=== PATIENT | female | born 1940 | race Caucasian/White ===

== ENCOUNTER 2022-03-06 21:30 | Inpatient (IN) | payer MEDICARE, OTHER, SELFPAY ==
--- NOTE | ~2022-03-06 | XR_ITS ---
EXAMINATION: PORTABLE CHEST 1 VIEW CLINICAL INFORMATION: SOB . COMPARISON: No recent pertinent prior studies are available for comparison. TECHNIQUE: Portable frontal view of the chest was obtained. FINDINGS: Lungs are well expanded. There are increased interstitial and vascular markings bilaterally with peribronchial cuffing. Component of mild interstitial edema is favored. No significant effusion or pneumothorax. Cardiac silhouette is enlarged with vascular calcification in aorta. No acute bony abnormality. XR/XR chest 1V IMPRESSION: Increased interstitial and vascular markings bilaterally with peribronchial cuffing. Component of mild interstitial edema is favored.
--- NOTE | ~2022-03-06 | CT_ITS ---
EXAMINATION: CT ANGIOGRAM OF THE CHEST WITH AND WITHOUT CONTRAST (CT PULMONARY ANGIOGRAM FOR PE) CLINICAL INFORMATION: Reason for Exam elevated RV pressure on echo, to eval for PE COMPARISON: None TECHNIQUE: Prior to contrast administration, noncontrast localization images were obtained. Subsequently, multidetector volumetric imaging was performed from the thoracic inlet to below the diaphragms following the administration of 65 mL Omnipaque 350 intravenous contrast. No contrast reaction reported Sagittal, coronal, and MIP oblique sagittal reformatted images were obtained on the CT workstation, uploaded to PACS, and reviewed. This CT examination was performed using dose optimization techniques as appropriate, variously including the following: *Automated exposure control *Adjustment of mA and/or kV according to patient size (this includes techniques or standardized protocols for targeted exams where dose is matched to indication/reason for exam; i.e. extremities or head) *Use of iterative reconstruction technique Total exam dose-length product 195 mGy-cm FINDINGS: QUALITY OF STUDY/CONTRAST BOLUS: Satisfactory. PULMONARY ARTERIES: No central or segmental pulmonary emboli. THORACIC AORTA: No aneurysm or dissection. LUNG: Central airways are patent. There is bilateral bronchial wall thickening present. There are bilateral regions of nodular airspace disease present most prominent in the right upper lobe. Some of this has a tree-in-bud configuration. There is some dependent airspace disease present bilaterally consistent with atelectasis. PLEURA: No pleural effusion or pneumothorax. MEDIASTINUM: The heart is enlarged. No pericardial effusion. There is mediastinal and right hilar lymphadenopathy present. There is a 1.4 cm short axis precarinal lymph node and a 2.5 x 1.3 cm aortopulmonic window lymph node.. No evidence of septal bowing or right heart strain. Coronary artery calcifications present. CHEST WALL/AXILLA: No axillary or internal mammary lymphadenopathy. OSSEOUS STRUCTURES: No acute or suspicious osseous abnormality. UPPER ABDOMEN: Within the upper pole of the left kidney there is a 1.4 cm low-density lesion with question some vascularity which could represent a complex cyst however solid mass is not excluded and ultrasound would be of help in further evaluation. No reflux of contrast into the hepatic veins to suggest elevated right heart pressures. CT/CT angio chest PE protocol IMPRESSION: No evidence of acute pulmonary artery embolus or thoracic aortic dissection. Cardiomegaly with bilateral regions of airspace disease and interstitial thickening. Above findings could be related to edema. Infectious process could also have this appearance. Mediastinal and hilar lymphadenopathy. Lesion upper pole of the left kidney for which ultrasound is recommended. VTE: negative
--- NOTE | 2022-03-06 21:34 | ECG_ITS ---
Test Reason : SOB Blood Pressure : / mmHG Vent. Rate : 074 BPM Atrial Rate : 000 BPM P-R Int : 000 ms QRS Dur : 086 ms QT Int : 378 ms P-R-T Axes : 000 040 008 degrees QTc Int : 419 ms Atrial fibrillation Abnormal ECG No previous ECGs available Referred By: Areli Shoemaker Electronically Signed By:Alejandro Arrieta
[2022-03-06 21:39] VITALS: BP 172/88; BP 189/82; PULSE 79; PULSE 99; RESP 24; TEMP 37.2; O2SAT 94; BMI 33.6
[2022-03-06 22:00] VITALS: BP 160/63; PULSE 73; RESP 16; TEMP 37.7; O2SAT 93
[2022-03-06 22:03] LABS: MANUAL DIFF FLAG NO
--- NOTE | 2022-03-06 22:03 | ED_ITS ---
HPI - SOB/Dyspnea General Chief Complaint: Dyspnea Stated Complaint: SOB Time Seen by Provider: 03/06/22 21:34 Source: patient and EMS Mode of arrival: EMS History of Present Illness HPI Narrative: History provided by EMS is that patient was found with oxygenation in the 70s. 81-year-old female who presents via EMS with complaints of shortness of breath, dry cough and decreased appetite for the last 2 days but otherwise denies chest pain and denies any GI or symptoms. Patient states that she intermittently takes a ?water pill? and states that her lower extremities have been more swollen. She also endorses that her has been is RSV positive. Related Data Allergies Allergy/AdvReac Type Severity Reaction Status Date / Time Unable to Assess Allergy Verified 03/06/22 21:34 Review of Systems Review of Systems: Pertinent positives and negatives as stated in HPI 10 point review of systems is otherwise negative. PMFSH Past Medical History Source: nursing notes reviewed Social History Social History Alcohol intake: current Alcohol intake frequency: holidays/special occasions only Alcohol type: wine Smoked in Last 30 Days: No Use of substances other than those prescribed or required for medical reasons: No Advance Directives: No Physical Exam Vital Signs: Vital Signs: Last Vital Signs Temp 99.9 F 03/06/22 22:00 Pulse 73 03/06/22 22:00 Resp 16 03/06/22 22:00 BP 160/63 H 03/06/22 22:00 Pulse Ox 93 03/06/22 22:00 O2 Del Method 03/06/22 22:00 O2 Flow Rate 6 03/06/22 22:00 Oxygen Flow Rate 7 03/06/22 21:39 BMI result Body Mass Index 33.6 VITAL SIGNS: Reviewed. GENERAL: Elevated BMI Well developed, well nourished, in moderate distress. HEAD: Normocephalic/atraumatic EYES: PERRLA, EOMI EARS: Ext canals without abnormality OROPHARYNX: no oral lesions noted, posterior pharynx clear NECK: Supple, no adenopathy LUNGS: Good inspiratory effort with coarse breath sounds throughout bilaterally, tachypnea is present without retractions. SpO2<94> on supplemental oxygen CARDIOVASCULAR: Regular rate and rhythm without noted murmurs, no JVD with bilateral 1+ pitting edema ABDOMEN: Soft, non-tender, non-distended with bowel sounds. MUSCULOSKELETAL: No tenderness, deformities, or effusions noted on gross inspection. EXTREMITIES: No cyanosis, clubbing or edema. SKIN: Inspection of the skin reveals no rashes NEUROLOGIC: Alert and oriented x 3. Strength and sensation to light touch were grossly intact x 4. Course Course Course Narrative: 2132: All laboratory investigations were reviewed without evidence to suggest pneumonia and instead both clinical and objective measures appear to be consistent with a combination acute CHF exacerbation in combination with viral illness, RSV. EKG does not demonstrate any acute cardiac etiology, chest x-ray again is consistent with clinical findings of CHF and viral illness. Although there is a noted elevation of the troponin this is felt to be type 2 in nature given the absence of chest pain and and the fact that patient was hypoxic on EMS arrival. Reevaluation(s) Reevaluation #1: Decision to admit the patient given the hypoxia, this case was discussed with the inpatient hospitalist who accepts admission after medication reconciliation. Time: 23:38 Medical Decision Making Medical Decision Making MDM Narrative: 81-year-old female with history and clinical presentation consistent with acute respiratory failure and no history of asthma/COPD but she does use BiPAP night a nd presents via EMS with significant shortness of breath and reports of hypoxia requiring nebs and route as well as supplemental oxygen. Patient currently is hemodynamically stable in suspect that this is secondary to a viral infection given her history as well as the absence of RVR noted on EKG with chronic atrial fibrillation. I have low clinical suspicion that this is a CHF. Differential Diagnosis CHF, RSV, will rule out pneumonia Admission/Observation Will treat and re-evaluate Lab Data Result Diagrams: 03/06/22 21:56 03/06/22 21:56 Labs: Lab Results 03/06/22 03/06/22 03/06/22 Range/Units 21:54 21:55 21:56 WBC 10.4 (4.8-10.8) X10*3/uL RBC 3.88 L (4.20-5.50) X10*6/uL Hgb 11.1 L (12.0-16.0) g/dl Hct 34.1 L (37.0-47.0) % MCV 87.9 (80.0-98.0) fL MCH 28.6 (27.0-33.0) pg MCHC 32.6 (31.0-35.0) g/dl RDW 13.4 (11.0-16.0) % Plt Count 254 (160-400) X10*3/uL MPV 9.1 L (9.4-12.3) fL Immature Gran % (Auto) 0.4 (0.0-0.4) % Neut % (Auto) 82.6 H (45-73) % Lymph % (Auto) 5.3 L (20-40) % Nance % (Auto) 10.8 (2-11) % Eos % (Auto) 0.5 (0-4) % Baso % (Auto) 0.4 (0-2) % Lymph # (Auto) 0.6 L (1.2-4.9) X10*3/uL Nance # (Auto) 1.1 (0.1-1.2) X10*3/uL Eos # (Auto) 0.1 (0.0-0.4) X10*3/uL Baso # (Auto) 0.0 (0.0-0.2) X10*3/uL Abs Immat Gran (auto) 0.04 H (0.00-0.03) X10*3/uL Absolute Neuts (auto) 8.6 H (2.0-8.3) x10*3/uL Absolute Nucleated RBC 0.000 (0.0-0.012) X10*3/uL Nucleated RBC % (auto) 0.0 (0.0-0.2) /100WBC PT 22.4 H (10.0-13.1) SEC INR 1.9 H (0.9-1.1) VBG pH (7.32-7.43) VBG pCO2 mmHg VBG pO2 mmHg VBG HCO3 (22-26) mmol/L VBG O2 Saturation % VBG Base Excess mmol/L Sodium (135-145) mmol/L Potassium (3.3-5.1) mmol/L Chloride (96-108) mmol/L Carbon Dioxide (22-29) mmol/L Anion Gap (12-20) BUN (9-16) mg/dL Creatinine (0.5-1.4) mg/dL Estim Creat Clear Calc Estimated GFR Random Glucose (60-115) mg/dL Calcium (8.4-10.2) mg/dL Total Bilirubin (0.0-1.0) mg/dL AST (5-31) U/L ALT (0-31) U/L Alkaline Phosphatase (39-117) U/L Troponin I High Sens (<3.5-17.0) ng/L B-Natriuretic Peptide (<100) pg/mL Total Protein (6.5-8.0) g/dL Albumin (3.5-5.0) g/dL Influenza Type A (PCR) NEGATIVE (Negative) Influenza Type B (PCR) NEGATIVE (Negative) RSV RNA Qual (PCR) POSITIVE A (Negative) SARS-CoV-2 RNA (RT-PCR) NEGATIVE (Negative) 03/06/22 03/06/22 03/06/22 Range/Units 21:56 21:56 21:57 WBC (4.8-10.8) X10*3/uL RBC (4.20-5.50) X10*6/uL Hgb (12.0-16.0) g/dl Hct (37.0-47.0) % MCV (80.0-98.0) fL MCH (27.0-33.0) pg MCHC (31.0-35.0) g/dl RDW (11.0-16.0) % Plt Count (160-400) X10*3/uL MPV (9.4-12.3) fL Immature Gran % (Auto) (0.0-0.4) % Neut % (Auto) (45-73) % Lymph % (Auto) (20-40) % Nance % (Auto) (2-11) % Eos % (Auto) (0-4) % Baso % (Auto) (0-2) % Lymph # (Auto) (1.2-4.9) X10*3/uL Nance # (Auto) (0.1-1.2) X10*3/uL Eos # (Auto) (0.0-0.4) X10*3/uL Baso # (Auto) (0.0-0.2) X10*3/uL Abs Immat Gran (auto) (0.00-0.03) X10*3/uL Absolute Neuts (auto) (2.0-8.3) x10*3/uL Absolute Nucleated RBC (0.0-0.012) X10*3/uL Nucleated RBC % (auto) (0.0-0.2) /100WBC PT (10.0-13.1) SEC INR (0.9-1.1) VBG pH (7.32-7.43) VBG pCO2 mmHg VBG pO2 mmHg VBG HCO3 (22-26) mmol/L VBG O2 Saturation % VBG Base Excess mmol/L Sodium 136 (135-145) mmol/L Potassium 4.5 (3.3-5.1) mmol/L Chloride 103 (96-108) mmol/L Carbon Dioxide 23 (22-29) mmol/L Anion Gap 15 (12-20) BUN 20 H (9-16) mg/dL Creatinine 1.00 (0.5-1.4) mg/dL Estim Creat Clear Calc 44.3 Estimated GFR 53 Random Glucose 221 H (60-115) mg/dL Calcium 8.6 (8.4-10.2) mg/dL Total Bilirubin 0.5 (0.0-1.0) mg/dL AST 24 (5-31) U/L ALT 19 (0-31) U/L Alkaline Phosphatase 62 (39-117) U/L Troponin I High Sens 21.0 H (<3.5-17.0) ng/L B-Natriuretic Peptide 406 H (<100) pg/mL Total Protein 6.4 L (6.5-8.0) g/dL Albumin 3.8 (3.5-5.0) g/dL Influenza Type A (PCR) (Negative) Influenza Type B (PCR) (Negative) RSV RNA Qual (PCR) (Negative) SARS-CoV-2 RNA (RT-PCR) (Negative) 03/06/22 Range/Units 22:01 WBC (4.8-10.8) X10*3/uL RBC (4.20-5.50) X10*6/uL Hgb (12.0-16.0) g/dl Hct (37.0-47.0) % MCV (80.0-98.0) fL MCH (27.0-33.0) pg MCHC (31.0-35.0) g/dl RDW (11.0-16.0) % Plt Count (160-400) X10*3/uL MPV (9.4-12.3) fL Immature Gran % (Auto) (0.0-0.4) % Neut % (Auto) (45-73) % Lymph % (Auto) (20-40) % Nance % (Auto) (2-11) % Eos % (Auto) (0-4) % Baso % (Auto) (0-2) % Lymph # (Auto) (1.2-4.9) X10*3/uL Nance # (Auto) (0.1-1.2) X10*3/uL Eos # (Auto) (0.0-0.4) X10*3/uL Baso # (Auto) (0.0-0.2) X10*3/uL Abs Immat Gran (auto) (0.00-0.03) X10*3/uL Absolute Neuts (auto) (2.0-8.3) x10*3/uL Absolute Nucleated RBC (0.0-0.012) X10*3/uL Nucleated RBC % (auto) (0.0-0.2) /100WBC PT (10.0-13.1) SEC INR (0.9-1.1) VBG pH 7.34 (7.32-7.43) VBG pCO2 38 mmHg VBG pO2 63 mmHg VBG HCO3 21 L (22-26) mmol/L VBG O2 Saturation 85.0 % VBG Base Excess -4.0 mmol/L Sodium (135-145) mmol/L Potassium (3.3-5.1) mmol/L Chloride (96-108) mmol/L Carbon Dioxide (22-29) mmol/L Anion Gap (12-20) BUN (9-16) mg/dL Creatinine (0.5-1.4) mg/dL Estim Creat Clear Calc Estimated GFR Random Glucose (60-115) mg/dL Calcium (8.4-10.2) mg/dL Total Bilirubin (0.0-1.0) mg/dL AST (5-31) U/L ALT (0-31) U/L Alkaline Phosphatase (39-117) U/L Troponin I High Sens (<3.5-17.0) ng/L B-Natriuretic Peptide (<100) pg/mL Total Protein (6.5-8.0) g/dL Albumin (3.5-5.0) g/dL Influenza Type A (PCR) (Negative) Influenza Type B (PCR) (Negative) RSV RNA Qual (PCR) (Negative) SARS-CoV-2 RNA (RT-PCR) (Negative) Independent Interpretation I performed an independent interpretation of an: EKG Interpretation: Atrial fibrillation, HR-74, no STEMI, QRS/QTC are within normal limits. There is no EKG for comparison. Critical Care Time Critical Care Time Critical Care Time: Yes Total Critical Care Time: 30 Attestation: I personally attest to this time spent taking care of the patient. Discharge Plan Discharge Clinical Impression: CHF (congestive heart failure), Respiratory syncytial virus (RSV), Acute respiratory failure with hypoxia Patient Disposition: Admitted As Inpatient
[2022-03-06 22:04] LABS: Basophils Percent Auto 0.4 % (0-2); Eosinophils Absolute Auto 0.1 X10*3/uL (0.0-0.4); Eosinophils Percent Auto 0.5 % (0-4); Hematocrit 34.1 % (37.0-47.0); Hemoglobin 11.1 g/dl (12.0-16.0); Imm Gran Abs Auto 0.04 X10*3/uL (0.00-0.03); Imm Gran Pct Auto 0.4 % (0.0-0.4); Lymphocytes Absolute Auto 0.6 X10*3/uL (1.2-4.9); Lymphocytes Percent Auto 5.3 % (20-40); Mean Corpuscular HGB Conc 32.6 g/dl (31.0-35.0); Mean Corpuscular Hemoglobin 28.6 pg (27.0-33.0); Mean Corpuscular Volume 87.9 fL (80.0-98.0); Mean Platelet Volume 9.1 fL (9.4-12.3); Monocytes Absolute Auto 1.1 X10*3/uL (0.1-1.2); Monocytes Percent Auto 10.8 % (2-11); Neutrophils Absolute Auto 8.6 x10*3/uL (2.0-8.3); Neutrophils Percent Auto 82.6 % (45-73); Platelet Count 254 X10*3/uL (160-400); Red Blood Count 3.88 X10*6/uL (4.20-5.50); Red Cell Distribution Width 13.4 % (11.0-16.0); White Blood Count 10.4 X10*3/uL (4.8-10.8)
--- NOTE | 2022-03-06 22:05 | PC.NURSE ---
PT A&Ox3, reports increasing SOB with a dry cough for two days. Reports using home Cpap with no relief. PT wheezing, respiratory at bedside. BLL +2 edema. Denies any pain, CP, dizziness or headache.
[2022-03-06 22:09] LABS: VBG HCO3 21 mmol/L (22-26); VBG pCO2 38 mmHg; VBG pH 7.34 (7.32-7.43); VBG pO2 63 mmHg
[2022-03-06 22:14] LABS: INTERNATIONAL NORM RATIO 1.9 (0.9-1.1); Prothrombin Time 22.4 SEC (10.0-13.1)
[2022-03-06 22:22] LABS: Venous Blood Gas Refer to POC result
--- OUTSIDE RECORDS SUMMARY | 2022-03-06 22:40 | XMS_ITS | Continuity of Care Document ---
:1940 Author Organization [facility] Address [address] [address]- Care Team Providers Name Role Phone Damir Grigsby MD Primary Care Physician Encounter [facility] Date(s): 10/24/21 - 10/31/21 [facility] [address] [address]- Encounter Diagnosis Chronic atrial fibrillation (Discharge Diagnosis) - 10/24/21 HTN (hypertension) (Discharge Diagnosis) - 10/24/21 Attending Physician: Haja Holman Jr, MD Admitting Physician: Haja Holman Jr, MD Referring Physician: Not on Staff, Referring MD Allergies, Adverse Reactions, Alerts No Known Medication Allergies Medications Basaglar KwikPen 100 units/mL subcutaneous solution See Instructions, 45 units Daily, SC, in AM x 30 days, # 15 mL, 5 Refills, Maintenance, 08/16/21 16:52:00 EDT, [id number], Partial fill upon patient request if the prescription is for a schedule II opioid drug., 160, cm, 08/16/21 15:54:00 EDT... Start Date: 08/16/21 Status: Orderedfluconazole 150 mg oral tablet 1 tablet = 150 mg, By Mouth, Once, may repeat in 72 hours if symptoms persist. If symptoms continue to persist, may repeat 72 hours after second dose., # 3 tablet, 0 Refills, Soft Stop, 10/27/21 11:56:00 EDT, Tablet, [id number], Partial fill... Start Date: 10/27/21 Status: OrderedmetFORMIN 1000 mg oral tablet 1 tablet = 1,000 mg, By Mouth, 2 times a day, # 180 tablet, 2 Refills, Maintenance, 10/10/21 11:21:00 EDT, Tablet, [facility], Partial fill upon patient request if the prescription is for a schedule II opioid drug., 160, cm, /... Start Date: 10/10/21 Status: OrderedPaxlovid 150 mg-100 mg (150 mg-100 mg Dose) oral tablet See Instructions, Take 300 mg of Nirmatrelvir (2 tablets of 150 mg) and 100 mg of Ritonavir (One tablet of 100 mg) 2 times a day for 5 days. Take all 3 tablets together, # 30 tablet, 0 Refills, Maintenance, 10/10/21 11:18:00 EDT, [facility] #[id number], P... Start Date: 10/10/21 Status: Ordered Problem List Condition Effective Dates Status Health Status Informant HLD (hyperlipidemia)(Confirmed) Active HTN (hypertension)(Confirmed) Active Hypothyroidism(Confirmed) Active Obese class II(Confirmed) Active IBAN on CPAP(Confirmed) Active Type II diabetes mellitus(Confirmed) Active UI (urinary incontinence)(Confirmed) Active Diagnosis Diagnosis Type Effective Dates Health Clinical Infor mant Status Service Chronic atrial Discharge 10/24/21 fibrillation Diagnosis HTN (hypertension) Discharge 10/24/21 Diagnosis Vital Signs Most recent to oldest [Reference Range]: 1 Height 160 cm (10/24/21 10:00 AM) Weight 92.9 kg (10/24/21 10:00 AM) Oxygen Saturation [94-100 %] 98 % (10/24/21 10:00 AM) Pulse Rate [55-90 bpm] 60 bpm (10/24/21 10:00 AM) Body Mass Index [18.5-24.99] 36.29 *>HHI* (10/24/21 10:00 AM) Blood Pressure [90-138/55-84 mm Hg] 152/46 mm Hg *H* (10/24/21 10:00 AM) Mode of Delivery (Oxygen) Room air (10/24/21 10:00 AM) Blood pressure sites Arm, left (10/24/21 10:00 AM) Weight Obtained Via Standing scale (10/24/21 10:00 AM) Social History Social History Type Response Smoking Status Never (less than 100 in life time) entered on: 08/16/21 Sex
--- OUTSIDE RECORDS SUMMARY | 2022-03-06 22:40 | XMS_ITS | Continuity of Care Document ---
:1940 Author Organization [facility] Address [address] [place] [id number]- Care Team Providers Name Role Phone Damir Grigsby MD Primary Care Physician [id number] Date(s): 09/14/21 - 10/14/21 [facility] [address] [address]- Attending Physician: Mario Hunt Admitting Physician: AdmtrMario Referring Physician: Admtr, Ar8 Allergies, Adverse Reactions, Alerts No Known Medication Allergies Medications Basaglar KwikPen 100 units/mL subcutaneous solution See Instructions, 45 units Daily, SC, in AM x 30 days, # 15 mL, 5 Refills, Maintenance, 08/16/21 16:52:00 EDT, [facility]/pharmacy #[id number], Partial fill upon patient request if the prescription is for a schedule II opioid drug., 160, cm, 08/16/21 15:54:00 EDT... Start Date: 08/16/21 Status: Orderedfluconazole 150 mg oral tablet 1 tablet = 150 mg, By Mouth, Once, # 1 tablet, 0 Refills, Soft Stop, 09/12/21 17:46:00 EDT, Tablet, [facility]/pharmacy #[id number], Partial fill upon patient request if the prescription is for a schedule II opioiddrug., 160, cm, 08/16/21 15:54:00 EDT, Height Start Date: 09/12/21 Status: OrderedmetFORMIN 1000 mg oral tablet 1 tablet = 1,000 mg, By Mouth, 2 times a day, # 180 tablet, 2 Refills, Maintenance, 10/10/21 11:21:00 EDT, Tablet, [facility], Partial fill upon patient request if the prescription is for a schedule II opioid drug., 160, cm, ... Start Date: 10/10/21 Status: OrderedPaxlovid 150 mg-100 mg (150 mg-100 mg Dose) oral tablet See Instructions, Take 300 mg of Nirmatrelvir (2 tablets of 150 mg) and 100 mg of Ritonavir (One tablet of 100 mg) 2 times a day for 5 days. Take all 3 tablets together, # 30 tablet, 0 Refills, Maintenance, 10/10/21 11:18:00 EDT, [facility]/pharmacy #[id number], P... Start Date: 10/10/21 Status: Ordered Problem List Condition Effective Dates Status Health Status Informant Atrial fibrillation(Confirmed) Active HLD (hyperlipidemia)(Confirmed) Active HTN (hypertension)(Confirmed) Active Hypothyroidism(Confirmed) Active Obese class II(Confirmed) Active IBAN on CPAP(Confirmed) Active Type II diabetes mellitus(Confirmed) Active UI (urinary incontinence)(Confirmed) Active Social History Social History Type Response Smoking Status Never (less than 100 in life time) entered on: 08/16/21 Sex
--- OUTSIDE RECORDS SUMMARY | 2022-03-06 22:40 | XMS_ITS | Continuity of Care Document ---
:1940 Author Organization [facility] Address [address] [id number]- Care Team Providers Name Role Phone Damir Grigsby MD Primary Care Physician Encounter [facility] Date(s): 10/27/21 - 11/26/21 [facility] [address] [id number]- Allergies, Adverse Reactions, Alerts No Known Medication Allergies Medications amLODIPine 2.5 mg oral tablet 0 Refills, Maintenance, 07/13/21 10:15:00 EDT, Partial fill upon patient request if the prescriptionis for a schedule II opioid drug. Start Date: 07/13/21 Status: Orderedatorvastatin 20 mg oral tablet 0 Refills, Maintenance, 07/13/21 10:09:00 EDT, Partial fill upon patient request if the prescriptionis for a schedule II opioid drug. Start Date: 07/13/21 Status: OrderedBasaglar KwikPen 100 units/mL subcutaneous solution See Instructions, 45 units Daily, SC, in AM x 30 days, # 15 mL, 5 Refills, Maintenance, 08/16/21 16:52:00 EDT, [facility]/pharmacy #[id number], Partial fill upon patient request if the prescription is for a schedule II opioid drug., 160, cm, 08/16/21 15:54:00 EDT... Start Date: 08/16/21 Status: OrderedclonazePAM 0.25 mg oral tablet, disintegrating 0 Refills, Maintenance, 07/13/21 10:11:00 EDT, Partial fill upon patient request if the prescriptionis for a schedule II opioid drug. Start Date: 07/13/21 Status: Ordereddiazepam 5 mg oral tablet Refills 0, Maintenance, 07/13/21 10:16:00 EDT, Partial fill upon patient request if the prescriptionis for a schedule II opioid drug. Start Date: 07/13/21 Status: OrderedFluconazole Maintenance, pRN, 07/13/21 10:19:00 EDT Start Date: 07/13/21 Status: Orderedfluconazole 150 mg oral tablet 1 tablet = 150 mg, By Mouth, Once, may repeat in 72 hours if symptoms persist. If symptoms continue to persist, may repeat 72 hours after second dose., # 3 tablet, 0 Refills, Soft Stop, 10/27/21 11:56:00 EDT, [id number]... Start Date: 10/27/21 Status: OrderedglipiZIDE 5 mg oral tablet, extended release 1 tablet = 5 mg, By Mouth, Daily, for 30 days, # 30 tablet, 0 Refills, Hard Stop 12/18/21 12:32:00 EDT, 11/18/21 12:32:00 EDT, ER Tablet[id number] fill upon patient request if the prescription is for a schedule II opioid drug., 160,... Start Date: 11/18/21 Stop Date: 12/18/21 Status: OrderedglipiZIDE 5 mg oral tablet, extended release 1 tablet = 5 mg, By Mouth, Daily, # 90 tablet, 0 Refills, Maintenance, 12/18/21 12:32:00 EDT, ER Tablet, [facility], Partial fill upon patient request if the prescription is for a schedule II opioid drug., 160, cm, 10/24/21 10:0... Start Date: 12/18/21 Stop Date: 01/17/22 Status: OrderedJanuvia 100 mg oral tablet 0 Refills, Maintenance, 07/13/21 10:10:00 EDT, Partial fill upon patient request if the prescriptionis for a schedule II opioid drug. Start Date: 07/13/21 Status: Orderedlosartan 100 mg oral tablet 0 Refills, Maintenance, 07/13/21 10:11:00 EDT, Partial fill upon patient request if the prescriptionis for a schedule II opioid drug. Start Date: 07/13/21 Status: OrderedmetFORMIN 1000 mg oral tablet 1 tablet = 1,000 mg, By Mouth, 2 times a day, # 180 tablet, 2 Refills, Maintenance, 10/10/21 11:21:00 EDT, Tablet, [facility], Partial fill upon patient request if the prescription is for a schedule II opioid drug., 160, cm, ... Start Date: 10/10/21 Status: OrderedmetFORMIN 1000 mg oral tablet 0 Refills, Maintenance, 07/13/21 10:09:00 EDT, Partial fill upon patient request if the prescriptionis for a schedule II opioid drug. Start Date: 07/13/21 Status: OrderedMetoprolol Tartrate 50 mg oral tablet 1 tablet = 50 mg, By Mouth, 2 times a day, # 180 tablet, 3 Refills, Maintenance, 09/08/21 16:57:00 EDT, Tablet, [facility], Partial fill upon patient request if the prescription is for a schedule II opioid drug., 160, cm, ... Start Date: 09/08/21 Stop Date: 09/03/22 Status: OrderedMetoprolol Tartrate 50 mg oral tablet 1 tablet = 50 mg, By Mouth, 2 times a day, for 90 days, # 180 tablet, 3 Refills, Hard Stop 07/08/22 10:25:00 EDT, 07/13/21 10:25:00 EDT, Tablet, [facility], Partial fill upon patient request if the prescription is for a schedule... Start Date: 07/13/21 Stop Date: 07/08/22 Status: OrderedMultivitamin Daily, 0 Refills, Maintenance, 07/13/21 10:17:00 EDT, Partial fill upon patient request if the prescription is for a schedule II opioid drug. Start Date: 07/13/21 Status: OrderedPaxlovid 150 mg-100 mg (150 mg-100 mg Dose) oral tablet See Instructions, Take 300 mg of Nirmatrelvir (2 tablets of 150 mg) and 100 mg of Ritonavir (One tablet of 100 mg) 2 times a day for 5 days. Take all 3 tablets together, # 30 tablet, 0 Refills, Maintenance, 10/10/21 11:18:00 EDT, [facility]/pharmacy #[id number], P... Start Date: 10/10/21 Status: OrderedPradaxa 150 mg oral capsule 1 capsule = 150 mg, By Mouth, 2 times a day, # 180 capsule, 3 Refills, Maintenance, 09/08/21 16:57:00 EDT, Capsule, [facility], Partial fill upon patient request if the prescription is for a schedule II opioid drug., 160, cm, 05... Start Date: 09/08/21 Status: OrderedSynthroid 0.112 mg oral tablet 0 Refills, Maintenance, 07/13/21 10:10:00 EDT, Partial fill upon patient request if the prescriptionis for a schedule II opioid drug. Start Date: 07/13/21 Status: OrderedVitamin D3 oral tablet 1 tablet = 10 mcg, By Mouth, Daily, 0 Refills, Maintenance, 07/13/21 10:17:00 EDT, Partial fill uponpatient request if the prescription is for a schedule II opioid drug. Start Date: 07/13/21 Status: Ordered Problem List Condition Effective Dates Status Health Status Informant HLD (hyperlipidemia)(Confirmed) Active HTN (hypertension)(Confirmed) Active Hypothyroidism(Confirmed) Active Obese class II(Confirmed) Active IBAN on CPAP(Confirmed) Active Type II diabetes mellitus(Confirmed) Active UI (urinary incontinence)(Confirmed) Active Social History Social History Type Response Smoking Status Never (less than 100 in life time) entered on: 08/16/21 Sex Care Team PersonnelName: Damir Grigsby MD Address: [address] [place] [id number]
--- OUTSIDE RECORDS SUMMARY | 2022-03-06 22:40 | XMS_ITS | Continuity of Care Document ---
:1940 Author Organization [facility] Address [address] [place] [address]- Care Team Providers Name Role Phone Damir Grigsby MD Primary Care Physician Encounter [facility] Date(s): 02/06/22 - 02/13/22 [facility] [address] [place] [address]- Encounter Diagnosis Medicare annual wellness visit, subsequent (Discharge Diagnosis) - 02/06/22 Attending Physician: Damir Grigsby MD Allergies, Adverse Reactions, Alerts No Known Medication Allergies Immunizations Given and Recorded Vaccine Date Status Refusal Reason influenza virus vaccine, inactivated 12/29/21 Recorded [id number] 12y+ bivalent booster vax 12/29/21 Recorde d SARS-CoV-2 mRNA ([id number]) vax 07/08/21 Recorde d Medications amLODIPine 5 mg oral tablet 5 mg, 1, tablet, By Mouth, Daily, # 90 tablet, Refills 0, Tot. Refills 0, Maintenance, 01/23/22 10:23:00 EST, Route to Pharmacy Electronically, [facility], Partial fill upon patient request if the prescription is for a schedule... Start Date: 01/23/22 Status: Orderedatorvastatin 20 mg oral tablet 1 tablet = 20 mg, By Mouth, Daily, # 90 each, 3 Refills, Maintenance, 01/23/22 10:16:00 EST, Tablet,[facility], Partial fill upon patient request if the prescription is for a schedule II opioid drug., 160, cm, 10/24/21 10:00:00... Start Date: 01/23/22 Status: OrderedBasaglar KwikPen 100 units/mL subcutaneous solution See Instructions, 45 units Daily, SC, in AM x 30 days, # 15 mL, 11 Refills, Maintenance, 02/06/22 11:01:00 EST, [facility]/pharmacy #[id number], Partial fill upon patient request if the prescription is for a schedule II opioid drug., 160, cm, 02/06/22 10:19:00 ES... Start Date: 02/06/22 Status: Ordereddiazepam 5 mg oral tablet See Instructions, take one tablet 30 to 45 minutes before the ptocedure or before the flight, # 5 tablet, Refills 0, Tot. Refills 0, Maintenance, 02/06/22 11:10:00 EST, Instructions Replace Required Details, Route to Pharmacy Electronically, [facility]/phar... Start Date: 02/06/22 Status: Orderedfluconazole 150 mg oral tablet 1 tablet = 150 mg, By Mouth, Once, # 3 tablet, 0 Refills, Soft Stop, 02/06/22 11:10:00 EST, Tablet, [facility]/pharmacy #[id number], Partial fill upon patient request if the prescription is for a schedule II opioiddrug., 160, cm, 02/06/22 10:19:00 EST, Height Start Date: 02/06/22 Status: Orderedfluconazole 150 mg oral tablet 1 tablet = 150 mg, By Mouth, Once, may repeat in 72 hours if symptoms persist. If symptoms continue to persist, may repeat 72 hours after second dose., # 3 tablet, 0 Refills, Soft Stop, 10/27/21 11:56:00 EDT, Tablet, [facility]/pharmacy #[id number], Partial fill... Start Date: 10/27/21 Status: OrderedglipiZIDE 5 mg oral tablet, extended release 1 tablet, By Mouth, Daily, # 90 tablet, 3 Refills, Maintenance, 02/06/22 11:03:00 EST, [facility], 160, cm, 02/06/22 10:19:00 EST, Height Start Date: 02/06/22 Stop Date: 02/01/23 Status: OrderedJanuvia 100 mg oral tablet 1 tablet = 100 mg, By Mouth, Daily, # 90 tablet, 3 Refills, Maintenance, 02/06/22 11:05:00 EST, Tablet, [facility], Partial fill upon patient request if the prescription is for aschedule II opioid drug., 160, cm, 02/06/22 10:19... Start Date: 02/06/22 Stop Date: 02/01/23 Status: Orderedlosartan 100 mg oral tablet 0 Refills, Maintenance, 07/13/21 10:11:00 EDT, Partial fill upon patient request if the prescriptionis for a schedule II opioid drug. Start Date: 07/13/21 Status: OrderedmetFORMIN 1000 mg oral tablet 1 tablet = 1,000 mg, By Mouth, 2 times a day, # 180 tablet, 2 Refills, Maintenance, 10/10/21 11:21:00 EDT, Tablet, [facility], Partial fill upon patient request if [...] 3 Refills, Maintenance, 09/08/21 16:57:00 EDT, Tablet, [facility], Partial fill upon patient request if the prescription is for a schedule II opioid drug., 160, cm, ... Start Date: 09/08/21 Stop Date: 09/03/22 Status: OrderedMetoprolol Tartrate 50 mg oral tablet 1 tablet = 50 mg, By Mouth, 2 times a day, for 90 days, # 180 tablet, 3 Refills, Hard Stop 07/08/22 10:25:00 EDT, 07/13/21 10:25:00 EDT, Tablet, [facility], Partial fill upon patient request if the prescription is for a schedule... Start Date: 07/13/21 Stop Date: 07/08/22 Status: OrderedMultivitamin Daily, 0 Refills, Maintenance, 07/13/21 10:17:00 EDT, Partial fill upon patient request if the prescription is for a schedule II opioid drug. Start Date: 07/13/21 Status: OrderedPradaxa 150 mg oral capsule 1 capsule = 150 mg, By Mouth, 2 times a day, # 180 capsule, 3 Refills, Maintenance, 09/08/21 16:57:00 EDT, Capsule, [facility], Partial fill upon patient request if the prescription is for a schedule II opioid drug., 160, cm, 05... Start Date: 09/08/21 Status: OrderedSynthroid 0.112 mg oral tablet 1 tablet = 112 mcg, By Mouth, Daily, # 90 tablet, 2 Refills, Maintenance, 02/06/22 11:04:00 EST, Tablet, [facility], Partial fill upon patient request if the prescription is for a schedule II opioid drug., 160, cm, 02/06/22 10:1... Start Date: 02/06/22 Stop Date: 11/03/22 Status: OrderedVitamin D3 oral tablet 1 tablet = 10 mcg, By Mouth, Daily, 0 Refills, Maintenance, 07/13/21 10:17:00 EDT, Partial fill uponpatient request if the prescription is for a schedule II opioid drug. Start Date: 07/13/21 Status: Ordered Problem List Condition Confirmation Course Effective Dates Status Health I nformant Status HLD (hyperlipidemia) Confirmed Active HTN (hypertension) Confirmed Active Hypothyroidism Confirmed Active Obese class II Confirmed Active IBAN on CPAP Confirmed Active Type II diabetes Confirmed Active mellitus UI (urinary Confirmed Active incontinence) Diagnosis Diagnosis Type Effective Dates Health Clinical Infor [facility] Status Service Medicare annual Discharge 02/06/22 wellness visit, Diagnosis subsequent Procedures Procedure Date Related Diagnosis Body Site Status Hysterectomy and bilateral C ompleted salpingo-oophorectomy sample Vital Signs Most recent to oldest [Reference Range]: 1 Height 160 cm (02/06/22 10:19 AM) Social History Social History Type Response Smoking Status Never (less than 100 in life time) entered on: 08/16/21 Sex Note Traci Ramírez MA: PERFORM, SIGN, VERIFY Event Display: Patient Education/Instruction Authored Date: [id number] [facility] *BMP Quab Adlt Med Bltn Clinical Summary Name JOSE MANUEL ROPER Age 81 Years 1940 PCP Calista LEYVA, [id number] Visit Date 02/06/2022 10:18:00 Additional Instructions: Scheduled Appointments?? Future Appointments ?No Future Appointments Scheduled Follow-Up Instructions ?? Diagnosis Encounter for general adult medical examination without abnormal findings Medications: Please continue your medications until treatment is completed or stopped by your provider. Discuss any questions related to medications with your provider. Medications to Continue Taking That Have Changed [facility], [address] [place] [address] ALEYDA Long [phone], [phone] - GlipiZIDE (glipiZIDE 5 mg oral tablet, extended release) 1 tab(s) Oral Daily for 90 Days. Refills:3. Next Dose: - Levothyroxine (Synthroid 0.112 mg oral tablet) 1 tab(s) Oral Daily for 90 Days. Refills: 2. Next Dose: - sitagliptin (Januvia 100 mg oral tablet) 1 tab(s) Oral Daily for 90 Days. Refills: 3. Next Dose: [facility]/pharmacy #[id number], [address], [place] [phone], [phone] - Diazepam (diazepam 5 mg oral tablet) take one tablet 30 to 45 minutes before the ptocedure or before the flight. Refills: 0. Next Dose: - Fluconazole (fluconazole 150 mg oral tablet) 1 tab(s) Oral once. Refills: 0. Next Dose: These medications were not printed or sent to your pharmacy - Fluconazole (fluconazole 150 mg oral tablet) 1 tab(s) Oral once. may repeat in 72 hours if symptoms persist. If symptoms continue to persist, may repeat 72 hours after second dose.. Refills: 0. Next Dose: Medications to Continue with No Changes [facility]/pharmacy #[id number], [address], [place] [phone], [phone] Insulin Glargine (Basaglar KwikPen 100 units/mL subcutaneous solution) 45 units Daily, SC, in AM x 30 days. Refills: 11. Next Dose: These medications were not printed or sent to your pharmacy Amlodipine (amLODIPine 5 mg oral tablet) 1 tab(s) Oral Daily. Refills: 0. Next Dose: Atorvastatin (atorvastatin 20 mg oral tablet) 1 tab(s) Oral Daily. Refills: 3. Next Dose: Cholecalciferol (Vitamin D3 oral tablet) 1 tab(s) Oral Daily. Next Dose: dabigatran (Pradaxa 150 mg oral capsule) 1 capsule Oral twice a day. Refills: 3. Next Dose: Losartan (losartan 100 mg oral tablet) Next Dose: Metformin (metFORMIN 1000 mg oral tablet) Next Dose: Metformin (metFORMIN 1000 mg oral tablet) 1 tab(s) Oral twice a day. Refills: 2. Next Dose: Metoprolol (Metoprolol Tartrate 50 mg oral tablet) 1 tab(s) Oral twice a day for 90 Days. Refills: 3. Next Dose: Metoprolol (Metoprolol Tartrate 50 mg oral tablet) 1 tab(s) Oral twice a day for 90 Days. Refills: 3. Next Dose: Multivitamin Daily. Next Dose: No Longer Take the Following Medications Clonazepam (clonazePAM 0.25 mg oral tablet, disintegrating) nirmatrelvir-ritonavir (Paxlovid 150 mg-100 mg (150 mg-100 mg Dose) oral tablet) Take 300 mg of Nirmatrelvir (2 tablets of 150 mg) and 100 mg of Ritonavir (One tablet of 100 mg) 2 times a day for 5 days. Take all 3 tablets together. Refills: 0. Allergy Info:?? No Known Medication Allergies Medications Given This Visit Future Orders ?No future orders Vital Signs Height 160 cm Weight BMI Blood Pressure / Temperature Pulse Rate Respiratory Rate 02 Sat Mode of Delivery / You can now view a summary of your hospital visit from the comfort of your home through a free online portal called [facility]. [employer] is a website that allows you to securely view yourmedical information including discharge summary, medications and follow-up visits. ??You can also send a secure electronic message to your doctor???s office to request appointments, renew medications or just ask a question. You can enroll at [email or web address] or register during your next office visit. Disclaimer:?? The information provided is of a general nature and is intended to be used in conjunction with the recommendations and advice of your health care practitioner. ??Every effort has been made to ensure that the information provided is accurate and complete at the time it is provided to you however, as your needs change, or, as new ??information becomes available, different or additional instructions may be required. If you have questions, please consult with your primary care provider or pharmacist, as appropriate.??This information is not intended to serve as substitution for assessment and evaluation by a qualified health care provider. If you do not have a primary care provider, you may find a [facility] provider by calling [facility] at [phone]. For information about the plan of care including goals and instructions for your diagnosis, please see the patient education orders section of this document. Patient Education Materials?? The content of this educational material or handout may have been modified, supplemented, or adaptedfrom its original content and format to support your individualized medical care. Patient Care team information Care Team PersonnelName: Damir Grigsby MD Position: S Primary Care Physician Member Role: PCP Address: Address: [address] [place] [address] Care Team Related PersonsName: JASEN ROPER
--- OUTSIDE RECORDS SUMMARY | 2022-03-06 22:40 | XMS_ITS | Continuity of Care Document ---
:1940 Author Organization [facility] Address [address] [phone]- Care Team Providers Name Role Phone Daimr Grigsby MD Primary Care Physician Encounter [facility] [id number] Date(s): 08/16/21 - 08/23/21 [facility] [address] [place] [address]- Encounter Diagnosis Type II diabetes mellitus (Discharge Diagnosis) - 08/16/21 Atrial fibrillation (Discharge Diagnosis) - 08/16/21 HTN (hypertension) (Discharge Diagnosis) - 08/16/21 Hypothyroidism (Discharge Diagnosis) - 08/16/21 IBAN on CPAP (Discharge Diagnosis) - 08/16/21 Anxiety disorder (Discharge Diagnosis) - 08/16/21 HLD (hyperlipidemia) (Discharge Diagnosis) - 08/16/21 Attending Physician: Damir Grigsby MD Allergies, Adverse Reactions, Alerts No Known Medication Allergies Medications Basaglar KwikPen 100 units/mL subcutaneous solution See Instructions, 45 units Daily, SC, in AM x 30 days, # 15 mL, 5 Refills, Maintenance, 08/16/21 16:52:00 EDT, [facility]/pharmacy #[id number], Partial fill upon patient request if the prescription is for a schedule II opioid drug., 160, cm, 08/16/21 15:54:00 EDT... Start Date: 08/16/21 Status: Ordered Problem List Condition Effective Dates Status Health Status Informant Atrial fibrillation(Confirmed) Active HLD (hyperlipidemia)(Confirmed) Active HTN (hypertension)(Confirmed) Active Hypothyroidism(Confirmed) Active Obese class II(Confirmed) Active IBAN on CPAP(Confirmed) Active Type II diabetes mellitus(Confirmed) Active UI (urinary incontinence)(Confirmed) Active Diagnosis Diagnosis Type Effective Dates Health Clinical Infor mant Status Service Type II diabetes Discharge 08/16/21 mellitus Diagnosis Atrial fibrillation Discharge 08/16/21 Diagnosis HTN (hypertension) Discharge 08/16/21 Diagnosis Hypothyroidism Discharge 08/16/21 Diagnosis IBAN on CPAP Discharge 08/16/21 Diagnosis Anxiety disorder Discharge 08/16/21 Diagnosis HLD (hyperlipidemia) Discharge 08/16/21 Diagnosis Vital Signs Most recent to oldest [Reference Range]: 1 Height 160 cm (08/16/21 3:54 PM) Weight 92.4 kg (08/16/21 3:54 PM) Oxygen Saturation [94-100 %] 98 % (08/16/21 3:54 PM) Pulse Rate [55-90 bpm] 54 bpm *L* (08/16/21 3:54 PM) Body Mass Index [18.5-24.99] 36.09 *>HHI* (08/16/21 3:54 PM) Blood Pressure [90-138/55-84 mm Hg] 130/70 mm Hg (08/16/21 3:54 PM) Liters per Minute 0 L/min (08/16/21 3:54 PM) Mode of Delivery (Oxygen) Room air (08/16/21 3:54 PM) Blood pressure sites Arm, right (08/16/21 3:54 PM) Weight Obtained Via Standing scale (08/16/21 3:54 PM) Social History Social History Type Response Smoking Status Never (less than 100 in life time) entered on: 08/16/21 Sex
--- OUTSIDE RECORDS SUMMARY | 2022-03-06 22:40 | XMS_ITS | Continuity of Care Document ---
:1940 Author Organization [facility] Address [address] [place] [address]- Care Team Providers Name Role Phone Damir Grigsby MD Primary Care Physician Encounter [facility] Date(s): 09/14/21 - 09/21/[address] [address]- Attending Physician: Ashanti Lopez MD Admitting Physician: Ashanti Lopez MD Referring Physician: Ashanti Lopez MD Allergies, Adverse Reactions, Alerts No Known [...] Refills, Soft Stop, 09/12/21 17:46:00 EDT, Tablet, [id number], Partial fill upon patient request if the prescription is for a schedule II opioiddrug., 160, cm, 08/16/21 15:54:00 EDT, Height Start Date: 09/12/21 Status: Ordered Problem List Condition Effective Dates [...]
--- OUTSIDE RECORDS SUMMARY | 2022-03-06 22:40 | XMS_ITS | Continuity of Care Document ---
:1940 Author Organization [facility] Address [address] [place] [address]- Care Team Providers Name Role Phone Damir Grigsby MD Primary Care Physician [facility] Date[facility]s): 10/10/21 - 10/17/21 [facility] [address] [place] [address]- Encounter Diagnosis COVID-19 virus infection (Discharge Diagnosis) - 10/10/21 Type II diabetes mellitus (Discharge Diagnosis) - 10/10/21 Atrial fibrillation (Discharge Diagnosis) - 10/10/21 Attending Physician: Damir Grigsby MD Allergies, Adverse Reactions, Alerts No Known Medication Allergies Medications Basaglar KwikPen 100 units/mL subcutaneous solution See Instructions, 45 units Daily, SC, in AM x 30 days, # 15 mL, 5 Refills, Maintenance, 08/16/21 16:52:00 EDT, [facility]/pharmacy #[id number], Partial fill upon patient [...] 2 Refills, Maintenance, 10/10/21 11:21:00 EDT, Tablet, [facility], Partial fill upon patient request if [...] tablet, 0 Refills, Maintenance, 10/10/21 11:18:00 EDT, [facility]/pharmacy #[id number], P... Start Date: 10/10/21 Status: Ordered Problem List Condition Effective Dates Status Health Status Informant Atrial fibrillation(Confirmed) Active HLD (hyperlipidemia)(Confirmed) Active HTN (hypertension)(Confirmed) Active Hypothyroidism(Confirmed) Active Obese class II(Confirmed) Active IBAN on CPAP(Confirmed) Active Type II diabetes mellitus(Confirmed) Active UI (urinary incontinence)(Confirmed) Active Diagnosis Diagnosis Type Effective Dates Health Clinical Infor mant Status Service COVID-19 virus Discharge 10/10/21 infection Diagnosis Type II diabetes Discharge 10/10/21 mellitus Diagnosis Atrial fibrillation Discharge 10/10/21 Diagnosis Social History Social History Type Response Smoking Status Never (less than 100 in life time) entered on: 08/16/21 Sex
--- OUTSIDE RECORDS SUMMARY | 2022-03-06 22:40 | XMS_ITS | Continuity of Care Document ---
:1940 Author Organization [facility] Address [address] [place] [address]- Care Team Providers Name Role Phone Not on Staff, PCP Primary Care Physician Unavailable Encounter [facility] R [id number] Date(s): 05/25/21 - 07/27/[address] [address]- Attending Physician: Ashanti Lopez MD Admitting Physician: Ashanti Lopez MD Referring Physician: Damir Grigsby MD Allergies, Adverse Reactions, Alerts No Known Medication Allergies
--- OUTSIDE RECORDS SUMMARY | 2022-03-06 22:40 | XMS_ITS | Continuity of Care Document ---
:1940 Author Organization [facility] Address [address] [phone]- Care Team Providers Name Role Phone Damir Grigsby MD Primary Care Physician Encounter [facility] Date(s): 09/12/21 - 10/12/21 [facility] [address] [place] [address]- Allergies, Adverse Reactions, Alerts No Known Medication Allergies Medications Basaglar KwikPen 100 units/mL subcutaneous solution See Instructions, 45 units Daily, SC, in AM x 30 days, # 15 mL, 5 Refills, Maintenance, 08/16/21 16:52:00 EDT, [facility]/pharmacy #[id number], Partial fill upon patient request if the prescription is for a schedule II opioid drug., 160, cm, 08/16/21 15:54:00 EDT... Start Date: 08/16/21 Status: Orderedfluconazole 150 mg oral tablet 1 tablet = 150 mg, By Mouth, Once, # 1 tablet, 0 Refills, Soft Stop, 09/12/21 17:46:00 EDT, Tablet, [facility]/pharmacy #[id number], Partial fill upon patient request if the prescription is for a schedule II opioiddrug., 160, cm, 08/16/21 15:54:00 EDT, Height Start Date: 09/12/21 Status: OrderedmetFORMIN 1000 mg oral tablet 1 tablet = 1,000 mg, By Mouth, 2 times a day, # 180 tablet, 2 Refills, Maintenance, 10/10/21 11:21:00 EDT, Tablet, [facility], Partial fill upon patient request if [...] 0 Refills, Maintenance, 10/10/21 11:18:00 EDT, [facility]/pharmacy #[id number], P... Start Date: 10/10/21 Status: [...]
--- OUTSIDE RECORDS SUMMARY | 2022-03-06 22:40 | XMS_ITS | Continuity of Care Document ---
:1940 Author Organization [facility] Address [address] [phone]- Care Team Providers Name Role Phone Damir Grigsby MD Primary Care Physician Encounter [facility] Date(s): 10/25/21 - 11/24/21 [facility] [address] [phone]- Allergies, Adverse Reactions, Alerts No Known Medication [...] mL, 5 Refills, Maintenance, 08/16/21 16:52:00 EDT, [facility]/pharmacy #[id number], Partial fill upon [...] Refills, Soft Stop, 10/27/21 11:56:00 EDT, [id number]... Start Date: 10/27/21 Status: OrderedglipiZIDE 5 mg oral tablet, extended release 1 tablet = 5 mg, By Mouth, Daily, for 30 days, # 30 tablet, 0 Refills, Hard Stop 12/18/21 12:32:00 EDT, 11/18/21 12:32:00 EDT, ER Tablet, [id number] Partial fill upon patient request if the prescription is for a schedule II opioid drug., 160,... Start Date: 11/18/21 Stop Date: 12/18/21 Status: OrderedglipiZIDE 5 mg oral tablet, extended release 1 tablet = 5 mg, By Mouth, Daily, # 90 tablet, 0 Refills, Maintenance, 12/18/21 12:32:00 EDT, ER Tablet, [facility], Partial fill upon patient request if [...] 2 Refills, Maintenance, 10/10/21 11:21:00 EDT, Tablet, [facility], Partial fill upon patient request if [...] 3 Refills, Maintenance, 09/08/21 16:57:00 EDT, Tablet, [facility], Partial fill upon patient request if the prescription is for a schedule II opioid drug., 160, cm, ... Start Date: 09/08/21 Stop Date: 09/03/22 Status: OrderedMetoprolol Tartrate 50 mg oral tablet 1 tablet = 50 mg, By Mouth, 2 times a day, for 90 days, # 180 tablet, 3 Refills, Hard Stop 07/08/22 10:25:00 EDT, 07/13/21 10:25:00 EDT, Tablet, [facility], Partial fill upon patient request if [...] tablet, 0 Refills, Maintenance, 10/10/21 11:18:00 EDT, [facility]/pharmacy #[id number], P... Start Date: 10/10/21 Status: OrderedPradaxa 150 mg oral capsule 1 capsule = 150 mg, By Mouth, 2 times a day, # 180 capsule, 3 Refills, Maintenance, 09/08/21 16:57:00 EDT, Capsule, [facility], Partial fill upon patient request if [...] Care Team PersonnelName: Damir Grigsby MD Address: [address] [place] [id number]
[2022-03-06 22:41] LABS: Influenza A PCR NEGATIVE (Negative); Influenza B PCR NEGATIVE (Negative); Resp Syncy Virus RNA Qual PCR POSITIVE (Negative); SARS COV2 PCR INHOUSE NEGATIVE (Negative)
--- OUTSIDE RECORDS SUMMARY | 2022-03-06 22:41 | XMS_ITS | Continuity of Care Document ---
:1940 Author Organization [facility] n Address [address] [address]- Care Team Providers Name Role Phone Damir Grigsby MD Primary Care Physician [place] [facility]22 - 01/30/22 [facility] [address] [address]- Encounter Diagnosis Atrial fibrillation (Discharge Diagnosis) - 01/23/22 HTN (hypertension) (Discharge Diagnosis) - 01/23/22 HLD (hyperlipidemia) (Discharge Diagnosis) - 01/23/22 Attending Physician: Haja Holman Jr, MD Admitting Physician: Haja Holman Jr, MD Referring Physician: Damir Grigsby MD Allergies, Adverse Reactions, Alerts No Known Medication Allergies Medications amLODIPine 5 mg oral tablet 5 mg, 1, tablet, By Mouth, Daily, # 90 tablet, Refills 0, Tot. Refills 0, Maintenance, 01/23/22 10:23:00 EST, [facility] Partial fill upon patient request if the prescription is for a schedule... Start Date: 01/23/22 Status: Orderedatorvastatin 20 mg oral tablet 1 tablet = 20 mg, By Mouth, Daily, # 90 each, 3 Refills, Maintenance, 01/23/22 10:16:00 EST, Tablet,[facility], Partial fill upon patient request if the prescription is for a schedule II opioid drug., 160, cm, 10/24/21 10:00:00... Start Date: 01/23/22 Status: OrderedBasaglar KwikPen 100 units/mL subcutaneous solution See Instructions, 45 units Daily, SC, in AM x 30 days, # 15 mL, 5 Refills, Maintenance, 08/16/21 16:52:00 EDT, [facility]/pharmacy #[id number], Partial fill upon [...] Refills, Soft Stop, 10/27/21 11:56:00 EDT, Tablet, [facility]/pharmacy #[id number], Partial fill... Start Date: 10/27/21 Status: OrderedglipiZIDE 5 mg oral tablet, extended release 1 tablet, By Mouth, Daily, # 30 tablet, 5 Refills, Maintenance, 12/13/21 11:22:00 EDT, [facility]/pharmacy #[id number], 160, cm, 10/24/21 10:00:00 EDT, Height Start Date: 12/13/21 Status: OrderedJanuvia 100 mg oral tablet 0 [...] 2 Refills, Maintenance, 10/10/21 11:21:00 EDT, Tablet, [facility], Partial fill upon patient request [...] 3 Refills, Maintenance, 09/08/21 16:57:00 EDT, Tablet, [facility], Partial fill upon patient request if the prescription is for a schedule II opioid drug., 160, cm, ... Start Date: 09/08/21 Stop Date: 09/03/22 Status: OrderedMetoprolol Tartrate 50 mg oral tablet 1 tablet = 50 mg, By Mouth, 2 times a day, for 90 days, # 180 tablet, 3 Refills, Hard Stop 07/08/22 10:25:00 EDT, 07/13/21 10:25:00 EDT, Tablet, [facility], Partial fill upon patient request [...] tablet, 0 Refills, Maintenance, 10/10/21 11:18:00 EDT, [facility]/pharmacy #[id number], P... Start Date: 10/10/21 Status: OrderedPradaxa 150 mg oral capsule 1 capsule = 150 mg, By Mouth, 2 times a day, # 180 capsule, 3 Refills, Maintenance, 09/08/21 16:57:00 EDT, Capsule, [facility], Partial fill upon patient request [...] Problem List Condition Confirmation Course Effective Dates [facility] I nformant Status HLD (hyperlipidemia) Confirmed Active HTN (hypertension) Confirmed Active Hypothyroidism Confirmed Active Obese class II Confirmed Active IBAN on CPAP Confirmed Active Type II diabetes Confirmed Active mellitus UI (urinary Confirmed Active incontinence) Diagnosis Diagnosis Type Effective Dates Health Clinical Infor mant Status Service Atrial fibrillation Discharge 01/23/22 Diagnosis HTN (hypertension) Discharge 01/23/22 Diagnosis HLD Discharge 01/23/22 (hyperlipidemia) Diagnosis Social History Social History Type Response Smoking Status Never (less than 100 in life time) entered on: 08/16/21 Sex Cardiology Outpatient Note River Youngblood MD, Haja Pearson: PERFORM Event Display: Cardiology Note Office Authored Date: [id number] Patient: ??JOSE MANUEL ROPER ? Age:??81 Years?Sex:??Female?:??1940?? Telemedicine Service was provided using telemedicine Reason For Visit 3 MONTH HTN AFIB History of Present Illness/ Interval History 80-year-old female ?? past medical history -chronic atrial fibrillation on Pradaxa, -insulin-dependent diabetes mellitus, -hypertension, -obstructive sleep apnea ?? On visit,??doing well Home blood pressure in the mornings in the 150s 160s in the afternoons high 130s low 140s, she did not take her heart rate, she is taking amlodipine 2.5 daily with some swelling she does have Lasix but does not like taking this she says her shoes do not fit in the afternoon as well??not gross edema ?? Not have any other complaints to include shortness of breath passing out or chest pain ?? She needs her atorvastatin refilled has taken 20 for a number of years does have diabetes, has had a difficult time getting with her primary doctor for responsiveness Physical Exam Telephone visit Assessment/Plan 1.??Atrial fibrillation Chronic on anticoagulation, no obvious symptoms 2.??HTN (hypertension) Minimally elevated would like to increase atorvastatin to 5 and take Lasix for swelling on appearingbasis 3.??HLD (hyperlipidemia) Off of atorvastatin, strong indication due to age and diabetes we will refill defer to PCP Orders: Amlodipine, 5 mg, 1, tablet, By Mouth, Daily, # 90 tablet, Refills 0, Tot. Refills 0, Maintenance, 01/23/22 10:23:00 EST, [facility], Partial fill upon patient request if the prescription is for a schedule... Atorvastatin, 1 tablet = 20 mg, By Mouth, Daily, # 90 each, 3 Refills, Maintenance, 01/23/22 10:16:00 EST, Tablet, [facility], Partial fill upon patient request if the prescription is for a schedule II opioid drug., 160, cm, 10/24/21 10:00:00... Recommendations:??Increase atorvastatin to 5 mg daily continue home monitoring follow-up in the office in 3 months??questions entertained. Telehealth Time of direct telehealth encounter/medical discussion: _10 minutes The patient was located in a home setting in the [facility] during this Phone electronic televisit, and gave consent to conduct the visit via telehealth. Provider was located in a [facility] office. Persons other than patient involved in televisit included: none Allergies No Known Medication Allergies Home Medications amLODIPine 5 mg oral tablet, 5 mg= 1 tablet, By Mouth, Daily atorvastatin 20 mg oral tablet, 20 mg= 1 tablet, By Mouth, Daily, 3 refills Basaglar KwikPen 100 units/mL subcutaneous solution, See Instructions, 5 refills, 45 units Daily, SC, in AM x 30 days clonazePAM 0.25 mg oral tablet, disintegrating,?Not taking diazepam 5 mg oral tablet Fluconazole, pRN fluconazole 150 mg oral tablet, 150 mg= 1 tablet, By Mouth, Once, may repeat in 72 hours if symptoms persist. If symptoms continue to persist, may repeat 72 hours after second dose. glipiZIDE 5 mg oral tablet, extended release, 1 tablet, By Mouth, Daily, 5 refills Januvia 100 mg oral tablet losartan 100 mg oral tablet metFORMIN 1000 mg oral tablet, 1000 mg= 1 tablet, By Mouth, 2 times a day, 2 refills metFORMIN 1000 mg oral tablet Metoprolol Tartrate 50 mg oral tablet, 50 mg= 1 tablet, By Mouth, 2 times a day, 3 refills Metoprolol Tartrate 50 mg oral tablet, 50 mg= 1 tablet, By Mouth, 2 times a day, 3 refills Multivitamin, Daily Paxlovid 150 mg-100 mg (150 mg-100 mg Dose) oral tablet, See Instructions, Take 300 mg of Nirmatrelvir (2 tablets of 150 mg) and 100 mg of Ritonavir (One tablet of 100 mg) 2 times a day for 5 days. Take all 3 tablets together,?Not taking Pradaxa 150 mg oral capsule, 150 mg= 1 capsule, By Mouth, 2 times a day, 3 refills Synthroid 0.112 mg oral tablet Vitamin D3 oral tablet, 10 mcg= 1 tablet, By Mouth, Daily Lab Results Cardiology Labs WBC: 8.8 k/mm3 (09/08/21) RBC:??4.08 m/mm3??Low (09/08/21) Hgb:??11.5 Gm/dL??Low (09/08/21) Hct: 36.7 % (09/08/21) MCV: 90 femtoliters (09/08/21) MCH: 28.2 pg (09/08/21) MCHC:??31.3 g/dL??Low (09/08/21) Platelet Count: 326 k/mm3 (09/08/21) RDW-SD: 43.1 femtoliters (09/08/21) Nucleated RBC (Automated): 0 #/100 WBC'S (09/08/21) Abs. Neut: 6 k/mm3 (09/08/21) Abs. Lymph: 1.7 k/mm3 (09/08/21) Abs. Ware: 0.7 k/mm3 (09/08/21) Abs. Eo: 0.2 k/mm3 (09/08/21) Abs. Baso: 0.1 k/mm3 (09/08/21) Neut %: 68.8 % (09/08/21) Ware %: 8.2 % (09/08/21) Eos %: 2.7 % (09/08/21) Baso %: 0.8 % (09/08/21) Imm Gran: 0.3 % (09/08/21) Abs. Imm Gran: 0 k/mm3 (09/08/21) Sodium: 141 mmol/L (09/08/21) Potassium: 4.4 mmol/L (09/08/21) Chloride: 101 mmol/L (09/08/21) Bicarbonate Level: 27 mmol/L (09/08/21) Glucose Level: 81 mg/dL (09/08/21) Hemoglobin A1C (Monitoring):??7.2 %??High (09/08/21) BUN: 20 mg/dL (09/08/21) Creatinine-Blood: 0.8 mg/dL (09/08/21) Calcium: 10.2 mg/dL (09/08/21) Protein, Total: 6.7 Gm/dL (09/08/21) Albumin: 4.3 Gm/dL (09/08/21) Alkaline Phosphatase: 82 units/L (09/08/21) AST (SGOT): 16 units/L (09/08/21) ALT (SGPT): 15 units/L (09/08/21) Bilirubin, Total: 0.5 mg/dL (09/08/21) Cholesterol: 153 mg/dL (09/08/21) Triglycerides: 115 mg/dL (09/08/21) HDL Cholesterol: 52 mg/dL (09/08/21) LDL Cholesterol: 78 mg/dL (09/08/21) Non HDL Cholesterol: 101 mg/dL (09/08/21) TSH: 2.03 uIU/mL (09/08/21) Free T4: 1.61 ng/dL (09/08/21) Diagnostic Impression ECG ECG 12-Lead ?? 09:59:11 Ventricular Rate: 52 BPM Atrial Rate: 241 BPM QRS Duration: 86 ms Q-T Interval: 452 ms QTC Calculation(Bazett): 420 ms R Darragh: 31 degrees T Darragh: 22 degrees Atrial fibrillation with slow ventricular response Abnormal ECG No previous ECGs available Confirmed by NGHIA CARBAJAL ([id number]) on 08/24/2021 5:55:52 PM ?? [place]: NGHIA CARBAJAL ?? Signed By: Nghia Carbajal MD Echo Echocardiogram - Complete ?? 10:11:09 Summary The left ventricle is poorly visualized. The left ventricular size is normal. The left ventricular wall thickness is mildly increased. The LV systolic function is normal . The left ventricular ejection fraction is 60-65 %. Unable to assess diastolic function . Abnormal septal wall motion possible conduction related. ?? The right ventricle is poorly visualized. The right ventricular size is at the upper limits of normal. Right ventricular systolic function is mildly reduced An accurate pulmonary artery pressure could not be obtained. ?? There is mild mitral regurgitation. ?? Comparison No prior study available for comparison. ?? Signature ?? Signed By: River Youngblood MD, Haja Pearson Problem List/Past Medical History Ongoing HLD (hyperlipidemia) HTN (hypertension) Hypothyroidism Obese class II IBAN on CPAP Type II diabetes mellitus UI (urinary incontinence) Historical Atrial fibrillation Procedure/Surgical History No qualifying data available. Social History Tobacco Use: Never (less than 100 in lifetime)., 08/16/2021 Family History No family history recorded. Note Marry Webber: PERFORM, SIGN, VERIFY Event Display: Patient Education/Instruction Authored Date: [id number] [facility] *NHmp Hrt Vas Off Clinical Summary Name JOSE MANUEL ROPER Age 81 Years 1940 PCP [facility]igs[id number] Visit Date 01/23/2022 10:00:00 Additional Instructions: Scheduled Appointments?? Future Appointments ?*[facility]??[facility]??Med??Bltn ?[address],??[place],??[address] ?Phone:??--?Fax:??-- ?Appt. Date:??02/06/2022?10:40 AM ?Scheduled Provider:??Damir Grigsby MD Follow-Up Instructions ?? With: Address: When: Haja Holman [facility] [place] [address] Business (1) In 3 months 04/25/2022 Diagnosis Unspecified atrial fibrillation; Hyperlipidemia, unspecified; Essential (primary) hypertension Medications: Please continue your medications until treatment is completed or stopped by your provider. Discuss any questions related to medications with your provider. Medications to Continue Taking That Have Changed [facility], [address] [place] [address] ALEYDA Long [phone], [phone] - Amlodipine (amLODIPine 5 mg oral tablet) 1 tab(s) Oral Daily. Refills: 0. Next Dose: - Atorvastatin (atorvastatin 20 mg oral tablet) 1 tab(s) Oral Daily. Refills: 3. Next Dose: Medications to Continue with No Changes These medications were not printed or sent to your pharmacy Cholecalciferol (Vitamin D3 oral tablet) 1 tab(s) Oral Daily. Next Dose: Clonazepam (clonazePAM 0.25 mg oral tablet, disintegrating) Next Dose: dabigatran (Pradaxa 150 mg oral capsule) 1 capsule Oral twice a day. Refills: 3. Next Dose: Diazepam (diazepam 5 mg oral tablet) Next Dose: Fluconazole pRN. Next Dose: Fluconazole (fluconazole 150 mg oral tablet) 1 tab(s) Oral once. may repeat in 72 hours if symptoms persist. If symptoms continue to persist, may repeat 72 hours after second dose.. Refills: 0. Next Dose: GlipiZIDE (glipiZIDE 5 mg oral tablet, extended release) 1 tab(s) Oral Daily. Refills: 5. Next Dose: Insulin Glargine (Basaglar KwikPen 100 units/mL subcutaneous solution) 45 units Daily, SC, in AM x 30 days. Refills: 5. Next Dose: Levothyroxine (Synthroid 0.112 mg oral tablet) Next Dose: Losartan (losartan 100 mg oral tablet) Next Dose: Metformin (metFORMIN 1000 mg oral tablet) 1 tab(s) Oral twice a day. Refills: 2. Next Dose: Metformin (metFORMIN 1000 mg oral tablet) Next Dose: Metoprolol (Metoprolol Tartrate 50 mg oral tablet) 1 tab(s) Oral twice a day for 90 Days. Refills: 3. Next Dose: Metoprolol (Metoprolol Tartrate 50 mg oral tablet) 1 tab(s) Oral twice a day for 90 Days. Refills: 3. Next Dose: Multivitamin Daily. Next Dose: nirmatrelvir-ritonavir (Paxlovid 150 mg-100 mg (150 mg-100 mg Dose) oral tablet) Take 300 mg of Nirmatrelvir (2 tablets of 150 mg) and 100 mg of Ritonavir (One tablet of 100 mg) 2 times a day for 5 days. Take all 3 tablets together. Refills: 0. Next Dose: sitagliptin (Januvia 100 mg oral tablet) Next Dose: Allergy Info:?? No Known Medication Allergies Medications Given This Visit Future Orders ?No future orders Vital Signs Height Weight BMI Blood Pressure / Temperature Pulse Rate Respiratory Rate 02 Sat Mode of Delivery / You can now view a summary of your hospital visit from the comfort of your home through a free online portal called [email or web address]. [email or web address] is a website that allows you to securely view yourmedical information including discharge summary, medications and follow-up visits. ??You can also send a secure electronic message to your doctor???s office to request appointments, renew medications or just ask a question. You can enroll at [email or web address] or register during your next office visit. [...] primary care provider, you may find a [facility] provider by calling [facility] at [phone]. For information about the plan of care [...] Care Team PersonnelName: Damir Grigsby MD Position: [facility] Primary Care Physician Member Role: PCP Address: Address: [address] [place] [address], [place] [address]- Care Team Related PersonsName: JASEN ROPER
--- OUTSIDE RECORDS SUMMARY | 2022-03-06 22:41 | XMS_ITS | Continuity of Care Document ---
:1940 Author Organization [facility] Address [address] [id number]- Care Team Providers Name Role Phone Damir Grigsby MD [id number] [address] [id number]- Allergies, Adverse Reactions, Alerts No Known Medication Allergies Medications amLODIPine 2.5 mg oral tablet 1 tablet = 2.5 mg, By Mouth, Daily, # 90 tablet, 3 Refills, Maintenance, 12/09/21 15:40:00 EDT, Tablet, [facility], Partial fill upon patient request if the prescription is for aschedule II opioid drug., 160, cm, 10/24/21 10:00... Start Date: 12/09/21 Status: Orderedatorvastatin 20 mg oral tablet 0 Refills, Maintenance, 07/13/21 10:09:00 EDT, Partial fill upon patient request if the prescriptionis for a schedule II opioid drug. Start Date: 07/13/21 Status: OrderedBasaglar KwikPen 100 units/mL subcutaneous solution See Instructions, 45 units Daily, SC, in AM x 30 days, # 15 mL, 5 Refills, Maintenance, 08/16/21 16:52:00 EDT, [facility]/pharmacy #[id number], Partial fill upon patient request if [...] Refills, Soft Stop, 10/27/21 11:56:00 EDT, Tablet, [facility]/pharmacy #[id number], Partial fill... Start Date: 10/27/21 Status: OrderedglipiZIDE 5 mg oral tablet, extended release 1 tablet, By Mouth, Daily, # 30 tablet, 5 Refills, Maintenance, 12/13/21 11:22:00 EDT, [facility]/pharmacy #[id number], 160, cm, 10/24/21 10:00:00 EDT, Height [...] 2 Refills, Maintenance, 10/10/21 11:21:00 EDT, Tablet, [facility], Partial fill upon patient request if [...] 3 Refills, Maintenance, 09/08/21 16:57:00 EDT, Tablet, [facility], Partial fill upon patient request if the prescription is for a schedule II opioid drug., 160, cm, ... Start Date: 09/08/21 Stop Date: 09/03/22 Status: OrderedMetoprolol Tartrate 50 mg oral tablet 1 tablet = 50 mg, By Mouth, 2 times a day, for 90 days, # 180 tablet, 3 Refills, Hard Stop 07/08/22 10:25:00 EDT, 07/13/21 10:25:00 EDT, Tablet, [facility], Partial fill upon patient request [...] tablet, 0 Refills, Maintenance, 10/10/21 11:18:00 EDT, [facility]/pharmacy #[id number], P... Start Date: 10/10/21 Status: OrderedPradaxa 150 mg oral capsule 1 capsule = 150 mg, By Mouth, 2 times a day, # 180 capsule, 3 Refills, Maintenance, 09/08/21 16:57:00 EDT, Capsule, [facility], Partial fill upon patient request [...] Active mellitus UI (urinary Confirmed Active incontinence) Social History Social History Type Response Smoking Status Never (less than 100 in life time) entered on: 08/16/21 Sex Patient Care team information PersonnelName: Damir Grigsby MD Address: Address: [address] [place] [id number]
--- OUTSIDE RECORDS SUMMARY | 2022-03-06 22:41 | XMS_ITS | Continuity of Care Document ---
:1940 Author Organization [facility] n Address [address] [address]- Care Team Providers Name Role Phone Damir Grigsby MD Primary Care Physician Encounter [facility] Date(s): 01/23/22 - 02/22/22 [facility] [address] [address]- Attending Physician: Admtr, Ar8 Admitting Physician: Admtr, Ar8 Referring Physician: Admtr, Ar8 Allergies, Adverse Reactions, Alerts No Known Medication Allergies Immunizations Given and Recorded Vaccine Date Status Refusal Reason influenza virus vaccine, inactivated 12/29/21 Recorded [id number] 12y+ bivalent booster vax 12/29/21 Recorde d SARS-CoV-2 mRNA ([id number]) vax 07/08/21 Recorde d Medications amLODIPine 5 mg oral tablet 5 mg, 1, tablet, By Mouth, Daily, # 90 tablet, Refills 0, Tot. Refills 0, Maintenance, 01/23/22 10:23:00 EST, Route to Pharmacy Electronically, [facility], Partial fill upon patient request if the prescription is for a schedule... Start Date: 01/23/22 Status: Orderedatorvastatin 20 mg oral tablet 1 tablet = 20 mg, By Mouth, Daily, # 90 each, 3 Refills, Maintenance, 01/23/22 10:16:00 EST, Tablet,[facility], Partial fill upon patient request if the prescription is for a schedule II opioid drug., 160, cm, 10/24/21 10:00:00... Start Date: 01/23/22 Status: OrderedBasaglar KwikPen 100 units/mL subcutaneous solution See Instructions, 45 units Daily, SC, in AM x 30 days, # 15 mL, 11 Refills, Maintenance, 02/06/22 11:01:00 EST, [facility]/pharmacy #[id number], Partial fill upon patient request [...] Replace Required Details, Route to Pharmacy Electronically, [facility]/phar... Start Date: 02/06/22 Status: Orderedfluconazole 150 mg oral tablet 1 tablet = 150 mg, By Mouth, Once, # 3 tablet, 0 Refills, Soft Stop, 02/06/22 11:10:00 EST, Tablet, [facility]/pharmacy #[id number], Partial fill upon patient request [...] Refills, Soft Stop, 10/27/21 11:56:00 EDT, Tablet, [facility]/pharmacy #[id number], Partial fill... Start Date: 10/27/21 Status: OrderedglipiZIDE 5 mg oral tablet, extended release 1 tablet, By Mouth, Daily, # 90 tablet, 3 Refills, Maintenance, 02/06/22 11:03:00 EST, [facility], 160, cm, 02/06/22 10:19:00 EST, Height Start Date: 02/06/22 Stop Date: 02/01/23 Status: OrderedJanuvia 100 mg oral tablet 1 tablet = 100 mg, By Mouth, Daily, # 90 tablet, 3 Refills, Maintenance, 02/06/22 11:05:00 EST, Tablet, [facility], Partial fill upon patient request [...] 2 Refills, Maintenance, 10/10/21 11:21:00 EDT, Tablet, [facility], Partial fill upon patient request [...] 3 Refills, Maintenance, 09/08/21 16:57:00 EDT, Tablet, [facility], Partial fill upon patient request if the prescription is for a schedule II opioid drug., 160, cm, ... Start Date: 09/08/21 Stop Date: 09/03/22 Status: OrderedMetoprolol Tartrate 50 mg oral tablet 1 tablet = 50 mg, By Mouth, 2 times a day, for 90 days, # 180 tablet, 3 Refills, Hard Stop 07/08/22 10:25:00 EDT, 07/13/21 10:25:00 EDT, Tablet, [facility], Partial fill upon patient request [...] 3 Refills, Maintenance, 09/08/21 16:57:00 EDT, Capsule, [facility], Partial fill upon patient request if the prescription is for a schedule II opioid drug., 160, cm, 05... Start Date: 09/08/21 Status: OrderedSynthroid 0.112 mg oral tablet 1 tablet = 112 mcg, By Mouth, Daily, # 90 tablet, 2 Refills, Maintenance, 02/06/22 11:04:00 EST, Tablet, [facility], Partial fill upon patient request [...] on: 08/16/21 Sex Patient Care team information Care Team PersonnelName: Damir Grigsby MD Position: [facility] Primary Care Physician Member Role: PCP Address: Address: [address] [place] [address]- Care Team Related PersonsName: JASEN ROPER
--- OUTSIDE RECORDS SUMMARY | 2022-03-06 22:41 | XMS_ITS | Continuity of Care Document ---
:1940 Author Organization [facility] Address [address] [place] [address]- Care Team Providers Name Role Phone Not on Staff, PCP Primary Care Physician Unavailable Encounter [facility] Date(s): 07/13/21 - 08/12/[address] [address]- Attending Physician: Mario Hunt Admitting Physician: Mario Hnut Referring Physician: Admtr, Ar8 Allergies, Adverse Reactions, Alerts No Known Medication Allergies
--- OUTSIDE RECORDS SUMMARY | 2022-03-06 22:41 | XMS_ITS | Continuity of Care Document ---
:1940 Author Organization [facility] Address [address] [place] [address]- Care Team Providers Name Role Phone Not on Staff, PCP Primary Care Physician Unavailable Encounter [facility] [id number] Date(s): 05/25/21 - 06/24/21 [facility] [address] [place] [id number]
--- OUTSIDE RECORDS SUMMARY | 2022-03-06 22:41 | XMS_ITS | Continuity of Care Document ---
:1940 Author Organization [facility] Address [address] [place] [id number]- Care Team Providers Name Role Phone Not on Staff, PCP Primary Care Physician Unavailable Encounter [facility] Date(s): 07/13/21 - 07/20/[address] [address]- Attending Physician: Ashanti Lopez MD Admitting Physician: Ashanti Lopez MD Referring Physician: Damir Grigsby MD Allergies, Adverse Reactions, Alerts No Known Medication Allergies Medications No Known Medications Vital Signs Most recent to oldest [Reference Range]: 1 Weight 91.9 kg (07/13/21 10:08 AM) Oxygen Saturation [94-100 %] 96 % (07/13/21 10:08 AM) Pulse Rate [55-90 bpm] 52 bpm *L* (07/13/21 10:08 AM) Blood Pressure [90-138/55-84 mm Hg] 177/66 mm Hg *H* (07/13/21 10:08 AM) Mode of Delivery (Oxygen) Room air (07/13/21 10:08 AM) Blood pressure sites Arm, left (07/13/21 10:08 AM) Weight Obtained Via Standing scale (07/13/21 10:08 AM)
--- OUTSIDE RECORDS SUMMARY | 2022-03-06 22:41 | XMS_ITS | Continuity of Care Document ---
:1940 Author Organization [facility] Address [address] [place] [id number]- Care Team Providers Name Role Phone Damir Grigsby MD Primary Care Physician Encounter [facility] R [id number] Date(s): 10/24/21 - 11/23/21 [facility] [address] [address]- Attending Physician: Mario Hunt Admitting Physician: AdmMario cifuentes Referring Physician: Admtr, ArIam Allergies, Adverse Reactions, Alerts No Known Medication [...] mL, 5 Refills, Maintenance, 08/16/21 16:52:00 EDT, [facility]/pharmacy #[id number], Partial fill upon patient request if [...] Refills, Soft Stop, 10/27/21 11:56:00 EDT, [id number]... Start Date: 10/27/21 Status: OrderedglipiZIDE 5 mg oral tablet, extended release 1 tablet = 5 mg, By Mouth, Daily, for 30 days, # 30 tablet, 0 Refills, Hard Stop 12/18/21 12:32:00 EDT, 11/18/21 12:32:00 EDT, ER Tablet, [id number] Partial fill upon patient request if the prescription is for a schedule II opioid drug., 160,... Start Date: 11/18/21 Stop Date: 12/18/21 Status: OrderedglipiZIDE 5 mg oral tablet, extended release 1 tablet = 5 mg, By Mouth, Daily, # 90 tablet, 0 Refills, Maintenance, 12/18/21 12:32:00 EDT, ER Tablet, [facility], Partial fill upon patient request [...] 2 Refills, Maintenance, 10/10/21 11:21:00 EDT, Tablet, [facility], Partial fill upon patient request [...] 3 Refills, Maintenance, 09/08/21 16:57:00 EDT, Tablet, [facility], Partial fill upon patient request if the prescription is for a schedule II opioid drug., 160, cm, ... Start Date: 09/08/21 Stop Date: 09/03/22 Status: OrderedMetoprolol Tartrate 50 mg oral tablet 1 tablet = 50 mg, By Mouth, 2 times a day, for 90 days, # 180 tablet, 3 Refills, Hard Stop 07/08/22 10:25:00 EDT, 07/13/21 10:25:00 EDT, Tablet, [facility], Partial fill upon patient request [...] tablet, 0 Refills, Maintenance, 10/10/21 11:18:00 EDT, [facility]/pharmacy #[id number], P... Start Date: 10/10/21 Status: OrderedPradaxa 150 mg oral capsule 1 capsule = 150 mg, By Mouth, 2 times a day, # 180 capsule, 3 Refills, Maintenance, 09/08/21 16:57:00 EDT, Capsule, [facility], Partial fill upon patient request [...] Care Team PersonnelName: Damir Grigsby MD Address: [address] [place] [address]
--- OUTSIDE RECORDS SUMMARY | 2022-03-06 22:41 | XMS_ITS | Continuity of Care Document ---
:1940 Author Organization [facility] Address [address] [place] [address]- Care Team Providers Name Role Phone Not on Staff, PCP Primary Care Phys[id number] - 07/27/[address] [address]- Attending Physician: [place] MD Referring Physician: Hemant Davis Allergies, Adverse Reactions, Alerts No Known Medication Allergies
[2022-03-06 22:45] LABS: Alanine Aminotransferase 19 U/L (0-31); Albumin Level 3.8 g/dL (3.5-5.0); Anion Gap 15 (12-20); Aspartate Amino Transferase 24 U/L (5-31); Bilirubin Total 0.5 mg/dL (0.0-1.0); Blood Urea Nitrogen 20 mg/dL (9-16); Calcium 8.6 mg/dL (8.4-10.2); Carbon Dioxide 23 mmol/L (22-29); Chloride 103 mmol/L (96-108); Creatinine Clr Calc Pharmacy 44.3; Estimated Glomerular Filt Rate 53; Glucose Random 221 mg/dL (60-115); Potassium 4.5 mmol/L (3.3-5.1); Sodium 136 mmol/L (135-145); Total Protein 6.4 g/dL (6.5-8.0)
[2022-03-06 22:49] LABS: Alkaline Phosphatase 62 U/L (39-117)
[2022-03-06 23:24] LABS: B Type Natriuretic Peptide 406 pg/mL (<100)
[2022-03-06] MEDS: Furosemide 100 MG/10 ML VIAL 60 MG IVPUSH (23:47)
[2022-03-06 23:49] VITALS: BP 170/69; PULSE 68; RESP 22; O2SAT 92
[2022-03-07] VITALS (10 sets, daily range): BP systolic 139–179; BP diastolic 56–82; PULSE 66–103; RESP 19–32; TEMP 36.2–37.4; O2SAT 89–99
--- NOTE | 2022-03-07 00:40 | P.HPHOSP_ITS ---
History of Present Illness Date of Service: 03/07/22 Chief Complaint: sob 81F PMH chronic afib, DM, HTN, IBAN, obesity, hld, hypothyroid, presented with sob, found to be hypoxic and positive RSV. Acute hypoxic respiratory failure secondary to RSV and acute unspecified CHF IV steroids, bronchodilators IV Lasix, echocardiogram, monitor electrolytes Wean O2 as tolerated Permanent AFib Rate controlled, continue metoprolol and Pradaxa Diabetes mellitus type 2 with hyperglycemia Hold glipizide, continue Januvia Insulin sliding scale, monitor point of care Obesity Weight loss recommended Hyperlipidemia Continue statin Hypertension Continue amlodipine Hypothyroid Continue Synthroid IBAN CPAP at night (ABG with hypoxia and no hypercapnia) DVT prophylaxis-on Pradaxa DNR/DNI Patient with RSV and CHF causing significant hypoxia requiring 6 L of oxygen at this time, will need IV diuretics, ongoing workup and close monitoring, at risk for further decompensation due to advanced age and diabetes, therefore, expected require at least 2 midnights in the hospital inpatient. [facility] Medical History (Updated 03/06/22 @ 23:43 by Raulito Randolph MD) Chronic atrial fibrillation Diabetes HLD (hyperlipidemia) HTN (hypertension) Hypothyroid Obesity IBAN (obstructive sleep apnea) Family History (Updated 03/06/22 @ 23:43 by Raulito Randolph MD) Father CAD (coronary artery disease) Mother CAD (coronary artery disease) Surgical History (Updated 03/06/22 @ 23:43 by Raulito Randolph MD) S/P hysterectomy with oophorectomy Social History Alcohol intake: current Alcohol intake frequency: holidays/special occasions only Alcohol type: wine Smoked in Last 30 Days: No Use of substances other than those prescribed or required for medical reasons: No Advance Directives: No Meds Allergies Allergy/AdvReac Type Severity Reaction Status Date / Time No Known Allergies Allergy Verified 03/06/22 23:54 Active Medications: Current Medications Albuterol/Ipratropium (Albuterol/Iprat 2.5/0.5mg 3 Ml Ampul.Neb) 3 ml INHALE RQ4H PRN PRN Reason: sob Amlodipine Besylate (Amlodipine Besylate 5 Mg Tablet) 5 mg PO DAILY KIMMIE; Protocol Atorvastatin Calcium (Atorvastatin Calcium 20 Mg Tablet) 20 mg PO DAILY KIMMIE Dabigatran (Dabigatran Etexilate Mesylate 150 Mg Capsule) 150 mg PO BID [facility] Dextrose (Dextrose 50 % 25 Gm/50 Ml Syringe) 25 gm IVPUSH Q15M PRN; Protocol PRN Reason: per Hypoglycemia Standing Ord. Furosemide (Furosemide 40 Mg/4 Ml Vial) 40 mg IVPUSH BID@0900,1800 [facility]; Protocol Glucose (Glucose Gel 15 Gm Gel..Gram.) 15 gm PO Q15M PRN; Protocol PRN Reason: per Hypoglycemia Standing Ord. Insulin Human Lispro (Insulin Lispro 100 Unit/Ml 3 Ml Vial) 0 unit SUBCUT QIDACHS [facility]; Protocol Levothyroxine Sodium (Levothyroxine Sodium 112 Mcg Tablet) 112 mcg PO DAILY [facility] Methylprednisolone Sodium Succinate (Methylprednisolone Sod Succ 40 Mg/Ml Vial) 40 mg IVPUSH Q12H [facility] Metoprolol Tartrate (Metoprolol Tartrate 50 Mg Tablet) 50 mg PO BID [facility]; Pro tocol Sitagliptin Phosphate (Sitagliptin Phosphate 100 Mg Tablet) 100 mg PO DAILY [facility] Home Medications Medication Instructions Recorded Confirmed Last Taken Type amlodipine 5 mg tablet 1 tab PO DAILY 03/06/22 03/07/22 1 Day Ago History ~03/06/22 atorvastatin 20 mg tablet 1 tab PO DAILY 03/06/22 03/06/22 1 Day Ago History ~03/05/22 dabigatran etexilate 150 mg 1 cap PO BID 03/06/22 03/06/22 1 Day Ago History capsule (Pradaxa) ~03/05/22 150 mg glipizide 5 mg tablet, extended 1 tab PO DAILY 03/06/22 03/06/22 Unknown History release 24 hr insulin glargine 100 unit/mL (3 unit subcut 03/06/22 2 Days Ago History mL) subcutaneous pen (Basaglar ~03/04/22 KwikPen U-100 Insulin) 45 units levothyroxine 112 mcg tablet 1 tab PO DAILY 03/06/22 03/07/22 1 Day Ago History (Synthroid) ~03/06/22 metformin 1,000 mg tablet 1 tab PO BID 03/06/22 03/07/22 Unknown History metoprolol tartrate 50 mg tablet 1 tab PO BID 03/06/22 03/06/22 1 Day Ago History ~03/05/22 sitagliptin phosphate 100 mg 1 tab PO DAILY 03/06/22 03/07/22 Unknown History tablet (Januvia) Physical Exam Vital Signs and Narrative: Vital Signs: Last Vital Signs Temp 99.9 F 03/06/22 22:00 Pulse 68 03/06/22 23:49 Resp 22 H 03/06/22 23:49 BP 170/69 H 03/06/22 23:49 Pulse Ox 92 03/06/22 23:49 O2 Del Method 03/06/22 23:49 O2 Flow Rate 6 03/06/22 23:49 Oxygen Flow Rate 7 03/06/22 21:39 BMI result Body Mass Index 33.6 Results Labs CBC and Chem 7: 03/06/22 21:56 03/06/22 21:56 Labs: Laboratory Results - last 24 hr 03/06/22 03/06/22 03/06/22 21:54 21:55 21:56 MCV 87.9 MCH 28.6 MCHC 32.6 RDW 13.4 Plt Count 254 MPV 9.1 L Immature Gran % (Auto) 0.4 Neut % (Auto) 82.6 H Lymph % (Auto) 5.3 L [place] % (Auto) 10.8 Eos % (Auto) 0.5 Baso % (Auto) 0.4 Lymph # (Auto) 0.6 L [place] # (Auto) 1.1 Eos # (Auto) 0.1 Baso # (Auto) 0.0 Abs Immat Gran (auto) 0.04 H Absolute Neuts (auto) 8.6 H Absolute Nucleated RBC 0.000 Nucleated RBC % (auto) 0.0 PT 22.4 H INR 1.9 H VBG pH VBG pCO2 VBG pO2 VBG HCO3 VBG O2 Saturation VBG Base Excess Anion Gap Estim Creat Clear Calc Estimated GFR Random Glucose Calcium Total Bilirubin AST ALT Alkaline Phosphatase Troponin I High Sens B-Natriuretic Peptide Total Protein Albumin Influenza Type A (PCR) NEGATIVE Influenza Type B (PCR) NEGATIVE RSV RNA Qual (PCR) POSITIVE A SARS-CoV-2 RNA (RT-PCR) NEGATIVE 03/06/22 03/06/22 03/06/22 21:56 21:56 21:57 MCV MCH MCHC RDW Plt Count MPV Immature Gran % (Auto) Neut % (Auto) Lymph % (Auto) [place] % (Auto) Eos % (Auto) Baso % (Auto) Lymph # (Auto) [place] # (Auto) Eos # (Auto) Baso # (Auto) Abs Immat Gran (auto) Absolute Neuts (auto) Absolute Nucleated RBC Nucleated RBC % (auto) PT INR VBG pH VBG pCO2 VBG pO2 VBG HCO3 VBG O2 Saturation VBG Base Excess Anion Gap 15 Estim Creat Clear Calc 44.3 Estimated GFR 53 Random Glucose 221 H Calcium 8.6 Total Bilirubin 0.5 AST 24 ALT 19 Alkaline Phosphatase 62 Troponin I High Sens 21.0 H B-Natriuretic Peptide 406 H Total Protein 6.4 L Albumin 3.8 Influenza Type A (PCR) Influenza Type B (PCR) RSV RNA Qual (PCR) SARS-CoV-2 RNA (RT-PCR) 03/06/22 22:01 MCV MCH MCHC RDW Plt Count MPV Immature Gran % (Auto) Neut % (Auto) Lymph % (Auto) [place] % (Auto) Eos % (Auto) Baso % (Auto) Lymph # (Auto) [place] # (Auto) Eos # (Auto) Baso # (Auto) Abs Immat Gran (auto) Absolute Neuts (auto) Absolute Nucleated RBC Nucleated RBC % (auto) PT INR VBG pH 7.34 VBG pCO2 38 VBG pO2 63 VBG HCO3 21 L VBG O2 Saturation 85.0 VBG Base Excess -4.0 Anion Gap Estim Creat Clear Calc Estimated GFR Random Glucose Calcium Total Bilirubin AST ALT Alkaline Phosphatase Troponin I High Sens B-Natriuretic Peptide Total Protein Albumin Influenza Type A (PCR) Influenza Type B (PCR) RSV RNA Qual (PCR) SARS-CoV-2 RNA (RT-PCR) Imaging Radiologist's Impressions: Impressions Chest X-Ray 03/06/22 22:25 IMPRESSION: Increased interstitial and vascular markings bilaterally with peribronchial cuffing. Component of mild interstitial edema is favored. Assessment and Plan Time Spent With Patient Time: Total time managing care of this patient today ____ minutes. Quality Stroke Does the patient have a stroke diagnosis?: No VTE Prior VTE?: No VTE Risk Level:: Medical - moderate - high VTE Device Contraindication: Treatment Not Indicated VTE Drug Contraindication: N/A - Med Ordered
--- NOTE | 2022-03-07 01:20 | PC.NURSE ---
Pt resting quietly, respiratory at bedside. PT switched from Alexander canula to Cpap. O2 sat 94%. Meds given as documented.
[2022-03-07 01:28] LABS: Troponin-I High Sensitivity 26.6 ng/L (<3.5-17.0)
[2022-03-07] MEDS: methylPREDNISolone Sod Succ 40 MG/ML VIAL IVPUSH ×2 (01:37→13:39)
--- NOTE | 2022-03-07 05:03 | MHC.EDTECH ---
This it help desk technician was asked by nurse in section one to help assist with a boost in ED02 and nurse asked pt if she's wet and the pt said, Yes. Pt was soaked. I went to get clean lining and a purewick. While this it help desk technician was assisting the nurse leaving my section unattended for a several minutes at 04:50. Nurse emptied purewick container.
--- NOTE | 2022-03-07 05:03 | PC.NURSE ---
Urine incontinent care provider by this internal communications writer and in tube conversion technician. PT requested fluids, water given.
[2022-03-07] MEDS: Levothyroxine Sodium 112 MCG TABLET PO (05:57)
--- NOTE | 2022-03-07 07:00 | CA_ITS ---
Transthoracic Echocardiogram Patient (Last, First, Middle): Michelle Jackson, Gender: Female Date of : 1940 Age: 81 Procedure Date: 03/07/2022 Procedure Type: Transthoracic Echocardiogram Location: ER Height: 160.02 cm Weight: 86.18 kg BSA: 1.89 m2 Heart Rate: 80 bpm BP: 151 / 60 mmHg Therapist Radiation: EMANUEL Referring MD: Raulito Randolph MD Symptoms: chf Study Quality: Poor/Contrast ECG Rhythm: Atrial Fibrillation Conclusions: - Normal left ventricular size and systolic function. There is mildly increased left ventricular wall thickness. The visually estimated ejection fraction is between 60-65%. There is no evidence of regional wall motion abnormalities. - There is mildly decreased right ventricular systolic function. RV is mild to moderately dilated. - Significantly elevated right atrial pressure. Moderate pulmonary hypertension is present. Findings Procedure Information Contrast agent, definity, is being given per protocol without apparent complications. Left Ventricle Normal left ventricular size and systolic function. There is mildly increased left ventricular wall thickness. The visually estimated ejection fraction is between 60-65%. There is no evidence of regional wall motion abnormalities. Diastolic function is indeterminate on the basis of available data. Right Ventricle There is mildly decreased right ventricular systolic function. RV is mild to moderately dilated. Atria The left atrium is normal in size. There is no evidence of interatrial shunt by color Doppler. RA is dilated. Aortic Valve The aortic valve was not well visualized. There is no aortic valve stenosis. There is no aortic valve regurgitation. Mitral Valve Likely normal mitral valve structure and function. There is no mitral valve regurgitation. There is no mitral valve stenosis. Pulmonic Valve The pulmonic valve was not well visualized. Tricuspid Valve Likely normal tricuspid valve structure and function. There is trace tricuspid valve regurgitation. Significantly elevated right atrial pressure. Moderate pulmonary hypertension is present. Great Vessels All visible segments of the aorta are normal in size. Venous The inferior vena cava is dilated and does not collapse with inspiration. Pericardium/Pleural There is no evidence of pericardial effusion. Prior Study Comparison No prior study available for comparison. Measurements 2D Linear Measurements IVSd: 1.07 0.6-0.9/0.6-1.0 cm LVIDd: 5.09 3.9-5.3/4.2-5.9 cm LVIDd Index: 2.69 2.4-3.2/2.2-3.1 cm/m2 LVIDs: 3.77 2.0-3.6 cm LVPWd: 1.15 0.7-1.1 cm LA Diam: 3.80 2.7-3.8/3.0-4.0 cm LAIDs Index: 2.01 1.5-2.3 cm/m2 LV Mass: 269.10 67-162/88-224 g LV Mass Index: 142.38 43-95/49-115 g/m2 LVOT Diam: 1.90 3.0+(-)1.3 cm 2D Systolic Function EF 4C: 70.60 >55% EF 2C: 71.80 >55% EF BiP: 71.60 >55% Mitral Valve MV Pk E: 1.47 MV Decel Time: 135.00 E'Lateral: 6.53 E'Medial: 6.42 E/E' Med: 22.90 E/E' Lat: 22.50 PHT: 40.00 MVA PHT: 5.50 Decel Ada: 10.92 Aortic Valve AoV Pk Martinez: 1.58 AoV Mn Martinez: 1.13 AoV VTI: 0.34 AoV Pk Grad: 10.00 Aov Mn Grad: 6.00 SYLWIA Cont.VTI: 1.98 LVOT LVOT Pk Martinez: 1.10 LVOT Mn Martinez: 0.77 LVOT VTI: 0.24 LVOT Pk Grad: 5.00 LVOT Mn Grad: 2.00 LVOT Diam: 1.90 LVOT Area: 2.84 Diastolic Function MV Pk E: 1.47 E'Medial: 6.42 E/E' Med: 22.90 E' Laterial: 6.53 E/E' Lat: 22.50 Right Ventricle TAPSE (mm): 10.70 TVS' Martinez: 9.36 Tricuspid Valve TR Pk Martinez: 2.82 TR Pk Grad: 32.00 RA Press: 15.00 RVSP: 47.00 Great Vessels Aorta Sinus of Valsalva: 3.20 2.0-3.5 cm Ao Asc: 3.40 2.1-3.4 cm Pulmonary Valve PV Pk Martinez: 1.05 Peak PV Grad: 4.00 Updated in Other Vendor System with Status of Final Alejandro Arrieta MD electronically signed on 03/07/2022 5:46:26 PM with status of Final
--- NOTE | 2022-03-07 07:32 | PHA.MEDREC ---
Pharmacy Consult ? Medication Reconciliation Pharmacy has completed the medication reconciliation. Reviewed med rec done by nursing
[2022-03-07 07:48] LABS: Glucose, Whole Blood 205 mg/dL (60-115)
[2022-03-07] MEDS: Atorvastatin Calcium 20 MG TABLET PO (08:18)
[2022-03-07] MEDS: Furosemide 40 MG/4 ML VIAL IVPUSH ×2 (08:18→16:47)
[2022-03-07] MEDS: Metoprolol Tartrate 50 MG TABLET PO ×2 (08:18→21:31)
[2022-03-07] MEDS: amLODIPine Besylate 5 MG TABLET PO (08:18)
[2022-03-07] MEDS: Insulin Lispro 100 UNIT/ML 3 ML VIAL SUBCUT ×4 (08:19→21:30)
[2022-03-07] MEDS: 0.9 % Sodium Chloride Flush 3 ML SYRINGE IVFLUSH ×2 (08:20→16:48)
--- NOTE | 2022-03-07 09:17 | MHC.EDTECH ---
Pt incontinent of urine. Pt cleaned and bedding changed. RN aware
--- NOTE | 2022-03-07 09:42 | MHC.EDTECH ---
Pt incontinent of large amount of urine. Pt cleaned and bedding changed. Purewick placed per RN.
--- NOTE | 2022-03-07 10:15 | PM.EVENT ---
Event Note Date of Service: 03/07/22 Event Note: Day Team follow up Pt seen and examined this AM reports feeling the same. reports SOB and malaise. Remains on Alexander NC at 6-7/L Continue O2, wean as tolerated. Cotinue steroids and diuretics. Remainder of plan as outlined in the H&P Time Spent With Patient Time: Total time managing care of this patient today ____ minutes.
[2022-03-07] MEDS: Dabigatran Etexilate Mesylate 150 MG CAPSULE PO ×2 (10:44→21:31)
[2022-03-07] MEDS: SITagliptin Phosphate 100 MG TABLET PO (10:44)
[2022-03-07] MEDS: Albuterol/Iprat 2.5/0.5MG 3 ML AMPUL.NEB INHALE ×3 (12:35→21:02)
[2022-03-07 12:45] LABS: Glucose, Whole Blood 248 mg/dL (60-115)
--- NOTE | 2022-03-07 13:56 | MHC.CM.PN ---
pt has rsv called and spoke with pts who explins that they live in ind[facility]ent living had no servcies she is covid vax x [address] pt home
[2022-03-07] MEDS: Morphine Sulfate 2 MG/ML CARTRIDGE IVPUSH (15:53)
--- NOTE | 2022-03-07 15:55 | PC.RT ---
Pt found with inc wob, difficulty speaking complete sentences. LS severly diminished bilat, absent in bases. Pt noted to desaturate to 63% on 7 lpm Alexander cannula. A rapid response was called, O2 increased to 12 lpm alexander and an additional 90% fio2 via partial non rebreather, spo2 increased to 100%, pt rr 34 and labored. Pt noted as DNR/DNI, Bipap was recommended but pt unable to destiny mask. HFNC was attempted reducing flow for comfort but pt unable to destiny removing the cannula. MD aware. Pt noted for inc anxiety with inc SOB, the alexander cannula was inc to 12 lpm to keep spo2 > 90%. MD aware. Pt noted to remove the cannula at times causing desaturation into the 70's. RN/ aware. Bipap/HFNC at bedside as standby per md.
--- NOTE | 2022-03-07 16:01 | PM.EVENT ---
Event Note Date of Service: 03/07/22 Event Note: Rapid Response called on patient for desaturation and increased work of breathing. Shortly before the RN had asked me to come evaluate her respiratory symptoms. She was receiving a nebulizer rx when she was noted to desaturate to low 80s on the monitor. [employer] was subsequently called. Her O2 was increased to 10L umana and by the time i arrived she was saturating in the mid to high 90s. She was some increased work of breathing and lungs showed poor air entry. Initially plan was for bipap which the patient refused. Subsequently she was placed on HFNC but after a few minutes, patient removed. Ultimately she was placed back on [place] with sats in the 90s. Pt endorsed anxiety and requested something for this. Will start with a small dose of IV morphine and if she tolerates, will give low dose anxiolytics. DNR/DNI status confirmed with the patient again. Time Spent With Patient Time: Total time managing care of this patient today ____ minutes.
[2022-03-07 16:31] LABS: Glucose, Whole Blood 234 mg/dL (60-115)
--- NOTE | 2022-03-07 18:45 | PC.NURSE ---
rapid response called earlier in the shift. oxygen was sat was in the 70-80's, pt would not keep her oxygen on and would constantly take off and with redirection would allow us to reapply
--- NOTE | 2022-03-07 19:14 | PC.NURSE ---
Addendum entered by Lara Abbasi RN 03/08/22 06:58: report given to DAVID Gutiérrez Addendum entered by Lara Abbasi RN 03/07/22 21:56: pt is alert and oriented x2 resting in bed pt on continuos cardiac monitoring incontinent care provided Original Note: report received from DAVID Valera
[2022-03-07 20:35] LABS: Glucose, Whole Blood 256 mg/dL (60-115)
[2022-03-08] VITALS (12 sets, daily range): BP systolic 124–151; BP diastolic 44–75; PULSE 71–92; RESP 15–29; TEMP 36.6–37.4; O2SAT 91–100
[2022-03-08] MEDS: Morphine Sulfate 2 MG/ML CARTRIDGE IVPUSH ×2 (00:08→05:51)
[2022-03-08] MEDS: methylPREDNISolone Sod Succ 40 MG/ML VIAL IVPUSH ×2 (00:09→12:48)
[2022-03-08] MEDS: Albuterol/Iprat 2.5/0.5MG 3 ML AMPUL.NEB INHALE ×4 (04:37→21:20)
[2022-03-08] MEDS: Levothyroxine Sodium 112 MCG TABLET PO (06:12)
[2022-03-08 07:17] LABS: Hematocrit 36.5 % (37.0-47.0); Hemoglobin 11.3 g/dl (12.0-16.0); Mean Corpuscular Volume 90.3 fL (80.0-98.0); Mean Platelet Volume 9.7 fL (9.4-12.3); Platelet Count 274 X10*3/uL (160-400); Red Blood Count 4.04 X10*6/uL (4.20-5.50); Red Cell Distribution Width 13.2 % (11.0-16.0); White Blood Count 19.3 X10*3/uL (4.8-10.8)
[2022-03-08 07:43] LABS: Anion Gap 18 (12-20); Blood Urea Nitrogen 25 mg/dL (9-16); Calcium 8.8 mg/dL (8.4-10.2); Carbon Dioxide 27 mmol/L (22-29); Chloride 95 mmol/L (96-108); Creatinine Clr Calc Pharmacy 42.2; Estimated Glomerular Filt Rate 50; Glucose Fasting 281 mg/dL (60-99); Magnesium 1.5 mg/dL (1.6-2.6); Sodium 135 mmol/L (135-145)
--- NOTE | 2022-03-08 08:13 | PC.NURSE ---
pt's family member who identifies himself as a [employer] Machine Operator MD called during change of shift at 0650 and spoke with overnight staff. He also called at 0730 and spoke with this public relations writer asking for information about the pt. This public relations writer told him that no information can be given to him because he is not listed on the pt's chart as someone to release information to . This public relations writer informed him that the only person listed is the pt's spouse Mason Jackson. He continued to insist that he is allowed to get information because he is a doctor and the rest of the family do not understand what is going on. This public relations writer told him that the hospitalist who is taking care of the pt will be able to best explain what is going on to the family. He continued to insist that he is allowed to get information because he is a doctor. He asked for this public relations writer's name, this public relations writer gave him both first and last names. He said thank you and good bye . This public relations writer notified ED Charge Nurse.
[2022-03-08] MEDS: Insulin Lispro 100 UNIT/ML 3 ML VIAL SUBCUT ×4 (08:32→19:56)
[2022-03-08] MEDS: Atorvastatin Calcium 20 MG TABLET PO (08:32)
[2022-03-08] MEDS: amLODIPine Besylate 5 MG TABLET PO (08:32)
[2022-03-08] MEDS: 0.9 % Sodium Chloride Flush 3 ML SYRINGE IVFLUSH ×2 (08:33→20:02)
[2022-03-08] MEDS: Metoprolol Tartrate 50 MG TABLET PO ×2 (08:33→19:54)
[2022-03-08] MEDS: Furosemide 40 MG/4 ML VIAL IVPUSH ×2 (08:33→18:09)
--- NOTE | 2022-03-08 08:44 | PC.NURSE ---
pt awake + alert, denies pain/sob. Respiratory Therapist changed pt to 10L N/C on the [place], pt satting 94-96%. meds given as documented. Dr. Galo at bedside.
[2022-03-08 08:52] LABS: Glucose, Whole Blood 278 mg/dL (60-115)
[2022-03-08] MEDS: Dabigatran Etexilate Mesylate 150 MG CAPSULE PO ×2 (09:51→19:53)
[2022-03-08] MEDS: SITagliptin Phosphate 100 MG TABLET PO (09:51)
--- NOTE | 2022-03-08 10:44 | P.PNIM_ITS ---
Subjective Subjective Date of Service: 03/08/22 Interval History: seen and examined this AM reports sore throat and cough feels maybe slight better compared to yesterday reports long standing history of anxiety/panic attacks -- was previously on diazepam but reports not on treatment over last year Review of Systems negative except HPI Physical Exam Vital Signs: Vital Signs: Last Vital Signs Temp 98.6 F 03/08/22 05:54 Pulse 89 03/08/22 07:44 Resp 22 H 03/08/22 07:44 BP 124/67 03/08/22 07:17 Pulse Ox 100 03/08/22 07:17 O2 Del Method 03/08/22 07:17 O2 Flow Rate 15 03/08/22 05:54 Oxygen Flow Rate 7 03/06/22 21:39 BMI result Body Mass Index 33.6 Const: Other: General - no acute distress, appears comfortable Cardiovascular - regular rate and rhythm, S1-S2 Lungs - poor air entry bilaterally; tolerating NC this AM; comfortable at rest but does have increase WOB with movement Abdomen - soft, nontender, no rebound or guarding Extremities - b/l LE edema Neuro - awake and alert, no focal deficits Objective Data Active Medications Albuterol/Ipratropium (Albuterol/Iprat 2.5/0.5mg 3 Ml Ampul.Neb) 3 ml INHALE RQ4H PRN PRN Reason: sob Last Admin: 03/08/22 04:37 Dose: 3 ml Documented By: ADELFO Albuterol/Ipratropium (Albuterol/Iprat 2.5/0.5mg 3 Ml Ampul.Neb) 3 ml INHALE RQ4H WHILE AWAKE [facility] Last Admin: 03/08/22 07:43 Dose: 3 ml Documented By: NATIVIDAD Amlodipine Besylate (Amlodipine Besylate 5 Mg Tablet) 5 mg PO DAILY [facility]; Protocol Last Admin: 03/08/22 08:32 Dose: 5 mg Documented By: LATHA Atorvastatin Calcium (Atorvastatin Calcium 20 Mg Tablet) 20 mg PO DAILY [facility] Last Admin: 03/08/22 08:32 Dose: 20 mg Documented By: LATHA Dabigatran (Dabigatran Etexilate Mesylate 150 Mg Capsule) 150 mg PO BID [facility] Last Admin: 03/08/22 09:51 Dose: 150 mg Documented By: LATHA Dextrose (Dextrose 50 % 25 Gm/50 Ml Syringe) 25 gm IVPUSH Q15M PRN; Protocol PRN Reason: per Hypoglycemia Standing Ord. Furosemide (Furosemide 40 Mg/4 Ml Vial) 40 mg IVPUSH BID@0800,1700 [facility]; Protocol Last Admin: 03/08/22 08:33 Dose: 40 mg Documented By: LATHA Glucose (Glucose Gel 15 Gm Gel..Gram.) 15 gm PO Q15M PRN; Protocol PRN Reason: per Hypoglycemia Standing Ord. Insulin Human Lispro (Insulin Lispro 100 Unit/Ml 3 Ml Vial) 0 unit SUBCUT QIDACHS [facility]; Protocol Last Admin: 03/08/22 08:32 Dose: 6 unit Documented By: LATHA Levothyroxine Sodium (Levothyroxine Sodium 112 Mcg Tablet) 112 mcg PO DAILY@0630 [facility] Last Admin: 03/08/22 06:12 Dose: 112 mcg Documented By: JENA Lorazepam (Lorazepam 0.5 Mg Tablet) 0.5 mg PO Q8H PRN PRN Reason: Anxiety Methylprednisolone Sodium Succinate (Methylprednisolone Sod Succ 40 Mg/Ml Vial) 40 mg IVPUSH Q12H [facility] Last Admin: 03/08/22 00:09 Dose: 40 mg Documented By: JENA Metoprolol Tartrate (Metoprolol Tartrate 50 Mg Tablet) 50 mg PO BID [facility]; Protocol Last Admin: 03/08/22 08:33 Dose: 50 mg Documented By: LATHA Morphine Sulfate (Morphine Sulfate 2 Mg/Ml Cartridge) 2 mg IVPUSH Q4H PRN; Protocol PRN Reason: sob Last Admin: 03/08/22 05:51 Dose: 2 mg Documented By: JENA Sitagliptin Phosphate (Sitagliptin Phosphate 100 Mg Tablet) 100 mg PO DAILY [facility] Last Admin: 03/08/22 09:51 Dose: 100 mg Documented By: LATHA Sodium Chloride (0.9 % Sodium Chloride Flush 3 Ml Syringe) 3 ml IVFLUSH QSHIFT [facility] Last Admin: 03/08/22 08:33 Dose: 3 ml Documented By: LATHA Labs CBC & Chem 7: 03/08/22 06:59 03/08/22 06:59 Labs: Laboratory Results - last 24 hr 03/07/22 03/07/22 03/07/22 12:00 16:27 20:32 MCV MCH MCHC RDW Plt Count MPV Absolute Nucleated RBC Nucleated RBC % (auto) Anion Gap Estim Creat Clear Calc Estimated GFR POC Glucose 248 H 234 H 256 H Fasting Glucose Calcium Magnesium 03/08/22 03/08/22 03/08/22 06:59 06:59 07:10 MCV 90.3 MCH 28.0 MCHC 31.0 RDW 13.2 Plt Count 274 MPV 9.7 Absolute Nucleated RBC 0.000 Nucleated RBC % (auto) 0.0 Anion Gap 18 Estim Creat Clear Calc 42.2 Estimated GFR 50 POC Glucose 278 H Fasting Glucose 281 H Calcium 8.8 Magnesium 1.5 L Assessment and Plan (1) Acute respiratory failure with hypoxia: Status: Acute (2) Respiratory syncytial virus (RSV): Status: Acute Plan 81F PMH chronic afib, DM, HTN, IBAN, obesity, hld, hypothyroid, presented with sob, found to be hypoxic and positive RSV. Acute hypoxic respiratory failure secondary to RSV and acute R heart failure continue iv steroids and scheduled bronchodilators continue IV lasix consult cardiology for right heart failure; also will check echo to rule out PE given elevated right sided pressures Permanent AFib Rate controlled, continue metoprolol and Pradaxa Diabetes mellitus type 2 with hyperglycemia Hold glipizide, continue Januvia Insulin sliding scale, monitor point of care Obesity Weight loss recommended Hyperlipidemia Continue statin Hypertension Continue amlodipine Hypothyroid Continue Synthroid IBAN CPAP at night (she is unable to tolerate hospital machine) anxiety/panic attacks previously on diazepam will start low dose ativan prn leukocytosis likely secondary to steroid use no evidence of bacterial infection at this time DVT prophylaxis-on Pradaxa DNR/DNI reason for continued hospitalization -- remains hypoxic with supplemental o2 requirements above 5L, also remains fluid overloaded and requiring iv diuretics Time Spent With Patient Time: Total time managing care of this patient today ____ minutes. Quality Stroke Does the patient have a stroke diagnosis?: No VTE Prior VTE?: No VTE Risk Level:: Medical - moderate - high VTE Device Contraindication: Treatment Not Indicated VTE Drug Contraindication: N/A - Med Ordered
--- NOTE | 2022-03-08 11:42 | PC.NURSE ---
pt's Mason Jackson requests that the pt's grandson Lori Chen be the personal lines underwriter to give updates to and he will update the rest of the family.
--- NOTE | 2022-03-08 11:51 | PC.NURSE ---
pt currently in Cat Scan. chest CT being done to check for PE.
[2022-03-08 13:06] LABS: Glucose, Whole Blood 222 mg/dL (60-115)
[2022-03-08] MEDS: LORazepam 0.5 MG TABLET PO ×2 (14:11→23:30)
--- NOTE | 2022-03-08 14:21 | P.CONCA_ITS ---
History of Present Illness History of Present Illness Date of Service: 03/08/22 Requesting physician: Abdoul Galo Chief complaint: chf,rsv Narrative: 81-year-old female presenting with RSV and congestive heart failure. She has been experiencing shortness of breath for a week. She was coughing up phlegm and had fevers. She also has edema and some orthopnea. With these symptoms she presented to the hospital. She was noticed to be hypoxic and workup has shown RSV. She is on supportive care. She does not have any known history of lung disease or asthma. Clinically noticed to be in congestive heart failure and was started on diuretics. She is currently 900-. She is still quite distress from respiratory status and is quite short of breath. Denying any chest discomfort. [facility] Past Medical History Medical History (Updated 03/06/22 @ 23:43 by Raulito Randolph MD) Chronic atrial fibrillation Diabetes HLD (hyperlipidemia) HTN (hypertension) Hypothyroid Obesity IBAN (obstructive sleep apnea) Family History Family History (Updated 03/06/22 @ 23:43 by Raulito Randolph MD) Father CAD (coronary artery disease) Mother CAD (coronary artery disease) Surgical History Surgical History (Updated 03/06/22 @ 23:43 by Raulito Randolph MD) S/P hysterectomy with oophorectomy Social History Social History Alcohol intake: current Alcohol intake frequency: holidays/special occasions only Alcohol type: wine Smoked in Last 30 Days: No Use of substances other than those prescribed or required for medical reasons: No Advance Directives: No service: No Meds Allergies Allergy/AdvReac Type Severity Reaction Status Date / Time No Known Allergies Allergy Verified 03/06/22 23:54 Active Medications: Current Medications Albuterol/Ipratropium (Albuterol/Iprat 2.5/0.5mg 3 Ml Ampul.Neb) 3 ml INHALE RQ4H PRN PRN Reason: sob Last Admin: 03/08/22 04:37 Dose: 3 ml Albuterol/Ipratropium (Albuterol/Iprat 2.5/0.5mg 3 Ml Ampul.Neb) 3 ml INHALE RQ4H WHILE AWAKE [place] Last Admin: 03/08/22 11:10 Dose: 3 ml Amlodipine Besylate (Amlodipine Besylate 5 Mg Tablet) 5 mg PO DAILY [facility]; Protocol Last Admin: 03/08/22 08:32 Dose: 5 mg Atorvastatin Calcium (Atorvastatin Calcium 20 Mg Tablet) 20 mg PO DAILY [facility] Last Admin: 03/08/22 08:32 Dose: 20 mg Dabigatran (Dabigatran Etexilate Mesylate 150 Mg Capsule) 150 mg PO BID [facility] Last Admin: 03/08/22 09:51 Dose: 150 mg Dextrose (Dextrose 50 % 25 Gm/50 Ml Syringe) 25 gm IVPUSH Q15M PRN; Protocol PRN Reason: per Hypoglycemia Standing Ord. Furosemide (Furosemide 40 Mg/4 Ml Vial) 40 mg IVPUSH BID@0800,1700 [facility]; Protocol Last Admin: 03/08/22 08:33 Dose: 40 mg Glucose (Glucose Gel 15 Gm Gel..Gram.) 15 gm PO Q15M PRN; Protocol PRN Reason: per Hypoglycemia Standing Ord. Insulin Human Lispro (Insulin Lispro 100 Unit/Ml 3 Ml Vial) 0 unit SUBCUT QIDACHS [facility]; Protocol Last Admin: 03/08/22 13:08 Dose: 4 unit Levothyroxine Sodium (Levothyroxine Sodium 112 Mcg Tablet) 112 mcg PO DAILY@0630 [facility] Last Admin: 03/08/22 06:12 Dose: 112 mcg Lorazepam (Lorazepam 0.5 Mg Tablet) 0.5 mg PO Q8H PRN PRN Reason: Anxiety Last Admin: 03/08/22 14:11 Dose: 0.5 mg Methylprednisolone Sodium Succinate (Methylprednisolone Sod Succ 40 Mg/Ml Vial) 40 mg IVPUSH Q12H [facility] Last Admin: 03/08/22 12:48 Dose: 40 mg Metoprolol Tartrate (Metoprolol Tartrate 50 Mg Tablet) 50 mg PO BID [facility]; Protocol Last Admin: 03/08/22 08:33 Dose: 50 mg Morphine Sulfate (Morphine Sulfate 2 Mg/Ml Cartridge) 2 mg IVPUSH Q4H PRN; Protocol PRN Reason: sob Last Admin: 03/08/22 05:51 Dose: 2 mg Sitagliptin Phosphate (Sitagliptin Phosphate 100 Mg Tablet) 100 mg PO DAILY [facility] Last Admin: 03/08/22 09:51 Dose: 100 mg Sodium Chloride (0.9 % Sodium Chloride Flush 3 Ml Syringe) 3 ml IVFLUSH QSHIFT [facility] Last Admin: 03/08/22 08:33 Dose: 3 ml Home Medications Medication Instructions Recorded Confirmed Last Taken Type amlodipine 5 mg tablet 1 tab PO DAILY 03/06/22 03/07/22 1 Day Ago History ~03/06/22 atorvastatin 20 mg tablet 1 tab PO DAILY 03/06/22 03/06/22 1 Day Ago History ~03/05/22 dabigatran etexilate 150 mg 1 cap PO BID 03/06/22 03/06/22 1 Day Ago History capsule (Pradaxa) ~03/05/22 150 mg glipizide 5 mg tablet, extended 1 tab PO DAILY 03/06/22 03/06/22 Unknown History release 24 hr insulin glargine 100 unit/mL (3 45 unit subcut DAILY 03/06/22 03/07/22 2 Days Ago History mL) subcutaneous pen (Basaglar ~03/04/22 KwikPen U-100 Insulin) 45 units levothyroxine 112 mcg tablet 1 tab PO DAILY 03/06/22 03/07/22 1 Day Ago History (Synthroid) ~03/06/22 metformin 1,000 mg tablet 1 tab PO BID 03/06/22 03/07/22 Unknown History metoprolol tartrate 50 mg tablet 1 tab PO BID 03/06/22 03/06/22 1 Day Ago History ~03/05/22 sitagliptin phosphate 100 mg 1 tab PO DAILY 03/06/22 03/07/22 Unknown History tablet (Januvia) Physical Exam Vital Signs: Vital Signs: Last Vital Signs Temp 97.9 F 03/08/22 13:08 Pulse 85 03/08/22 13:08 Resp 24 H 03/08/22 13:08 BP 151/64 H 03/08/22 13:08 Pulse Ox 91 L 03/08/22 13:08 O2 Del Method 03/08/22 13:08 O2 Flow Rate 5 03/08/22 13:08 Oxygen Flow Rate 7 03/06/22 21:39 BMI result Body Mass Index 33.6 GENERAL APPEARANCE: Short of breath. NECK: no carotid bruit, positive jugular venous distention. SKIN: no suspicious lesions, warm and dry. HEART: no murmurs, irregular regular rate and rhythm. LUNGS: Bilateral expiratory wheezes. ABDOMEN: soft, nontender. EXTREMITIES: no edema. PERIPHERAL PULSES: equal. NEUROLOGIC: No gross deficits, AAO X 3 Objective Labs and Meds Result diagrams: 03/08/22 06:59 03/08/22 06:59 Lab results: Laboratory Results - last 24 hr 03/07/22 03/07/22 03/08/22 16:27 20:32 06:59 WBC 19.3 H RBC 4.04 L Hgb 11.3 L Hct 36.5 L MCV 90.3 MCH 28.0 MCHC 31.0 RDW 13.2 Plt Count 274 MPV 9.7 Absolute Nucleated RBC 0.000 Nucleated RBC % (auto) 0.0 Sodium Potassium Chloride Carbon Dioxide Anion Gap BUN Creatinine Estim Creat Clear Calc Estimated GFR POC Glucose 234 H 256 H Fasting Glucose Calcium Magnesium 03/08/22 03/08/22 03/08/22 06:59 07:10 12:59 WBC RBC Hgb Hct MCV MCH MCHC RDW Plt Count MPV Absolute Nucleated RBC Nucleated RBC % (auto) Sodium 135 Potassium 5.0 Chloride 95 L Carbon Dioxide 27 Anion Gap 18 BUN 25 H Creatinine 1.05 Estim Creat Clear Calc 42.2 Estimated GFR 50 POC Glucose 278 H 222 H Fasting Glucose 281 H Calcium 8.8 Magnesium 1.5 L Imaging Radiologist's impression: Impressions Chest CTA 03/08/22 12:10 IMPRESSION: No evidence of acute pulmonary artery embolus or thoracic aortic dissection. Cardiomegaly with bilateral regions of airspace disease and interstitial thickening. Above findings could be related to edema. Infectious process could also have this appearance. Mediastinal and hilar lymphadenopathy. Lesion upper pole of the left kidney for which ultrasound is recommended. VTE: negative Assessment and Plan (1) Chronic atrial fibrillation: Status: Acute (2) HTN (hypertension): Status: Acute (3) CHF (congestive heart failure): Status: Acute Plan 81-year-old female presenting with respiratory distress and has been noticed to be positive for RSV. She is wheezing. Clinically she is volume overloaded and in heart failure. Difficult to say how much wheezing is due to reactive airway versus heart failure. In any case agree with IV diuretics. She takes amlodip ine and metoprolol at home. Her heart rates are well controlled. She is on dabigatran for anticoagulation. Agree with echocardiography to rule out any cardiomyopathy as she has been in atrial fibrillation chronically. Would aim for a negative balance of 1.5 L. input and output has to be monitored closely. Monitor electrolytes closely 2. No chest discomfort or any concern for ischemic issues right now. Blood pressure is elevated. I would suggest adding some nitrates (isosorbide mononitrate 30 mg daily) currently and continue diuresis. Thank you for allowing me to participate in the care of your patient. Please feel free to contact me if you have any questions. Time Spent With Patient Time: Total time managing care of this patient today ____ minutes. Procedures Date of Service Date of Service: 03/08/22
[2022-03-08] MEDS: Isosorbide Mononitrate 30 MG TAB.ER.24H PO (15:18)
--- NOTE | 2022-03-08 17:32 | PC.NURSE ---
pt resting quietly at this time, meds given as documented.
[2022-03-08 17:49] LABS: Glucose, Whole Blood 189 mg/dL (60-115)
[2022-03-08 19:50] LABS: Glucose, Whole Blood 172 mg/dL (60-115)
[2022-03-09] VITALS (13 sets, daily range): BP systolic 138–175; BP diastolic 63–90; PULSE 58–80; RESP 16–20; TEMP 36.1–37.1; O2SAT 88–97
[2022-03-09] MEDS: methylPREDNISolone Sod Succ 40 MG/ML VIAL IVPUSH ×2 (02:04→12:35)
[2022-03-09] MEDS: Levothyroxine Sodium 112 MCG TABLET PO (05:59)
[2022-03-09 08:00] LABS: Glucose, Whole Blood 247 mg/dL (60-115)
[2022-03-09] MEDS: Isosorbide Mononitrate 30 MG TAB.ER.24H PO (08:23)
[2022-03-09] MEDS: Furosemide 40 MG/4 ML VIAL IVPUSH ×2 (08:23→16:30)
[2022-03-09] MEDS: Insulin Lispro 100 UNIT/ML 3 ML VIAL SUBCUT ×4 (08:23→20:02)
[2022-03-09] MEDS: Atorvastatin Calcium 20 MG TABLET PO (08:23)
[2022-03-09] MEDS: SITagliptin Phosphate 100 MG TABLET PO (08:23)
[2022-03-09] MEDS: Dabigatran Etexilate Mesylate 150 MG CAPSULE PO ×2 (08:23→20:02)
[2022-03-09] MEDS: amLODIPine Besylate 5 MG TABLET PO (08:23)
[2022-03-09] MEDS: Metoprolol Tartrate 50 MG TABLET PO (08:23)
[2022-03-09 11:08] LABS: Glucose, Whole Blood 302 mg/dL (60-115)
[2022-03-09] MEDS: Albuterol/Iprat 2.5/0.5MG 3 ML AMPUL.NEB INHALE ×2 (12:13→20:10)
--- NOTE | 2022-03-09 13:09 | HO.PM.IMPN ---
Subjective Subjective Date of Service: 03/09/22 Interval History: cc: sob interval history:some improvement, had asytmpotmatic 3 second pause after coughing fit this am Physical Exam Vital Signs: Vital Signs: Last Vital Signs Temp 97.2 F 03/09/22 11:07 Pulse 80 03/09/22 12:13 Resp 20 03/09/22 12:13 BP 138/90 H 03/09/22 11:07 Pulse Ox 93 03/09/22 11:20 O2 Del Method 03/09/22 11:20 O2 Flow Rate 4 03/09/22 11:20 Oxygen Flow Rate 7 03/06/22 21:39 BMI result Body Mass Index 33.6 GENERAL APPEARANCE: Short of breath. NECK: no carotid bruit, positive jugular venous distention. SKIN: no suspicious lesions, warm and dry. HEART: no murmurs, irregular regular rate and rhythm. LUNGS: Bilateral expiratory wheezes. ABDOMEN: soft, nontender. EXTREMITIES: no edema. PERIPHERAL PULSES: equal. NEUROLOGIC: No gross deficits, AAO X 3 Objective Data Active Medications Albuterol/Ipratropium (Albuterol/Iprat 2.5/0.5mg 3 Ml Ampul.Neb) 3 ml INHALE RQ4H PRN PRN Reason: sob Last Admin: 03/08/22 04:37 Dose: 3 ml Documented By: ADELFO Albuterol/Ipratropium (Albuterol/Iprat 2.5/0.5mg 3 Ml Ampul.Neb) 3 ml INHALE RQ4H WHILE AWAKE [facility] Last Admin: 03/09/22 12:13 Dose: 3 ml Documented By: KEMAR Amlodipine Besylate (Amlodipine Besylate 5 Mg Tablet) 5 mg PO DAILY [facility]; Protocol Last Admin: 03/09/22 08:23 Dose: 5 mg Documented By: EDYTA-TATYANA Atorvastatin Calcium (Atorvastatin Calcium 20 Mg Tablet) 20 mg PO DAILY [facility] Last Admin: 03/09/22 08:23 Dose: 20 mg Documented By: EDYTA-TATYANA Dabigatran (Dabigatran Etexilate Mesylate 150 Mg Capsule) 150 mg PO BID [facility] Last Admin: 03/09/22 08:23 Dose: 150 mg Documented By: EDYTA-TATYANA Dextrose (Dextrose 50 % 25 Gm/50 Ml Syringe) 25 gm IVPUSH Q15M PRN; Protocol PRN Reason: per Hypoglycemia Standing Ord. Furosemide (Furosemide 40 Mg/4 Ml Vial) 40 mg IVPUSH BID@0800,1700 [facility]; Protocol Last Admin: 03/09/22 08:23 Dose: 40 mg Documented By: KATIA Glucose (Glucose Gel 15 Gm Gel..Gram.) 15 gm PO Q15M PRN; Protocol PRN Reason: per Hypoglycemia Standing Ord. Insulin Human Lispro (Insulin Lispro 100 Unit/Ml 3 Ml Vial) 0 unit SUBCUT QIDACHS [facility]; Protocol Last Admin: 03/09/22 11:19 Dose: 8 unit Documented By: KATIA Isosorbide Mononitrate (Isosorbide Mononitrate 30 Mg Tab.Er.24h) 30 mg PO DAILY [facility]; Protocol Last Admin: 03/09/22 08:23 Dose: 30 mg Documented By: KATIA Levothyroxine Sodium (Levothyroxine Sodium 112 Mcg Tablet) 112 mcg PO DAILY@0630 [facility] Last Admin: 03/09/22 05:59 Dose: 112 mcg Documented By: DERBA Lorazepam (Lorazepam 0.5 Mg Tablet) 0.5 mg PO Q8H PRN PRN Reason: Anxiety Last Admin: 03/08/22 23:30 Dose: 0.5 mg Documented By: DEBRA Methylprednisolone Sodium Succinate (Methylprednisolone Sod Succ 40 Mg/Ml Vial) 40 mg IVPUSH Q12H [facility] Last Admin: 03/09/22 12:35 Dose: 40 mg Documented By: KATIA Metoprolol Tartrate (Metoprolol Tartrate 50 Mg Tablet) 50 mg PO BID [facility]; Protocol Last Admin: 03/09/22 08:23 Dose: 50 mg Documented By: KATIA Morphine Sulfate (Morphine Sulfate 2 Mg/Ml Cartridge) 2 mg IVPUSH Q4H PRN; Protocol PRN Reason: sob Last Admin: 03/08/22 05:51 Dose: 2 mg Documented By: JENA Sitagliptin Phosphate (Sitagliptin Phosphate 100 Mg Tablet) 100 mg PO DAILY [facility] Last Admin: 03/09/22 08:23 Dose: 100 mg Documented By: KATIA Sodium Chloride (0.9 % Sodium Chloride Flush 3 Ml Syringe) 3 ml IVFLUSH QSHIFT [facility] Last Admin: 03/09/22 07:02 Dose: Not Given Documented By: KATIA Non-Admin Reason: See Note Labs CBC & Chem 7: 03/08/22 06:59 03/08/22 06:59 Labs: Laboratory Results - last 24 hr 03/08/22 03/08/22 03/09/22 17:44 19:44 07:55 POC Glucose 189 H 172 H 247 H 03/09/22 11:04 POC Glucose 302 H Assessment and Plan (1) Acute respiratory failure with hypoxia: Status: Acute (2) Respiratory syncytial virus (RSV): Status: Acute Plan 81F PMH chronic afib, DM, HTN, IBAN, obesity, hld, hypothyroid, presented with sob, found to be hypoxic and positive RSV. Acute hypoxic respiratory failure secondary to RSV and acute R heart failure continue iv steroids and scheduled bronchodilators continue IV lasix wean o2 as tolerated Permanent AFib Rate controlled, continue metoprolol and Pradaxa Diabetes mellitus type 2 with hyperglycemia Hold glipizide, continue Januvia Insulin sliding scale, monitor point of care Obesity Weight loss recommended Hyperlipidemia Continue statin Hypertension Continue amlodipine Hypothyroid Continue Synthroid IBAN CPAP at night (she is unable to tolerate hospital machine) anxiety/panic attacks previously on diazepam started low dose ativan prn leukocytosis likely secondary to steroid use no evidence of bacterial infection at this time DVT prophylaxis-on Pradaxa DNR/DNI reason for continued hospitalization -- remains hypoxic with supplemental o2 requirements above 5L, also remains fluid overloaded and requiring iv diuretics Time Spent With Patient Time: Total time managing care of this patient today ____ minutes. Quality Stroke Does the patient have a stroke diagnosis?: No VTE Prior VTE?: No VTE Risk Level:: Medical - moderate - high VTE Device Contraindication: Treatment Not Indicated VTE Drug Contraindication: N/A - Med Ordered
[2022-03-09] MEDS: guaiFENesin 200 MG/10 ML 10 ML LIQUID PO (15:02)
[2022-03-09] MEDS: LORazepam 0.5 MG TABLET PO (20:02)
[2022-03-10] VITALS (11 sets, daily range): BP systolic 146–166; BP diastolic 62–75; PULSE 68–96; RESP 14–20; TEMP 36.2–37.1; O2SAT 93–100
[2022-03-10] MEDS: 0.9 % Sodium Chloride Flush 3 ML SYRINGE IVFLUSH ×3 (00:55→14:47)
[2022-03-10] MEDS: methylPREDNISolone Sod Succ 40 MG/ML VIAL IVPUSH ×2 (00:55→12:25)
[2022-03-10] MEDS: Levothyroxine Sodium 112 MCG TABLET PO (05:38)
[2022-03-10 06:44] LABS: Hematocrit 36.2 % (37.0-47.0); Hemoglobin 11.7 g/dl (12.0-16.0); Mean Corpuscular HGB Conc 32.3 g/dl (31.0-35.0); Mean Corpuscular Hemoglobin 28.2 pg (27.0-33.0); Mean Corpuscular Volume 87.2 fL (80.0-98.0); Mean Platelet Volume 9.5 fL (9.4-12.3); Platelet Count 278 X10*3/uL (160-400); Red Blood Count 4.15 X10*6/uL (4.20-5.50); Red Cell Distribution Width 12.6 % (11.0-16.0); White Blood Count 11.3 X10*3/uL (4.8-10.8)
[2022-03-10 07:47] LABS: Anion Gap 15 (12-20); Blood Urea Nitrogen 38 mg/dL (9-16); Calcium 8.6 mg/dL (8.4-10.2); Carbon Dioxide 31 mmol/L (22-29); Chloride 92 mmol/L (96-108); Creatinine Clr Calc Pharmacy 48.2; Estimated Glomerular Filt Rate 58; Glucose Fasting 353 mg/dL (60-99); Potassium 4.1 mmol/L (3.3-5.1); Sodium 134 mmol/L (135-145)
[2022-03-10] MEDS: Furosemide 40 MG/4 ML VIAL IVPUSH ×2 (07:58→16:14)
[2022-03-10] MEDS: Dabigatran Etexilate Mesylate 150 MG CAPSULE PO ×2 (07:58→21:23)
[2022-03-10] MEDS: Isosorbide Mononitrate 30 MG TAB.ER.24H PO (07:58)
[2022-03-10] MEDS: Insulin Lispro 100 UNIT/ML 3 ML VIAL SUBCUT ×6 (07:59→21:23)
[2022-03-10] MEDS: Insulin Glargine,Hum.rec.anlog 100 UNIT/ML 10 ML VIAL 45 UNIT SUBCUT (07:59)
[2022-03-10] MEDS: Atorvastatin Calcium 20 MG TABLET PO (07:59)
[2022-03-10] MEDS: amLODIPine Besylate 5 MG TABLET PO (07:59)
[2022-03-10] MEDS: SITagliptin Phosphate 100 MG TABLET PO (07:59)
[2022-03-10] MEDS: Albuterol/Iprat 2.5/0.5MG 3 ML AMPUL.NEB INHALE ×3 (09:07→19:06)
--- NOTE | 2022-03-10 10:27 | PM.PNCARD ---
Subjective Subjective Date of Service: 03/10/22 Interval history: Patient seen examined at bedside. She is on CPAP. Still coughing due to RSV. Physical Exam Vital Signs: Last Vital Signs Temp 97.4 F 03/10/22 07:28 Pulse 72 03/10/22 09:10 Resp 18 03/10/22 09:10 BP 166/75 H 03/10/22 07:28 Pulse Ox 99 03/10/22 07:28 O2 Del Method 03/10/22 07:28 O2 Flow Rate 7 03/10/22 07:28 Oxygen Flow Rate 7 03/06/22 21:39 BMI result Body Mass Index 33.6 GENERAL APPEARANCE: Short of breath. NECK: no carotid bruit, positive jugular venous distention. SKIN: no suspicious lesions, warm and dry. HEART: no murmurs, irregular regular rate and rhythm. LUNGS: Mild bilateral wheezes. ABDOMEN: soft, nontender. EXTREMITIES: no edema. PERIPHERAL PULSES: equal. NEUROLOGIC: No gross deficits, AAO X 3 Objective Labs and Meds Result diagrams: 03/10/22 06:29 03/10/22 06:29 Lab results: Laboratory Results - last 24 hr 03/09/22 03/09/22 03/09/22 11:04 15:41 19:33 WBC RBC Hgb Hct MCV MCH MCHC RDW Plt Count MPV Absolute Nucleated RBC Nucleated RBC % (auto) Sodium Potassium Chloride Carbon Dioxide Anion Gap BUN Creatinine Estim Creat Clear Calc Estimated GFR POC Glucose 302 H 257 H 328 H Fasting Glucose Calcium 03/10/22 03/10/22 03/10/22 06:29 06:29 07:14 WBC 11.3 H RBC 4.15 L Hgb 11.7 L Hct 36.2 L MCV 87.2 MCH 28.2 MCHC 32.3 RDW 12.6 Plt Count 278 MPV 9.5 Absolute Nucleated RBC 0.000 Nucleated RBC % (auto) 0.0 Sodium 134 L Potassium 4.1 Chloride 92 L Carbon Dioxide 31 H Anion Gap 15 BUN 38 H Creatinine 0.92 Estim Creat Clear Calc 48.2 Estimated GFR 58 POC Glucose 351 H* Fasting Glucose 353 H* Calcium 8.6 Progress Note: A&P Assessment and plan (1) Chronic atrial fibrillation: Status: Acute (2) CHF (congestive heart failure): Status: Acute Assessment and Plan: 81-year-old female presenting for respiratory distress in the setting of RSV and chronic atrial fibrillation. Clinically volume overloaded and in heart failure. Continues to be volume overloaded at this stage. Continue diuretics. Echocardiography reviewed which showed some RV dysfunction. Will repeat the echocardiogram after discharge from hospital to reassess this. In setting of active pulmonary issues and hypoxia, pulmonary vasoconstriction can happen which may affect the RV function. I will reassess her once she is stabilized. Titrate the antihypertensive therapy. Thank you for allowing me to participate in the care of your patient. Please feel free to contact me if you have any questions. Time Spent With Patient Time: Total time managing care of this patient today ____ minutes. Progress Note: Quality Stroke Does the patient have a stroke diagnosis?: No Procedures Date of Service Date of Service: 03/10/22
--- NOTE | 2022-03-10 11:38 | MHC.CM.PN ---
Patient may benefit from a PT eval (2 assist) to assist with best disposition; CM will follow.
[2022-03-10] MEDS: Insulin Lispro 100 UNIT/ML 3 ML VIAL 10 UNIT SUBCUT (12:24)
[2022-03-10] MEDS: LORazepam 0.5 MG TABLET PO ×2 (12:24→21:23)
--- NOTE | 2022-03-10 12:47 | HO.PM.IMPN ---
Subjective Subjective Date of Service: 03/10/22 Interval History: cc: sob interval history:some improvement Cardiovascular Cardiovascular: Reports no additional cardiovascular complaints Respiratory Respiratory: Reports no additional respiratory complaints Physical Exam Vital Signs: Vital Signs: Last Vital Signs Temp 98.7 F 03/10/22 11:02 Pulse 75 03/10/22 11:19 Resp 18 03/10/22 11:19 BP 152/65 H 03/10/22 11:02 Pulse Ox 94 03/10/22 11:02 O2 Del Method 03/10/22 11:02 O2 Flow Rate 3 03/10/22 11:02 Oxygen Flow Rate 7 03/06/22 21:39 BMI result Body Mass Index 33.6 GENERAL APPEARANCE: Short of breath. NECK: no carotid bruit, positive jugular venous distention. SKIN: no suspicious lesions, warm and dry. HEART: no murmurs, irregular regular rate and rhythm. LUNGS: Mild bilateral wheezes. ABDOMEN: soft, nontender. EXTREMITIES: no edema. PERIPHERAL PULSES: equal. NEUROLOGIC: No gross deficits, AAO X 3 Objective Data Active Medications Albuterol/Ipratropium (Albuterol/Iprat 2.5/0.5mg 3 Ml Ampul.Neb) 3 ml INHALE RQ4H PRN PRN Reason: sob Last Admin: 03/08/22 04:37 Dose: 3 ml Documented By: ADELFO Albuterol/Ipratropium (Albuterol/Iprat 2.5/0.5mg 3 Ml Ampul.Neb) 3 ml INHALE RQ4H WHILE AWAKE [facility] Last Admin: 03/10/22 11:19 Dose: 3 ml Documented By: KEMAR Amlodipine Besylate (Amlodipine Besylate 5 Mg Tablet) 5 mg PO DAILY [facility]; Protocol Last Admin: 03/10/22 07:59 Dose: 5 mg Documented By: LOGAN Atorvastatin Calcium (Atorvastatin Calcium 20 Mg Tablet) 20 mg PO DAILY [facility] Last Admin: 03/10/22 07:59 Dose: 20 mg Documented By: LOGAN Dabigatran (Dabigatran Etexilate Mesylate 150 Mg Capsule) 150 mg PO BID [facility] Last Admin: 03/10/22 07:58 Dose: 150 mg Documented By: LOGAN Dextrose (Dextrose 50 % 25 Gm/50 Ml Syringe) 25 gm IVPUSH Q15M PRN; Protocol PRN Reason: per Hypoglycemia Standing Ord. Furosemide (Furosemide 40 Mg/4 Ml Vial) 40 mg IVPUSH BID@0800,1700 [facility]; Protocol Last Admin: 03/10/22 07:58 Dose: 40 mg Documented By: LOGAN Glucose (Glucose Gel 15 Gm Gel..Gram.) 15 gm PO Q15M PRN; Protocol PRN Reason: per Hypoglycemia Standing Ord. Guaifenesin (Guaifenesin 200 Mg/10 Ml 10 Ml Liquid) 10 ml PO Q4H PRN PRN Reason: cough Last Admin: 03/09/22 15:02 Dose: 10 ml Documented By: KATIA Insulin Glargine (Insulin Glargine,Hum.Rec.Anlog 100 Unit/Ml 10 Ml Vial) 45 unit SUBCUT DAILY [facility] Last Admin: 03/10/22 07:59 Dose: 45 unit Documented By: LOGAN Insulin Human Lispro (Insulin Lispro 100 Unit/Ml 3 Ml Vial) 0 unit SUBCUT QIDAS [facility]; Protocol Last Admin: 03/10/22 12:24 Dose: 10 unit Documented By: LOGAN Insulin Human Lispro (Insulin Lispro 100 Unit/Ml 3 Ml Vial) 5 unit SUBCUT QIDACHS [facility] Isosorbide Mononitrate (Isosorbide Mononitrate 30 Mg Tab.Er.24h) 30 mg PO DAILY [facility]; Protocol Last Admin: 03/10/22 07:58 Dose: 30 mg Documented By: LOGAN Levothyroxine Sodium (Levothyroxine Sodium 112 Mcg Tablet) 112 mcg PO DAILY@0630 [facility] Last Admin: 03/10/22 05:38 Dose: 112 mcg Documented By: DEBRA Lorazepam (Lorazepam 0.5 Mg Tablet) 0.5 mg PO Q8H PRN PRN Reason: Anxiety Last Admin: 03/10/22 12:24 Dose: 0.5 mg Documented By: LOGAN Methylprednisolone Sodium Succinate (Methylprednisolone Sod Succ 40 Mg/Ml Vial) 40 mg IVPUSH Q12H [facility] Last Admin: 03/10/22 12:25 Dose: 40 mg Documented By: LOGAN Metoprolol Tartrate (Metoprolol Tartrate 50 Mg Tablet) 50 mg PO BID [facility]; Protocol Last Admin: 03/09/22 08:23 Dose: 50 mg Documented By: MICHEALSOFFA Morphine Sulfate (Morphine Sulfate 2 Mg/Ml Cartridge) 2 mg IVPUSH Q4H PRN; Protocol PRN Reason: sob Last Admin: 03/08/22 05:51 Dose: 2 mg Documented By: LENKAICL Sitagliptin Phosphate (Sitagliptin Phosphate 100 Mg Tablet) 100 mg PO DAILY [facility] Last Admin: 03/10/22 07:59 Dose: 100 mg Documented By: LOGAN Sodium Chloride (0.9 % Sodium Chloride Flush 3 Ml Syringe) 3 ml IVFLUSH QSHIFT [facility] Last Admin: 03/10/22 08:00 Dose: 3 ml Documented By: LOGAN Labs CBC & Chem 7: 03/10/22 06:29 03/10/22 06:29 Labs: Laboratory Results - last 24 hr 03/09/22 03/09/22 03/10/22 15:41 19:33 06:29 MCV 87.2 MCH 28.2 MCHC 32.3 RDW 12.6 Plt Count 278 MPV 9.5 Absolute Nucleated RBC 0.000 Nucleated RBC % (auto) 0.0 Anion Gap Estim Creat Clear Calc Estimated GFR POC Glucose 257 H 328 H Fasting Glucose Calcium 03/10/22 03/10/22 03/10/22 06:29 07:14 11:26 MCV MCH MCHC RDW Plt Count MPV Absolute Nucleated RBC Nucleated RBC % (auto) Anion Gap 15 Estim Creat Clear Calc 48.2 Estimated GFR 58 POC Glucose 351 H* 407 H* Fasting Glucose 353 H* Calcium 8.6 Assessment and Plan (1) Acute respiratory failure with hypoxia: Status: Acute (2) Respiratory syncytial virus (RSV): Status: Acute Plan 81F PMH chronic afib, DM, HTN, IBAN, obesity, hld, hypothyroid, presented with sob, found to be hypoxic and positive RSV. Acute hypoxic respiratory failure secondary to RSV and acute R heart failure continue iv steroids and scheduled bronchodilators continue IV lasix wean o2 as tolerated, improving, down to 3L 3sec pause likely due to cough, holding metoprolol for now Permanent AFib Rate controlled, hodling metoprolol for pause, continue Pradaxa Diabetes mellitus type 2 with hyperglycemia Hold glipizide, continue Januvia basal bolus insulin, monitor incidental renal cyst outpatient [place] Obesity Weight loss recommended Hyperlipidemia Continue statin Hypertension Continue amlodipine Hypothyroid Continue Synthroid IBAN CPAP at night (she is unable to tolerate hospital machine) anxiety/panic attacks previously on diazepam started low dose ativan prn leukocytosis likely secondary to steroid use no evidence of bacterial infection at this time DVT prophylaxis-on Pradaxa DNR/DNI reason for continued hospitalization -- remains hypoxic with supplemental o2, also remains fluid overloaded and requiring iv diuretics Time Spent With Patient Time: Total time managing care of this patient today ____ minutes. Quality Stroke Does the patient have a stroke diagnosis?: No VTE Prior VTE?: No VTE Risk Level:: Medical - moderate - high VTE Device Contraindication: Treatment Not Indicated VTE Drug Contraindication: N/A - Med Ordered
[2022-03-11] VITALS (10 sets, daily range): BP systolic 144–183; BP diastolic 63–87; PULSE 78–123; RESP 14–20; TEMP 36.1–36.6; O2SAT 94–97
[2022-03-11] MEDS: methylPREDNISolone Sod Succ 40 MG/ML VIAL IVPUSH ×2 (01:55→12:05)
[2022-03-11] MEDS: 0.9 % Sodium Chloride Flush 3 ML SYRINGE IVFLUSH ×2 (01:56→21:47)
[2022-03-11] MEDS: Levothyroxine Sodium 112 MCG TABLET PO (06:10)
[2022-03-11] MEDS: Albuterol/Iprat 2.5/0.5MG 3 ML AMPUL.NEB INHALE ×4 (08:01→19:38)
[2022-03-11 08:30] LABS: Hematocrit 39.2 % (37.0-47.0); Hemoglobin 12.5 g/dl (12.0-16.0); Mean Corpuscular HGB Conc 31.9 g/dl (31.0-35.0); Mean Corpuscular Hemoglobin 27.6 pg (27.0-33.0); Mean Corpuscular Volume 86.5 fL (80.0-98.0); Mean Platelet Volume 9.7 fL (9.4-12.3); Platelet Count 356 X10*3/uL (160-400); Red Blood Count 4.53 X10*6/uL (4.20-5.50); Red Cell Distribution Width 12.7 % (11.0-16.0); White Blood Count 11.7 X10*3/uL (4.8-10.8)
[2022-03-11 09:23] LABS: Anion Gap 14 (12-20); Blood Urea Nitrogen 29 mg/dL (9-16); Carbon Dioxide 39 mmol/L (22-29); Chloride 91 mmol/L (96-108); Creatinine Clr Calc Pharmacy 54.1; Estimated Glomerular Filt Rate > 60; Glucose Fasting 342 mg/dL (60-99); Magnesium 1.8 mg/dL (1.6-2.6); Potassium 3.9 mmol/L (3.3-5.1); Sodium 140 mmol/L (135-145)
--- NOTE | 2022-03-11 09:35 | HO.PM.IMPN ---
Subjective Subjective Date of Service: 03/11/22 Interval History: cc: sob interval history:some improvement Cardiovascular Cardiovascular: Reports no additional cardiovascular complaints Respiratory Respiratory: Reports no additional respiratory complaints Physical Exam Vital Signs: Vital Signs: Last Vital Signs Temp 97.2 F 03/11/22 08:00 Pulse 101 H 03/11/22 08:08 Resp 18 03/11/22 08:08 BP 183/79 H 03/11/22 08:00 Pulse Ox 96 03/11/22 08:00 O2 Del Method 03/11/22 08:00 O2 Flow Rate 2 03/11/22 08:00 Oxygen Flow Rate 3 03/11/22 03:31 BMI result Body Mass Index 33.6 GENERAL APPEARANCE: Short of breath. NECK: no carotid bruit, positive jugular venous distention. SKIN: no suspicious lesions, warm and dry. HEART: no murmurs, irregular regular rate and rhythm. LUNGS: Mild bilateral wheezes. ABDOMEN: soft, nontender. EXTREMITIES: no edema. PERIPHERAL PULSES: equal. NEUROLOGIC: No gross deficits, AAO X 3 Objective Data Active Medications Albuterol/Ipratropium (Albuterol/Iprat 2.5/0.5mg 3 Ml Ampul.Neb) 3 ml INHALE RQ4H PRN PRN Reason: sob Last Admin: 03/08/22 04:37 Dose: 3 ml Documented By: ADELFO Albuterol/Ipratropium (Albuterol/Iprat 2.5/0.5mg 3 Ml Ampul.Neb) 3 ml INHALE RQ4H WHILE AWAKE [facility] Last Admin: 03/11/22 08:01 Dose: 3 ml Documented By: NATIVIDAD Amlodipine Besylate (Amlodipine Besylate 5 Mg Tablet) 5 mg PO DAILY [facility]; Protocol Last Admin: 03/10/22 07:59 Dose: 5 mg Documented By: LOGAN Atorvastatin Calcium (Atorvastatin Calcium 20 Mg Tablet) 20 mg PO DAILY [facility] Last Admin: 03/10/22 07:59 Dose: 20 mg Documented By: LOGAN Dabigatran (Dabigatran Etexilate Mesylate 150 Mg Capsule) 150 mg PO BID [facility] Last Admin: 03/10/22 21:23 Dose: 150 mg Documented By: LAUREN Dextrose (Dextrose 50 % 25 Gm/50 Ml Syringe) 25 gm IVPUSH Q15M PRN; Protocol PRN Reason: per Hypoglycemia Standing Ord. Furosemide (Furosemide 40 Mg/4 Ml Vial) 40 mg IVPUSH BID@0800,1700 [facility]; Protocol Last Admin: 03/10/22 16:14 Dose: 40 mg Documented By: LOGAN Glucose (Glucose Gel 15 Gm Gel..Gram.) 15 gm PO Q15M PRN; Protocol PRN Reason: per Hypoglycemia Standing Ord. Guaifenesin (Guaifenesin 200 Mg/10 Ml 10 Ml Liquid) 10 ml PO Q4H PRN PRN Reason: cough Last Admin: 03/09/22 15:02 Dose: 10 ml Documented By: EDYTA-SOFMATHIEU Insulin Glargine (Insulin Glargine,Hum.Rec.Anlog 100 Unit/Ml 10 Ml Vial) 45 unit SUBCUT DAILY [facility] Last Admin: 03/10/22 07:59 Dose: 45 unit Documented By: LOGAN Insulin Human Lispro (Insulin Lispro 100 Unit/Ml 3 Ml Vial) 0 unit SUBCUT QIDACHS [facility]; Protocol Last Admin: 03/10/22 21:22 Dose: 10 unit Documented By: LAUREN Insulin Human Lispro (Insulin Lispro 100 Unit/Ml 3 Ml Vial) 5 unit SUBCUT QIDACHS [facility] Last Admin: 03/10/22 21:23 Dose: 5 unit Documented By: LAUREN Comments: drawn up in same syringe as sliding scale lispro Isosorbide Mononitrate (Isosorbide Mononitrate 30 Mg Tab.Er.24h) 30 mg PO DAILY [facility]; Protocol Last Admin: 03/10/22 07:58 Dose: 30 mg Documented By: LOGAN Levothyroxine Sodium (Levothyroxine Sodium 112 Mcg Tablet) 112 mcg PO DAILY@0630 [facility] Last Admin: 03/11/22 06:10 Dose: 112 mcg Documented By: LAUREN Lorazepam (Lorazepam 0.5 Mg Tablet) 0.5 mg PO Q8H PRN PRN Reason: Anxiety Last Admin: 03/10/22 21:23 Dose: 0.5 mg Documented By: LAUREN Methylprednisolone Sodium Succinate (Methylprednisolone Sod Succ 40 Mg/Ml Vial) 40 mg IVPUSH Q12H [facility] Last Admin: 03/11/22 01:55 Dose: 40 mg Documented By: HO.SHANTA Metoprolol Tartrate (Metoprolol Tartrate 50 Mg Tablet) 50 mg PO BID [facility]; Protocol Last Admin: 03/09/22 08:23 Dose: 50 mg Documented By: MICHEALSOFFA Morphine Sulfate (Morphine Sulfate 2 Mg/Ml Cartridge) 2 mg IVPUSH Q4H PRN; Protocol PRN Reason: sob Last Admin: 03/08/22 05:51 Dose: 2 mg Documented By: EDYTA-ANICL Sitagliptin Phosphate (Sitagliptin Phosphate 100 Mg Tablet) 100 mg PO DAILY [facility] Last Admin: 03/10/22 07:59 Dose: 100 mg Documented By: LOGAN Sodium Chloride (0.9 % Sodium Chloride Flush 3 Ml Syringe) 3 ml IVFLUSH QSHIFT [facility] Last Admin: 03/11/22 07:32 Dose: Not Given Documented By: KATIA Non-Admin Reason: See Note Labs CBC & Chem 7: 03/11/22 07:23 03/11/22 07:23 Labs: Laboratory Results - last 24 hr 03/10/22 03/10/22 03/10/22 11:26 15:55 20:20 MCV MCH MCHC RDW Plt Count MPV Absolute Nucleated RBC Nucleated RBC % (auto) Anion Gap Estim Creat Clear Calc Estimated GFR POC Glucose 407 H* 372 H* 469 H* Fasting Glucose Calcium Magnesium 03/11/22 03/11/22 03/11/22 07:23 07:23 08:19 MCV 86.5 MCH 27.6 MCHC 31.9 RDW 12.7 Plt Count 356 D MPV 9.7 Absolute Nucleated RBC 0.000 Nucleated RBC % (auto) 0.0 Anion Gap 14 Estim Creat Clear Calc 54.1 Estimated GFR > 60 POC Glucose 296 H Fasting Glucose 342 H Calcium 9.0 Magnesium 1.8 Assessment and Plan (1) Acute respiratory failure with hypoxia: Status: Acute (2) Respiratory syncytial virus (RSV): Status: Acute Plan 81F PMH chronic afib, DM, HTN, IBAN, obesity, hld, hypothyroid, presented with sob, found to be hypoxic and positive RSV. Acute hypoxic respiratory failure secondary to RSV and acute R heart failure continue iv steroids and scheduled bronchodilators continue IV lasix wean o2 as tolerated, improving, down to 2L 3sec pause likely due to cough, holding metoprolol for now Permanent AFib Rate controlled, hodling metoprolol for pause, continue Pradaxa Diabetes mellitus type 2 with hyperglycemia Hold glipizide, continue Januvia basal bolus insulin, monitor incidental renal cyst outpatient [place] Obesity Weight loss recommended Hyperlipidemia Continue statin Hypertension Continue amlodipine Hypothyroid Continue Synthroid IBAN CPAP at night (she is unable to tolerate hospital machine) anxiety/panic attacks previously on diazepam started low dose ativan prn leukocytosis likely secondary to steroid use no evidence of bacterial infection at this time DVT prophylaxis-on Pradaxa DNR/DNI reason for continued hospitalization -- remains hypoxic with supplemental o2, also remains fluid overloaded and requiring iv diuretics Time Spent With Patient Time: Total time managing care of this patient today ____ minutes. Quality Stroke Does the patient have a stroke diagnosis?: No VTE Prior VTE?: No VTE Risk Level:: Medical - moderate - high VTE Device Contraindication: Treatment Not Indicated VTE Drug Contraindication: N/A - Med Ordered
[2022-03-11] MEDS: SITagliptin Phosphate 100 MG TABLET PO (09:39)
[2022-03-11] MEDS: Furosemide 40 MG/4 ML VIAL IVPUSH ×2 (09:39→17:09)
[2022-03-11] MEDS: amLODIPine Besylate 5 MG TABLET PO (09:39)
[2022-03-11] MEDS: Isosorbide Mononitrate 30 MG TAB.ER.24H PO (09:39)
[2022-03-11] MEDS: Atorvastatin Calcium 20 MG TABLET PO (09:39)
[2022-03-11] MEDS: Insulin Lispro 100 UNIT/ML 3 ML VIAL SUBCUT ×5 (09:39→21:46)
[2022-03-11] MEDS: Dabigatran Etexilate Mesylate 150 MG CAPSULE PO ×2 (09:39→21:53)
[2022-03-11] MEDS: Insulin Glargine,Hum.rec.anlog 100 UNIT/ML 10 ML VIAL 45 UNIT SUBCUT (09:40)
[2022-03-11] MEDS: Insulin Lispro 100 UNIT/ML 3 ML VIAL 10 UNIT SUBCUT ×4 (12:04→21:47)
[2022-03-11] MEDS: Metoprolol Tartrate 50 MG TABLET PO (21:53)
[2022-03-12] VITALS (9 sets, daily range): BP systolic 137–150; BP diastolic 45–70; PULSE 62–85; RESP 14–20; TEMP 36.1–36.5; O2SAT 92–98
[2022-03-12] MEDS: methylPREDNISolone Sod Succ 40 MG/ML VIAL IVPUSH (00:02)
[2022-03-12] MEDS: Levothyroxine Sodium 112 MCG TABLET PO (05:38)
[2022-03-12] MEDS: Insulin Lispro 100 UNIT/ML 3 ML VIAL SUBCUT ×4 (07:54→21:42)
[2022-03-12] MEDS: Furosemide 40 MG/4 ML VIAL IVPUSH ×2 (07:54→17:00)
[2022-03-12] MEDS: Insulin Lispro 100 UNIT/ML 3 ML VIAL 10 UNIT SUBCUT ×4 (07:54→21:42)
[2022-03-12] MEDS: 0.9 % Sodium Chloride Flush 3 ML SYRINGE IVFLUSH ×3 (07:55→21:42)
[2022-03-12] MEDS: Isosorbide Mononitrate 30 MG TAB.ER.24H PO (07:55)
[2022-03-12] MEDS: Dabigatran Etexilate Mesylate 150 MG CAPSULE PO ×2 (07:55→21:41)
[2022-03-12] MEDS: amLODIPine Besylate 5 MG TABLET PO (07:55)
[2022-03-12] MEDS: Insulin Glargine,Hum.rec.anlog 100 UNIT/ML 10 ML VIAL 55 UNIT SUBCUT (07:56)
[2022-03-12] MEDS: Metoprolol Tartrate 50 MG TABLET PO ×2 (07:56→21:41)
[2022-03-12] MEDS: SITagliptin Phosphate 100 MG TABLET PO (07:56)
[2022-03-12] MEDS: Atorvastatin Calcium 20 MG TABLET PO (07:56)
[2022-03-12 08:17] LABS: Hematocrit 41.3 % (37.0-47.0); Hemoglobin 13.4 g/dl (12.0-16.0); Mean Corpuscular HGB Conc 32.4 g/dl (31.0-35.0); Mean Corpuscular Hemoglobin 28.1 pg (27.0-33.0); Mean Corpuscular Volume 86.6 fL (80.0-98.0); Mean Platelet Volume 9.7 fL (9.4-12.3); Platelet Count 383 X10*3/uL (160-400); Red Blood Count 4.77 X10*6/uL (4.20-5.50); Red Cell Distribution Width 12.7 % (11.0-16.0); White Blood Count 12.8 X10*3/uL (4.8-10.8)
[2022-03-12] MEDS: Albuterol/Iprat 2.5/0.5MG 3 ML AMPUL.NEB INHALE ×3 (08:18→19:49)
[2022-03-12 08:42] LABS: Anion Gap 15 (12-20); Blood Urea Nitrogen 26 mg/dL (9-16); Calcium 9.2 mg/dL (8.4-10.2); Carbon Dioxide 37 mmol/L (22-29); Chloride 90 mmol/L (96-108); Creatinine Clr Calc Pharmacy 52.1; Estimated Glomerular Filt Rate > 60; Glucose Fasting 271 mg/dL (60-99); Potassium 4.1 mmol/L (3.3-5.1); Sodium 138 mmol/L (135-145)
--- NOTE | 2022-03-12 09:42 | HO.PM.IMPN ---
Subjective Subjective Date of Service: 03/12/22 Interval History: cc: sob interval history:some improvement Cardiovascular Cardiovascular: Reports no additional cardiovascular complaints Respiratory Respiratory: Reports no additional respiratory complaints Physical Exam Vital Signs: Vital Signs: Last Vital Signs Temp 97.7 F 03/12/22 08:00 Pulse 74 03/12/22 08:18 Resp 16 03/12/22 08:18 BP 137/45 L 03/12/22 08:00 Pulse Ox 92 03/12/22 04:00 O2 Del Method 03/12/22 08:00 O2 Flow Rate 3 03/12/22 08:00 Oxygen Flow Rate 3 03/12/22 04:00 BMI result Body Mass Index 33.6 GENERAL APPEARANCE: Short of breath. NECK: no carotid bruit, positive jugular venous distention. SKIN: no suspicious lesions, warm and dry. HEART: no murmurs, irregular regular rate and rhythm. LUNGS: Mild bilateral wheezes. ABDOMEN: soft, nontender. EXTREMITIES: no edema. PERIPHERAL PULSES: equal. NEUROLOGIC: No gross deficits, AAO X 3 Objective Data Active Medications Albuterol/Ipratropium (Albuterol/Iprat 2.5/0.5mg 3 Ml Ampul.Neb) 3 ml INHALE RQ4H PRN PRN Reason: sob Last Admin: 03/08/22 04:37 Dose: 3 ml Documented By: ADELFO Albuterol/Ipratropium (Albuterol/Iprat 2.5/0.5mg 3 Ml Ampul.Neb) 3 ml INHALE RQ4H WHILE AWAKE [facility] Last Admin: 03/12/22 08:18 Dose: 3 ml Documented By: TRISHA Amlodipine Besylate (Amlodipine Besylate 5 Mg Tablet) 5 mg PO DAILY [facility]; Protocol Last Admin: 03/12/22 07:55 Dose: 5 mg Documented By: ROBB Atorvastatin Calcium (Atorvastatin Calcium 20 Mg Tablet) 20 mg PO DAILY [facility] Last Admin: 03/12/22 07:56 Dose: 20 mg Documented By: ROBB Dabigatran (Dabigatran Etexilate Mesylate 150 Mg Capsule) 150 mg PO BID [facility] Last Admin: 03/12/22 07:55 Dose: 150 mg Documented By: ROBB Dextrose (Dextrose 50 % 25 Gm/50 Ml Syringe) 25 gm IVPUSH Q15M PRN; Protocol PRN Reason: per Hypoglycemia Standing Ord. Furosemide (Furosemide 40 Mg/4 Ml Vial) 40 mg IVPUSH BID@0800,1700 [facility]; Protocol Last Admin: 03/12/22 07:54 Dose: 40 mg Documented By: ROBB Glucose (Glucose Gel 15 Gm Gel..Gram.) 15 gm PO Q15M PRN; Protocol PRN Reason: per Hypoglycemia Standing Ord. Guaifenesin (Guaifenesin 200 Mg/10 Ml 10 Ml Liquid) 10 ml PO Q4H PRN PRN Reason: cough Last Admin: 03/09/22 15:02 Dose: 10 ml Documented By: EDYTA-SOFFA Insulin Glargine (Insulin Glargine,Hum.Rec.Anlog 100 Unit/Ml 10 Ml Vial) 55 unit SUBCUT DAILY [facility] Last Admin: 03/12/22 07:56 Dose: 55 unit Documented By: ROBB Insulin Human Lispro (Insulin Lispro 100 Unit/Ml 3 Ml Vial) 0 unit SUBCUT QIDAS [facility]; Protocol Last Admin: 03/12/22 07:54 Dose: 6 unit Documented By: ROBB Insulin Human Lispro (Insulin Lispro 100 Unit/Ml 3 Ml Vial) 10 unit SUBCUT QIDAS [facility] Last Admin: 03/12/22 07:54 Dose: 10 unit Documented By: ROBB Isosorbide Mononitrate (Isosorbide Mononitrate 30 Mg Tab.Er.24h) 30 mg PO DAILY [facility]; Protocol Last Admin: 03/12/22 07:55 Dose: 30 mg Documented By: ROBB Levothyroxine Sodium (Levothyroxine Sodium 112 Mcg Tablet) 112 mcg PO DAILY@0630 [facility] Last Admin: 03/12/22 05:38 Dose: 112 mcg Documented By: LIZZY Lorazepam (Lorazepam 0.5 Mg Tablet) 0.5 mg PO Q8H PRN PRN Reason: Anxiety Last Admin: 03/10/22 21:23 Dose: 0.5 mg Documented By: LAUREN Methylprednisolone Sodium Succinate (Methylprednisolone Sod Succ 40 Mg/Ml Vial) 40 mg IVPUSH Q12H [facility] Last Admin: 03/12/22 00:02 Dose: 40 mg Documented By: LIZZY Metoprolol Tartrate (Metoprolol Tartrate 50 Mg Tablet) 50 mg PO BID [facility]; Protocol Last Admin: 03/12/22 07:56 Dose: 50 mg Documented By: ROBB Morphine Sulfate (Morphine Sulfate 2 Mg/Ml Cartridge) 2 mg IVPUSH Q4H PRN; Protocol PRN Reason: sob Last Admin: 03/08/22 05:51 Dose: 2 mg Documented By: EDYTA-ANICL Sitagliptin Phosphate (Sitagliptin Phosphate 100 Mg Tablet) 100 mg PO DAILY [facility] Last Admin: 03/12/22 07:56 Dose: 100 mg Documented By: ROBB Sodium Chloride (0.9 % Sodium Chloride Flush 3 Ml Syringe) 3 ml IVFLUSH QSHIFT [facility] Last Admin: 03/12/22 07:55 Dose: 3 ml Documented By: ROBB Labs CBC & Chem 7: 03/12/22 07:14 03/12/22 07:13 Labs: Laboratory Results - last 24 hr 03/11/22 03/11/22 03/11/22 11:02 16:58 21:06 MCV MCH MCHC RDW Plt Count MPV Absolute Nucleated RBC Nucleated RBC % (auto) Anion Gap Estim Creat Clear Calc Estimated GFR POC Glucose 379 H* 366 H* 386 H* Fasting Glucose Calcium 03/12/22 03/12/22 03/12/22 07:13 07:14 07:17 MCV 86.6 MCH 28.1 MCHC 32.4 RDW 12.7 Plt Count 383 MPV 9.7 Absolute Nucleated RBC 0.000 Nucleated RBC % (auto) 0.0 Anion Gap 15 Estim Creat Clear Calc 52.1 Estimated GFR > 60 POC Glucose 289 H Fasting Glucose 271 H Calcium 9.2 Assessment and Plan (1) Acute respiratory failure with hypoxia: Status: Acute (2) Respiratory syncytial virus (RSV): Status: Acute Plan 81F PMH chronic afib, DM, HTN, IBAN, obesity, hld, hypothyroid, presented with sob, found to be hypoxic and positive RSV. Acute hypoxic respiratory failure secondary to RSV and acute R heart failure continue steroids (changed to po) and scheduled bronchodilators continue IV lasix wean o2 as tolerated, improving, down to 2L, still satting high 80s on room air 3sec pause likely due to cough, holding metoprolol for now Permanent AFib metoprolol, continue Pradaxa Diabetes mellitus type 2 with hyperglycemia Hold glipizide, continue Januvia basal bolus insulin, monitor incidental renal cyst outpatient [place] Obesity Weight loss recommended Hyperlipidemia Continue statin Hypertension Continue amlodipine Hypothyroid Continue Synthroid IBAN CPAP at night (she is unable to tolerate hospital machine) anxiety/panic attacks previously on diazepam started low dose ativan prn leukocytosis likely secondary to steroid use no evidence of bacterial infection at this time DVT prophylaxis-on Pradaxa DNR/DNI reason for continued hospitalization -- remains hypoxic with supplemental o2, also remains fluid overloaded and requiring iv diuretics Time Spent With Patient Time: Total time managing care of this patient today ____ minutes. Quality Stroke Does the patient have a stroke diagnosis?: No VTE Prior VTE?: No VTE Risk Level:: Medical - moderate - high VTE Device Contraindication: Treatment Not Indicated VTE Drug Contraindication: N/A - Med Ordered
[2022-03-12 11:03] LABS: Glucose, Whole Blood 329 mg/dL (60-115)
--- NOTE | 2022-03-12 18:13 | PM.PNCARD ---
Subjective Subjective Date of Service: 03/12/22 Interval history: Patient was seen examined bedside. Feeling better. Physical Exam Vital Signs: Last Vital Signs Temp 97.0 F 03/12/22 16:00 Pulse 62 03/12/22 16:00 Resp 16 03/12/22 16:00 BP 142/70 H 03/12/22 16:00 Pulse Ox 98 03/12/22 11:13 O2 Del Method 03/12/22 16:00 O2 Flow Rate 2 03/12/22 16:00 Oxygen Flow Rate 3 03/12/22 04:00 BMI result Body Mass Index 33.6 GENERAL APPEARANCE: in no acute distress, pleasant. NECK: no carotid bruit, no jugular venous distention. SKIN: no suspicious lesions, warm and dry. HEART: no murmurs, regular rate and rhythm. LUNGS: Crackles at bases. ABDOMEN: soft, nontender. EXTREMITIES: no edema. PERIPHERAL PULSES: equal. NEUROLOGIC: No gross deficits, AAO X 3 Objective Labs and Meds Result diagrams: 03/12/22 07:14 03/12/22 07:13 Lab results: Laboratory Results - last 24 hr 03/11/22 03/12/22 03/12/22 21:06 07:13 07:14 WBC 12.8 H RBC 4.77 Hgb 13.4 Hct 41.3 MCV 86.6 MCH 28.1 MCHC 32.4 RDW 12.7 Plt Count 383 MPV 9.7 Absolute Nucleated RBC 0.000 Nucleated RBC % (auto) 0.0 Sodium 138 Potassium 4.1 Chloride 90 L Carbon Dioxide 37 H Anion Gap 15 BUN 26 H Creatinine 0.85 Estim Creat Clear Calc 52.1 Estimated GFR > 60 POC Glucose 386 H* Fasting Glucose 271 H Calcium 9.2 03/12/22 03/12/22 03/12/22 07:17 10:58 16:35 WBC RBC Hgb Hct MCV MCH MCHC RDW Plt Count MPV Absolute Nucleated RBC Nucleated RBC % (auto) Sodium Potassium Chloride Carbon Dioxide Anion Gap BUN Creatinine Estim Creat Clear Calc Estimated GFR POC Glucose 289 H 329 H 273 H Fasting Glucose Calcium Progress Note: A&P Assessment and plan (1) CHF (congestive heart failure): Status: Acute Plan 81-year-old female who is presenting for RSV and heart failure. Has been diuresed in improving. No more wheezes and chest has few crackles on examination. Clinically I think she is euvolemic at this stage. I think diuretics can be changed to oral. Blood pressure control is reasonable. We will bring her back in the office for follow-up. Thank you for allowing me to participate in the care of your patient. Please feel free to contact me if you have any questions. Time Spent With Patient Time: Total time managing care of this patient today ____ minutes. Progress Note: Quality Stroke Does the patient have a stroke diagnosis?: No Procedures Date of Service Date of Service: 03/12/22
[2022-03-12] MEDS: LORazepam 0.5 MG TABLET PO (21:41)
[2022-03-13] VITALS (13 sets, daily range): BP systolic 115–148; BP diastolic 58–67; PULSE 58–75; RESP 14–20; TEMP 35.7–36.6; O2SAT 87–98
[2022-03-13] MEDS: Levothyroxine Sodium 112 MCG TABLET PO (06:06)
[2022-03-13 07:37] LABS: Hemoglobin 15.1 g/dl (12.0-16.0); Mean Corpuscular HGB Conc 32.1 g/dl (31.0-35.0); Mean Corpuscular Hemoglobin 27.7 pg (27.0-33.0); Mean Corpuscular Volume 86.2 fL (80.0-98.0); Mean Platelet Volume 9.4 fL (9.4-12.3); Platelet Count 414 X10*3/uL (160-400); Red Blood Count 5.45 X10*6/uL (4.20-5.50); Red Cell Distribution Width 12.8 % (11.0-16.0); White Blood Count 15.1 X10*3/uL (4.8-10.8)
[2022-03-13] MEDS: Atorvastatin Calcium 20 MG TABLET PO (08:34)
[2022-03-13] MEDS: amLODIPine Besylate 5 MG TABLET PO (08:34)
[2022-03-13] MEDS: Dabigatran Etexilate Mesylate 150 MG CAPSULE PO ×2 (08:35→21:30)
[2022-03-13] MEDS: Metoprolol Tartrate 50 MG TABLET PO ×2 (08:35→21:31)
[2022-03-13] MEDS: predniSONE 20 MG TABLET 40 MG PO (08:35)
[2022-03-13] MEDS: Isosorbide Mononitrate 30 MG TAB.ER.24H PO (08:35)
[2022-03-13] MEDS: SITagliptin Phosphate 100 MG TABLET PO (08:35)
[2022-03-13] MEDS: Insulin Lispro 100 UNIT/ML 3 ML VIAL 10 UNIT SUBCUT ×4 (08:36→21:32)
[2022-03-13] MEDS: Insulin Glargine,Hum.rec.anlog 100 UNIT/ML 10 ML VIAL 55 UNIT SUBCUT (08:37)
[2022-03-13] MEDS: 0.9 % Sodium Chloride Flush 3 ML SYRINGE IVFLUSH ×3 (08:45→21:36)
[2022-03-13] MEDS: Albuterol/Iprat 2.5/0.5MG 3 ML AMPUL.NEB INHALE ×3 (08:59→16:00)
[2022-03-13 09:08] LABS: Anion Gap 13 (12-20); Blood Urea Nitrogen 28 mg/dL (9-16); Calcium 9.5 mg/dL (8.4-10.2); Carbon Dioxide 43 mmol/L (22-29); Chloride 86 mmol/L (96-108); Creatinine Clr Calc Pharmacy 52.8; Estimated Glomerular Filt Rate > 60; Glucose Fasting 77 mg/dL (60-99); Potassium 3.4 mmol/L (3.3-5.1); Sodium 139 mmol/L (135-145)
--- NOTE | 2022-03-13 09:27 | HO.PM.IMPN ---
Subjective Subjective Date of Service: 03/13/22 Interval History: cc: sob interval history:some improvement Cardiovascular Cardiovascular: Reports no additional cardiovascular complaints Respiratory Respiratory: Reports no additional respiratory complaints Physical Exam Vital Signs: Vital Signs: Last Vital Signs Temp 97.3 F 03/13/22 07:57 Pulse 70 03/13/22 08:59 Resp 16 03/13/22 08:59 BP 148/67 H 03/13/22 07:57 Pulse Ox 94 03/13/22 07:57 O2 Del Method 03/13/22 07:57 O2 Flow Rate 2 03/13/22 07:57 Oxygen Flow Rate 3 03/12/22 04:00 BMI result Body Mass Index 33.6 GENERAL APPEARANCE: in no acute distress, pleasant. NECK: no carotid bruit, no jugular venous distention. SKIN: no suspicious lesions, warm and dry. HEART: no murmurs, regular rate and rhythm. LUNGS: Crackles at bases. ABDOMEN: soft, nontender. EXTREMITIES: no edema. PERIPHERAL PULSES: equal. NEUROLOGIC: No gross deficits, AAO X 3 Objective Data Active Medications Acetazolamide (Acetazolamide 250 Mg Tablet) 250 mg PO TID [facility] Albuterol/Ipratropium (Albuterol/Iprat 2.5/0.5mg 3 Ml Ampul.Neb) 3 ml INHALE RQ4H PRN PRN Reason: sob Last Admin: 03/08/22 04:37 Dose: 3 ml Documented By: ADELFO Albuterol/Ipratropium (Albuterol/Iprat 2.5/0.5mg 3 Ml Ampul.Neb) 3 ml INHALE RQ4H WHILE AWAKE [facility] Last Admin: 03/13/22 08:59 Dose: 3 ml Documented By: TRISHA Amlodipine Besylate (Amlodipine Besylate 5 Mg Tablet) 5 mg PO DAILY [facility]; Protocol Last Admin: 03/13/22 08:34 Dose: 5 mg Documented By: LIDIA Atorvastatin Calcium (Atorvastatin Calcium 20 Mg Tablet) 20 mg PO DAILY [facility] Last Admin: 03/13/22 08:34 Dose: 20 mg Documented By: LIDIA Dabigatran (Dabigatran Etexilate Mesylate 150 Mg Capsule) 150 mg PO BID [facility] Last Admin: 03/13/22 08:35 Dose: 150 mg Documented By: LIDIA Dextrose (Dextrose 50 % 25 Gm/50 Ml Syringe) 25 gm IVPUSH Q15M PRN; Protocol PRN Reason: per Hypoglycemia Standing Ord. Glucose (Glucose Gel 15 Gm Gel..Gram.) 15 gm PO Q15M PRN; Protocol PRN Reason: per Hypoglycemia Standing Ord. Guaifenesin (Guaifenesin 200 Mg/10 Ml 10 Ml Liquid) 10 ml PO Q4H PRN PRN Reason: cough Last Admin: 03/09/22 15:02 Dose: 10 ml Documented By: KATIA Insulin Glargine (Insulin Glargine,Hum.Rec.Anlog 100 Unit/Ml 10 Ml Vial) 55 unit SUBCUT DAILY [facility] Last Admin: 03/13/22 08:37 Dose: 55 unit Documented By: LIDIA Insulin Human Lispro (Insulin Lispro 100 Unit/Ml 3 Ml Vial) 0 unit SUBCUT QIDACHS [facility]; Protocol Last Admin: 03/13/22 08:31 Dose: Not Given Documented By: LIDIA Non-Admin Reason: No Insulin Coverage Insulin Human Lispro (Insulin Lispro 100 Unit/Ml 3 Ml Vial) 10 unit SUBCUT QIDACHS [facility] Last Admin: 03/13/22 08:36 Dose: 10 unit Documented By: LIDIA Isosorbide Mononitrate (Isosorbide Mononitrate 30 Mg Tab.Er.24h) 30 mg PO DAILY [facility]; Protocol Last Admin: 03/13/22 08:35 Dose: 30 mg Documented By: LIDIA Levothyroxine Sodium (Levothyroxine Sodium 112 Mcg Tablet) 112 mcg PO DAILY@0630 [facility] Last Admin: 03/13/22 06:06 Dose: 112 mcg Documented By: EVELYN Lorazepam (Lorazepam 0.5 Mg Tablet) 0.5 mg PO Q8H PRN PRN Reason: Anxiety Last Admin: 03/12/22 21:41 Dose: 0.5 mg Documented By: EVELYN Metoprolol Tartrate (Metoprolol Tartrate 50 Mg Tablet) 50 mg PO BID [facility]; Protocol Last Admin: 03/13/22 08:35 Dose: 50 mg Documented By: LIDIA Morphine Sulfate (Morphine Sulfate 2 Mg/Ml Cartridge) 2 mg IVPUSH Q4H PRN; Protocol PRN Reason: sob Last Admin: 03/08/22 05:51 Dose: 2 mg Documented By: EDYTA-SHERINICL Potassium Chloride (Potassium Chloride Er 20 Meq Tab.Er.Prt) 40 meq PO ONCE ONE Stop: 03/13/22 09:20 Prednisone (Prednisone 20 Mg Tablet) 40 mg PO DAILY [facility] Last Admin: 03/13/22 08:35 Dose: 40 mg Documented By: LIDIA Sitagliptin Phosphate (Sitagliptin Phosphate 100 Mg Tablet) 100 mg PO DAILY [facility] Last Admin: 03/13/22 08:35 Dose: 100 mg Documented By: LIDIA Sodium Chloride (0.9 % Sodium Chloride Flush 3 Ml Syringe) 3 ml IVFLUSH QSHIFT [facility] Last Admin: 03/13/22 08:45 Dose: 3 ml Documented By: LIDIA Labs CBC & Chem 7: 03/13/22 06:35 03/13/22 06:35 Labs: Laboratory Results - last 24 hr 03/12/22 03/12/22 03/12/22 10:58 16:35 21:15 MCV MCH MCHC RDW Plt Count MPV Absolute Nucleated RBC Nucleated RBC % (auto) Anion Gap Estim Creat Clear Calc Estimated GFR POC Glucose 329 H 273 H 239 H Fasting Glucose Calcium 03/13/22 03/13/22 03/13/22 06:35 06:35 07:32 MCV 86.2 MCH 27.7 MCHC 32.1 RDW 12.8 Plt Count 414 H MPV 9.4 Absolute Nucleated RBC 0.000 Nucleated RBC % (auto) 0.0 Anion Gap 13 Estim Creat Clear Calc 52.8 Estimated GFR > 60 POC Glucose 98 Fasting Glucose 77 Calcium 9.5 Assessment and Plan (1) Acute respiratory failure with hypoxia: Status: Acute (2) Respiratory syncytial virus (RSV): Status: Acute Plan 81F PMH chronic afib, DM, HTN, IBAN, obesity, hld, hypothyroid, presented with sob, found to be hypoxic and positive RSV. Acute hypoxic respiratory failure secondary to RSV and acute R heart failure continue steroids (changed to po) and scheduled bronchodilators diuresed well, will change to po diamox wean o2 as tolerated, improving, down to 2L, still satting high 80s on room air Permanent AFib metoprolol, continue Pradaxa Diabetes mellitus type 2 with hyperglycemia Hold glipizide, continue Januvia basal bolus insulin, monitor incidental renal cyst outpatient US Obesity Weight loss recommended Hyperlipidemia Continue statin Hypertension Continue amlodipine Hypothyroid Continue Synthroid IBAN CPAP at night (she is unable to tolerate hospital machine) anxiety/panic attacks previously on diazepam started low dose ativan prn DVT prophylaxis-on Pradaxa DNR/DNI reason for continued hospitalization -- remains hypoxic with supplemental o2 Time Spent With Patient Time: Total time managing care of this patient today ____ minutes. Quality Stroke Does the patient have a stroke diagnosis?: No VTE Prior VTE?: No VTE Risk Level:: Medical - moderate - high VTE Device Contraindication: Treatment Not Indicated VTE Drug Contraindication: N/A - Med Ordered
[2022-03-13] MEDS: Insulin Lispro 100 UNIT/ML 3 ML VIAL SUBCUT ×3 (12:22→21:33)
[2022-03-13] MEDS: acetaZOLAMIDE 250 MG TABLET PO ×2 (16:48→21:30)
[2022-03-14] VITALS (9 sets, daily range): BP systolic 122–164; BP diastolic 57–75; PULSE 52–67; RESP 12–20; TEMP 35.7–37; O2SAT 93–98
--- NOTE | 2022-03-14 03:22 | PC.NURSE ---
03/13/2022t reported to this RN I'm feeling anxious and I cannot go to sleep , reported To MD, prescribed Hydralazine 25 mg PO x 1 dose. Given with good effect.
[2022-03-14] MEDS: Levothyroxine Sodium 112 MCG TABLET PO (05:50)
[2022-03-14] MEDS: Albuterol/Iprat 2.5/0.5MG 3 ML AMPUL.NEB INHALE (07:44)
[2022-03-14 07:46] LABS: Glucose, Whole Blood 191 mg/dL (60-115)
[2022-03-14] MEDS: amLODIPine Besylate 5 MG TABLET PO (07:54)
[2022-03-14] MEDS: Atorvastatin Calcium 20 MG TABLET PO (07:55)
[2022-03-14] MEDS: Isosorbide Mononitrate 30 MG TAB.ER.24H PO (07:55)
[2022-03-14] MEDS: SITagliptin Phosphate 100 MG TABLET PO (07:55)
[2022-03-14] MEDS: Dabigatran Etexilate Mesylate 150 MG CAPSULE PO ×2 (07:55→20:23)
[2022-03-14] MEDS: acetaZOLAMIDE 250 MG TABLET PO (07:56)
[2022-03-14] MEDS: Insulin Lispro 100 UNIT/ML 3 ML VIAL SUBCUT ×4 (07:56→20:23)
[2022-03-14] MEDS: predniSONE 20 MG TABLET 40 MG PO (07:56)
[2022-03-14] MEDS: 0.9 % Sodium Chloride Flush 3 ML SYRINGE IVFLUSH ×2 (07:56→17:46)
[2022-03-14] MEDS: Metoprolol Tartrate 50 MG TABLET PO (07:56)
[2022-03-14] MEDS: Insulin Glargine,Hum.rec.anlog 100 UNIT/ML 10 ML VIAL 55 UNIT SUBCUT (07:57)
[2022-03-14] MEDS: Insulin Lispro 100 UNIT/ML 3 ML VIAL 10 UNIT SUBCUT ×4 (07:57→20:23)
[2022-03-14 08:26] LABS: Hematocrit 45.6 % (37.0-47.0); Hemoglobin 14.6 g/dl (12.0-16.0); Mean Corpuscular Hemoglobin 27.8 pg (27.0-33.0); Mean Corpuscular Volume 86.7 fL (80.0-98.0); Mean Platelet Volume 9.6 fL (9.4-12.3); Platelet Count 438 X10*3/uL (160-400); Red Blood Count 5.26 X10*6/uL (4.20-5.50); Red Cell Distribution Width 12.8 % (11.0-16.0); White Blood Count 17.7 X10*3/uL (4.8-10.8)
[2022-03-14 08:46] LABS: Anion Gap 13 (12-20); Blood Urea Nitrogen 32 mg/dL (9-16); Calcium 9.4 mg/dL (8.4-10.2); Carbon Dioxide 36 mmol/L (22-29); Chloride 92 mmol/L (96-108); Creatinine Clr Calc Pharmacy 41.1; Estimated Glomerular Filt Rate 48; Glucose Fasting 188 mg/dL (60-99); Potassium 3.8 mmol/L (3.3-5.1); Sodium 137 mmol/L (135-145)
--- NOTE | 2022-03-14 09:07 | P.PNIM_ITS ---
Subjective Subjective Date of Service: 03/14/22 Interval History: cc: sob interval history:some improvement Cardiovascular Cardiovascular: Reports no additional cardiovascular complaints Respiratory Respiratory: Reports no additional respiratory complaints Physical Exam Vital Signs: Vital Signs: Last Vital Signs Temp 96.2 F L 03/14/22 07:38 Pulse 58 03/14/22 07:45 Resp 12 03/14/22 07:45 BP 164/75 H 03/14/22 07:38 Pulse Ox 93 03/14/22 07:38 O2 Del Method 03/14/22 07:38 O2 Flow Rate 2 03/14/22 07:38 Oxygen Flow Rate 3 03/12/22 04:00 BMI result Body Mass Index 33.6 GENERAL APPEARANCE: in no acute distress, pleasant. NECK: no carotid bruit, no jugular venous distention. SKIN: no suspicious lesions, warm and dry. HEART: no murmurs, regular rate and rhythm. LUNGS: Crackles at bases. ABDOMEN: soft, nontender. EXTREMITIES: no edema. PERIPHERAL PULSES: equal. NEUROLOGIC: No gross deficits, AAO X 3 Objective Data Active Medications Albuterol/Ipratropium (Albuterol/Iprat 2.5/0.5mg 3 Ml Ampul.Neb) 3 ml INHALE RQ4H PRN PRN Reason: sob Last Admin: 03/08/22 04:37 Dose: 3 ml Documented By: ADELFO Albuterol/Ipratropium (Albuterol/Iprat 2.5/0.5mg 3 Ml Ampul.Neb) 3 ml INHALE RQ4H WHILE AWAKE [facility] Last Admin: 03/14/22 07:44 Dose: 3 ml Documented By: BJ Amlodipine Besylate (Amlodipine Besylate 5 Mg Tablet) 5 mg PO DAILY [facility]; Protocol Last Admin: 03/14/22 07:54 Dose: 5 mg Documented By: LIDIA Atorvastatin Calcium (Atorvastatin Calcium 20 Mg Tablet) 20 mg PO DAILY [facility] Last Admin: 03/14/22 07:55 Dose: 20 mg Documented By: LIDIA Dabigatran (Dabigatran Etexilate Mesylate 150 Mg Capsule) 150 mg PO BID [facility] Last Admin: 03/14/22 07:55 Dose: 150 mg Documented By: LIDIA Dextrose (Dextrose 50 % 25 Gm/50 Ml Syringe) 25 gm IVPUSH Q15M PRN; Protocol PRN Reason: per Hypoglycemia Standing Ord. Glucose (Glucose Gel 15 Gm Gel..Gram.) 15 gm PO Q15M PRN; Protocol PRN Reason: per Hypoglycemia Standing Ord. Guaifenesin (Guaifenesin 200 Mg/10 Ml 10 Ml Liquid) 10 ml PO Q4H PRN PRN Reason: cough Last Admin: 03/09/22 15:02 Dose: 10 ml Documented By: KATIA Insulin Glargine (Insulin Glargine,Hum.Rec.Anlog 100 Unit/Ml 10 Ml Vial) 55 unit SUBCUT DAILY [facility] Last Admin: 03/14/22 07:57 Dose: 55 unit Documented By: LIDIA Insulin Human Lispro (Insulin Lispro 100 Unit/Ml 3 Ml Vial) 0 unit SUBCUT QIDAS [facility]; Protocol Last Admin: 03/14/22 07:56 Dose: 2 unit Documented By: LIDIA Insulin Human Lispro (Insulin Lispro 100 Unit/Ml 3 Ml Vial) 10 unit SUBCUT QIDAS [facility] Last Admin: 03/14/22 07:57 Dose: 10 unit Documented By: LIDIA Isosorbide Mononitrate (Isosorbide Mononitrate 30 Mg Tab.Er.24h) 30 mg PO DAILY [facility]; Protocol Last Admin: 03/14/22 07:55 Dose: 30 mg Documented By: LIDIA Levothyroxine Sodium (Levothyroxine Sodium 112 Mcg Tablet) 112 mcg PO DAILY@0630 [facility] Last Admin: 03/14/22 05:50 Dose: 112 mcg Documented By: JACKELIN Metoprolol Tartrate (Metoprolol Tartrate 50 Mg Tablet) 50 mg PO BID [facility]; Protocol Last Admin: 03/14/22 07:56 Dose: 50 mg Documented By: LIDIA Morphine Sulfate (Morphine Sulfate 2 Mg/Ml Cartridge) 2 mg IVPUSH Q4H PRN; Protocol PRN Reason: sob Last Admin: 03/08/22 05:51 Dose: 2 mg Documented By: JENA Prednisone (Prednisone 20 Mg Tablet) 40 mg PO DAILY [facility] Last Admin: 03/14/22 07:56 Dose: 40 mg Documented By: LIDIA Sitagliptin Phosphate (Sitagliptin Phosphate 100 Mg Tablet) 100 mg PO DAILY [facility] Last Admin: 03/14/22 07:55 Dose: 100 mg Documented By: LIDIA Sodium Chloride (0.9 % Sodium Chloride Flush 3 Ml Syringe) 3 ml IVFLUSH QSHIFT [facility] Last Admin: 03/14/22 07:56 Dose: 3 ml Documented By: LIDIA Labs CBC & Chem 7: 03/14/22 07:55 03/14/22 07:55 Labs: Laboratory Results - last 24 hr 03/13/22 03/13/22 03/13/22 06:35 11:25 15:40 MCV MCH MCHC RDW Plt Count MPV Absolute Nucleated RBC Nucleated RBC % (auto) Anion Gap 13 Estim Creat Clear Calc 52.8 Estimated GFR > 60 POC Glucose 220 H 225 H Fasting Glucose 77 Calcium 9.5 03/13/22 03/14/22 03/14/22 19:45 07:37 07:55 MCV 86.7 MCH 27.8 MCHC 32.0 RDW 12.8 Plt Count 438 H MPV 9.6 Absolute Nucleated RBC 0.000 Nucleated RBC % (auto) 0.0 Anion Gap Estim Creat Clear Calc Estimated GFR POC Glucose 240 H 191 H Fasting Glucose Calcium 03/14/22 07:55 MCV MCH MCHC RDW Plt Count MPV Absolute Nucleated RBC Nucleated RBC % (auto) Anion Gap 13 Estim Creat Clear Calc 41.1 Estimated GFR 48 POC Glucose Fasting Glucose 188 H Calcium 9.4 Assessment and Plan (1) Acute respiratory failure with hypoxia: Status: Acute (2) Respiratory syncytial virus (RSV): Status: Acute Plan 81F PMH chronic afib, DM, HTN, IBAN, obesity, hld, hypothyroid, presented with sob, found to be hypoxic and positive RSV. Acute hypoxic respiratory failure secondary to RSV and acute R heart failure continue steroids (changed to po) and scheduled bronchodilators diuresed well, now off diuretics wean o2 as tolerated, improving, down to 2L, still satting high 80s on room air Permanent AFib metoprolol, continue Pradaxa Diabetes mellitus type 2 with hyperglycemia Hold glipizide, continue Januvia basal bolus insulin, monitor incidental renal cyst outpatient US Obesity Weight loss recommended Hyperlipidemia Continue statin Hypertension Continue amlodipine Hypothyroid Continue Synthroid IBAN CPAP at night (she is unable to tolerate hospital machine) anxiety/panic attacks previously on diazepam started low dose ativan prn DVT prophylaxis-on Pradaxa DNR/DNI reason for continued hospitalization -- remains hypoxic with supplemental o2 Time Spent With Patient Time: Total time managing care of this patient today ____ minutes. Quality Stroke Does the patient have a stroke diagnosis?: No VTE Prior VTE?: No VTE Risk Level:: Medical - moderate - high VTE Device Contraindication: Treatment Not Indicated VTE Drug Contraindication: N/A - Med Ordered
[2022-03-14 10:55] LABS: Glucose, Whole Blood 207 mg/dL (60-115)
[2022-03-14 16:04] LABS: Glucose, Whole Blood 166 mg/dL (60-115)
[2022-03-14 20:03] LABS: Glucose, Whole Blood 229 mg/dL (60-115)
[2022-03-14] MEDS: Metoprolol Tartrate 25 MG TABLET PO (20:22)
[2022-03-15] VITALS (11 sets, daily range): BP systolic 117–163; BP diastolic 59–71; PULSE 52–73; RESP 16–18; TEMP 36.1–37.1; O2SAT 84–96
[2022-03-15] MEDS: 0.9 % Sodium Chloride Flush 3 ML SYRINGE IVFLUSH ×3 (04:28→16:57)
[2022-03-15] MEDS: Levothyroxine Sodium 112 MCG TABLET PO (06:27)
[2022-03-15 06:51] LABS: Hematocrit 48.3 % (37.0-47.0); Hemoglobin 15.4 g/dl (12.0-16.0); Mean Corpuscular HGB Conc 31.9 g/dl (31.0-35.0); Mean Corpuscular Hemoglobin 27.9 pg (27.0-33.0); Mean Corpuscular Volume 87.5 fL (80.0-98.0); Mean Platelet Volume 9.7 fL (9.4-12.3); Platelet Count 380 X10*3/uL (160-400); Red Blood Count 5.52 X10*6/uL (4.20-5.50); Red Cell Distribution Width 12.9 % (11.0-16.0); White Blood Count 18.2 X10*3/uL (4.8-10.8)
[2022-03-15 07:15] LABS: Anion Gap 14 (12-20); Blood Urea Nitrogen 31 mg/dL (9-16); Calcium 9.1 mg/dL (8.4-10.2); Carbon Dioxide 29 mmol/L (22-29); Chloride 97 mmol/L (96-108); Creatinine Clr Calc Pharmacy 51.5; Estimated Glomerular Filt Rate > 60; Glucose Fasting 70 mg/dL (60-99); Magnesium 1.8 mg/dL (1.6-2.6); Potassium 3.3 mmol/L (3.3-5.1); Sodium 137 mmol/L (135-145)
[2022-03-15 07:57] LABS: Glucose, Whole Blood 80 mg/dL (60-115)
[2022-03-15] MEDS: predniSONE 20 MG TABLET 40 MG PO (10:32)
[2022-03-15] MEDS: Isosorbide Mononitrate 30 MG TAB.ER.24H PO (10:32)
[2022-03-15] MEDS: Dabigatran Etexilate Mesylate 150 MG CAPSULE PO ×2 (10:32→20:44)
[2022-03-15] MEDS: Atorvastatin Calcium 20 MG TABLET PO (10:33)
[2022-03-15] MEDS: SITagliptin Phosphate 100 MG TABLET PO (10:33)
[2022-03-15] MEDS: amLODIPine Besylate 5 MG TABLET PO (10:33)
[2022-03-15] MEDS: Metoprolol Tartrate 25 MG TABLET PO ×2 (10:33→20:44)
[2022-03-15 11:19] LABS: Glucose, Whole Blood 181 mg/dL (60-115)
[2022-03-15] MEDS: Insulin Lispro 100 UNIT/ML 3 ML VIAL SUBCUT ×3 (11:28→20:45)
[2022-03-15] MEDS: Insulin Lispro 100 UNIT/ML 3 ML VIAL 10 UNIT SUBCUT ×3 (11:28→20:44)
--- NOTE | 2022-03-15 11:42 | P.DS_ITS ---
DS: Providers Provider Date of Service: 03/15/22 Date of admission: 03/07/22 00:39 Primary care physician: Damir Grigsby MD Consults: 03/08/22 10:01 Consult to Cardiology Routine Consulting Provider: Alejandro Arrieta Reason for consultation: new right heart failure DS: Diagnosis Discharge Diagnosis (1) Acute respiratory failure with hypoxia: Status: Acute (2) Respiratory syncytial virus (RSV): Status: Acute DS: Summary Hospital Course Hospital Course: 81F PMH chronic afib, DM, HTN, IBAN, obesity, hld, hypothyroid, presented with sob. patient symptoms began about 2 days ptp, a/w dry cough, lower extremity edema, orthopnea. denies chest pain, fever, chills. Time Spent with Patient Time attestation: Total time managing care of this patient today ____ minutes. Physical Exam Vital Signs: Vital Signs: Last Vital Signs Temp 97.2 F 03/15/22 11:03 Pulse 68 03/15/22 11:03 Resp 16 03/15/22 11:03 BP 117/59 L 03/15/22 11:03 Pulse Ox 90 L 03/15/22 11:03 O2 Del Method 03/15/22 11:03 O2 Flow Rate 2 03/15/22 11:03 Oxygen Flow Rate 3 03/12/22 04:00 BMI result Body Mass Index 33.6 DS: Data Data Completed and Pending Labs on day of discharge: Laboratory Results - last 24 hr 03/14/22 03/14/22 03/15/22 16:01 19:58 06:43 WBC 18.2 H RBC 5.52 H Hgb 15.4 Hct 48.3 H MCV 87.5 MCH 27.9 MCHC 31.9 RDW 12.9 Plt Count 380 MPV 9.7 Absolute Nucleated RBC 0.000 Nucleated RBC % (auto) 0.0 Sodium Potassium Chloride Carbon Dioxide Anion Gap BUN Creatinine Estim Creat Clear Calc Estimated GFR POC Glucose 166 H 229 H Fasting Glucose Calcium Magnesium 03/15/22 03/15/22 03/15/22 06:43 07:53 11:06 WBC RBC Hgb Hct MCV MCH MCHC RDW Plt Count MPV Absolute Nucleated RBC Nucleated RBC % (auto) Sodium 137 Potassium 3.3 Chloride 97 Carbon Dioxide 29 Anion Gap 14 BUN 31 H Creatinine 0.86 Estim Creat Clear Calc 51.5 Estimated GFR > 60 POC Glucose 80 181 H Fasting Glucose 70 Calcium 9.1 Magnesium 1.8 Discharge Plan Discharge Referrals: Damir Grigsby MD [Primary Care Provider] - 1 Week Discharge Medications: No Action glipizide 5 mg tablet extended release 24hr 1 tab PO DAILY atorvastatin 20 mg tablet 1 tab PO DAILY metoprolol tartrate 50 mg tablet 1 tab PO BID insulin glargine [Basaglar KwikPen U-100 Insulin] 100 unit/mL (3 mL) insulin pen 45 unit subcut DAILY dabigatran etexilate [Pradaxa] 150 mg capsule 1 cap PO BID amlodipine 5 mg tablet 1 tab PO DAILY metformin 1,000 mg tablet 1 tab PO BID levothyroxine [Synthroid] 112 mcg tablet 1 tab PO DAILY Januvia 100 mg tablet 1 tab PO DAILY Other Ambulatory Orders: US renal LT (Routine) Timeframe: 1 Week Facility: [facility] - Location: Ultrasound Ordered By: Raulito Randolph Plan of Treatment: obtain renal us for complex cyst
--- NOTE | 2022-03-15 11:44 | P.PNIM_ITS ---
Subjective Subjective Date of Service: 03/15/22 Interval History: cc: sob interval historyno sob, Physical Exam Vital Signs: Vital Signs: Last Vital Signs Temp 97.2 F 03/15/22 11:03 Pulse 68 03/15/22 11:03 Resp 16 03/15/22 11:03 BP 117/59 L 03/15/22 11:03 Pulse Ox 90 L 03/15/22 11:03 O2 Del Method 03/15/22 11:03 O2 Flow Rate 2 03/15/22 11:03 Oxygen Flow Rate 3 03/12/22 04:00 BMI result Body Mass Index 33.6 Const: Other: General: AO X 3, no acute distress Resp: CTA bilateral CVS: S1,S2,RRR GI: +BS, NT, no distention Skin: No rash Neuro: motor grossly intact Psych: appropriate affect Objective Data Active Medications Albuterol/Ipratropium (Albuterol/Iprat 2.5/0.5mg 3 Ml Ampul.Neb) 3 ml INHALE RQ4H PRN PRN Reason: sob Last Admin: 03/08/22 04:37 Dose: 3 ml Documented By: ADELFO Amlodipine Besylate (Amlodipine Besylate 5 Mg Tablet) 5 mg PO DAILY [facility]; Protocol Last Admin: 03/15/22 10:33 Dose: 5 mg Documented By: PIA Atorvastatin Calcium (Atorvastatin Calcium 20 Mg Tablet) 20 mg PO DAILY [facility] Last Admin: 03/15/22 10:33 Dose: 20 mg Documented By: PIA Dabigatran (Dabigatran Etexilate Mesylate 150 Mg Capsule) 150 mg PO BID [facility] Last Admin: 03/15/22 10:32 Dose: 150 mg Documented By: PIA Dextrose (Dextrose 50 % 25 Gm/50 Ml Syringe) 25 gm IVPUSH Q15M PRN; Protocol PRN Reason: per Hypoglycemia Standing Ord. Glucose (Glucose Gel 15 Gm Gel..Gram.) 15 gm PO Q15M PRN; Protocol PRN Reason: per Hypoglycemia Standing Ord. Guaifenesin (Guaifenesin 200 Mg/10 Ml 10 Ml Liquid) 10 ml PO Q4H PRN PRN Reason: cough Last Admin: 03/09/22 15:02 Dose: 10 ml Documented By: EDYTA-SOFFA Insulin Glargine (Insulin Glargine,Hum.Rec.Anlog 100 Unit/Ml 10 Ml Vial) 55 unit SUBCUT DAILY [facility] Last Admin: 03/15/22 10:32 Dose: Not Given Documented By: PIA Non-Admin Reason: No Insulin Coverage Insulin Human Lispro (Insulin Lispro 100 Unit/Ml 3 Ml Vial) 0 unit SUBCUT QIDACHS [facility]; Protocol Last Admin: 03/15/22 11:28 Dose: 2 unit Documented By: PIA Insulin Human Lispro (Insulin Lispro 100 Unit/Ml 3 Ml Vial) 10 unit SUBCUT QIDACHS [facility] Last Admin: 03/15/22 11:28 Dose: 10 unit Documented By: PIA Isosorbide Mononitrate (Isosorbide Mononitrate 30 Mg Tab.Er.24h) 30 mg PO DAILY [facility]; Protocol Last Admin: 03/15/22 10:32 Dose: 30 mg Documented By: PIA Levothyroxine Sodium (Levothyroxine Sodium 112 Mcg Tablet) 112 mcg PO DAILY@0 630 [facility] Last Admin: 03/15/22 06:27 Dose: 112 mcg Documented By: KATHLEEN Metoprolol Tartrate (Metoprolol Tartrate 25 Mg Tablet) 25 mg PO BID [facility]; Protocol Last Admin: 03/15/22 10:33 Dose: 25 mg Documented By: PIA Morphine Sulfate (Morphine Sulfate 2 Mg/Ml Cartridge) 2 mg IVPUSH Q4H PRN; Protocol PRN Reason: sob Last Admin: 03/08/22 05:51 Dose: 2 mg Documented By: JENA Prednisone (Prednisone 20 Mg Tablet) 40 mg PO DAILY [facility] Last Admin: 03/15/22 10:32 Dose: 40 mg Documented By: PIA Sitagliptin Phosphate (Sitagliptin Phosphate 100 Mg Tablet) 100 mg PO DAILY [facility] Last Admin: 03/15/22 10:33 Dose: 100 mg Documented By: PIA Sodium Chloride (0.9 % Sodium Chloride Flush 3 Ml Syringe) 3 ml IVFLUSH QSHIFT [facility] Last Admin: 03/15/22 10:33 Dose: 3 ml Documented By: PIA Labs CBC & Chem 7: 03/15/22 06:43 03/15/22 06:43 Labs: Laboratory Results - last 24 hr 03/14/22 03/14/22 03/15/22 16:01 19:58 06:43 MCV 87.5 MCH 27.9 MCHC 31.9 RDW 12.9 Plt Count 380 MPV 9.7 Absolute Nucleated RBC 0.000 Nucleated RBC % (auto) 0.0 Anion Gap Estim Creat Clear Calc Estimated GFR POC Glucose 166 H 229 H Fasting Glucose Calcium Magnesium 03/15/22 03/15/22 03/15/22 06:43 07:53 11:06 MCV MCH MCHC RDW Plt Count MPV Absolute Nucleated RBC Nucleated RBC % (auto) Anion Gap 14 Estim Creat Clear Calc 51.5 Estimated GFR > 60 POC Glucose 80 181 H Fasting Glucose 70 Calcium 9.1 Magnesium 1.8 Assessment and Plan (1) Acute respiratory failure with hypoxia: Status: Acute (2) Respiratory syncytial virus (RSV): Status: Acute Plan 81F PMH chronic afib, DM, HTN, IBAN, obesity, hld, hypothyroid, presented with s ob, found to be hypoxic and positive RSV. Acute hypoxic respiratory failure secondary to RSV and acute R heart failure continue steroids (changed to po) and scheduled bronchodilators diuresed well, now off diuretics wean o2 as tolerated, improving, down to 2L, still satting high 80s on room air, assess for home Permanent AFib metoprolol, continue Pradaxa Diabetes mellitus type 2 with hyperglycemia Hold glipizide, continue Januvia basal bolus insulin, monitor incidental renal cyst outpatient US Obesity Weight loss recommended Hyperlipidemia Continue statin Hypertension Continue amlodipine Hypothyroid Continue Synthroid IBAN CPAP at night (she is unable to tolerate hospital machine) anxiety/panic attacks previously on diazepam started low dose ativan prn DVT prophylaxis-on Pradaxa DNR/DNI reason for continued hospitalization -- remains hypoxic with supplemental o2 Time Spent With Patient Time: Total time managing care of this patient today ____ minutes. Quality Stroke Does the patient have a stroke diagnosis?: No VTE Prior VTE?: No VTE Risk Level:: Medical - moderate - high VTE Device Contraindication: Treatment Not Indicated VTE Drug Contraindication: N/A - Med Ordered
--- NOTE | 2022-03-15 14:07 | MHC.CM.PN ---
Per MD PN, Patient remains Hypoxic and on supplemental O2 and is not yet medically cleared for dc. PT is recommending STR and CM will continue to follow.
--- NOTE | 2022-03-15 15:34 | MHC.CM.PN ---
CM SPOKE WITH SPOUSE AND PT. PT WOULD LIKE TO GO HOME AND NOT TO REHAB. SHE IS REQUESTING [facility] FOR SERVICES. REFERRAL SENT AND AWAITING RESPONSE.
[2022-03-15 16:16] LABS: Glucose, Whole Blood 203 mg/dL (60-115)
[2022-03-15 20:17] LABS: Glucose, Whole Blood 267 mg/dL (60-115)
[2022-03-16] MEDS: Acetaminophen 325 MG TABLET 650 MG PO (00:09)
[2022-03-16] MEDS: traZODone HCL 50 MG TABLET PO (00:09)
[2022-03-16 04:00] VITALS: BP 124/57; PULSE 59; RESP 18; TEMP 36.1; O2SAT 98
[2022-03-16 04:07] VITALS: PULSE 54; RESP 18; O2SAT 96
[2022-03-16] MEDS: Levothyroxine Sodium 112 MCG TABLET PO (05:30)
[2022-03-16 07:27] VITALS: BP 169/70; PULSE 57; RESP 12; TEMP 35.9; O2SAT 96
[2022-03-16 07:34] LABS: Glucose, Whole Blood 122 mg/dL (60-115)
[2022-03-16] MEDS: 0.9 % Sodium Chloride Flush 3 ML SYRINGE IVFLUSH (08:53)
[2022-03-16] MEDS: Isosorbide Mononitrate 30 MG TAB.ER.24H PO (08:54)
[2022-03-16] MEDS: SITagliptin Phosphate 100 MG TABLET PO (08:54)
[2022-03-16] MEDS: Metoprolol Tartrate 25 MG TABLET PO (08:54)
[2022-03-16] MEDS: predniSONE 20 MG TABLET 40 MG PO (08:54)
[2022-03-16] MEDS: amLODIPine Besylate 5 MG TABLET PO (08:54)
[2022-03-16] MEDS: Dabigatran Etexilate Mesylate 150 MG CAPSULE PO (08:54)
[2022-03-16] MEDS: Atorvastatin Calcium 20 MG TABLET PO (08:54)
--- NOTE | 2022-03-16 11:19 | P.DS_ITS ---
DS: Providers Provider Date of Service: 03/16/22 Date of admission: 03/07/22 00:39 Primary care physician: Damir Grigsby MD Consults: 03/08/22 10:01 Consult to Cardiology Routine Consulting Provider: Alejandro Arrieta Reason for consultation: new right heart failure DS: Diagnosis Discharge Diagnosis (1) Acute respiratory failure with hypoxia: Status: Acute (2) Respiratory syncytial virus (RSV): Status: Acute DS: Summary Hospital Course Hospital Course: 81F PMH chronic afib, DM, HTN, IBAN, obesity, hld, hypothyroid, presented with sob. patient symptoms began about 2 days ptp, a/w dry cough, lower extremity edema, orthopnea. denies chest pain, fever, chills. Hospital course: Acute hypoxic respiratory failure secondary to RSV and acute R heart failure--Treated with steroid, bronchodilators and presently is feeling better with no respiratory distress, has been on steroid for more than 5 days so stopping. She continue to need oxygen and likely has underlying COPD along with CHF as cause, she will go home with oxygen at 2 liters by MS CHF--chronic diastolic CHF with exacerbation, no on chronic diuretic was briefly n diuretics in the hospital and now resolved. Permanent AFib continued on metoprolol, continue Pradaxa Diabetes mellitus--to resume home regimen incidental renal cyst outpatient US Obesity Weight loss recommended Hyperlipidemia Continue statin Hypertension Continue amlodipine Hypothyroid Continue Synthroid IBAN CPAP at night (she is unable to tolerate hospital machine) anxiety/panic attacks previously on diazepam given ativan in the hospital Time Spent with Patient Time attestation: Total time managing care of this patient today ____ minutes. Discharge coordination time: Greater than 30 minutes Quality: Safe Use of Opioids Does Pt have an Active Cancer Diagnosis on the Problem List?: No Quality: Stroke Does the patient have a stroke diagnosis?: No Physical Exam Vital Signs: Vital Signs: Last Vital Signs Temp 96.6 F L 03/16/22 07:27 Pulse 57 03/16/22 07:27 Resp 12 03/16/22 07:27 BP 169/70 H 03/16/22 07:27 Pulse Ox 96 03/16/22 07:27 O2 Del Method 03/16/22 07:27 O2 Flow Rate 2 03/16/22 07:27 Oxygen Flow Rate 3 03/12/22 04:00 BMI result Body Mass Index 33.6 DS: Data Data Completed and Pending Labs on day of discharge: Laboratory Results - last 24 hr 03/15/22 03/15/22 03/15/22 11:06 15:52 19:48 POC Glucose 181 H 203 H 267 H 03/16/22 07:26 POC Glucose 122 H Discharge Plan Discharge Anticipated Discharge Date/Time: 03/16/22 11:20 Patient Disposition: Home Health Service Discharge Diagnosis: Acute respiratory failure, RSV, CHF Referrals: Danii DAWSON [Outside] - 1 Week Damir Grigsby MD [Primary Care Provider] - 1 Week Discharge Medications: Continued glipizide 5 mg tablet extended release 24hr 1 tab PO DAILY atorvastatin 20 mg tablet 1 tab PO DAILY metoprolol tartrate 50 mg tablet 1 tab PO BID insulin glargine [Basaglar KwikPen U-100 Insulin] 100 unit/mL (3 mL) insulin pen 45 unit subcut DAILY dabigatran etexilate [Pradaxa] 150 mg capsule 1 cap PO BID amlodipine 5 mg tablet 1 tab PO DAILY metformin 1,000 mg tablet 1 tab PO BID levothyroxine [Synthroid] 112 mcg tablet 1 tab PO DAILY Januvia 100 mg tablet 1 tab PO DAILY Discharge Orders: Discharge Order (Routine); Ordered 03/16/22 Ordered By: Edy Talbert Diet: Advance to usual diet Activity on Discharge: As tolerated Stand Alone Forms: Patient Portal Discharge page Other Ambulatory Orders: US renal LT (Routine) Timeframe: 1 Week Facility: [facility] - Location: Ultrasound Ordered By: Raulito Randolph Care Plan Goals: Full recovery Health Concerns: RSV, chf, Plan of Treatment: obtain renal us for complex cyst Assessment: continue taking your medication as before
[2022-03-16 11:33] LABS: Glucose, Whole Blood 204 mg/dL (60-115)
[2022-03-16 11:38] VITALS: BP 140/61; PULSE 57; RESP 12; TEMP 36.1; O2SAT 97
--- NOTE | 2022-03-16 11:49 | P.F2F_ITS ---
Service Date Service Date: 03/16/22 Encounter Date of encounter: 03/16/22 Reasons for Services Signs and symptoms assessed: shortness of breath, weakness Reason for nursing home: medication management and teach disease management Homebound: Leaving the home is medically contraindicated at this time without the asist of a device and/or another person due th the listed conditions above and below. Reason homebound: shortness of breath with minimal effort Homebound supporting statement: homebound due to weakness and sob from RSV, respiratory failure Certification: Based on the above findings, I certify that this patient is confined to the home and needs intermittent nursing home care, physical therapy and/or speech therapy, or continues to need occupational therapy. The patient is under my care, and I have initiated the establishment of the plan of care. The patient will be followed by a physician who will periodically review the plan of care. Time Spent With Patient Time: Total time managing care of this patient today ____ minutes.
[2022-03-16] MEDS: Insulin Lispro 100 UNIT/ML 3 ML VIAL SUBCUT (12:17)
--- NOTE | 2022-03-16 12:43 | MHC.CM.PN ---
Per ROUNDS discussion, Patient will be medically cleared for dc to home today, with services. A referral was made to [facility], who has been notified of today's dc. CM met with Patient and her Daughter at bedside and addressed IMM with them, providing Patient with the original and placing a copy on the chart. Patient did express her readiness to go home.
== END 2022-03-16 14:31 | disposition home health service (06) | DRG 291 ==
LOC: HO.ED 23:39 → HO.EDOVER 03-07 00:58 → HO.IMC 03-08 16:59
PROVIDERS: Family Medicine; Admitting Provider Internal Medicine; Emergency Provider Student in an Organized Health Care Education/Training Program; PCP Internal Medicine; Visit Provider Internal Medicine
DX: I11.0 Hypertensive heart disease with heart failure (principal); I50.33 Acute on chronic diastolic (congestive) heart failure; J96.01 Acute respiratory failure with hypoxia; I48.21 Permanent atrial fibrillation; E03.9 Hypothyroidism, unspecified; G47.33 Obstructive sleep apnea (adult) (pediatric); E78.5 Hyperlipidemia, unspecified; E11.65 Type 2 diabetes mellitus with hyperglycemia; F41.0 Panic disorder [episodic paroxysmal anxiety]; Z66 Do not resuscitate; D72.829 Elevated white blood cell count, unspecified; B97.4 Respiratory syncytial virus as the cause of diseases classified elsewhere; I50.811 Acute right heart failure; N28.1 Cyst of kidney, acquired; I49.5 Sick sinus syndrome; E66.9 Obesity, unspecified; Z68.33 Body mass index [BMI] 33.0-33.9, adult; Z20.822 Contact with and (suspected) exposure to COVID-19; Z79.4 Long term (current) use of insulin; Z79.84 Long term (current) use of oral hypoglycemic drugs; Z79.890 Hormone replacement therapy; Z79.899 Other long term (current) drug therapy
CPT/HCPCS: 0241U; 36415; 71045; 71275; 80048; 80053; 82803; 82947; 83735; 83880; 84484; 85025; 85027; 85610; 93005; 93306; 94640; 94660; 97110; 97116; 97162; 97530; 99285; J1940; J2270; J2920; Q9957

== ENCOUNTER 2022-06-07 11:17 | Inpatient (IN) | payer MEDICARE, OTHER, SELFPAY ==
[2022-06-07] VITALS (11 sets, daily range): BP systolic 114–173; BP diastolic 49–72; PULSE 63–83; RESP 14–18; TEMP 36.3–37.2; O2SAT 90–96; BMI 35.0
--- NOTE | ~2022-06-07 | XR_ITS ---
EXAMINATION: XR CHEST CLINICAL INFORMATION: SOB. COMPARISON: None available. TECHNIQUE: Frontal view of the chest was obtained. FINDINGS: The lungs are expanded without acute consolidation. There is cardiomegaly with increased pulmonary vascularity consistent with CHF. No gross bony mallet. XR/XR chest 1V IMPRESSION: Cardiomegaly with CHF.
--- NOTE | ~2022-06-07 | US_ITS ---
EXAMINATION: US VENOUS ULTRASOUND WITH DOPPLER LOWER EXTREMITY, BILATERAL CLINICAL INFORMATION: Edema. COMPARISON: None available. TECHNIQUE: Ultrasound of the deep veins is performed from the hip to the calf with compression sonography and color and pulse Doppler assessment. Spectral analysis with color-flow imaging is performed. FINDINGS: RIGHT: There is normal venous compression and respiratory variation and augmented flow. The visualized common femoral vein, superficial femoral vein, profunda femoral vein, popliteal vein, and the trifurcation region shows no evidence of deep venous thrombosis. There is no significant popliteal fossa cyst. LEFT: There is normal venous compression and respiratory variation and augmented flow. The visualized common femoral vein, superficial femoral vein, profunda femoral vein, popliteal vein, and the trifurcation region shows no evidence of deep venous thrombosis. There is no significant popliteal fossa cyst. If the patient's symptoms persist, followup ultrasound in 5 days 7 days might be of value to exclude proximal propagation from a non-visualized calf vein. US/US venous duplex LE BI IMPRESSION: No DVT demonstrated in the bilateral lower extremity.
--- NOTE | 2022-06-07 11:26 | ECG_ITS ---
Test Reason : sob Blood Pressure : / mmHG Vent. Rate : 068 BPM Atrial Rate : 000 BPM P-R Int : 000 ms QRS Dur : 086 ms QT Int : 416 ms P-R-T Axes : 000 047 -13 degrees QTc Int : 442 ms Atrial fibrillation Abnormal QRS-T angle, consider primary T wave abnormality Abnormal ECG When compared with ECG of 06-MAR-2022 21:44, No significant change was found Referred By: Miguel Teague Electronically Signed By:GILBERT STRAUSS MD
--- NOTE | 2022-06-07 11:32 | ED.SOB ---
HPI - SOB/Dyspnea General Chief Complaint: Dyspnea Stated Complaint: SOB Time Seen by Provider: 06/07/22 11:21 Source: patient and EMS Mode of arrival: EMS Limitations: no limitations History of Present Illness HPI Narrative: 81-year-old female with history of atrial fibrillation, sleep apnea, hypothyroidism presents with difficulty breathing. Symptoms started yesterday. They have been getting progressively worse. Patient describes her symptoms as severe. There is no clear relieving or exacerbating features. She denies any fevers or chills. She does have a cough that is nonproductive but feels congested. She denies any nausea vomiting. She denies any chest pain. She has lower extremity edema which is unchanged for her. She is on blood thinning medications for atrial fibrillation. EMS was contacted. They found her on her CPAP device. When they removed her from the device, they checked her oxygen saturation was 76% on room air. She is not on oxygen at home. They initially placed on 6 L nasal cannula which improved her into the 96% category. They reduced her oxygen to 4 L nasal cannula. Her capnography was good with a CO2 reading of approximately 38. Related Data Home Medications Medication Instructions Recorded Confirmed amlodipine 5 mg tablet 1 tab PO DAILY 03/06/22 03/07/22 atorvastatin 20 mg tablet 1 tab PO DAILY 03/06/22 03/06/22 dabigatran etexilate 150 mg 1 cap PO BID 03/06/22 03/06/22 capsule (Pradaxa) glipizide 5 mg tablet, extended 1 tab PO DAILY 03/06/22 03/06/22 release 24 hr insulin glargine 100 unit/mL (3 45 unit subcut DAILY 03/06/22 03/07/22 mL) subcutaneous pen (Basaglar KwikPen U-100 Insulin) levothyroxine 112 mcg tablet 1 tab PO DAILY@0600 03/06/22 03/07/22 (Synthroid) metformin 1,000 mg tablet 1 tab PO BID 03/06/22 03/07/22 metoprolol tartrate 50 mg tablet 1 tab PO BID 03/06/22 03/06/22 sitagliptin phosphate 100 mg 1 tab PO DAILY 03/06/22 03/07/22 tablet (Januvia) Allergies Allergy/AdvReac Type Severity Reaction Status Date / Time No Known Allergies Allergy Verified 03/06/22 23:54 [facility] Past Medical History Medical History Chronic atrial fibrillation Diabetes HLD (hyperlipidemia) HTN (hypertension) Hypothyroid Obesity IBAN (obstructive sleep apnea) Surgical History S/P hysterectomy with oophorectomy Family History Family History Father CAD (coronary artery disease) Mother CAD (coronary artery disease) Social History Social History Alcohol intake: current Alcohol intake frequency: holidays/special occasions only Alcohol type: wine Advance Directives: Yes Advance Directives Information Provided: Yes Advance Directives on File: No service: No Physical Exam Vital Signs: Vital Signs: Last Vital Signs Temp 99.0 F 06/07/22 11:44 Pulse 83 06/07/22 12:22 Resp 16 06/07/22 12:22 BP 173/62 H 06/07/22 11:44 Pulse Ox 95 06/07/22 11:44 O2 Del Method 06/07/22 11:44 Oxygen Flow Rate 4 06/07/22 11:44 BMI result Body Mass Index 35.0 GEN: Well developed, no acute distress, alert, oriented HEENT: Normocephalic, atraumatic, normal external ears, nose appears normal, no oropharyngeal edema or exudates Eyes: Normal to appearance Neck: Supple, no lymphadenopathy Respiratory: Conversational dyspnea, tachypnea, expiratory wheezes, prolonged expiration, crackles at the left lung base Cardiovascular: Regular rate and rhythm, no murmurs rubs or gallops Abdomen: Soft, nontender, nondistended, no guarding, no rebound Back: No CVA tenderness Extremities: No clubbing cyanosis or edema Neurologic: No focal neurologic deficits, cranial nerves 2-12 intact, strength is 5/5 bilaterally Skin: No rash Course Course Course Narrative: 81-year-old female with history of sleep apnea, atrial fibrillation on anticoagulation presents with shortness of breath for. Of the proximal 12:36 p.m.. Symptoms have been getting progressively getting worse. Upon arrival, her oxygen saturation on room air was 66%. Improved to 96% on 6 L nasal cannula. The oxygen was reduced to 4 L nasal cannula and she has been able to maintain oxygen saturation 95%. She has crackles at the left lung base which I suspect pneumonia. Patient possibly has CHF as well. Patient receive nebulizer treatment, chest x-ray, ultrasound lower extremities given asymmetric edema. I doubt DVT because patient is on chronic anticoagulation. Reevaluation(s) Reevaluation #1: I discussed all results with the patient. She is appearing much better at this time. Will treat for likely infectious etiology of her hypoxia. I do not clearly believe this is CHF. Doubt PE. This was discussed with the patient. Time: 13:37 Medications Administered Discontinued Medications Generic Name Dose Route Start Last Admin Trade Name Freq PRN Reason Stop Dose Admin Albuterol Sulfate 2.5 mg 06/07/22 11:31 06/07/22 11:56 Albuterol Sulfate (0.083%) 2.5 Mg/3 Ml Vial.Neb INHALE 06/07/22 11:32 2.5 mg ONCE ONE Administration Albuterol Sulfate 7.5 mg 06/07/22 12:13 06/07/22 12:21 Albuterol Sulfate (0.083%) 2.5 Mg/3 Ml Vial.Neb INHALE 06/07/22 12:14 7.5 mg ONCE ONE Administration Methylprednisolone Sodium Succinate 125 mg 06/07/22 13:12 06/07/22 13:33 Methylprednisolone Sod Succ 125 Mg/2 Ml Vial IVPUSH 06/07/22 13:13 125 mg ONCE ONE Administration Medical Decision Making Medical Decision Making MDM Narrative: 81-year-old female with history of atrial fibrillation, sleep apnea presents with shortness of breath and hypoxia. On arrival, she was noted to be approximately 66% on room air. She had significant work of breathing. She was conversationally dyspneic. She has asymmetric lower extremity edema. Differential diagnosis includes CHF, pneumonia, bronchitis, viral syndrome, hypercarbic respiratory failure. Will obtain ultrasound to rule out DVT although I would doubt PE. Laboratory analysis included CBC to check for elevated white blood cell count, BNP to check for evidence of CHF, EKG given her history of atrial fibrillation. Will also obtain 2 blood cultures, check for viral syndrome. Patient will need to be admitted given the degree of hypoxia Differential Diagnosis Differential Diagnoses: The differential diagnosis associated with the presentation includes (Pneumonia, CHF, COVID, flu, pleural effusion, pulmonary edema, PE) Admission/Observation Consideration of admission/observation: Escalation of care including admission/observation considered Consult Healthcare Provider Management of the patient was discussed with: Hospitalist Lab Data MDM Lab Attestation statement: I reviewed the patient's lab results. 06/07/22 12:26 06/07/22 12:26 Labs: Lab Results 06/07/22 06/07/22 06/07/22 Range/Units 11:57 12:26 12:26 WBC 12.8 H (4.8-10.8) X10*3/uL RBC 3.91 L D (4.20-5.50) X10*6/uL Hgb 11.8 L D (12.0-16.0) g/dl Hct 35.6 L D (37.0-47.0) % MCV 91.0 (80.0-98.0) fL MCH 30.2 (27.0-33.0) pg MCHC 33.1 (31.0-35.0) g/dl RDW 13.7 (11.0-16.0) % Plt Count 292 (160-400) X10*3/uL MPV 9.6 (9.4-12.3) fL Immature Gran % (Auto) 0.5 H (0.0-0.4) % Neut % (Auto) 82.9 H (45-73) % Lymph % (Auto) 6.0 L (20-40) % Addison % (Auto) 7.8 (2-11) % Eos % (Auto) 2.6 (0-4) % Baso % (Auto) 0.2 (0-2) % Lymph # (Auto) 0.8 L (1.2-4.9) X10*3/uL Addison # (Auto) 1.0 (0.1-1.2) X10*3/uL Eos # (Auto) 0.3 (0.0-0.4) X10*3/uL Baso # (Auto) 0.0 (0.0-0.2) X10*3/uL Abs Immat Gran (auto) 0.07 H (0.00-0.03) X10*3/uL Absolute Neuts (auto) 10.6 H (2.0-8.3) x10*3/uL Absolute Nucleated RBC 0.000 (0.0-0.012) X10*3/uL Nucleated RBC % (auto) 0.0 (0.0-0.2) /100WBC PT 23.8 H (10.0-13.1) SEC INR 2.0 H (0.9-1.1) APTT 70.4 H* (26.0-36.4) SEC O2 Saturation 96.0 % ABG pH at Pt Temp 7.33 L (7.35-7.45) ABG pCO2 at Pt Temp 43 (32-45) mmHg ABG pO2 at Pt Temp 89 (83-108) mmHg ABG HCO3 23 (22-26) mmol/L ABG Base Excess (Actual) -2.8 mmol/L Sodium (135-145) mmol/L Potassium (3.3-5.1) mmol/L Chloride (96-108) mmol/L Carbon Dioxide (22-29) mmol/L Anion Gap (12-20) BUN (9-16) mg/dL Creatinine (0.5-1.4) mg/dL Estim Creat Clear Calc Estimated GFR Random Glucose (60-115) mg/dL Lactic Acid (0.5-2.0) mmol/L Calcium (8.4-10.2) mg/dL Total Bilirubin (0.0-1.0) mg/dL Direct Bilirubin (0.0-0.5) mg/dL AST (5-31) U/L ALT (0-31) U/L Alkaline Phosphatase (39-117) U/L Troponin I High Sens (<3.5-17.0) ng/L B-Natriuretic Peptide (<100) pg/mL Total Protein (6.5-8.0) g/dL Albumin (3.5-5.0) g/dL COVID-19 (JAMES) (Negative) COVID-19 Clin Com Influenza Type A (YIKNA) (Negative) Influenza Type B (YINKA) (Negative) Influenza A & B Note 06/07/22 06/07/22 06/07/22 Range/Units 12:26 12:26 12:26 WBC (4.8-10.8) X10*3/uL RBC (4.20-5.50) X10*6/uL Hgb (12.0-16.0) g/dl Hct (37.0-47.0) % MCV (80.0-98.0) fL MCH (27.0-33.0) pg MCHC (31.0-35.0) g/dl RDW (11.0-16.0) % Plt Count (160-400) X10*3/uL MPV (9.4-12.3) fL Immature Gran % (Auto) (0.0-0.4) % Neut % (Auto) (45-73) % Lymph % (Auto) (20-40) % Addison % (Auto) (2-11) % Eos % (Auto) (0-4) % Baso % (Auto) (0-2) % Lymph # (Auto) (1.2-4.9) X10*3/uL Addison # (Auto) (0.1-1.2) X10*3/uL Eos # (Auto) (0.0-0.4) X10*3/uL Baso # (Auto) (0.0-0.2) X10*3/uL Abs Immat Gran (auto) (0.00-0.03) X10*3/uL Absolute Neuts (auto) (2.0-8.3) x10*3/uL Absolute Nucleated RBC (0.0-0.012) X10*3/uL Nucleated RBC % (auto) (0.0-0.2) /100WBC PT (10.0-13.1) SEC INR (0.9-1.1) APTT (26.0-36.4) SEC O2 Saturation % ABG pH at Pt Temp (7.35-7.45) ABG pCO2 at Pt Temp (32-45) mmHg ABG pO2 at Pt Temp (83-108) mmHg ABG HCO3 (22-26) mmol/L ABG Base Excess (Actual) mmol/L Sodium 142 (135-145) mmol/L Potassium 4.4 D (3.3-5.1) mmol/L Chloride 107 (96-108) mmol/L Carbon Dioxide 23 (22-29) mmol/L Anion Gap 16 (12-20) BUN 19 H (9-16) mg/dL Creatinine 0.77 (0.5-1.4) mg/dL Estim Creat Clear Calc 58.8 Estimated GFR > 60 Random Glucose 114 (60-115) mg/dL Lactic Acid 1.1 (0.5-2.0) mmol/L Calcium 9.1 (8.4-10.2) mg/dL Total Bilirubin 1.3 H (0.0-1.0) mg/dL Direct Bilirubin 0.4 (0.0-0.5) mg/dL AST 16 (5-31) U/L ALT 13 (0-31) U/L Alkaline Phosphatase 76 (39-117) U/L Troponin I High Sens 10.2 D (<3.5-17.0) ng/L B-Natriuretic Peptide (<100) pg/mL Total Protein 6.4 L (6.5-8.0) g/dL Albumin 3.9 (3.5-5.0) g/dL COVID-19 (JAMES) (Negative) COVID-19 Clin Com Influenza Type A (YINKA) (Negative) Influenza Type B (YINKA) (Negative) Influenza A & B Note 06/07/22 06/07/22 06/07/22 Range/Units 12:26 12:26 12:27 WBC (4.8-10.8) X10*3/uL RBC (4.20-5.50) X10*6/uL Hgb (12.0-16.0) g/dl Hct (37.0-47.0) % MCV (80.0-98.0) fL MCH (27.0-33.0) pg MCHC (31.0-35.0) g/dl RDW (11.0-16.0) % Plt Count (160-400) X10*3/uL MPV (9.4-12.3) fL Immature Gran % (Auto) (0.0-0.4) % Neut % (Auto) (45-73) % Lymph % (Auto) (20-40) % Addison % (Auto) (2-11) % Eos % (Auto) (0-4) % Baso % (Auto) (0-2) % Lymph # (Auto) (1.2-4.9) X10*3/uL Addison # (Auto) (0.1-1.2) X10*3/uL Eos # (Auto) (0.0-0.4) X10*3/uL Baso # (Auto) (0.0-0.2) X10*3/uL Abs Immat Gran (auto) (0.00-0.03) X10*3/uL Absolute Neuts (auto) (2.0-8.3) x10*3/uL Absolute Nucleated RBC (0.0-0.012) X10*3/uL Nucleated RBC % (auto) (0.0-0.2) /100WBC PT (10.0-13.1) SEC INR (0.9-1.1) APTT (26.0-36.4) SEC O2 Saturation % ABG pH at Pt Temp (7.35-7.45) ABG pCO2 at Pt Temp (32-45) mmHg ABG pO2 at Pt Temp (83-108) mmHg ABG HCO3 (22-26) mmol/L ABG Base Excess (Actual) mmol/L Sodium (135-145) mmol/L Potassium (3.3-5.1) mmol/L Chloride (96-108) mmol/L Carbon Dioxide (22-29) mmol/L Anion Gap (12-20) BUN (9-16) mg/dL Creatinine (0.5-1.4) mg/dL Estim Creat Clear Calc Estimated GFR Random Glucose (60-115) mg/dL Lactic Acid (0.5-2.0) mmol/L Calcium (8.4-10.2) mg/dL Total Bilirubin (0.0-1.0) mg/dL Direct Bilirubin (0.0-0.5) mg/dL AST (5-31) U/L ALT (0-31) U/L Alkaline Phosphatase (39-117) U/L Troponin I High Sens (<3.5-17.0) ng/L B-Natriuretic Peptide 567 H (<100) pg/mL Total Protein (6.5-8.0) g/dL Albumin (3.5-5.0) g/dL COVID-19 (JAMES) Negative (Negative) COVID-19 Clin Com See Note Influenza Type A (YINKA) Negative (Negative) Influenza Type B (YINKA) Negative (Negative) Influenza A & B Note See Note ABG Data Attestation ABG: I personally reviewed and interpreted this ABG as follows: (Mild acidosis, likely metabolic mild compensation) Independent Interpretation I performed an independent interpretation of an: EKG (Atrial fibrillation heart rate 68, weight change acute ST elevations or depressions normal intervals), Plain X-Ray and Ultrasound (No DVT) Independent Historian Clinical information obtained from an independent historian. History obtained from or confirmed by: EMS External Record Review External record reviewed: Inpatient record (Discharge summary from 02/24 2022 for hypoxic respiratory feet) Prescription Management I considered prescription management with: Antiviral and Antibiotic Chronic Conditions Patient?s care impacted by: Other (Sleep apnea) Discharge Plan Discharge Clinical Impression: Acute respiratory failure with hypoxia Patient Disposition: Home, Self-Care Prescriptions: No Action glipizide 5 mg tablet extended release 24hr 1 tab PO DAILY atorvastatin 20 mg tablet 1 tab PO DAILY metoprolol tartrate 50 mg tablet 1 tab PO BID insulin glargine [Basaglar KwikPen U-100 Insulin] 100 unit/mL (3 mL) insulin pen 45 unit subcut DAILY dabigatran etexilate [Pradaxa] 150 mg capsule 1 cap PO BID amlodipine 5 mg tablet 1 tab PO DAILY metformin 1,000 mg tablet 1 tab PO BID levothyroxine [Synthroid] 112 mcg tablet 1 tab PO DAILY@0600 Januvia 100 mg tablet 1 tab PO DAILY
[2022-06-07] MEDS: Albuterol Sulfate (0.083%) 2.5 MG/3 ML VIAL.NEB INHALE (11:56)
[2022-06-07 12:02] LABS: ABG Refer to POC result
[2022-06-07 12:03] LABS: ABG Base Excess -2.8 mmol/L; ABG HCO3 23 mmol/L (22-26); ABG pCO2 43 mmHg (32-45); ABG pH 7.33 (7.35-7.45); ABG pO2 89 mmHg (83-108)
[2022-06-07] MEDS: Albuterol Sulfate (0.083%) 2.5 MG/3 ML VIAL.NEB 7.5 MG INHALE (12:21)
[2022-06-07 12:32] LABS: MANUAL DIFF FLAG NO
[2022-06-07 12:40] LABS: Basophils Percent Auto 0.2 % (0-2); Eosinophils Absolute Auto 0.3 X10*3/uL (0.0-0.4); Eosinophils Percent Auto 2.6 % (0-4); Hematocrit 35.6 % (37.0-47.0); Hemoglobin 11.8 g/dl (12.0-16.0); Imm Gran Abs Auto 0.07 X10*3/uL (0.00-0.03); Imm Gran Pct Auto 0.5 % (0.0-0.4); Lymphocytes Absolute Auto 0.8 X10*3/uL (1.2-4.9); Mean Corpuscular HGB Conc 33.1 g/dl (31.0-35.0); Mean Corpuscular Hemoglobin 30.2 pg (27.0-33.0); Mean Platelet Volume 9.6 fL (9.4-12.3); Monocytes Percent Auto 7.8 % (2-11); Neutrophils Absolute Auto 10.6 x10*3/uL (2.0-8.3); Neutrophils Percent Auto 82.9 % (45-73); Platelet Count 292 X10*3/uL (160-400); Red Blood Count 3.91 X10*6/uL (4.20-5.50); Red Cell Distribution Width 13.7 % (11.0-16.0); White Blood Count 12.8 X10*3/uL (4.8-10.8)
[2022-06-07 12:52] LABS: Lactic Acid 1.1 mmol/L (0.5-2.0)
[2022-06-07 12:55] LABS: Prothrombin Time 23.8 SEC (10.0-13.1)
[2022-06-07 12:56] LABS: B Type Natriuretic Peptide 567 pg/mL (<100)
[2022-06-07 12:57] LABS: IDNOW Serial# BCCEAD1C; Influenza A Negative (Negative); Influenza B2 Negative (Negative); Troponin-I High Sensitivity 10.2 ng/L (<3.5-17.0)
[2022-06-07 12:57] LABS: COVID-19 Test Negative (Negative); IDNOW Serial# 08D9AD1C
[2022-06-07 13:00] LABS: Partial Thromboplastin Time 70.4 SEC (26.0-36.4)
[2022-06-07 13:27] LABS: Alanine Aminotransferase 13 U/L (0-31); Albumin Level 3.9 g/dL (3.5-5.0); Alkaline Phosphatase 76 U/L (39-117); Anion Gap 16 (12-20); Aspartate Amino Transferase 16 U/L (5-31); Bilirubin Direct 0.4 mg/dL (0.0-0.5); Bilirubin Total 1.3 mg/dL (0.0-1.0); Blood Urea Nitrogen 19 mg/dL (9-16); Calcium 9.1 mg/dL (8.4-10.2); Carbon Dioxide 23 mmol/L (22-29); Chloride 107 mmol/L (96-108); Creatinine Clr Calc Pharmacy 58.8; Estimated Glomerular Filt Rate > 60; Glucose Random 114 mg/dL (60-115); Potassium 4.4 mmol/L (3.3-5.1); Sodium 142 mmol/L (135-145); Total Protein 6.4 g/dL (6.5-8.0)
[2022-06-07] MEDS: methylPREDNISolone Sod Succ 125 MG/2 ML VIAL IVPUSH (13:33)
[2022-06-07] MEDS: cefTRIAXone sodium 1 GM in 0.9 % Sodium Chloride 50 ML IV (13:38)
--- NOTE | 2022-06-07 13:38 | PHA.MEDREC ---
Pharmacy Consult ? Medication Reconciliation Pharmacy has completed the medication reconciliation. Pt states she takes diazepam very infrequently for panic attacks, furosemide as needed for edema, and basaglar dose is 45 units daily in the morning.
[2022-06-07] MEDS: Azithromycin 500 MG in 0.9 % Sodium Chloride 250 ML 125 MG IV (14:22)
--- NOTE | 2022-06-07 16:31 | P.HPHOSP_ITS ---
History of Present Illness Date of Service: 06/07/22 Chief Complaint: SOB An 81 years old lady with PMHx of DMII, CHF, atrial fibrillation, sleep apnea, hypothyroidism presents with difficulty breathing. The patient report that she has been adherent to her lasix regimen at home. for the last 2 days she notied progressive worsening SOB upon ambulation. report cough with small amount of flum. denies fever but had one reading of 99.8, no chills, chest pain, nausea , vomiting, change in bowel habit or urinary symptoms. In ED, CXR consistent with fluid overload with possible infiltrates. Noted to drop O2 sat to 80s and lower on RA. Admitted for further eval and treatment. Review of Systems Review of Systems: low grade fever, no chills or weakness No chest pain, palpitation reporting shortness of breath and coughing No abdominal pain, nausea or vomiting No urinary symptoms No any rash or wounds LE swelling PMF Medical History Chronic atrial fibrillation Diabetes HLD (hyperlipidemia) HTN (hypertension) Hypothyroid Obesity IBAN (obstructive sleep apnea) Family History Father CAD (coronary artery disease) Mother CAD (coronary artery disease) Surgical History S/P hysterectomy with oophorectomy Social History Alcohol intake: current Alcohol intake frequency: holidays/special occasions only Alcohol type: wine Advance Directives: Yes Advance Directives Information Provided: Yes Advance Directives on File: No service: No Meds Allergies Allergy/AdvReac Type Severity Reaction Status Date / Time No Known Allergies Allergy Verified 03/06/22 23:54 Active Medications: Current Medications Acetaminophen (Acetaminophen 325 Mg Tablet) 650 mg PO Q6H PRN PRN Reason: Pain, Mild (Pain Scale 1-3) Amlodipine Besylate (Amlodipine Besylate 5 Mg Tablet) 5 mg PO DAILY [facility]; Protocol Atorvastatin Calcium (Atorvastatin Calcium 20 Mg Tablet) 20 mg PO DAILY [facility] Azithromycin (Azithromycin 500 Mg Tablet) 500 mg PO Q24H [facility] Benzonatate (Benzonatate 100 Mg Capsule) 100 mg PO TID PRN PRN Reason: Cough Dabigatran (Dabigatran Etexilate Mesylate 150 Mg Capsule) 150 mg PO BID [facility] Furosemide (Furosemide 40 Mg/4 Ml Vial) 40 mg IVPUSH BID@0900,1800 [facility]; Protocol Ceftriaxone Sodium 1 gm/ (Sodium Chloride) 50 mls @ 100 mls/hr IV Q24H [facility] Insulin Glargine (Insulin Glargine,Hum.Rec.Anlog 100 Unit/Ml 10 Ml Vial) 45 unit SUBCUT DAILY [facility] Insulin Human Lispro (Insulin Lispro 100 Unit/Ml 3 Ml Vial) 0 unit SUBCUT QIDACHS [facility]; Protocol Levothyroxine Sodium (Levothyroxine Sodium 112 Mcg Tablet) 112 mcg PO DAILY@0600 [facility] Losartan Potassium (Losartan Potassium 50 Mg Tablet) 100 mg PO DAILY [facility]; Protocol Metformin HCl (Metformin Hcl 1,000 Mg Tablet) mg PO BID [facility] Metoprolol Tartrate (Metoprolol Tartrate 50 Mg Tablet) 50 mg PO BID [facility]; Protocol Non-Formulary Medication (Diazepam) 10 mg PO DAILY PRN PRN Reason: Panic Attack(S) Ondansetron HCl (Ondansetron Hcl 4 Mg/2 Ml Vial) 4 mg IVPUSH Q8H PRN PRN Reason: Nausea and Vomiting Pharmacy Consult (Consult Rx Perform Med Rec) 1 each MISCELLANE ONCE PRN PRN Reason: Consult order Sitagliptin Phosphate (Sitagliptin Phosphate 100 Mg Tablet) 100 mg PO DAILY [facility] Sodium Chloride (0.9 % Sodium Chloride Flush 3 Ml Syringe) 3 ml IVFLUSH QSHIFT [facility] Home Medications Medication Instructions Recorded Confirmed Last Taken Type amlodipine 5 mg tablet 1 tab PO DAILY 03/06/22 06/07/22 06/06/22 History atorvastatin 20 mg tablet 1 tab PO DAILY 03/06/22 06/07/22 06/06/22 History dabigatran etexilate 150 mg 1 cap PO BID 03/06/22 06/07/22 06/07/22 History capsule (Pradaxa) glipizide 5 mg tablet, extended 1 tab PO DAILY 03/06/22 06/07/22 06/06/22 History release 24 hr insulin glargine 100 unit/mL (3 45 unit subcut DAILY 03/06/22 06/07/22 06/07/22 History mL) subcutaneous pen (Basaglar KwikPen U-100 Insulin) levothyroxine 112 mcg tablet 1 tab PO DAILY@0600 03/06/22 06/07/22 06/07/22 History (Synthroid) metformin 1,000 mg tablet 1 tab PO BID 03/06/22 06/07/22 06/06/22 History metoprolol tartrate 50 mg tablet 1 tab PO BID 03/06/22 06/07/22 06/06/22 History sitagliptin phosphate 100 mg 1 tab PO DAILY 03/06/22 06/07/22 06/06/22 History tablet (Januvia) diazepam 10 mg tablet 10 mg PO DAILY PRN Panic Attack(S) 06/07/22 06/07/22 Unknown History furosemide 20 mg tablet 20 mg PO DAILY PRN Edema 06/07/22 06/07/22 Unknown History losartan 100 mg tablet 100 mg PO DAILY 06/07/22 06/07/22 06/06/22 History Physical Exam Vital Signs and Narrative: Vital Signs: Last Vital Signs Temp 98.6 F 06/07/22 16:00 Pulse 73 06/07/22 16:00 Resp 16 06/07/22 16:00 BP 144/58 H 06/07/22 16:00 Pulse Ox 92 06/07/22 16:00 O2 Del Method 06/07/22 14:19 O2 Flow Rate 6 06/07/22 16:00 Oxygen Flow Rate 4 06/07/22 11:44 BMI result Body Mass Index 35.0 Const: Other: Constitutional : Awake, interactive, not in distress Neck : Normal inspection, Supple Cardiovascular : RRR, no JVP, +2 bilateral lower extremity edema Respiratory : good bilateral air entry, basal fine crackles, wheezes or rhonchi Gastrointestinal: soft, lax, Normal bowel sounds, Non tender Skin : Warm, Dry Neurological : Alert & oriented x3, No focal deficit Results Labs 06/07/22 12:26 06/07/22 12:26 Labs: Laboratory Results - last 24 hr 06/07/22 06/07/22 06/07/22 11:57 12:26 12:26 MCV 91.0 MCH 30.2 MCHC 33.1 RDW 13.7 Plt Count 292 MPV 9.6 Immature Gran % (Auto) 0.5 H Neut % (Auto) 82.9 H Lymph % (Auto) 6.0 L Pike % (Auto) 7.8 Eos % (Auto) 2.6 Baso % (Auto) 0.2 Lymph # (Auto) 0.8 L Pike # (Auto) 1.0 Eos # (Auto) 0.3 Baso # (Auto) 0.0 Abs Immat Gran (auto) 0.07 H Absolute Neuts (auto) 10.6 H Absolute Nucleated RBC 0.000 Nucleated RBC % (auto) 0.0 PT 23.8 H INR 2.0 H APTT 70.4 H* O2 Saturation 96.0 ABG pH at Pt Temp 7.33 L ABG pCO2 at Pt Temp 43 ABG pO2 at Pt Temp 89 ABG HCO3 23 ABG Base Excess (Actual) -2.8 Anion Gap Estim Creat Clear Calc Estimated GFR Random Glucose Lactic Acid Calcium Total Bilirubin Direct Bilirubin AST ALT Alkaline Phosphatase Troponin I High Sens B-Natriuretic Peptide Total Protein Albumin COVID-19 (JAMES) COVID-19 Clin Com Influenza Type A (YINKA) Influenza Type B (YINKA) Influenza A & B Note 06/07/22 06/07/22 06/07/22 12:26 12:26 12:26 MCV MCH MCHC RDW Plt Count MPV Immature Gran % (Auto) Neut % (Auto) Lymph % (Auto) Pike % (Auto) Eos % (Auto) Baso % (Auto) Lymph # (Auto) Pike # (Auto) Eos # (Auto) Baso # (Auto) Abs Immat Gran (auto) Absolute Neuts (auto) Absolute Nucleated RBC Nucleated RBC % (auto) PT INR APTT O2 Saturation ABG pH at Pt Temp ABG pCO2 at Pt Temp ABG pO2 at Pt Temp ABG HCO3 ABG Base Excess (Actual) Anion Gap 16 Estim Creat Clear Calc 58.8 Estimated GFR > 60 Random Glucose 114 Lactic Acid 1.1 Calcium 9.1 Total Bilirubin 1.3 H Direct Bilirubin 0.4 AST 16 ALT 13 Alkaline Phosphatase 76 Troponin I High Sens 10.2 D B-Natriuretic Peptide Total Protein 6.4 L Albumin 3.9 COVID-19 (JAMES) COVID-19 Clin Com Influenza Type A (YINKA) Influenza Type B (YINKA) Influenza A & B Note 06/07/22 06/07/22 06/07/22 12:26 12:26 12:27 MCV MCH MCHC RDW Plt Count MPV Immature Gran % (Auto) Neut % (Auto) Lymph % (Auto) Pike % (Auto) Eos % (Auto) Baso % (Auto) Lymph # (Auto) Pike # (Auto) Eos # (Auto) Baso # (Auto) Abs Immat Gran (auto) Absolute Neuts (auto) Absolute Nucleated RBC Nucleated RBC % (auto) PT INR APTT O2 Saturation ABG pH at Pt Temp ABG pCO2 at Pt Temp ABG pO2 at Pt Temp ABG HCO3 ABG Base Excess (Actual) Anion Gap Estim Creat Clear Calc Estimated GFR Random Glucose Lactic Acid Calcium Total Bilirubin Direct Bilirubin AST ALT Alkaline Phosphatase Troponin I High Sens B-Natriuretic Peptide 567 H Total Protein Albumin COVID-19 (JAMES) Negative COVID-19 Clin Com See Note Influenza Type A (YINKA) Negative Influenza Type B (YINKA) Negative Influenza A & B Note See Note Imaging Radiologist's Impressions: Impressions Venous Duplex 06/07/22 12:55 IMPRESSION: No DVT demonstrated in the bilateral lower extremity. Chest X-Ray 06/07/22 13:06 IMPRESSION: Cardiomegaly with CHF. Assessment and Plan (1) Acute respiratory failure with hypoxia: Status: Acute (2) Acute CHF: Status: Acute (3) Pneumonia: Status: Acute Plan An 81 years old lady with PMHx of DMII, CHF, atrial fibrillation, sleep apnea, hypothyroidism presents with difficulty breathing. Acute hypoxic respiratory failure 2/2 Acute on chronic diastolic CHF exacerbation 2/2 nonadherent to home lasix Elevated BNP. CXR showing fluid overload Start Bid Lasix monitor I\O wean O2 down as tolerated Lung infiltrates possible pneumonia start Zithromax and Ceftriaxone pending final cultures Type 2 DM SSI, Lantus Hold Metformon and Glipizide Hypothyroid Levothyroxine HTN Amlodipine DVT PPx Pradaxa Patient needs at least 2 overnight for treatment of hypoxia 2/2 heart failure exacerbation Time Spent With Patient Time: Total time managing care of this patient today ____ minutes. Quality Stroke Does the patient have a stroke diagnosis?: No VTE Prior VTE?: No VTE Risk Level:: Medical - moderate - high VTE Device Contraindication: Treatment Not Indicated VTE Drug Contraindication: N/A - Med Ordered
[2022-06-07] MEDS: Furosemide 40 MG/4 ML VIAL IVPUSH (16:44)
--- NOTE | 2022-06-07 17:16 | PC.NURSE ---
Patient desaturating on 2L NC to 84%, placed back on 4L, not recovering well. Now sating 93% on 6L NC.
[2022-06-07 17:46] LABS: Glucose, Whole Blood 200 mg/dL (60-115)
[2022-06-07] MEDS: Insulin Lispro 100 UNIT/ML 3 ML VIAL SUBCUT ×2 (17:53→22:11)
[2022-06-07] MEDS: metFORMIN HCl 1,000 MG TABLET 1000 MG PO (17:53)
[2022-06-07 21:21] LABS: Glucose, Whole Blood 328 mg/dL (60-115)
--- NOTE | 2022-06-07 21:35 | PC.NURSE ---
RN to RN report given to DAVID Nice. Pt being transferred to room 459 and aware of plan of care. [place] text sent to hospital transport.
[2022-06-07] MEDS: Metoprolol Tartrate 50 MG TABLET PO (22:11)
[2022-06-07] MEDS: Dabigatran Etexilate Mesylate 150 MG CAPSULE PO (22:11)
[2022-06-07] MEDS: diazePAM 5 MG TABLET 10 MG PO (22:11)
[2022-06-07 22:20] LABS: Glucose, Whole Blood 306 mg/dL (60-115)
[2022-06-08 02:50] VITALS: PULSE 81; RESP 22; O2SAT 94
[2022-06-08 03:37] VITALS: BP 124/59; PULSE 70; RESP 18; TEMP 36.6; O2SAT 96
[2022-06-08 06:58] LABS: Hematocrit 31.3 % (37.0-47.0); Mean Corpuscular HGB Conc 31.9 g/dl (31.0-35.0); Mean Corpuscular Hemoglobin 28.4 pg (27.0-33.0); Mean Corpuscular Volume 88.9 fL (80.0-98.0); Mean Platelet Volume 9.9 fL (9.4-12.3); Platelet Count 259 X10*3/uL (160-400); Red Blood Count 3.52 X10*6/uL (4.20-5.50); Red Cell Distribution Width 13.3 % (11.0-16.0); White Blood Count 8.1 X10*3/uL (4.8-10.8)
[2022-06-08 07:12] LABS: B Type Natriuretic Peptide 575 pg/mL (<100)
[2022-06-08 07:13] VITALS: BP 129/61; PULSE 57; RESP 19; TEMP 36.1; O2SAT 98
[2022-06-08 07:24] LABS: Anion Gap 14 (12-20); Blood Urea Nitrogen 22 mg/dL (9-16); Calcium 8.8 mg/dL (8.4-10.2); Carbon Dioxide 26 mmol/L (22-29); Chloride 104 mmol/L (96-108); Creatinine Clr Calc Pharmacy 55.9; Estimated Glomerular Filt Rate > 60; Glucose Random 211 mg/dL (60-115); Potassium 4.3 mmol/L (3.3-5.1); Sodium 140 mmol/L (135-145)
[2022-06-08 07:24] LABS: Glucose, Whole Blood 210 mg/dL (60-115)
[2022-06-08] MEDS: Insulin Lispro 100 UNIT/ML 3 ML VIAL SUBCUT ×2 (08:19→12:06)
[2022-06-08] MEDS: metFORMIN HCl 1,000 MG TABLET 1000 MG PO ×2 (08:19→17:26)
--- NOTE | 2022-06-08 08:44 | MHC.CM.PN ---
CM met with Patient at bedside and addressed IMM with her, providing her with the original and placing a copy on the chart. 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 Home/self care is the goal and CM has initiated and will follow for dc planning. 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
[2022-06-08] MEDS: Levothyroxine Sodium 112 MCG TABLET PO (09:14)
[2022-06-08 10:30] VITALS: BP 142/66; PULSE 64
[2022-06-08] MEDS: SITagliptin Phosphate 100 MG TABLET PO (10:32)
[2022-06-08] MEDS: amLODIPine Besylate 5 MG TABLET PO (10:32)
[2022-06-08] MEDS: Furosemide 40 MG/4 ML VIAL IVPUSH ×2 (10:32→17:27)
[2022-06-08] MEDS: Metoprolol Tartrate 50 MG TABLET PO ×2 (10:32→21:38)
[2022-06-08] MEDS: Insulin Glargine,Hum.rec.anlog 100 UNIT/ML 10 ML VIAL 45 UNIT SUBCUT (10:33)
[2022-06-08] MEDS: Losartan Potassium 50 MG TABLET 100 MG PO (10:33)
[2022-06-08] MEDS: Atorvastatin Calcium 20 MG TABLET PO (10:33)
[2022-06-08] MEDS: 0.9 % Sodium Chloride Flush 3 ML SYRINGE IVFLUSH ×2 (10:34→21:40)
[2022-06-08 11:16] LABS: Glucose, Whole Blood 210 mg/dL (60-115)
--- NOTE | 2022-06-08 12:53 | HO.PM.IMPN ---
Subjective Subjective Date of Service: 06/08/22 Interval History: Feels little better still requiring 6L O2 No chest pain or palpitations No other overnight events Review of Systems Review of Systems: Yes all other systems are reviewed and are negative Physical Exam Vital Signs: Vital Signs: Last Vital Signs Temp 96.9 F 06/08/22 07:13 Pulse 64 06/08/22 10:30 Resp 19 06/08/22 07:13 BP 142/66 H 06/08/22 10:30 Pulse Ox 98 06/08/22 07:13 O2 Del Method Nasal Cannula 06/08/22 07:13 O2 Flow Rate 6 06/08/22 07:13 Oxygen Flow Rate 4 06/07/22 11:44 BMI result Body Mass Index 35.0 Const: Other: Constitutional : Awake, interactive, not in distress Neck : Normal inspection, Supple Cardiovascular : RRR, no JVP, +2 bilateral lower extremity edema Respiratory : good bilateral air entry, basal fine crackles, wheezes or rhonchi Gastrointestinal: soft, lax, Normal bowel sounds, Non tender Skin : Warm, Dry Neurological : Alert & oriented x3, No focal deficit Objective Data Active Medications Acetaminophen (Acetaminophen 325 Mg Tablet) 650 mg PO Q6H PRN PRN Reason: Pain, Mild (Pain Scale 1-3) Amlodipine Besylate (Amlodipine Besylate 5 Mg Tablet) 5 mg PO DAILY [facility]; Protocol Last Admin: 06/08/22 10:32 Dose: 5 mg Documented By: RAIZA Atorvastatin Calcium (Atorvastatin Calcium 20 Mg Tablet) 20 mg PO DAILY [facility] Last Admin: 06/08/22 10:33 Dose: 20 mg Documented By: RAIZA Azithromycin (Azithromycin 500 Mg Tablet) 500 mg PO Q24H [facility] Benzonatate (Benzonatate 100 Mg Capsule) 100 mg PO TID PRN PRN Reason: Cough Dabigatran (Dabigatran Etexilate Mesylate 150 Mg Capsule) 150 mg PO BID [facility] Last Admin: 06/07/22 22:11 Dose: 150 mg Documented By: JACKELIN Diazepam (Diazepam 5 Mg Tablet) 10 mg PO DAILY PRN PRN Reason: Panic Attack(S) Last Admin: 06/07/22 22:11 Dose: 10 mg Documented By: JACKELIN Furosemide (Furosemide 40 Mg/4 Ml Vial) 40 mg IVPUSH BID@0900,1800 [facility]; Protocol Last Admin: 06/08/22 10:32 Dose: 40 mg Documented By: RAIZA Ceftriaxone Sodium 1 gm/ (Sodium Chloride) 50 mls @ 100 mls/hr IV Q24H [facility] Insulin Glargine (Insulin Glargine,Hum.Rec.Anlog 100 Unit/Ml 10 Ml Vial) 45 unit SUBCUT DAILY [facility] Last Admin: 06/08/22 10:33 Dose: 45 unit Documented By: RAIZA Insulin Human Lispro (Insulin Lispro 100 Unit/Ml 3 Ml Vial) 0 unit SUBCUT QIDACHS [facility]; Protocol Last Admin: 06/08/22 12:06 Dose: 4 unit Documented By: RAIZA Levothyroxine Sodium (Levothyroxine Sodium 112 Mcg Tablet) 112 mcg PO DAILY@0600 [facility] Last Admin: 06/08/22 09:14 Dose: 112 mcg Documented By: DOBROB Losartan Potassium (Losartan Potassium 50 Mg Tablet) 100 mg PO DAILY [facility]; Protocol Last Admin: 06/08/22 10:33 Dose: 100 mg Documented By: RAIZA Metformin HCl (Metformin Hcl 1,000 Mg Tablet) 1,000 mg PO BIDWM [facility] Last Admin: 06/08/22 08:19 Dose: 1,000 mg Documented By: RAIZA Metoprolol Tartrate (Metoprolol Tartrate 50 Mg Tablet) 50 mg PO BID [facility]; Protocol Last Admin: 06/08/22 10:32 Dose: 50 mg Documented By: RAIZA Ondansetron HCl (Ondansetron Hcl 4 Mg/2 Ml Vial) 4 mg IVPUSH Q8H PRN PRN Reason: Nausea and Vomiting Pharmacy Consult (Consult Rx Perform Med Rec) 1 each MISCELLANE ONCE PRN PRN Reason: Consult order Sitagliptin Phosphate (Sitagliptin Phosphate 100 Mg Tablet) 100 mg PO DAILY [facility] Last Admin: 06/08/22 10:32 Dose: 100 mg Documented By: RAIZA Sodium Chloride (0.9 % Sodium Chloride Flush 3 Ml Syringe) 3 ml IVFLUSH QSHIFT [facility] Last Admin: 06/08/22 10:34 Dose: 3 ml Documented By: RAIZA Labs 06/08/22 06:30 06/08/22 06:30 Labs: Laboratory Results - last 24 hr 06/07/22 06/07/22 06/07/22 12:26 12:26 12:26 MCV MCH MCHC RDW Plt Count MPV Absolute Nucleated RBC Nucleated RBC % (auto) PT 23.8 H INR 2.0 H APTT 70.4 H* Anion Gap 16 Estim Creat Clear Calc 58.8 Estimated GFR > 60 POC Glucose Random Glucose 114 Calcium 9.1 Total Bilirubin 1.3 H Direct Bilirubin 0.4 AST 16 ALT 13 Alkaline Phosphatase 76 Troponin I High Sens 10.2 D B-Natriuretic Peptide Total Protein 6.4 L Albumin 3.9 COVID-19 (JAMES) COVID-19 Clin Com Influenza Type A (YINKA) Influenza Type B ([facility]INKA) Influenza A & B Note 06/07/22 06/07/22 06/07/22 12:26 12:26 12:27 MCV MCH MCHC RDW Plt Count MPV Absolute Nucleated RBC Nucleated RBC % (auto) PT INR APTT Anion Gap Estim Creat Clear Calc Estimated GFR POC Glucose Random Glucose Calcium Total Bilirubin Direct Bilirubin AST ALT Alkaline Phosphatase Troponin I High Sens B-Natriuretic Peptide 567 H Total Protein Albumin COVID-19 (JAMES) Negative COVID-19 Clin Com See Note Influenza Type A (YINKA) Negative Influenza Type B ([facility]A) Negative Influenza A & B Note See Note 06/07/22 06/07/22 06/07/22 17:42 21:16 21:58 MCV MCH MCHC RDW Plt Count MPV Absolute Nucleated RBC Nucleated RBC % (auto) PT INR APTT Anion Gap Estim Creat Clear Calc Estimated GFR POC Glucose 200 H 328 H 306 H Random Glucose Calcium Total Bilirubin Direct Bilirubin AST ALT Alkaline Phosphatase Troponin I High Sens B-Natriuretic Peptide Total Protein Albumin COVID-19 (JAMES) COVID-19 Clin Com Influenza Type A (YINKA) Influenza Type B (YINKA) Influenza A & B Note 06/08/22 06/08/22 06/08/22 06:30 06:30 06:30 MCV 88.9 MCH 28.4 MCHC 31.9 RDW 13.3 Plt Count 259 MPV 9.9 Absolute Nucleated RBC 0.000 Nucleated RBC % (auto) 0.0 PT INR APTT Anion Gap 14 Estim Creat Clear Calc 55.9 Estimated GFR > 60 POC Glucose Random Glucose 211 H Calcium 8.8 Total Bilirubin Direct Bilirubin AST ALT Alkaline Phosphatase Troponin I High Sens B-Natriuretic Peptide 575 H Total Protein Albumin COVID-19 (JAMES) COVID-19 Clin Com Influenza Type A (YINKA) Influenza Type B ([facility]INKA) Influenza A & B Note 06/08/22 06/08/22 07:11 11:06 MCV MCH MCHC RDW Plt Count MPV Absolute Nucleated RBC Nucleated RBC % (auto) PT INR APTT Anion Gap Estim Creat Clear Calc Estimated GFR POC Glucose 210 H 210 H Random Glucose Calcium Total Bilirubin Direct Bilirubin AST ALT Alkaline Phosphatase Troponin I High Sens B-Natriuretic Peptide Total Protein Albumin COVID-19 (JAMES) COVID-19 Clin Com Influenza Type A (YINKA) Influenza Type B ([facility]INKA) Influenza A & B Note Assessment and Plan (1) Pneumonia: Status: Acute (2) Acute CHF: Status: Acute (3) Acute respiratory failure with hypoxia: Status: Acute Plan An 81 years old lady with PMHx of DMII, CHF, atrial fibrillation, sleep apnea, hypothyroidism presents with difficulty breathing. Acute hypoxic respiratory failure 2/2 Acute on chronic diastolic CHF exacerbation 2/2 nonadherent to home lasix Continue Bid IV Lasix monitor I\O wean O2 down as tolerated Lung infiltrates possible pneumonia Continue Zithromax and Ceftriaxone pending final cultures Type 2 DM SSI, Lantus Hold Metformon and Glipizide Hypothyroid Levothyroxine HTN Amlodipine DVT PPx Pradaxa Patient needs overnight hospital stay for treatment of hypoxia 2/2 heart failure exacerbation Time Spent With Patient Time: Total time managing care of this patient today ____ minutes. Quality Stroke Does the patient have a stroke diagnosis?: No VTE Prior VTE?: No VTE Risk Level:: Medical - moderate - high VTE Device Contraindication: Treatment Not Indicated VTE Drug Contraindication: N/A - Med Ordered
[2022-06-08] MEDS: cefTRIAXone sodium 1 GM in 0.9 % Sodium Chloride 50 ML IV (13:38)
[2022-06-08] MEDS: Azithromycin 500 MG TABLET PO (13:41)
[2022-06-08] MEDS: Benzonatate 100 MG CAPSULE PO (13:41)
[2022-06-08] MEDS: Dabigatran Etexilate Mesylate 150 MG CAPSULE PO ×2 (13:46→21:40)
--- NOTE | 2022-06-08 13:46 | PC.NURSE ---
Pradaxa not available this morning, notified pharmacy, medication was brought at 1345, confirmed with pharmacy that it is ok to give now as medication is prescribed bid. Per pharmacy ok to give now and the time for the next dose will be adjusted.
[2022-06-08 15:45] VITALS: BP 121/55; PULSE 53; RESP 14; TEMP 36.1; O2SAT 98
[2022-06-08 16:41] LABS: Glucose, Whole Blood 133 mg/dL (60-115)
[2022-06-08] MEDS: metOLazone 2.5 MG TABLET PO (17:26)
[2022-06-08 19:17] VITALS: BP 143/61; PULSE 60; RESP 14; TEMP 36.2; O2SAT 98
[2022-06-08 20:34] LABS: Glucose, Whole Blood 146 mg/dL (60-115)
[2022-06-09] VITALS (11 sets, daily range): BP systolic 113–159; BP diastolic 61–80; PULSE 61–85; RESP 14–18; TEMP 36–36.8; O2SAT 94–98
--- NOTE | 2022-06-09 | ECG_ITS ---
Test Reason : Eval bradycardia Blood Pressure : / mmHG Vent. Rate : 063 BPM Atrial Rate : 000 BPM P-R Int : 000 ms QRS Dur : 088 ms QT Int : 418 ms P-R-T Axes : 000 032 -35 degrees QTc Int : 427 ms Atrial fibrillation Nonspecific ST and T wave abnormality Abnormal ECG When compared with ECG of 07-JUN-2022 12:04, Nonspecific T wave abnormality now evident in Anterior leads Referred By: Akira Randall Electronically Signed By:GILBERT STRAUSS MD
[2022-06-09] MEDS: Benzonatate 100 MG CAPSULE PO ×3 (00:30→21:47)
[2022-06-09] MEDS: diazePAM 5 MG TABLET 10 MG PO (03:16)
--- NOTE | 2022-06-09 05:02 | PC.NURSE ---
0500 This RN and TICKET CLERK went to do vitals, personal care and bladder scan, pt was asleep, per family request was asked to not wake the patient.
[2022-06-09] MEDS: Levothyroxine Sodium 112 MCG TABLET PO (06:03)
[2022-06-09 06:50] LABS: Hematocrit 33.8 % (37.0-47.0); Hemoglobin 10.5 g/dl (12.0-16.0); Mean Corpuscular HGB Conc 31.1 g/dl (31.0-35.0); Mean Corpuscular Hemoglobin 28.5 pg (27.0-33.0); Mean Corpuscular Volume 91.8 fL (80.0-98.0); Mean Platelet Volume 9.6 fL (9.4-12.3); Platelet Count 300 X10*3/uL (160-400); Red Blood Count 3.68 X10*6/uL (4.20-5.50); Red Cell Distribution Width 13.5 % (11.0-16.0); White Blood Count 13.8 X10*3/uL (4.8-10.8)
[2022-06-09 07:11] LABS: B Type Natriuretic Peptide 222 pg/mL (<100)
[2022-06-09 07:38] LABS: Anion Gap 16 (12-20); Blood Urea Nitrogen 28 mg/dL (9-16); Calcium 8.9 mg/dL (8.4-10.2); Carbon Dioxide 27 mmol/L (22-29); Chloride 103 mmol/L (96-108); Creatinine Clr Calc Pharmacy 56.6; Estimated Glomerular Filt Rate > 60; Glucose Random 67 mg/dL (60-115); Potassium 3.7 mmol/L (3.3-5.1); Sodium 142 mmol/L (135-145)
[2022-06-09 07:52] LABS: Glucose, Whole Blood 72 mg/dL (60-115)
--- NOTE | 2022-06-09 08:22 | PC.NURSE ---
pt is Afib on tele, HR went down to 35 and backed up to 50s and 60s. On assessment, pt is asymptomatic, denied chest pain or sob. MD Dr You notified. continue to monitor.
[2022-06-09 09:50] LABS: Magnesium 1.5 mg/dL (1.6-2.6)
[2022-06-09] MEDS: Losartan Potassium 50 MG TABLET 100 MG PO (09:50)
[2022-06-09] MEDS: SITagliptin Phosphate 100 MG TABLET PO (09:51)
[2022-06-09] MEDS: Atorvastatin Calcium 20 MG TABLET PO (09:52)
[2022-06-09] MEDS: metFORMIN HCl 1,000 MG TABLET 1000 MG PO ×2 (09:52→17:26)
[2022-06-09] MEDS: amLODIPine Besylate 5 MG TABLET PO (09:53)
[2022-06-09] MEDS: Furosemide 40 MG/4 ML VIAL IVPUSH ×2 (09:53→17:26)
[2022-06-09] MEDS: 0.9 % Sodium Chloride Flush 3 ML SYRINGE IVFLUSH ×3 (09:54→21:47)
[2022-06-09] MEDS: Insulin Glargine,Hum.rec.anlog 100 UNIT/ML 10 ML VIAL 10 UNIT SUBCUT (09:54)
[2022-06-09 11:12] LABS: Glucose, Whole Blood 185 mg/dL (60-115)
[2022-06-09] MEDS: Dabigatran Etexilate Mesylate 150 MG CAPSULE PO ×2 (11:18→21:47)
[2022-06-09] MEDS: Insulin Lispro 100 UNIT/ML 3 ML VIAL SUBCUT (11:59)
[2022-06-09] MEDS: Spironolactone 25 MG TABLET 12.5 MG PO (12:32)
--- NOTE | 2022-06-09 12:32 | HO.PM.IMPN ---
Subjective Subjective Date of Service: 06/09/22 Interval History: Feels little better still requiring 2-4L O2 episode of bradycardia in 30s, no pauses better controlled sugar No other overnight events Review of Systems low grade fever, no chills or weakness No chest pain, palpitation reporting shortness of breath and coughing No abdominal pain, nausea or vomiting No urinary symptoms No any rash or wounds LE swelling Physical Exam Vital Signs: Vital Signs: Last Vital Signs Temp 97.9 F 06/09/22 11:32 Pulse 69 06/09/22 11:32 Resp 17 06/09/22 11:32 BP 135/66 06/09/22 11:32 Pulse Ox 98 06/09/22 11:32 O2 Del Method Nasal Cannula 06/09/22 11:32 O2 Flow Rate 2 06/09/22 11:32 Oxygen Flow Rate 4 06/07/22 11:44 BMI result Body Mass Index 35.0 Const: Other: Constitutional : Awake, interactive, not in distress Neck : Normal inspection, Supple Cardiovascular : irregular irregular, no JVP, +1 bilateral lower extremity edema Respiratory : good bilateral air entry, basal fine crackles, wheezes or rhonchi Gastrointestinal: soft, lax, Normal bowel sounds, Non tender Skin : Warm, Dry Neurological : Alert & oriented x3, No focal deficit Objective Data Active Medications Acetaminophen (Acetaminophen 325 Mg Tablet) 650 mg PO Q6H PRN PRN Reason: Pain, Mild (Pain Scale 1-3) Amlodipine Besylate (Amlodipine Besylate 5 Mg Tablet) 5 mg PO DAILY [facility]; Protocol Last Admin: 06/09/22 09:53 Dose: 5 mg Documented By: ISHAN Atorvastatin Calcium (Atorvastatin Calcium 20 Mg Tablet) 20 mg PO DAILY [facility] Last Admin: 06/09/22 09:52 Dose: 20 mg Documented By: ISHAN Azithromycin (Azithromycin 500 Mg Tablet) 500 mg PO Q24H [facility] Last Admin: 06/08/22 13:41 Dose: 500 mg Documented By: BIA Benzonatate (Benzonatate 100 Mg Capsule) 100 mg PO TID PRN PRN Reason: Cough Last Admin: 06/09/22 11:20 Dose: 100 mg Documented By: ISHAN Albuterol Sulfate 2.5 mg/ (Ipratropium [place] 0.5 mg) 0 mg INHALE RQ4H WHILE AWAKE [facility] Last Admin: 06/09/22 11:27 Dose: 2.5 each Documented By: TIFFANY Dabigatran (Dabigatran Etexilate Mesylate 150 Mg Capsule) 150 mg PO BID [facility] Last Admin: 06/09/22 11:18 Dose: 150 mg Documented By: ISHAN Diazepam (Diazepam 5 Mg Tablet) 10 mg PO DAILY PRN PRN Reason: Panic Attack(S) Last Admin: 06/09/22 03:16 Dose: 10 mg Documented By: JACKELIN Furosemide (Furosemide 40 Mg/4 Ml Vial) 40 mg IVPUSH BID@0900,1800 [facility]; Protocol Last Admin: 06/09/22 09:53 Dose: 40 mg Documented By: ISHAN Ceftriaxone Sodium 1 gm/ (Sodium Chloride) 50 mls @ 100 mls/hr IV Q24H [facility] Last Infusion: 06/08/22 14:30 Dose: 0 mls/hr Documented By: BIA Insulin Glargine (Insulin Glargine,Hum.Rec.Anlog 100 Unit/Ml 10 Ml Vial) 10 unit SUBCUT DAILY [facility] Last Admin: 06/09/22 09:54 Dose: 10 unit Documented By: ISHAN Insulin Human Lispro (Insulin Lispro 100 Unit/Ml 3 Ml Vial) 0 unit SUBCUT QIDACHS [facility]; Protocol Last Admin: 06/09/22 11:59 Dose: 2 unit Documented By: ISHAN Levothyroxine Sodium (Levothyroxine Sodium 112 Mcg Tablet) 112 mcg PO DAILY@0600 [facility] Last Admin: 06/09/22 06:03 Dose: 112 mcg Documented By: JACKELIN Losartan Potassium (Losartan Potassium 50 Mg Tablet) 100 mg PO DAILY [facility]; Protocol Last Admin: 06/09/22 09:50 Dose: 100 mg Documented By: ISHAN Metformin HCl (Metformin Hcl 1,000 Mg Tablet) 1,000 mg PO BIDWM [facility] Last Admin: 06/09/22 09:52 Dose: 1,000 mg Documented By: ISHAN Metoprolol Tartrate (Metoprolol Tartrate 25 Mg Tablet) 25 mg PO BID [facility]; Protocol Ondansetron HCl (Ondansetron Hcl 4 Mg/2 Ml Vial) 4 mg IVPUSH Q8H PRN PRN Reason: Nausea and Vomiting Pharmacy Consult (Consult Rx Perform Med Rec) 1 each MISCELLANE ONCE PRN PRN Reason: Consult order Sitagliptin Phosphate (Sitagliptin Phosphate 100 Mg Tablet) 100 mg PO DAILY [facility] Last Admin: 06/09/22 09:51 Dose: 100 mg Documented By: ISHAN Sodium Chloride (0.9 % Sodium Chloride Flush 3 Ml Syringe) 3 ml IVFLUSH QSHIFT [facility] Last Admin: 06/09/22 09:54 Dose: 3 ml Documented By: ISHAN Spironolactone (Spironolactone 25 Mg Tablet) 12.5 mg PO DAILY [facility]; Protocol Labs 06/09/22 06:29 06/09/22 06:29 Labs: Laboratory Results - last 24 hr 06/08/22 06/08/22 06/09/22 16:33 20:10 06:29 MCV 91.8 MCH 28.5 MCHC 31.1 RDW 13.5 Plt Count 300 MPV 9.6 Absolute Nucleated RBC 0.000 Nucleated RBC % (auto) 0.0 Anion Gap Estim Creat Clear Calc Estimated GFR POC Glucose 133 H 146 H Random Glucose Calcium Magnesium B-Natriuretic Peptide 06/09/22 06/09/22 06/09/22 06:29 06:29 07:48 MCV MCH MCHC RDW Plt Count MPV Absolute Nucleated RBC Nucleated RBC % (auto) Anion Gap 16 Estim Creat Clear Calc 56.6 Estimated GFR > 60 POC Glucose 72 Random Glucose 67 Calcium 8.9 Magnesium 1.5 L B-Natriuretic Peptide 222 H 06/09/22 11:02 MCV MCH MCHC RDW Plt Count MPV Absolute Nucleated RBC Nucleated RBC % (auto) Anion Gap Estim Creat Clear Calc Estimated GFR POC Glucose 185 H Random Glucose Calcium Magnesium B-Natriuretic Peptide Microbiology Microbiology Results: Microbiology 06/07/22 13:38 Blood Culture - Preliminary Blood - Venous No growth after 24 hours. 06/07/22 12:26 Blood Culture - Preliminary Blood - Venous No growth after 24 hours. Assessment and Plan (1) Acute CHF: Status: Acute (2) Pneumonia: Status: Acute (3) Acute respiratory failure with hypoxia: Status: Acute Plan An 81 years old lady with PMHx of DMII, CHF, atrial fibrillation, sleep apnea, hypothyroidism presents with difficulty breathing. Acute hypoxic respiratory failure 2/2 Acute on chronic diastolic CHF exacerbation 2/2 nonadherent to home lasix Continue Bid IV Lasix start Spironoloactone Cardiolgoy to follow monitor I\O wean O2 down as tolerated Lung infiltrates possible pneumonia Continue Zithromax and Ceftriaxone pending final cultures Afib chronic persistent rate controlled might need cardioversion per cardiology decrease Metoprolol to 25 bid for bradycardia Hypomagnesemia Mg of 1.4, to give replacement Type 2 DM SSI, Lantus Hold Metformon and Glipizide Hypothyroid Levothyroxine HTN Amlodipine DVT PPx Pradaxa Patient needs overnight hospital stay for treatment of hypoxia 2/2 heart failure exacerbation Time Spent With Patient Time: Total time managing care of this patient today ____ minutes. Quality Stroke Does the patient have a stroke diagnosis?: No VTE Prior VTE?: No VTE Risk Level:: Medical - moderate - high VTE Device Contraindication: Treatment Not Indicated VTE Drug Contraindication: N/A - Med Ordered
[2022-06-09] MEDS: cefTRIAXone sodium 1 GM in 0.9 % Sodium Chloride 50 ML IV (12:38)
[2022-06-09] MEDS: Magnesium Sulfate/H2O 2 GM/50 ML PIGGYBACK IV (13:33)
[2022-06-09] MEDS: Azithromycin 500 MG TABLET PO (13:36)
--- NOTE | 2022-06-09 15:13 | P.CONCA_ITS ---
History of Present Illness History of Present Illness Date of Service: 06/09/22 Requesting physician: Akira Randall Consult reason: atrial fibrillation and congestive heart failure Chief complaint: SOB Narrative: I was consulted to see Michelle in cardiology consultation today for presence of congestive heart failure. She is a pleasant 81-year-old female with prior history of what appears to be diabetes obesity, obstructive sleep apnea as well as atrial fibrillation. She says she was following with a condemnation engineer in [place] was having intermittent episodes of atrial fibrillation, it appears to be paroxysmal in nature. She was started on oral anticoagulation with Pradaxa and no attempt at rhythm control was pursued as she was not having any significant symptoms of paroxysmal atrial fibrillation. Patient was doing well and moved to the area about a year ago. Since then she had been seeing a condemnation engineer attach with [facility] in [place]. However with the 1st condemnation engineer then left the practice and then she ended up seeing another condemnation engineer about a month ago. And was also told that that condemnation engineer at left practice. Patient currently not having a condemnation engineer. Was admitted in February to [facility] with respiratory failure in the setting of having RSV viral pneumonia and subsequently was also having congestive heart failure and was noted to be in atrial fibrillation at that time. Echocardiogram done at that time at shown normal LV systolic function with mildly reduced RV systolic function as well as moderate pulmonary hypertension without major valvular abnormalities. After that she was discharged home and she said that she gradually got better but took some longer period time to get better and subsequently few weeks ago started having increasing shortness of breath. She also had increasing leg swelling, orthopnea. She came to the hospital and was noted to have congestive heart failure but also bronchospastic airway disease and possible pneumonia. She is being treated for both condition and diuresed. She has received antibiotics and bronchodilators and also has received diuretics. Admission BNP was in the 500 range. Has gone down to 222. She has been diuresing well. Noted hyper magnesium E a today. Remains in atrial fibrillation. Using CPAP at nighttime. Overnight she was noted to have low heart rate of 35 beats per minute without any significant pauses Review of Systems Constitutional: Constitutional: Reports no additional constitutional comp laints Cardiovascular: Cardiovascular: Denies chest pain, Denies Loss of Consciousness, Denies palpitations, Reports dyspnea on exertion and Reports orthopnea Respiratory: Respiratory: Reports cough, Reports dyspnea on exertion and Reports wheezing Gastrointestinal: Gastrointestinal: Reports no additional gastrointestinal complaints Neurologic: Reports system reviewed and no additional complaints, except as documented Psychiatric: Psychiatric: Reports no additional psychiatric complaints Endocrine: Endocrine: Denies palpitations Allergic/Immunologic: Allergic/Immunologic: Reports no additional allergic/immunologic complaints and Reports wheezing [facility] Past Medical History Medical History Chronic atrial fibrillation Diabetes HLD (hyperlipidemia) HTN (hypertension) Hypothyroid Obesity IBAN (obstructive sleep apnea) Family History Family History Father CAD (coronary artery disease) Mother CAD (coronary artery disease) Surgical History Surgical History S/P hysterectomy with oophorectomy Social History Social History Household Members: Spouse Housing: House Do you presently have visiting nurse or other home services: No Alcohol intake: current Alcohol intake frequency: holidays/special occasions only Alcohol type: wine Patient Tobacco Use Status: Never used Tobacco service: No Current occupational status: retired [employer] Allergies Allergy/AdvReac Type Severity Reaction Status Date / Time No Known Allergies Allergy Verified 03/06/22 23:54 Active Medications: Current Medications Acetaminophen (Acetaminophen 325 Mg Tablet) 650 mg PO Q6H PRN PRN Reason: Pain, Mild (Pain Scale 1-3) Amlodipine Besylate (Amlodipine Besylate 5 Mg Tablet) 5 mg PO DAILY [facility]; Protocol Last Admin: 06/09/22 09:53 Dose: 5 mg Atorvastatin Calcium (Atorvastatin Calcium 20 Mg Tablet) 20 mg PO DAILY [facility] Last Admin: 06/09/22 09:52 Dose: 20 mg Azithromycin (Azithromycin 500 Mg Tablet) 500 mg PO Q24H [facility] Last Admin: 06/09/22 13:36 Dose: 500 mg Benzonatate (Benzonatate 100 Mg Capsule) 100 mg PO TID PRN PRN Reason: Cough Last Admin: 06/09/22 11:20 Dose: 100 mg Albuterol Sulfate 2.5 mg/ (Ipratropium [place] 0.5 mg) 0 mg INHALE RQ4H WHILE AWAKE [facility] Last Admin: 03/24/23 11:27 Dose: 2.5 each Dabigatran (Dabigatran Etexilate Mesylate 150 Mg Capsule) 150 mg PO BID [facility] Last Admin: 06/09/22 11:18 Dose: 150 mg Diazepam (Diazepam 5 Mg Tablet) 10 mg PO DAILY PRN PRN Reason: Panic Attack(S) Last Admin: 06/09/22 03:16 Dose: 10 mg Furosemide (Furosemide 40 Mg/4 Ml Vial) 40 mg IVPUSH BID@0900,1800 [facility]; Protocol Last Admin: 06/09/22 09:53 Dose: 40 mg Ceftriaxone Sodium 1 gm/ (Sodium Chloride) 50 mls @ 100 mls/hr IV Q24H [facility] Last Infusion: 06/09/22 13:10 Dose: Infused Insulin Glargine (Insulin Glargine,Hum.Rec.Anlog 100 Unit/Ml 10 Ml Vial) 25 unit SUBCUT DAILY [facility] Insulin Human Lispro (Insulin Lispro 100 Unit/Ml 3 Ml Vial) 0 unit SUBCUT QIDACHS [facility]; Protocol Last Admin: 06/09/22 11:59 Dose: 2 unit Levothyroxine Sodium (Levothyroxine Sodium 112 Mcg Tablet) 112 mcg PO DAILY@0600 [facility] Last Admin: 06/09/22 06:03 Dose: 112 mcg Losartan Potassium (Losartan Potassium 50 Mg Tablet) 100 mg PO DAILY [facility]; Protocol Last Admin: 06/09/22 09:50 Dose: 100 mg Metformin HCl (Metformin Hcl 1,000 Mg Tablet) 1,000 mg PO BIDWM [facility] Last Admin: 06/09/22 09:52 Dose: 1,000 mg Metoprolol Tartrate (Metoprolol Tartrate 25 Mg Tablet) 25 mg PO BID [facility]; Protocol Ondansetron HCl (Ondansetron Hcl 4 Mg/2 Ml Vial) 4 mg IVPUSH Q8H PRN PRN Reason: Nausea and Vomiting Pharmacy Consult (Consult Rx Perform Med Rec) 1 each MISCELLANE ONCE PRN PRN Reason: Consult order Sitagliptin Phosphate (Sitagliptin Phosphate 100 Mg Tablet) 100 mg PO DAILY [facility] Last Admin: 06/09/22 09:51 Dose: 100 mg Sodium Chloride (0.9 % Sodium Chloride Flush 3 Ml Syringe) 3 ml IVFLUSH QSHIFT [facility] Last Admin: 06/09/22 09:54 Dose: 3 ml Spironolactone (Spironolactone 25 Mg Tablet) 12.5 mg PO DAILY [facility]; Protocol Last Admin: 06/09/22 12:32 Dose: 12.5 mg Home Medications Medication Instructions Recorded Confirmed Last Taken Type amlodipine 5 mg tablet 1 tab PO DAILY 03/06/22 06/07/22 06/06/22 History atorvastatin 20 mg tablet 1 tab PO DAILY 03/06/22 06/07/22 06/06/22 History dabigatran etexilate 150 mg 1 cap PO BID 03/06/22 06/07/22 06/07/22 History capsule (Pradaxa) glipizide 5 mg tablet, extended 1 tab PO DAILY 03/06/22 06/07/22 06/06/22 History release 24 hr insulin glargine 100 unit/mL (3 45 unit subcut DAILY 03/06/22 06/07/22 06/07/22 History mL) subcutaneous pen (Basaglar KwikPen U-100 Insulin) levothyroxine 112 mcg tablet 1 tab PO DAILY@0600 03/06/22 06/07/22 06/07/22 History (Synthroid) metformin 1,000 mg tablet 1 tab PO BID 03/06/22 06/07/22 06/06/22 History metoprolol tartrate 50 mg tablet 1 tab PO BID 03/06/22 06/07/22 06/06/22 History sitagliptin phosphate 100 mg 1 tab PO DAILY 03/06/22 06/07/22 06/06/22 History tablet (Januvia) diazepam 10 mg tablet 10 mg PO DAILY PRN Panic Attack(S) 06/07/22 06/07/22 Unknown History furosemide 20 mg tablet 20 mg PO DAILY PRN Edema 06/07/22 06/07/22 Unknown History losartan 100 mg tablet 100 mg PO DAILY 06/07/22 06/07/22 06/06/22 History Physical Exam Vital Signs: Vital Signs: Last Vital Signs Temp 97.9 F 06/09/22 11:32 Pulse 69 06/09/22 11:32 Resp 17 06/09/22 11:32 BP 135/66 06/09/22 11:32 Pulse Ox 98 06/09/22 11:32 O2 Del Method Nasal Cannula 06/09/22 11:32 O2 Flow Rate 2 06/09/22 11:32 Oxygen Flow Rate 4 06/07/22 11:44 BMI result Body Mass Index 35.0 Const: General: cooperative, alert, awake and in distress mild and respiratory Nutritional Appearance: obese Orientation/consciousness: patient oriented x3 HEENT: Head: Yes normocephalic and Yes atraumatic Neck: Neck: Yes trachea midline, Yes supple and Yes no JVD Resp: Effort & Inspection: normal respiratory effort Auscultation: rales and wheezes Cardio: Jugular venous distension: no JVD Rate: regular rate Rhythm: abnormal rhythm irregularly irregular Heart sounds: S1 normal heart sound present, S2 normal heart sound present, no click, no gallops, no murmurs and no rubs GI: Inspection: Yes obesity Auscultation: normal bowel sounds Skin: General skin exam: no rashes or lesions noted Neuro: General: patient oriented x3 and no focal motor deficits Extrem: General: No clubbing, No cyanosis and Yes edema Psych: Appearance: grossly normal Objective Labs and Meds 06/09/22 06:29 06/09/22 06:29 Lab results: Laboratory Results - last 24 hr 06/08/22 06/08/22 06/09/22 16:33 20:10 06:29 WBC 13.8 H RBC 3.68 L Hgb 10.5 L Hct 33.8 L MCV 91.8 MCH 28.5 MCHC 31.1 RDW 13.5 Plt Count 300 MPV 9.6 Absolute Nucleated RBC 0.000 Nucleated RBC % (auto) 0.0 Sodium Potassium Chloride Carbon Dioxide Anion Gap BUN Creatinine Estim Creat Clear Calc Estimated GFR POC Glucose 133 H 146 H Random Glucose Calcium Magnesium B-Natriuretic Peptide 06/09/22 06/09/22 06/09/22 06:29 06:29 07:48 WBC RBC Hgb Hct MCV MCH MCHC RDW Plt Count MPV Absolute Nucleated RBC Nucleated RBC % (auto) Sodium 142 Potassium 3.7 Chloride 103 Carbon Dioxide 27 Anion Gap 16 BUN 28 H Creatinine 0.80 Estim Creat Clear Calc 56.6 Estimated GFR > 60 POC Glucose 72 Random Glucose 67 Calcium 8.9 Magnesium 1.5 L B-Natriuretic Peptide 222 H 06/09/22 11:02 WBC RBC Hgb Hct MCV MCH MCHC RDW Plt Count MPV Absolute Nucleated RBC Nucleated RBC % (auto) Sodium Potassium Chloride Carbon Dioxide Anion Gap BUN Creatinine Estim Creat Clear Calc Estimated GFR POC Glucose 185 H Random Glucose Calcium Magnesium B-Natriuretic Peptide EKG today shows atrial fibrillation with nonspecific ST T wave changes Assessment and Plan (1) Acute CHF: Status: Acute Patient present with progressive shortness of breath and fluid overload and signs and symptoms consistent with heart failure. She has been diuresed and BNP down trending. She is feeling better. Continues to have bronchospastic airway disease probably related to underlying bronchitis or bronchiolitis. Also has rales. Clinically still appears to be mildly fluid overloaded. Continue IV diuresis with Lasix. Strict intake and output chart needs to be pursued. Continue replace electrolytes aggressively with magnesium above 2. Add Aldactone 12.5 mg to her regimen. It appears that her heart failure probably related to a persistent atrial fibrillation which is been present for about 3 months. The past it seems like she had more paroxysmal atrial fibrillation. I think she may benefit with a consideration for rhythm control approach, can be done as outpatient. Continue aggressive blood pressure control. Continue [place] therapy. Can eventually also add Jardiance 10 mg to regimen. Continue supportive care. Out of bed to chair. Incentive spirometry. (2) Persistent atrial fibrillation: Status: Acute Persistent atrial fibrillation with over rate control. Will reduce metoprolol to 25 mg b.i.d.. Continue full oral anticoagulation currently on Pradaxa. Seems like her atrial fibrillation is more persistent over the last 3 months. May benefit from rhythm control approach in the long run. Discussed with her in details about cardiac insufficiency with atrial fibrillation and date as suggest rhythm control being superior to just rate control in persistent new onset atrial fibrillation. Will consider this as an outpatient. Will continue to follow with you Time Spent With Patient Time: Total time managing care of this patient today ____ minutes. Procedures Date of Service Date of Service: 06/09/22
[2022-06-09 16:14] LABS: Glucose, Whole Blood 105 mg/dL (60-115)
[2022-06-09 19:46] LABS: Glucose, Whole Blood 101 mg/dL (60-115)
[2022-06-09] MEDS: Metoprolol Tartrate 25 MG TABLET PO (21:47)
[2022-06-10] VITALS (14 sets, daily range): BP systolic 126–162; BP diastolic 58–70; PULSE 58–96; RESP 16–20; TEMP 36.1–37.1; O2SAT 92–96
[2022-06-10] MEDS: Levothyroxine Sodium 112 MCG TABLET PO (06:23)
[2022-06-10 07:19] LABS: Glucose, Whole Blood 90 mg/dL (60-115)
[2022-06-10 08:20] LABS: Anion Gap 14 (12-20); Blood Urea Nitrogen 21 mg/dL (9-16); Calcium 9.7 mg/dL (8.4-10.2); Carbon Dioxide 35 mmol/L (22-29); Chloride 95 mmol/L (96-108); Creatinine Clr Calc Pharmacy 64.7; Estimated Glomerular Filt Rate > 60; Glucose Random 89 mg/dL (60-115); Magnesium 1.5 mg/dL (1.6-2.6); Potassium 3.4 mmol/L (3.3-5.1); Sodium 141 mmol/L (135-145)
[2022-06-10] MEDS: Spironolactone 25 MG TABLET 12.5 MG PO (09:49)
[2022-06-10] MEDS: Losartan Potassium 50 MG TABLET 100 MG PO (09:49)
[2022-06-10] MEDS: Insulin Glargine,Hum.rec.anlog 100 UNIT/ML 10 ML VIAL 25 UNIT SUBCUT (09:49)
[2022-06-10] MEDS: SITagliptin Phosphate 100 MG TABLET PO (09:49)
[2022-06-10] MEDS: Dabigatran Etexilate Mesylate 150 MG CAPSULE PO ×2 (09:49→20:50)
[2022-06-10] MEDS: Metoprolol Tartrate 25 MG TABLET PO ×2 (09:50→20:50)
[2022-06-10] MEDS: Atorvastatin Calcium 20 MG TABLET PO (09:50)
[2022-06-10] MEDS: amLODIPine Besylate 5 MG TABLET PO (09:50)
[2022-06-10] MEDS: 0.9 % Sodium Chloride Flush 3 ML SYRINGE IVFLUSH ×3 (09:50→20:51)
[2022-06-10] MEDS: Furosemide 40 MG/4 ML VIAL IVPUSH ×2 (09:50→17:03)
[2022-06-10] MEDS: metFORMIN HCl 1,000 MG TABLET 1000 MG PO ×2 (09:50→17:03)
--- NOTE | 2022-06-10 10:14 | HO.PM.IMPN ---
Subjective Subjective Date of Service: 06/10/22 Interval History: Feels little better improving still requiring 2L O2 no more bradycardia events, no pauses better controlled sugar No other overnight events Review of Systems low grade fever, no chills or weakness No chest pain, palpitation reporting shortness of breath and coughing No abdominal pain, nausea or vomiting No urinary symptoms No any rash or wounds LE swelling Physical Exam Vital Signs: Vital Signs: Last Vital Signs Temp 97.5 F 06/10/22 07:52 Pulse 73 06/10/22 07:52 Resp 20 06/10/22 07:52 BP 162/58 H 06/10/22 07:52 Pulse Ox 92 06/10/22 07:52 O2 Del Method CPAP 06/10/22 07:52 O2 Flow Rate 2 06/09/22 19:13 Oxygen Flow Rate 4 06/07/22 11:44 BMI result Body Mass Index 35.0 Const: Other: Constitutional : Awake, interactive, not in distress Neck : Normal inspection, Supple Cardiovascular : irregular irregular, no JVP, trace bilateral lower extremity edema Respiratory : good bilateral air entry, basal fine crackles, wheezes or rhonchi Gastrointestinal: soft, lax, Normal bowel sounds, Non tender Skin : Warm, Dry Neurological : Alert & oriented x3, No focal deficit Objective Data Active Medications Acetaminophen (Acetaminophen 325 Mg Tablet) 650 mg PO Q6H PRN PRN Reason: Pain, Mild (Pain Scale 1-3) Amlodipine Besylate (Amlodipine Besylate 5 Mg Tablet) 5 mg PO DAILY [facility]; Protocol Last Admin: 06/10/22 09:50 Dose: 5 mg Documented By: NANI Atorvastatin Calcium (Atorvastatin Calcium 20 Mg Tablet) 20 mg PO DAILY [facility] Last Admin: 06/10/22 09:50 Dose: 20 mg Documented By: NANI Azithromycin (Azithromycin 500 Mg Tablet) 500 mg PO Q24H [facility] Last Admin: 06/09/22 13:36 Dose: 500 mg Documented By: ISHAN Benzonatate (Benzonatate 100 Mg Capsule) 100 mg PO TID PRN PRN Reason: Cough Last Admin: 06/09/22 21:47 Dose: 100 mg Documented By: YUMIKO Albuterol Sulfate 2.5 mg/ (Ipratropium [place] 0.5 mg) 0 mg INHALE RQ4H WHILE AWAKE [facility] Last Admin: 06/10/22 08:00 Dose: Not Given Documented By: DIPESH Non-Admin Reason: pt refused wants to eat Dabigatran (Dabigatran Etexilate Mesylate 150 Mg Capsule) 150 mg PO BID [facility] Last Admin: 06/10/22 09:49 Dose: 150 mg Documented By: NANI Diazepam (Diazepam 5 Mg Tablet) 10 mg PO DAILY PRN PRN Reason: Panic Attack(S) Last Admin: 06/09/22 03:16 Dose: 10 mg Documented By: JACKELIN Furosemide (Furosemide 40 Mg/4 Ml Vial) 40 mg IVPUSH BID@0900,1800 [facility]; Protocol Last Admin: 06/10/22 09:50 Dose: 40 mg Documented By: NANI Ceftriaxone Sodium 1 gm/ (Sodium Chloride) 50 mls @ 100 mls/hr IV Q24H [facility] Last Infusion: 06/09/22 13:10 Dose: 0 mls/hr Documented By: ISHAN Insulin Glargine (Insulin Glargine,Hum.Rec.Anlog 100 Unit/Ml 10 Ml Vial) 25 unit SUBCUT DAILY [facility] Last Admin: 06/10/22 09:49 Dose: 25 unit Documented By: NANI Insulin Human Lispro (Insulin Lispro 100 Unit/Ml 3 Ml Vial) 0 unit SUBCUT QIDACHS [facility]; Protocol Last Admin: 06/10/22 07:27 Dose: Not Given Documented By: NANI Non-Admin Reason: No Insulin Coverage Levothyroxine Sodium (Levothyroxine Sodium 112 Mcg Tablet) 112 mcg PO DAILY@0600 [facility] Last Admin: 06/10/22 06:23 Dose: 112 mcg Documented By: YUMIKO Losartan Potassium (Losartan Potassium 50 Mg Tablet) 100 mg PO DAILY [facility]; Protocol Last Admin: 06/10/22 09:49 Dose: 100 mg Documented By: NANI Metformin HCl (Metformin Hcl 1,000 Mg Tablet) 1,000 mg PO BIDWM [facility] Last Admin: 06/10/22 09:50 Dose: 1,000 mg Documented By: NANI Metoprolol Tartrate (Metoprolol Tartrate 25 Mg Tablet) 25 mg PO BID [facility]; Protocol Last Admin: 06/10/22 09:50 Dose: 25 mg Documented By: NANI Ondansetron HCl (Ondansetron Hcl 4 Mg/2 Ml Vial) 4 mg IVPUSH Q8H PRN PRN Reason: Nausea and Vomiting Pharmacy Consult (Consult Rx Perform Med Rec) 1 each MISCELLANE ONCE PRN PRN Reason: Consult order Sitagliptin Phosphate (Sitagliptin Phosphate 100 Mg Tablet) 100 mg PO DAILY [facility] Last Admin: 06/10/22 09:49 Dose: 100 mg Documented By: NANI Sodium Chloride (0.9 % Sodium Chloride Flush 3 Ml Syringe) 3 ml IVFLUSH QSHIFT [facility] Last Admin: 06/10/22 09:50 Dose: 3 ml Documented By: NANI Spironolactone (Spironolactone 25 Mg Tablet) 12.5 mg PO DAILY [facility]; Protocol Last Admin: 06/10/22 09:49 Dose: 12.5 mg Documented By: NANI Labs 06/09/22 06:29 06/10/22 07:00 Labs: Laboratory Results - last 24 hr 06/09/22 06/09/22 06/09/22 11:02 16:06 19:43 Anion Gap Estim Creat Clear Calc Estimated GFR POC Glucose 185 H 105 101 Random Glucose Calcium Magnesium 06/10/22 06/10/22 06/10/22 07:00 07:00 07:15 Anion Gap 14 Estim Creat Clear Calc 64.7 Estimated GFR > 60 POC Glucose 90 Random Glucose 89 Calcium 9.7 D Magnesium 1.5 L Microbiology Microbiology Results: Microbiology 06/07/22 13:38 Blood Culture - Preliminary Blood - Venous No growth after 48 hours. 06/07/22 12:26 Blood Culture - Preliminary Blood - Venous No growth after 48 hours. Assessment and Plan (1) Persistent atrial fibrillation: Status: Acute (2) Pneumonia: Status: Acute (3) Acute CHF: Status: Acute (4) Acute respiratory failure with hypoxia: Status: Acute Plan An 81 years old lady with PMHx of DMII, CHF, atrial fibrillation, sleep apnea, hypothyroidism presents with difficulty breathing. Acute hypoxic respiratory failure 2/2 Acute on chronic diastolic CHF exacerbation 2/2 nonadherent to home lasix Continue Bid IV Lasix continue Spironoloactone Cardiolgoy following monitor I\O wean O2 down as tolerated Lung infiltrates possible pneumonia Continue Zithromax and Ceftriaxone negative final cultures Afib chronic persistent rate controlled might need cardioversion per cardiology decrease Metoprolol to 25 bid for bradycardia Hypomagnesemia Mg of 1.4,given replacement Type 2 DM SSI, Lantus Hold Metformon and Glipizide Hypothyroid Levothyroxine HTN Amlodipine DVT PPx Pradaxa Patient needs overnight hospital stay for treatment of hypoxia 2/2 heart failure exacerbation Time Spent With Patient Time: Total time managing care of this patient today ____ minutes. Quality Stroke Does the patient have a stroke diagnosis?: No VTE Prior VTE?: No VTE Risk Level:: Medical - moderate - high VTE Device Contraindication: Treatment Not Indicated VTE Drug Contraindication: N/A - Med Ordered
--- NOTE | 2022-06-10 10:45 | PM.PNCARD ---
Subjective Subjective Date of Service: 06/10/22 Principal diagnosis: CHF, atrial fibrillation Interval history: Patient is looking much better, feeling better. Has diuresed well. Breathing is improved. Review of Systems Constitutional: Reports no additional constitutional complaints Cardiovascular: Denies chest pain, Denies rapid heart rate, Reports leg edema (Improved), Denies lightheadedness, Denies palpitations and Reports dyspnea on exertion Respiratory: Reports no additional respiratory complaints and Reports dyspnea on exertion Gastrointestinal: Reports no additional gastrointestinal complaints Genitourinary: Reports no additional female genitourinary complaints Reports system reviewed and no additional complaints, except as documented Endocrine: Denies palpitations Physical Exam Vital Signs: Last Vital Signs Temp 97.5 F 06/10/22 07:52 Pulse 73 06/10/22 07:52 Resp 20 06/10/22 07:52 BP 162/58 H 06/10/22 07:52 Pulse Ox 92 06/10/22 07:52 O2 Del Method CPAP 06/10/22 07:52 O2 Flow Rate 2 06/09/22 19:13 Oxygen Flow Rate 4 06/07/22 11:44 BMI result Body Mass Index 35.0 Const General: cooperative, alert, awake and in distress mild and respiratory Nutritional Appearance: obese Orientation/consciousness: patient oriented x3 Neck Neck: Yes trachea midline, Yes supple and Yes no JVD Resp Effort & Inspection: normal respiratory effort Auscultation: rales and wheezes Cardio Jugular venous distension: no JVD Rate: regular rate Rhythm: abnormal rhythm irregularly irregular Heart sounds: S1 normal heart sound present, S2 normal heart sound present, no click, no gallops, no murmurs and no rubs GI Inspection: Yes obesity Skin General skin exam: no rashes or lesions noted Neuro General: patient oriented x3 and no focal motor deficits Extrem General: No clubbing, No cyanosis and Yes edema Psych Appearance: grossly normal Objective Labs and Meds 06/09/22 06:29 06/10/22 07:00 Lab results: Laboratory Results - last 24 hr 06/09/22 06/09/22 06/09/22 11:02 16:06 19:43 Sodium Potassium Chloride Carbon Dioxide Anion Gap BUN Creatinine Estim Creat Clear Calc Estimated GFR POC Glucose 185 H 105 101 Random Glucose Calcium Magnesium 06/10/22 06/10/22 06/10/22 07:00 07:00 07:15 Sodium 141 Potassium 3.4 Chloride 95 L Carbon Dioxide 35 H Anion Gap 14 BUN 21 H Creatinine 0.70 Estim Creat Clear Calc 64.7 Estimated GFR > 60 POC Glucose 90 Random Glucose 89 Calcium 9.7 D Magnesium 1.5 L Progress Note: A&P Assessment and plan (1) Acute CHF: Status: Acute Assessment and Plan: CHF is significantly improved. Continue Aldactone. Also add Jardiance 10 mg to the regimen. Continue rate control approach for now. Out of bed to chair. Continue pulmonary treatment. Continue CPAP treatment. (2) Persistent atrial fibrillation: Status: Acute Assessment and Plan: Persistent atrial fibrillation, uncertain 80 of her duration. There appears to be this might be more chronic although this is not certain and patient is not sure. Will obtain old records from [place] as well as from [facility] and obtain all EKGs on Sunday. Further treatment based on assessment. Still may pursue rhythm control approach but may require amiodarone loading. Discussed with the patient. She understands. Will proceed with rhythm control decision as outpatient. At this point time will sign of the case. Thank you for allowing me to partake in her care Time Spent With Patient Time: Total time managing care of this patient today ____ minutes. Progress Note: Quality Stroke Does the patient have a stroke diagnosis?: No Procedures Date of Service Date of Service: 06/10/22
[2022-06-10 12:06] LABS: Glucose, Whole Blood 193 mg/dL (60-115)
[2022-06-10] MEDS: Magnesium Sulfate/H2O 2 GM/50 ML PIGGYBACK IV (12:20)
[2022-06-10] MEDS: Insulin Lispro 100 UNIT/ML 3 ML VIAL SUBCUT (12:20)
[2022-06-10] MEDS: cefTRIAXone sodium 1 GM in 0.9 % Sodium Chloride 50 ML IV (12:52)
[2022-06-10] MEDS: acetaZOLAMIDE 250 MG TABLET PO ×2 (14:00→20:50)
[2022-06-10] MEDS: Azithromycin 500 MG TABLET PO (14:00)
[2022-06-10 16:51] LABS: Glucose, Whole Blood 126 mg/dL (60-115)
--- NOTE | 2022-06-10 17:15 | PC.NURSE ---
report received from overnight RN, flight paramedic per MAY. pt assisted with bed bath, 2assist. OOB to chair. trialled O2 titration, satting 90-91% on room air, pt placed back on 2L NC maintaining sats of 94-96%. notified. Safety precautions in place, call colon within reach.
[2022-06-10 20:15] LABS: Glucose, Whole Blood 130 mg/dL (60-115)
[2022-06-10] MEDS: Benzonatate 100 MG CAPSULE PO (20:50)
[2022-06-11] VITALS (7 sets, daily range): BP systolic 139–149; BP diastolic 63–67; PULSE 62–81; RESP 18–20; TEMP 36.5–37.2; O2SAT 84–97
[2022-06-11] MEDS: Levothyroxine Sodium 112 MCG TABLET PO (05:51)
[2022-06-11 07:19] LABS: Glucose, Whole Blood 142 mg/dL (60-115)
[2022-06-11 07:59] LABS: Anion Gap 18 (12-20); Blood Urea Nitrogen 27 mg/dL (9-16); Calcium 9.7 mg/dL (8.4-10.2); Carbon Dioxide 35 mmol/L (22-29); Chloride 91 mmol/L (96-108); Creatinine Clr Calc Pharmacy 47.7; Estimated Glomerular Filt Rate 56; Glucose Random 129 mg/dL (60-115); Potassium 3.5 mmol/L (3.3-5.1); Sodium 140 mmol/L (135-145)
[2022-06-11] MEDS: SITagliptin Phosphate 100 MG TABLET PO (08:43)
[2022-06-11] MEDS: Spironolactone 25 MG TABLET 12.5 MG PO (08:43)
[2022-06-11] MEDS: amLODIPine Besylate 5 MG TABLET PO (08:43)
[2022-06-11] MEDS: Metoprolol Tartrate 25 MG TABLET PO (08:43)
[2022-06-11] MEDS: Losartan Potassium 50 MG TABLET 100 MG PO (08:43)
[2022-06-11] MEDS: Dabigatran Etexilate Mesylate 150 MG CAPSULE PO (08:43)
[2022-06-11] MEDS: Atorvastatin Calcium 20 MG TABLET PO (08:43)
[2022-06-11] MEDS: metFORMIN HCl 1,000 MG TABLET 1000 MG PO (08:43)
[2022-06-11] MEDS: acetaZOLAMIDE 250 MG TABLET PO ×2 (08:43→14:49)
[2022-06-11] MEDS: Furosemide 40 MG/4 ML VIAL IVPUSH (08:44)
[2022-06-11] MEDS: 0.9 % Sodium Chloride Flush 3 ML SYRINGE IVFLUSH (08:44)
[2022-06-11] MEDS: Insulin Glargine,Hum.rec.anlog 100 UNIT/ML 10 ML VIAL 25 UNIT SUBCUT (08:44)
[2022-06-11 08:52] LABS: Estimated Average Glucose 140 mg/dL; Hemoglobin A1c % 6.5 %
[2022-06-11 11:07] LABS: Glucose, Whole Blood 169 mg/dL (60-115)
--- NOTE | 2022-06-11 12:06 | PM.PNCARD ---
Subjective Subjective Date of Service: 06/11/22 Principal diagnosis: CHF, atrial fibrillation Interval history: From cardiac perspective she has not had any significant shortness of breath. Leg edema is improved. Has diuresed well. However still requires oxygen therapy. Review of Systems Constitutional: Reports no additional constitutional complaints Cardiovascular: Denies chest pain, Denies rapid heart rate, Denies leg edema, Denies palpitations and Reports dyspnea on exertion Respiratory: Reports no additional respiratory complaints and Reports dyspnea on exertion Gastrointestinal: Reports no additional gastrointestinal complaints Musculoskeletal: Reports no additional musculoskeletal complaints Reports system reviewed and no additional complaints, except as documented Endocrine: Denies palpitations Physical Exam Vital Signs: Last Vital Signs Temp 97.7 F 06/11/22 11:06 Pulse 65 06/11/22 11:58 Resp 18 06/11/22 11:58 BP 142/63 H 06/11/22 11:06 Pulse Ox 96 06/11/22 11:06 O2 Del Method Nasal Cannula 06/11/22 11:06 O2 Flow Rate 2 06/11/22 11:06 Oxygen Flow Rate 4 06/07/22 11:44 BMI result Body Mass Index 35.0 Const General: cooperative, alert, awake and in distress mild and respiratory Nutritional Appearance: obese Orientation/consciousness: patient oriented x3 Neck Neck: Yes trachea midline, Yes supple and Yes no JVD Resp Effort & Inspection: normal respiratory effort Auscultation: rales and wheezes Cardio Jugular venous distension: no JVD Rate: regular rate Rhythm: abnormal rhythm irregularly irregular Heart sounds: S1 normal heart sound present, S2 normal heart sound present, no click, no gallops, no murmurs and no rubs GI Inspection: Yes obesity Skin General skin exam: no rashes or lesions noted Neuro General: patient oriented x3 and no focal motor deficits Extrem General: No clubbing, No cyanosis and Yes edema Psych Appearance: grossly normal Objective Labs and Meds 06/09/22 06:29 06/11/22 07:02 Lab results: Laboratory Results - last 24 hr 06/10/22 06/10/22 06/10/22 11:59 16:28 20:09 Sodium Potassium Chloride Carbon Dioxide Anion Gap BUN Creatinine Estim Creat Clear Calc Estimated GFR POC Glucose 193 H 126 H 130 H Random Glucose Estimat Average Glucose Hemoglobin A1c % Calcium 03/26/23 03/26/23 03/26/23 06:43 07:02 07:16 Sodium 140 Potassium 3.5 Chloride 91 L Carbon Dioxide 35 H Anion Gap 18 BUN 27 H Creatinine 0.95 Estim Creat Clear Calc 47.7 Estimated GFR 56 POC Glucose 142 H Random Glucose 129 H Estimat Average Glucose 140 Hemoglobin A1c % 6.5 Calcium 9.7 06/11/22 11:04 Sodium Potassium Chloride Carbon Dioxide Anion Gap BUN Creatinine Estim Creat Clear Calc Estimated GFR POC Glucose 169 H Random Glucose Estimat Average Glucose Hemoglobin A1c % Calcium Progress Note: A&P Assessment and plan (1) Acute CHF: Status: Acute Assessment and Plan: Heart failure with chronic atrial fibrillation with preserved LV systolic function. Continue Lasix can switch to p.o.. CHF education to be provided. Continue Aldactone therapy. Add Jardiance 10 mg to regimen as well. Will consider as outpatient for evaluation for rhythm control after obtaining data from old practices. Also will require ischemic workup as an outpatient. Discussed with her. In the hospital currently for oxygen requirement evaluation. (2) Persistent atrial fibrillation: Status: Acute Assessment and Plan: Atrial fibrillation with controlled ventricular response. Continue full oral anticoagulation as prescribed. Currently rate adequately controlled. Will pursue further decision will rhythm control as an outpatient. Will follow with her as outpatient. Will sign of the case Time Spent With Patient Time: Total time managing care of this patient today ____ minutes. Progress Note: Quality Stroke Does the patient have a stroke diagnosis?: No Procedures Date of Service Date of Service: 06/11/22
[2022-06-11] MEDS: Insulin Lispro 100 UNIT/ML 3 ML VIAL SUBCUT (12:24)
[2022-06-11] MEDS: cefTRIAXone sodium 1 GM in 0.9 % Sodium Chloride 50 ML IV (12:24)
--- NOTE | 2022-06-11 13:26 | W.MHC.F2F ---
Service Date Service Date: 06/11/22 Encounter Date of encounter: 06/11/22 Reasons for Services Signs and symptoms assessed: new Oxygen physical deconditioning Reason for nursing home: medication management and teach disease management Reason for physical therapy: home safety and mobility and therapeutic exercises Homebound: Leaving the home is medically contraindicated at this time without the asist of a device and/or another person due th the listed conditions above and below. Reason homebound: unsteady gait / fall risk Certification: Based on the above findings, I certify that this patient is confined to the home and needs intermittent nursing home care, physical therapy and/or speech therapy, or continues to need occupational therapy. The patient is under my care, and I have initiated the establishment of the plan of care. The patient will be followed by a physician who will periodically review the plan of care. Time Spent With Patient Time: Total time managing care of this patient today ____ minutes.
--- NOTE | 2022-06-11 13:27 | PM.DS ---
DS: Providers Provider Date of Service: 06/11/22 Date of admission: 06/07/22 16:27 Primary care physician: Nu Layne DNP, [employer] MECH[employer]IC, N Consults: 06/09/22 09:19 Consult to Cardiology [place]ine [place]ing [place] [facility] [place] [facility] Reason for consultation: CHF , Bradycardia, hx IBAN DS: Diagnosis Discharge Diagnosis (1) Acute CHF: Status: Acute (2) Persistent atrial fibrillation: Status: Acute (3) Pneumonia: Status: Acute (4) Acute respiratory failure with hypoxia: Status: Acute DS: Summary Hospital Course Hospital Course: Admission note HPI An 81 years old lady with PMHx of DMII, CHF, atrial fibrillation, sleep apnea, hypothyroidism presents with difficulty breathing. The patient report that she has been adherent to her lasix regimen at home. for the last 2 days she notied progressive worsening SOB upon ambulation. report cough with small amount of flum. denies fever but had one reading of 99.8, no chills, chest pain, nausea , vomiting, change in bowel habit or urinary symptoms. In ED, CXR consistent with fluid overload with possible infiltrates. Noted to drop O2 sat to 80s and lower on RA. Admitted for further eval and treatment. Hospital course The patient was admitted for treatment of Acute hypoxic respiratory failure 2/2 Acute on chronic diastolic CHF exacerbation from being nonadherent to home lasix. treated with Bid IV Lasix 40 mg with good response. added Spironoloactone as she was evaluated by cardiology team who suggested adding Jardiance 10 mg daily with a plan to follow as outpatient for rhythm control and ischemic work up. she continued to require oxygen on ambulation. evaluated by RT team. O2 will be dilevered home w 2L. Metoprolol was decreased to 25 mg for episodes of sinus bradycardia. CT showed small Lung infiltrates concerning for possible possible pneumonia. treated with Zithromax and Ceftriaxone as blood cultures came negative. noted to have Hypomagnesemia, given replacement Reported episodes of hypoglycemia. i believe she is over-medicated as A1c 6.5. in her age grp we can tolerate A1c up to 8. will DC Glipizide and decrease Lantus to 35 units. Start Lasix PO daily 20 mg Start Spironolactone 25 mg daily Start Jardiance 10 mg daily Continue Azithromycin and Ceftin as prescribed Discontinue Glipizide Decrease insulin Lantus to 35 Decrease Metoprolol to 25 mg twice a day Monitor weight at home and report any changes to PCP To follow with cardiology as outpatient To do home physical therapy. Time Spent with Patient Time attestation: Total time managing care of this patient today ____ minutes. Discharge coordination time: Greater than 30 minutes Quality: Safe Use of Opioids Does Pt have an Active Cancer Diagnosis on the Problem List?: No Quality: Stroke Does the patient have a stroke diagnosis?: No Physical Exam Vital Signs: Vital Signs: Last Vital Signs Temp 97.7 F 06/11/22 11:06 Pulse 65 06/11/22 11:58 Resp 18 06/11/22 11:58 BP 142/63 H 06/11/22 11:06 Pulse Ox 96 06/11/22 11:06 O2 Del Method Nasal Cannula 06/11/22 11:06 O2 Flow Rate 2 06/11/22 11:06 Oxygen Flow Rate 4 06/07/22 11:44 BMI result Body Mass Index 35.0 Const: Other: Constitutional : Awake, interactive, not in distress Neck : Normal inspection, Supple Cardiovascular : irregular irregular, no JVP, no lower extremity edema Respiratory : good bilateral air entry, basal fine crackles, wheezes or rhonchi Gastrointestinal: soft, lax, Normal bowel sounds, Non tender Skin : Warm, Dry Neurological : Alert & oriented x3, No focal deficit DS: Data Data Completed and Pending Completed studies during hospitalization [Text1]: Procedures Assistance with Respiratory Ventilation, Less than 24 Consecutive Hours, Continuous Positive Airway Pressure (03/07/22) Labs on day of discharge: Laboratory Results - last 24 hr 06/10/22 06/10/22 06/11/22 16:28 20:09 06:43 Sodium Potassium Chloride Carbon Dioxide Anion Gap BUN Creatinine Estim Creat Clear Calc Estimated GFR POC Glucose 126 H 130 H Random Glucose Estimat Average Glucose 140 Hemoglobin A1c % 6.5 Calcium 06/11/22 06/11/22 06/11/22 07:02 07:16 11:04 Sodium 140 Potassium 3.5 Chloride 91 L Carbon Dioxide 35 H Anion Gap 18 BUN 27 H Creatinine 0.95 Estim Creat Clear Calc 47.7 Estimated GFR 56 POC Glucose 142 H 169 H Random Glucose 129 H Estimat Average Glucose Hemoglobin A1c % Calcium 9.7 Preliminary micro results at discharge 06/07/22 13:38 Blood Culture - Preliminary Blood - Venous No growth after 48 hours. 06/07/22 12:26 Blood Culture - Preliminary Blood - Venous No growth after 48 hours. Imaging Chest x-ray: Radiologist's impression: ITS Impressions Venous Duplex 06/07/22 12:55 IMPRESSION: No DVT demonstrated in the bilateral lower extremity. Chest X-Ray 06/07/22 13:06 IMPRESSION: Cardiomegaly with CHF. Discharge Plan Discharge Anticipated Discharge Date/Time: 06/11/22 13:20 Patient Disposition: Home Health Service Discharge Diagnosis: Hypoxia from heart failure exacerbation Pneumonia Low sugar readings Referrals: [facility] [Outside] - 1 Week XiJune, DNP, [employer] MECHANIC, OFFICE TECHNOLOGY PROFESSOR-C [Primary Care Provider] - 1 Week Discharge Medications: New spironolactone 25 mg Tablet 25 mg PO DAILY Qty: 30 0RF Protocol: Hold for SBP< HOLD for SBP < : 90 azithromycin 500 mg Tablet 500 mg PO Q24H 3 Days Qty: 3 0RF cefuroxime axetil 500 mg tablet 500 mg PO BID Qty: 6 0RF Jardiance 10 mg tablet 10 mg PO QAM Qty: 30 0RF Continued atorvastatin 20 mg tablet 1 tab PO DAILY dabigatran etexilate [Pradaxa] 150 mg capsule 1 cap PO BID amlodipine 5 mg tablet 1 tab PO DAILY metformin 1,000 mg tablet 1 tab PO BID levothyroxine [Synthroid] 112 mcg tablet 1 tab PO DAILY@0600 Januvia 100 mg tablet 1 tab PO DAILY diazepam 10 mg Tablet 10 mg PO DAILY PRN (Reason: Panic Attack(S)) losartan 100 mg Tablet 100 mg PO DAILY Changed furosemide 20 mg Tablet 20 mg PO DAILY Qty: 30 0RF insulin glargine [Basaglar KwikPen U-100 Insulin] 100 unit/mL (3 mL) insulin pen 35 unit subcut DAILY Qty: 15 0RF metoprolol tartrate 50 mg tablet 25 mg PO BID Qty: 30 0RF Discontinued glipizide 5 mg tablet extended release 24hr 1 tab PO DAILY Discharge Orders: Discharge Order (Routine); Ordered 06/11/22 Ordered By: Akira Randall Diet: Low salt diet Activity on Discharge: As tolerated Stand Alone Forms: Patient Portal Discharge page Care Plan Goals: Read below Health Concerns: Read below Plan of Treatment: Read below Assessment: You were admitted to the hospital for difficulties breathing. treated for heart failure exacerbation and suspecion of pneumonia with diuretics and antibitoics with good response as you were evaluated by heart doctor but continued to need Oxygen supplement. Start Lasix PO daily 20 mg Start Spironolactone 25 mg daily Start Jardiance 10 mg daily Continue Azithromycin and Ceftin as prescribed Discontinue Glipizide Decrease insulin Lantus to 35 Decrease Metoprolol to 25 mg twice a day Monitor weight at home and report any changes to PCP To follow with cardiology as outpatient To do home physical therapy. Discharge Date/Time: 06/11/22 15:25
--- NOTE | 2022-06-11 13:49 | MHC.CM.PN ---
Patient has been medically cleared for dc to home today, with services. [facility] has accepted Patient and they have been made aware of today's dc. CM met with Patient at bedside and addressed IMM with her (original has been given to her and a copy has been placed on the chart). Patient is aware of and in agreement with the dc plan.
[2022-06-11] MEDS: Azithromycin 500 MG TABLET PO (14:49)
== END 2022-06-11 15:25 | disposition home health service (06) | DRG 291 ==
LOC: HO.ED 13:34 → HO.EDOVER 16:40 → HO.IMC 18:58
PROVIDERS: Admitting Provider Student in an Organized Health Care Education/Training Program; Emergency Provider Emergency Medicine; PCP Nurse Practitioner Family; Visit Provider Student in an Organized Health Care Education/Training Program
DX: I11.0 Hypertensive heart disease with heart failure (principal); I50.33 Acute on chronic diastolic (congestive) heart failure; J96.01 Acute respiratory failure with hypoxia; J18.9 Pneumonia, unspecified organism; I48.19 Other persistent atrial fibrillation; E03.9 Hypothyroidism, unspecified; E11.9 Type 2 diabetes mellitus without complications; E78.5 Hyperlipidemia, unspecified; E83.42 Hypomagnesemia; Z20.822 Contact with and (suspected) exposure to COVID-19; Z91.14 Patient's other noncompliance with medication regimen; Z79.4 Long term (current) use of insulin; Z79.84 Long term (current) use of oral hypoglycemic drugs; Z79.890 Hormone replacement therapy; Z79.899 Other long term (current) drug therapy
CPT/HCPCS: 36415; 71045; 80048; 80076; 82803; 82947; 83036; 83605; 83735; 83880; 84484; 85025; 85027; 85610; 85730; 87040; 87502; 87635; 93005; 93970; 94640; 94660; 97162; 99285; J0456; J0696; J1940; J2930; J3475

== ENCOUNTER → 2022-06-26 15:13 | Outpatient (BNVA) | payer MEDICARE, OTHER, SELFPAY | PROVIDERS: PCP Nurse Practitioner Family; Visit Provider Internal Medicine Cardiovascular Disease | DX: I50.30 Unspecified diastolic (congestive) heart failure (principal); I48.20 Chronic atrial fibrillation, unspecified | CPT/HCPCS: 93005; 99212 ==

== ENCOUNTER 2022-10-02 11:11 | Outpatient (AMB) | payer MEDICARE, OTHER, SELFPAY ==
--- NOTE | 2022-10-02 11:13 | A.OFFVIS_ITS ---
Intake Vital Signs 10/02/22 11:15 Height 5 ft 3 in Weight 189 lb 9.561 oz BMI 33.6 BP 112/64 Blood Pressure Location Lt brachial Position Sitting Pulse 51 Intake Visit Reasons: 3. 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 Required: No Allergies No Known Allergies Allergy (Verified 03/06/22 23:54) Medication List - Last Reconciled 10/02/22 by Binu Flores MD atorvastatin 20 mg PO DAILY dabigatran etexilate (Pradaxa) 150 mg PO BID diazepam 10 mg PO DAILY PRN empagliflozin (Jardiance) 10 mg PO QAM furosemide 20 mg PO DAILY insulin glargine (Basaglar KwikPen U-100 Insulin) 35 units (0.35 mL) subcut DAILY levothyroxine (Synthroid) 112 mcg PO DAILY@0600 losartan 100 mg PO DAILY metformin 1,000 mg PO BID metoprolol tartrate 25 mg (1/2 x 50 mg) PO BID sitagliptin phosphate (Januvia) 100 mg PO DAILY spironolactone 25 mg PO DAILY HPI HPI Comments History of Present Illness Details Michelle comes for follow-up. No new symptoms since I last saw her. She is doing well with no progressive symptoms of heart failure. Remains active. Taking all her medications. Her weight has remained stable. Her heart rate remains in the 50s at rest. She uses all her medications. No bleeding issues or neurologic events. Denies any prolonged palpitations irregular heartbeat. No lightheadedness, syncope. [facility] Medical History Chronic atrial fibrillation Diabetes HLD (hyperlipidemia) HTN (hypertension) Hypothyroid Obesity IBAN (obstructive sleep apnea) Persistent atrial fibrillation Surgical History S/P hysterectomy with oophorectomy Family History Father CAD (coronary artery disease) Mother CAD (coronary artery disease) Social History Household Members: Spouse Housing: House Do you presently have visiting nurse or other home services: No Alcohol intake: current Alcohol intake frequency: holidays/special occasions only Alcohol type: wine Patient Tobacco Use Status: Never used Tobacco service: No Current occupational status: retired Review of Systems Const Denies chills, Denies fatigue, Denies fever(s), Denies frequent falls, Denies weakness, Denies weight gain and Denies weight loss ENT Denies dizziness Card Denies chest pain, Denies leg edema, Denies lightheadedness, Denies palpitations, Denies dyspnea, Denies dyspnea on exertion, Denies orthopnea and Denies other (loss of consciousness) Resp Denies cough, Denies dyspnea and Denies dyspnea on exertion GI Denies hematochezia and Denies change in stool character Musc Denies abnormal gait, Denies muscle weakness, Denies numbness, Denies radiating pain into limb and Denies tingling Neuro Denies abnormal gait, Denies dizziness, Denies frequent falls, Denies numbness, Denies tingling and Denies weakness Endo Denies fatigue and Denies palpitations Physical Exam Vital Signs: Last Vital Signs Pulse 51 10/02/22 11:15 BP 112/64 10/02/22 11:15 BMI result Body Mass Index 33.6 Const General: cooperative, comfortable, no acute distress, alert, awake, Physically active and well groomed Nutritional Appearance: obese Orientation/consciousness: patient oriented x3 Limitations: no limitations Neck Neck: Yes trachea midline, Yes supple and Yes no JVD Resp Effort & Inspection: normal respiratory effort Auscultation: clear to auscultation bilaterally Cardio Jugular venous distension: no JVD Rate: regular rate Rhythm: abnormal rhythm irregularly irregular Heart sounds: S1 normal heart sound present, S2 normal heart sound present, no click, no gallops and no murmurs GI Auscultation: normal bowel sounds Neuro General: patient oriented x3 and no focal motor deficits Extrem General: Yes no clubbing, cyanosis or edema Psych Appearance: grossly normal Assessment & Plan Assessment & Plan (1) (HFpEF) heart failure with preserved ejection fraction: Code(s): I50.30 - Unspecified diastolic (congestive) heart failure Plan: Heart failure preserved ejection fraction, clinically euvolemic and well compensated. Management of heart failure was discussed in details. Continue current diuretic regimen. Daily weight monitoring avoidance of salt loading was discussed additional diuretics as needed. Continue Jardiance and spironolactone for neurohormonal modulation and to prevent hospitalization. Follow-up basic metabolic profile in near future. Maintain activity level as tolerated. Continue CPAP therapy. Continue participate in weight loss program. Continue aggressive blood pressure control which is currently well optimized. (2) Chronic atrial fibrillation: Code(s): I48.20 - Chronic atrial fibrillation, unspecified Plan: Chronic atrial fibrillation, has failed rhythm control approach in the past. Long-standing atrial fibrillation. Will continue pursue rate control approach. Rate appears to be over corrected. Will reduce to Toprol-XL 25 mg daily. Continue full oral anticoagulation, currently on Pradaxa 150 mg b.i.d.. Quarterly renal function test should be pursued. Will follow up in the clinic in 6 months time, sooner p.r.n.. Thank you for allowing me to partake in her care Medications: New metoprolol succinate ER (Toprol XL) 25 mg PO DAILY 30 tabs 5RF Coding Level of Care Code Est Pt Level 4 (35127) Diagnoses (HFpEF) heart failure with preserved ejection fraction I50.30 Chronic atrial fibrillation I48.20
[2022-10-02 11:15] VITALS: BP 112/64; PULSE 51; BMI 33.6
== END 2022-10-02 11:39 | disposition home or self-care (01) ==
PROVIDERS: Visit Provider Internal Medicine Cardiovascular Disease
DX: I50.30 Unspecified diastolic (congestive) heart failure (principal); I48.20 Chronic atrial fibrillation, unspecified
CPT/HCPCS: 99214

== ENCOUNTER → 2022-10-02 11:11 | Outpatient (BNVA) | payer MEDICARE, OTHER, SELFPAY | PROVIDERS: Visit Provider Internal Medicine Cardiovascular Disease | DX: I50.30 Unspecified diastolic (congestive) heart failure (principal); I48.20 Chronic atrial fibrillation, unspecified; Z79.01 Long term (current) use of anticoagulants; Z79.899 Other long term (current) drug therapy | CPT/HCPCS: 99212 ==

== ENCOUNTER 2023-04-10 11:05 | Outpatient (AMB) | payer MEDICARE, OTHER, SELFPAY ==
[2023-04-10 11:11] VITALS: BP 110/70; PULSE 59; BMI 32.8
--- NOTE | 2023-04-10 11:11 | A.OFFVIS_ITS ---
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: No Allergies No Known Allergies Allergy (Verified 03/06/22 23:54) Medication List - Last Reconciled 04/10/23 by Binu Flores MD atorvastatin 20 mg PO DAILY dabigatran etexilate (Pradaxa) 150 mg PO BID 90 days empagliflozin (Jardiance) 10 mg PO QAM furosemide 20 mg PO DAILY insulin glargine (Basaglar KwikPen U-100 Insulin) 35 units (0.35 mL) subcut DAILY levothyroxine (Synthroid) 112 mcg PO DAILY@0600 losartan 100 mg PO DAILY metformin 1,000 mg PO BID metoprolol succinate ER (Toprol XL) 25 mg PO DAILY sitagliptin phosphate (Januvia) 100 mg PO DAILY spironolactone 25 mg PO DAILY HPI HPI Comments History of Present Illness Details Michelle comes for follow-up. She has been doing well from heart failure perspective. She remains function and active with her current medications. She has not had any weight gain. No worsening shortness of breath, orthopnea, PND, leg edema, abdominal distension. Denies any prolonged palpitation irregular heartbeat. Denies any exertional chest pain. No l ightheadedness, syncope. No bleeding issues or neurologic events PFSH Medical History Persistent atrial fibrillation Chronic atrial fibrillation Diabetes IBAN (obstructive sleep apnea) Obesity Hypothyroid HTN (hypertension) HLD (hyperlipidemia) Surgical History S/P hysterectomy with oophorectomy Family History Father CAD (coronary artery disease) Mother CAD (coronary artery disease) Social History Household Members: Spouse Housing: House Do you presently have visiting nurse or other home services: No Alcohol intake: current Alcohol intake frequency: holidays/special occasions only Alcohol type: wine Patient Tobacco Use Status: Never used Tobacco service: No Current occupational status: retired Review of Systems Const Denies chills, Denies fatigue, Denies fever(s), Denies frequent falls, Denies weakness, Denies weight gain and Denies weight loss ENT Denies dizziness Card Denies chest pain, Denies leg edema, Denies lightheadedness, Denies palpitations, Denies dyspnea, Denies dyspnea on exertion, Denies orthopnea and Denies other (loss of consciousness) Resp Denies cough, Denies dyspnea and Denies dyspnea on exertion GI Denies hematochezia and Denies change in stool character Musc Denies abnormal gait, Denies muscle weakness, Denies numbness, Denies radiating pain into limb and Denies tingling Neuro Denies abnormal gait, Denies dizziness, Denies frequent falls, Denies numbness, Denies tingling and Denies weakness Endo Denies fatigue and Denies palpitations Physical Exam Vital Signs: Last Vital Signs Pulse 59 04/10/23 11:11 BP 110/70 04/10/23 11:11 BMI result Body Mass Index 32.8 Const General: cooperative, comfortable, no acute distress, alert, awake, Physically active and well groomed Nutritional Appearance: obese Orientation/consciousness: patient oriented x3 Limitations: no limitations Neck Neck: Yes trachea midline, Yes supple and Yes no JVD Resp Effort & Inspection: normal respiratory effort Auscultation: clear to auscultation bilaterally Cardio Jugular venous distension: no JVD Rate: regular rate Rhythm: abnormal rhythm irregularly irregular Heart sounds: S1 normal heart sound present, S2 normal heart sound present, no click, no gallops and no murmurs GI Auscultation: normal bowel sounds Neuro General: patient oriented x3 and no focal motor deficits Extrem General: Yes no clubbing, cyanosis or edema Psych Appearance: grossly normal Assessment & Plan Assessment & Plan (1) (HFpEF) heart failure with preserved ejection fraction: Code(s): I50.30 - Unspecified diastolic (congestive) heart failure Plan: Heart failure preserved ejection fraction, clinically euvolemic and well compensated on current diuretic dose. Management of heart failure was discussed. Daily weight monitoring avoidance of salt loading was discussed additional diuretics for weight gain was discussed. Continue neurohormonal modulation with Jardiance and spironolactone therapy. Blood work should be performed at least every 6 months. Continue aggressive management of hypertension. Blood pressure is currently well optimized encouraged to continue to participate in physical activity as tolerated. (2) Chronic atrial fibrillation: Code(s): I48.20 - Chronic atrial fibrillation, unspecified Plan: Chronic rate control atrial fibrillation. Significant left atrial enlargement. At this point time will continue pursue rate control. Continue metoprolol therapy. Rate is adequately controlled. Continue full oral anticoagulation, currently on Pradaxa 150 mg b.i.d., tolerating well. Continue monitor renal function every 6 months. Continue CPAP therapy. Will follow up in the clinic in 6 months time, sooner p.r.n.. Thank you for allowing me to partake in her care Orders: Orders CA echo transthoracic complete Today I50.30 - Unspecified diastolic (congestive) heart failure Coding Level of Care Code Est Pt Level 4 (21264) Diagnoses (HFpEF) heart failure with preserved ejection fraction I50.30 Chronic atrial fibrillation I48.20
== END 2023-04-10 11:34 | disposition home or self-care (01) ==
PROVIDERS: PCP Nurse Practitioner Family; Visit Provider Internal Medicine Cardiovascular Disease
DX: I50.30 Unspecified diastolic (congestive) heart failure (principal); I48.20 Chronic atrial fibrillation, unspecified
CPT/HCPCS: 99214

== ENCOUNTER → 2023-04-10 11:05 | Outpatient (BNVA) | payer MEDICARE, OTHER, SELFPAY | PROVIDERS: PCP Nurse Practitioner Family; Visit Provider Internal Medicine Cardiovascular Disease | DX: I50.30 Unspecified diastolic (congestive) heart failure (principal); I48.20 Chronic atrial fibrillation, unspecified; Z79.01 Long term (current) use of anticoagulants; Z79.899 Other long term (current) drug therapy | CPT/HCPCS: 99212 ==

== ENCOUNTER → 2023-05-24 10:58 | Outpatient (REF) | payer MEDICARE, OTHER, SELFPAY ==
--- NOTE | 2023-05-24 11:02 | CA_ITS ---
Transthoracic Echocardiogram Patient (Last, First, Middle): Michelle Jackson, Gender: Female Date of : 1940 Age: 82 Procedure Date: 05/24/2023 Procedure Type: Transthoracic Echocardiogram Location: OP Height: 160.02 cm Weight: 80.74 kg BSA: 1.84 m2 Heart Rate: bpm BP: 154 / 68 mmHg Social Service Manager: CAMI Referring MD: Binu Flores MD Policy Value Calculator: Binu Flores MD Symptoms: I50.30 - Unspecified diastolic (congestive) heart failure Study Quality: Adequate ECG Rhythm: Atrial Fibrillation Conclusions: - 1. Normal LV ejection fraction of 60 65% with restrictive filling pattern 2. At least mildly dilated left atrium 3. Mild aortic stenosis and mild mitral regurgitation 4. Upper limits of normal RV systolic pressure with mildly elevated right atrial pressures 5. No gross pericardial effusion Findings Left Ventricle Normal left ventricular size, thickness, and systolic function. The visually estimated ejection fraction is between 60-65%. Spectral Doppler is indicative of a restrictive filling pattern. Right Ventricle Normal right ventricular cavity size and systolic function. Atria The left atrium is mildly dilated. There is no evidence of interatrial shunt. The right atrium is likely dilated. Aortic Valve There is mild calcification of the aortic valve. There is moderate thickening of the aortic valve. There is mild aortic valve stenosis. The peak aortic velocity is 1.82 m/s with a calculated peak gradient of 13 mmHg. The mean gradient is 7 mmHg. The aortic valve area is 1.61 cm2. There is no aortic valve regurgitation. Mitral Valve There is mild anterior and moderate posterior mitral leaflet thickening. There is mild mitral annular calcification. There is mild mitral valve regurgitation. There is no mitral valve stenosis. Pulmonic Valve The pulmonic valve is likely normal. There is trace pulmonic valve regurgitation. Tricuspid Valve Normal tricuspid valve structure. There is mild tricuspid valve regurgitation. Mildly elevated right atrial pressure. There is no evidence of pulmonary hypertension. Great Vessels The pulmonary artery was not well visualized. There is no dilatation of the ascending aorta measuring 3.50 cm. Venous The inferior vena cava is normal in size and collapses less than 50% with inspiration. Pericardium/Pleural There is a small loculated pericardial effusion overlying the left ventricle. Prior Study Comparison Changes noted compared to prior study dated: 03/07/2022. RV systolic and right atrial pressures are reduced Measurements 2D Linear Measurements IVSd: 0.98 0.6-0.9/0.6-1.0 cm LVIDd: 4.10 3.9-5.3/4.2-5.9 cm LVIDd Index: 2.23 2.4-3.2/2.2-3.1 cm/m2 LVIDs: 2.58 2.0-3.6 cm LVPWd: 1.12 0.7-1.1 cm LA Diam: 3.50 2.7-3.8/3.0-4.0 cm LAIDs Index: 1.90 1.5-2.3 cm/m2 LV Mass: 176.66 67-162/88-224 g LV Mass Index: 96.01 43-95/49-115 g/m2 LVOT Diam: 1.90 3.0+(-)1.3 cm 2D Systolic Function EF 4C: 70.30 >55% EF 2C: 60.50 >55% EF BiP: 64.70 >55% Mitral Valve MV Pk E: 1.50 MV Decel Time: 207.00 E'Lateral: 6.57 E'Medial: 5.05 E/E' Med: 29.70 E/E' Lat: 22.80 PHT: 61.00 MVA PHT: 3.61 Decel [place]: 7.29 Aortic Valve AoV Pk Martinez: 1.82 AoV Mn Martinez: 1.26 AoV VTI: 0.46 AoV Pk Grad: 13.00 Aov Mn Grad: 7.00 SYLWIA Cont.VTI: 1.61 LVOT LVOT Pk Martinez: 1.05 LVOT Mn Martinez: 0.71 LVOT VTI: 0.26 LVOT Pk Grad: 4.00 LVOT Mn Grad: 2.00 LVOT Diam: 1.90 LVOT Area: 2.84 Diastolic Function MV Pk E: 1.50 E'Medial: 5.05 E/E' Med: 29.70 E' Laterial: 6.57 E/E' Lat: 22.80 Right Ventricle TAPSE (mm): 18.30 TVS' Martinez: 12.00 Tricuspid Valve TR Pk Martinez: 2.80 TR Pk Grad: 31.00 RA Press: 8.00 RVSP: 39.00 Great Vessels Aorta Sinus of Valsalva: 2.88 2.0-3.[address] [place]: 2.43 1.7-3.4 cm Ao Asc: 3.50 2.1-3.4 cm Updated in Other Vendor System with Status of Final Binu Flores MD electronically signed on 05/25/2023 1:01:46 PM with status of Final
== END ==
LOC: HO.CARD 10:58
PROVIDERS: PCP Nurse Practitioner Family; Visit Provider Internal Medicine Cardiovascular Disease
DX: I50.30 Unspecified diastolic (congestive) heart failure (principal)
CPT/HCPCS: 93306

== ENCOUNTER → 2023-05-24 11:02 | Outpatient (BNV) | payer MEDICARE, OTHER, SELFPAY | PROVIDERS: PCP Nurse Practitioner Family; Visit Provider Internal Medicine Cardiovascular Disease | DX: I35.0 Nonrheumatic aortic (valve) stenosis (principal); I34.81 Nonrheumatic mitral (valve) annulus calcification | CPT/HCPCS: 93306 ==

== ENCOUNTER 2023-10-15 10:52 | Outpatient (AMB) | payer MEDICARE, OTHER, SELFPAY ==
--- NOTE | 2023-10-15 11:02 | MHC.OFFVIS ---
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: No Allergies No Known Allergies Allergy (Verified 03/06/22 23:54) Medication List - Last Reconciled 10/15/23 by Binu Flores MD atorvastatin 20 mg PO DAILY dabigatran etexilate (Pradaxa) 150 mg PO BID 90 days empagliflozin (Jardiance) 10 mg PO QAM furosemide 20 mg PO DAILY PRN insulin glargine (Basaglar KwikPen U-100 Insulin) 35 units (0.35 mL) subcut DAILY levothyroxine (Synthroid) 112 mcg PO DAILY@0600 losartan 100 mg PO DAILY metformin 1,000 mg PO BID metoprolol succinate ER 25 mg PO DAILY sitagliptin phosphate (Januvia) 100 mg PO DAILY spironolactone 25 mg PO DAILY HPI Comments Details: Michelle comes for a 6 month follow-up. She has been overall doing well. No hospitalization last 6 months. She takes her furosemide about 3 times a week. He does not weigh herself on a regular basis. She also does not go out for exercise much due to fear of falling. She says she has some balance issues. She denies any orthopnea, PND, worsening leg edema. Denies any bleeding issues or neurologic events. Takes all her medications regularly. Denies any exertional chest pain. Denies any lightheadedness, syncope. No prolonged palpitations or irregular heartbeat. Echocardiogram shows preserved LV ejection fraction with restrictive filling pattern with mild aortic stenosis. [facility] Medical History Persistent atrial fibrillation Chronic atrial fibrillation Diabetes IBAN (obstructive sleep apnea) Obesity Hypothyroid HTN (hypertension) HLD (hyperlipidemia) Surgical History S/P hysterectomy with oophorectomy Family History Father CAD (coronary artery disease) Mother CAD (coronary artery disease) Social History Household Members: Spouse Housing: House Do you presently have visiting nurse or other home services: No Alcohol intake: current Alcohol intake frequency: holidays/special occasions only Alcohol type: wine Patient Tobacco Use Status: Never used Tobacco service: No Current occupational status: retired Review of Systems Const Denies chills, Denies fatigue, Denies fever(s), Denies frequent falls, Denies weakness, Denies weight gain and Denies weight loss ENT Denies dizziness Card Denies chest pain, Denies leg edema, Denies lightheadedness, Denies palpitations, Denies dyspnea, Denies dyspnea on exertion, Denies orthopnea and Denies other (loss of consciousness) Resp Denies cough, Denies dyspnea and Denies dyspnea on exertion GI Denies hematochezia and Denies change in stool character Musc Denies abnormal gait, Denies muscle weakness, Denies numbness, Denies radiating pain into limb and Denies tingling Neuro Denies abnormal gait, Denies dizziness, Denies frequent falls, Denies numbness, Denies tingling and Denies weakness Endo Denies fatigue and Denies palpitations Physical Exam Vital Signs: Last Vital Signs Pulse 69 10/15/23 11:03 BP 110/72 10/15/23 11:03 BMI result Body Mass Index 33.2 Const General: cooperative, comfortable, no acute distress, alert, awake, Physically active and well groomed Nutritional Appearance: obese Orientation/consciousness: patient oriented x3 Limitations: no limitations Neck Neck: Yes trachea midline, Yes supple and Yes no JVD Resp Effort & Inspection: normal respiratory effort Auscultation: clear to auscultation bilaterally Cardio Jugular venous distension: no JVD Rate: regular rate Rhythm: abnormal rhythm irregularly irregular Heart sounds: S1 normal heart sound present, S2 normal heart sound present, no click, no gallops and Murmur heart sound present systolic early, decrescendo and crescendo GI Auscultation: normal bowel sounds Neuro General: patient oriented x3 and no focal motor deficits Extrem General: Yes no clubbing, cyanosis or edema Psych Appearance: grossly normal Office Procedures EKG Details: EKG shows atrial fibrillation at 69 beats per minute [id number], Complete Assessment & Plan Assessment & Plan (1) (HFpEF) heart failure with preserved ejection fraction: Code(s): I50.30 - Unspecified diastolic (congestive) heart failure Category: Medical Plan: Heart failure preserved ejection fraction, clinically euvolemic and well compensated current diuretic dose. She which she takes 3 days a week. Recommend strongly to pursued daily weight monitoring avoidance of salt loading. She understands agrees. Management of heart failure with also taking additional diuretics as need be was discussed. Importance of regular physical activity was discussed. Continue CPAP therapy. Continue current rate control therapy. Continue current neurohormonal modulation with Jardiance and spironolactone in addition to her current diuretic regimen. Continue aggressive blood pressure control. (2) Chronic atrial fibrillation: Code(s): I48.20 - Chronic atrial fibrillation, unspecified Category: Medical Plan: Chronic rate control atrial fibrillation currently doing well with metoprolol therapy. She has had no new worsening heart failure symptoms. Chronic AFib with significant atrial enlargement, will continue pursue rate control approach. Will switch her Pradaxa to Eliquis therapy with lower GI bleeding profile with Eliquis. Discussed with her. She is agreeable. Semi annual renal function test should be pursued. Will follow up in the clinic in 6 months time, sooner p.r.n.. Thank you for allowing me to partake in the care Medications: New apixaban (Eliquis) 5 mg PO BID 180 tabs 3RF Binu Flores MD Changed From furosemide 20 mg PO DAILY 30 tabs 0RF To furosemide 20 mg PO DAILY PRN Akira Randall MD Discontinued dabigatran etexilate (Pradaxa) Discontinued Reason: Doctor's Order 150 mg PO BID 90 days 180 caps 3RF Coding Level of Care Code Est Pt Level 4 (07535) Diagnoses (HFpEF) heart failure with preserved ejection fraction I50.30 Chronic atrial fibrillation I48.20 CPT Codes EKG - CPT: 40385-[id number], Complete ([id number])
[2023-10-15 11:03] VITALS: BP 110/72; PULSE 69; BMI 33.2
== END 2023-10-15 11:32 | disposition home or self-care (01) ==
PROVIDERS: PCP Nurse Practitioner Family; Visit Provider Internal Medicine Cardiovascular Disease
DX: I50.30 Unspecified diastolic (congestive) heart failure (principal); I48.20 Chronic atrial fibrillation, unspecified
CPT/HCPCS: 93010; 99214

== ENCOUNTER → 2023-10-15 10:52 | Outpatient (BNVA) | payer MEDICARE, OTHER, SELFPAY | PROVIDERS: PCP Nurse Practitioner Family; Visit Provider Internal Medicine Cardiovascular Disease | DX: I50.30 Unspecified diastolic (congestive) heart failure (principal); I48.20 Chronic atrial fibrillation, unspecified; R94.31 Abnormal electrocardiogram [ECG] [EKG] | CPT/HCPCS: 93005; 99212 ==

== ENCOUNTER 2024-04-17 10:54 | Outpatient (AMB) | payer MEDICARE, OTHER, SELFPAY ==
[2024-04-17 11:08] VITALS: BP 120/76; PULSE 74; BMI 28.5
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
--- OUTSIDE RECORDS SUMMARY | 2024-04-17 14:38 | XMS_ITS | Continuity of Care Document ---
Author Organization [facility], [facility] [place] Address [address] [place] [address] Care Team Providers Care Trash Collector Name Role Phone VICKEY LOMAX Referring Provider [phone] Assessment Encounter Date Assessment Date Assessment LastModified by Organization Details LastModified Time 04/01/2024 04/01/2024 This office visit was part of a tele-health virtual visit and process was discussed with the patient. Patient has consented to participating in a telehealth encounter with provider. Real time continuous audio and video was employed. Short Fuze platform was used. I reviewed and interpreted pt's current CPAP compliance report I reviewed and interpreted the [place] questionnaire Not available 04/02/2024 09:54:57 Plan of Treatment Reminders Order Date Submit Date Provider Last Modified By Organization Details Last Modified Time Details Appointments None record ed. Lab None record ed. Referral None record ed. Procedures None record ed. Surgeries None record ed. Imaging None record ed. Medication Orders None record ed. Patient TargetsNo targets recorded. Patient Instructions Encounter Date Encounter Id Patient Instructions Last Modified By Organization Details Last Modified Time 04/01/2024 [id number] BiPAP/CPAP remot e monitoring* Not available 04/01/2024 15:44:34 secondhand smoke exposure Not available 04/01/2024 15:44:34 Reason for Referral None Reported. Results Created Date Observation Date Name Description Value Unit Range Abnormal Flag Note LastModifiedBy Organization Detail LastModifiedTime 04/01/19 25 04/01/2024 BiPAP /CPAP remot e monit oring * Order CPAP RPM Not Available [facility] [place] [address], [place], [address], 04/01/2024 15:44:15 Result Notes None recorded. Problems Name Problem SNOMED Code Status Onset Date Resolution Date Notes Provider Name and Address Organization Details Recorded Time Obstructi ve sleep apnea syndrome 62521279 Active (G47.33)O SAS Not Available [facility] 01:22:18 Palpitati ons 04389850 Active (785.1)Pa lpitation (785.1) Not Available [facility] 01:22:18 Hyperlipi demia 74529712 Active (E78.5)Hy perlipide lisset Not Available [facility] 01:22:18 History of drug therapy 950114379 Active (Z92.29)H as received pneumococ atif vaccinati on (other facility) (V45.89 Z92.29) Not Available [facility] 01:22:18 Type 1 diabetes mellitus 14467325 Active (250.01)D iabetes type I (250.01) Not Available [facility] 01:22:19 Hypothyro idism 99130498 Active (E03.9)Hy pothyroid ism Not Available [facility] 01:22:19 Atrial fibrillat ion 95589535 Active (427.31)A fib (427.31) Not Available [facility] 01:22:19 Hypertens monica disorder 36283678 Active (I10)Hype rtension Not Available [facility] 01:22:19 Severe obesity 77478699037 104 Active (E66.01)B AL 35.0-39.9 (Severe Obesity) Not Available [facility] 01:22:19 Informati on status 866856794 Active (Z78.9)No n-smoker [facility] 1 11:52:57 Type 2 diabetes mellitus without complicat ion 999317184 Active 2021 JASEN RUCKER DO [facility], [address] , [facility] 10:32:15 Problem Notes None recorded. Procedures Surgical History Date Name Laterality Status Provider Name and Address Organization Details Recorded Time Total hysterectomy completed Not Available [facility] 09/29/2020 12:36:51 Imaging Results None recorded. Procedure Notes None recorded. Medical Equipment None Reported. Allergies No known drug allergies Medications Name Sig Start Date Stop Date Status Note LastModified by Organization Details LastModified Time amoxicillin 500 mg capsule TAKE 1 CAPSULE BY MOUTH 3 TIMES A DAY UNTIL FINISHED 01/03 completed Not Available Not Available Not Available atorvastati n 20 mg tablet TAKE 1 TABLET DAILY active Not Available Not Available No t Available triazolam 0.25 mg tablet TAKE 1 TABLET BY MOUTH 90 MINUTES PRIOR TO DENTAL VISIT 01/03 completed Not Available Not Available Not Available fluconazole 150 mg tablet TAKE 1 TABLET BY MOUTH ONCE 01/03 completed Not Available Not Available Not Available glipizide ER 5 mg tablet, extended release 24 hr TAKE 1 TABLET BY MOUTH EVERY DAY 01/03 completed Not Available Not Available Not Available amlodipine 2.5 mg tablet 01/03 completed Not Available Not Available Not Available acetaminoph en 300 mg-codeine 30 mg tablet active Not Available Not Available Not Available amlodipine 5 mg tablet 01/03 completed Not Available Not Available Not Available spironolact one 25 mg tablet TAKE 1 TABLET BY MOUTH EVERY DAY active Not Available Not Available No t Available levothyroxi ne 100 mcg tablet TAKE ONE TABLET DAILY 6 TIMES PER WEEK active Not Available Not Available No t Available amoxicillin 875 mg tablet TAKE 1 TABLET BY MOUTH TWICE A DAY UNTIL FINISHED 04/01 completed Not Available Not Available Not Available lorazepam 0.5 mg tablet TAKE 1 TABLET EVERY 12 HOURS BY ORAL ROUTE NEEDED FOR 14 DAYS. active Not Available Not Available No t Available metformin 1,000 mg tablet TAKE 1 TABLET TWICE A DAY active Not Available Not Available No t Available metoprolol tartrate 50 mg tablet 01/03 completed Not Available Not Available Not Available furosemide 20 mg tablet TAKE 1 TABLET BY MOUTH EVERY DAY 01/03 completed Not Available Not Available Not Available Synthroid 112 mcg tablet TAKE 1 TABLET BY MOUTH EVERY DAY 01/03 completed Not Available Not Available Not Available metoprolol succinate ER 25 mg tablet,exte nded release 24 hr TAKE 1 TABLET BY MOUTH EVERY DAY active Not Available Not Available No t Available diazepam 10 mg tablet ONE TABLET BY MOUTH WITH A SIP OF WATER ONE HOUR PREOP active Not Available Not Available No t Available cefuroxime axetil 500 mg tablet TAKE 1 TABLET BY MOUTH TWICE A DAY 01/03 completed Not Available Not Available Not Available morphine 15 mg immediate release tablet TAKE 1 TABLET BY MOUTH EVERY 8 HOURS NEEDED FOR PAIN active Not Available Not Available No t Available clobetasol 0.05 % scalp solution APPLY TO AFFECTED SCALP AREA DIRECTED 2 TIMES PER DAY (MORNING AND EVENING) FOR 2 WEEKS 04/01 completed Not Available Not Available Not Available losartan 100 mg tablet TAKE 1 TABLET DAILY DIRECTED active Not Available Not Available No t Available diazepam 5 mg tablet TAKE 1 TABLET 30 TO 45 MINUTES BEFORE THE PROCEDURE OR BEFORE THE FLIGHT 04/01 completed Not Available Not Available Not Available azithromyci n 500 mg tablet TAKE 1 TABLET EVERY DAY FOR 3 DAYS 01/03 completed Not Available Not Available Not Available Miconazole- 3 200 mg-2 % (9 gram) vaginal kit INSERT 1 SUPPOSITO RY VAGINALLY AT BEDTIME FOR 3 DAYS 12/23 completed Not Available Not Available Not Available clonazepam 0.25 mg disintegrat ing tablet 01/03 completed Not Available Not Available Not Available Januvia 100 mg tablet TAKE 1 TABLET DAILY active Not Available Not Available No t Available Pradaxa 150 mg capsule TAKE 1 CAPSULE BY MOUTH TWICE A DAY FOR 90 DAYS 01/03 completed Not Available Not Available Not Available Eliquis 5 mg tablet TAKE 1 TABLET TWICE A DAY active Not Available Not Available No t Available Jardiance 10 mg tablet TAKE 1 TABLET BY MOUTH EVERY DAY IN THE MORNING active Not Available Not Available No t Available Fannieaglshauna ReeceikPen U-100 Insulin 100 unit/mL (3 mL) subcutaneou s INJECT 45 UNITS EVERY DAY BY SUBCUTANE OUS ROUTE FOR 30 DAYS. 2024 active Not Available Not Available Not Avai lable BD Suad 2nd Gen Pen Needle 32 gauge x USE AND DISCARD 1 PEN NEEDLE ONCE DAILY active Not Available Not Available No t Available Flowflex COVID-19 Antigen Home Test kit USE DIRECTED 01/03 completed Not Available Not Available Not Available Paxlovid 300 mg (150 mg x 2)-100 mg tablets in a dose pack TAKE 3 TABLETS BY MOUTH TWICE A DAY FOR 5 DAYS STOP ATORVASTA TIN WHILE TAKING PAXLOVID 12/23 completed Not Available Not Available Not Available Vitals None Recorded Social History Question Answer Notes LastModified by Organizat ion Details LastModified Time Tobacco Smoking Status Never Smoker imported(To bacco Use:-Never smoker. ) Not Available [facility] 09/29/2020 10:25:35 What Is Your Level Of Alcohol Consumption? Occasional Imported(Al cohol Use:-Occasi onal Alcohol Use, Drinks Wine. ) [email or web address] Information not available 09/29/2020 What Was The Date Of Your Most Recent Tobacco Screening? 04/01/2024 [email or web address] Information not available 03/31/2024 Has Tobacco Cessation Counseling Been Provided? No [email or web address] Information not available 12/28/2022 Do You Or Have You Ever Used Any Other Forms Of Tobacco Or Nicotine? No Information not available 12/28/2022 Sex: Unknown Functional Status None recorded. Mental Status None recorded. Family History Nothing Reported Notes:Mother:(. AGE 70) Father:(. AGE 84) Father:(, Completed Stroke. ) Mother:(, Heart Failure. ) Medical History No medical history recorded. Gynecological HistoryNo gynecological history recorded. Obstetrics History GPAL:G 0 P 0 0 0 0 Immunizations Vaccine Type Date Status Note Provider Nam e and Address Organization Details Recorded Time Influenza, split virus, trivalent, preservative 8 completed Not Available [facility] 09/29/2020 21:35:29 Influenza, split virus, trivalent, preservative 5 completed Not Available [facility] 09/29/2020 21:35:29 Influenza, split virus, trivalent, preservative 7 completed Not Available [facility] 09/29/2020 21:35:29 pneumococcal polysaccharide PPV23 7 completed Not Available [facility] 09/29/2020 21:35:29 Influenza, split virus, trivalent, preservative 3 completed Not Available [facility] 09/29/2020 21:35:29 COVID-19, mRNA, LNP-S, PF, 30 mcg/0.3 mL dose 1 completed Not Available [facility] 09/29/2020 21:35:30 COVID-19, mRNA, LNP-S, PF, 30 mcg/0.3 mL dose 1 completed Not Available [facility] 09/29/2020 21:35:30 Influenza, split virus, trivalent, preservative 0 completed Not Available [facility] 09/29/2020 21:35:30 pneumococcal polysaccharide PPV23 9 completed Not Available [facility] 09/29/2020 21:35:30 Influenza, split virus, trivalent, preservative 1 completed Not Available [facility] 09/29/2020 21:35:30 Influenza, split virus, trivalent, preservative 2 completed Not Available [facility] 09/29/2020 21:35:30 Past Encounters Encounter ID Performer Location Encounter Start Date Encounter Closed Date Diagnosis/Indication Diagnosis SNOMED-CT Code Diagnosis ICD10 Code Diagnosis Note [id number] DESTINY Sands PA-C [address] [address] 04/01/2024 15:29:26 04/01/2024 17:17:14 Obstructive sleep apnea syndrome 20765188 G47.33 APAP 4-15she is based out of [place]-nasal [place]-she is getting good daily report from her deviceDME: [facility] M enroll Atrial fibrillation 4943 6004 I48.91 Obstructiv e Sleep Apnea Syndrome is a known aggravatin g factor for Afibcontin ue CPAP management Tobacco non-user 5854124 001 93007 Z13.89 Non-Smoker Health Concerns Section Related Observation LastModified by Organization Detai ls LastModified Time None Recorded Concern Status LastModified by Organization Details LastModified Time None Recorded Payers Encounter Date Sequence Insurance Name Policy Number Policy Jauregui Covered Member ID Jauregui Member ID Guarantor Name 04/01/2024 1 MEDICARE B-SC: SHAKILA Jackson [id number] Michelle Jackson 04/01/2024 2 [facility] - [employer] SERVICES PLAN F (MEDICARE SUPPLEMENT) [id number] Jasen Jackson [id number] Michelle Jackson Notes Date Note Type Note Provider Name and Address Organization Details Recorded Time 04/01/2024 text/html [facility] (GENERAL)Reported bypatient.The patient is being followed forOSAS Type of machine being used is a: (AirSense 11 AutoSet) The machine is set at4-20 cmH2O Compliance showsaverage 30 day usage of hours (9.10); the percentage of days used is % (10); total used hours are 713 ComplianceUsage hours were downloaded and compliance was reviewed with the patient The patient states thatthe machine is used regularly; sleep is maintained with use of the machine; sleepiness has improved 04/01/24-Virtual 2 mos follow up. Pt is using and benefiting from new cpap. She has no complaints. 01/04/24-Annual IBAN follow up. No compliance online. 12/29/22- Annual IBAN phone call follow up. unable to obtain an up to date compliance. 12/23/21-doing very well with the use of CPAP DESTINY Sands PA-C [address] [place], [address], [facility] 04/02/2024 09:55:38 OBGyn Episode No OBEpisode recorded.
--- OUTSIDE RECORDS SUMMARY | 2024-04-17 14:38 | XMS_ITS | Data Portability ---
Author Organization [place] - 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 Patient has consented to completing Telehealth encounter with scheduled provider. The total time for this visit was not less than 29 minutes of which at least 50% was face to face coordination of care and/or counselling. Not available 01/17/2021 12:45:38 12/23/2021 12/23/2021 This was a virtual visit, consent was obtained from the patient for a virtual visit secondary to the ongoing COVID-19 pandemic. Not available 12/23/2021 10:51:20 12/29/2022 12/29/2022 This office visit was part of a tele-health virtual visit and process was discussed with the patient. Patient has consented to participating in a telehealth encounter with provider. Real time continuous audio and video was employed. Susi platform was used. [email or web address] Not available 12/29/2022 09:53:22 01/04/2024 01/04/2024 This office visit was part of a tele-health virtual visit and process was discussed with the patient. Patient has consented to participating in a telehealth encounter with provider. Real time continuous audio and video was employed. Susi platform was used. Not available 01/01/2024 11:52:42 04/01/2024 04/01/2024 This office visit was part of a tele-health virtual visit and process was discussed with the patient. Patient has consented to participating in a telehealth encounter with provider. Real time continuous audio and video was employed. [employer] platform was used. I reviewed and interpreted pt's current CPAP compliance report I reviewed and interpreted the [place] questionnaire Not available 04/02/2024 09:54:57 Plan of [...] Modified By Organization Details Last Modified Time 01/17/2021 [id number] sleep apnea: car e instructions Not available 01/17/2021 12:46:32 learning about CPAP for sleep apnea Not available 01/17/2021 12:46:32 PAP machine service* - patient needs assistance with machine and humidifier; please reach out to assist [email or web address] Not available 01/17/2021 12:50:20 type 2 diabetes: care instructions Not available 01/17/2021 12:46:32 atrial fibrillation: care instructions Not available 01/17/2021 12:46:33 hypothyroidism: care instructions Not available 01/17/2021 12:46:33 12/23/2021 [id number] atrial fibrillation: care instructions [email or web address] Not available 12/23/2021 10:42:56 hypothyroidism: care instructions [email or web address] Not available 12/23/2021 10:42:56 secondhand smoke exposure [email or web address] Not available 12/23/2021 10:42:56 12/29/2022 [id number] secondhand smoke exposure [email or web address] Not available 12/29/2022 09:57:24 01/04/2024 [id number] secondhand smoke exposure [email or web address] Not available 01/04/2024 09:50:29 04/01/2024 [id number] BiPAP/CPAP remot e monitoring* Not available 04/01/2024 15:44:34 secondhand smoke exposure Not available 04/01/2024 15:44:34 Reason for Referral None Reported. Results Created Date Observation Date Name Description Value Unit Range Abnormal Flag Note LastModifiedBy Organization Detail LastModifiedTime 04/01/19 25 04/01/2024 BiPAP /CPAP remot e monit oring * Order CPAP RPM Not Available [facility] [place] [address], [place], [address], 04/01/2024 15:44:15 Result Notes None recorded. Problems Name Problem SNOMED Code Status Onset Date Resolution Date Notes Provider Name and Address Organization Details Recorded Time Obstructi ve sleep apnea syndrome 98796535 Active (G47.33)O SAS Not Available [facility] 01:22:18 Palpitati ons 17576044 Active (785.1)Pa lpitation (785.1) Not Available [facility] 01:22:18 Hyperlipi demia 13742313 Active (E78.5)Hy perlipide lisset Not Available [facility] 01:22:18 History of drug therapy 826704413 Active (Z92.29)H as received pneumococ atif vaccinati on (other facility) (V45.89 Z92.29) Not Available [facility] 01:22:18 Type 1 diabetes mellitus 67252768 Active (250.01)D iabetes type I (250.01) Not Available [facility] 01:22:19 Hypothyro idism 17528790 Active (E03.9)Hy pothyroid ism Not Available [facility] 01:22:19 Atrial fibrillat ion 84568471 Active (427.31)A fib (427.31) Not Available [facility] 01:22:19 Hypertens monica disorder 26839783 Active (I10)Hype rtension Not Available [facility] 01:22:19 Severe obesity 67891375480 104 Active (E66.01)B NE 35.0-39.9 (Severe Obesity) Not Available [facility] 07/15/202 1 01:22:19 Informati on status 518531358 Active (Z78.9)No n-smoker Kathy Duartelizjeff [facility] 11:52:57 Type 2 diabetes mellitus without complicat ion 784448120 Active 2021 JASEN RUCKER, DO Cecilia Maynard, [place], [address] , [facility] 2 10:32:15 Problem Notes None recorded. Procedures Surgical History Date Name Laterality Status Provider Name and Address Organization Details Recorded Time Total hysterectomy completed Not Available [facility] 09/29/2020 12:36:51 Imaging Results None recorded. Procedure [...] Not Available Not Available No t Available [employer] KwikPen U-100 Insulin 100 unit/mL (3 mL) subcutaneou [...] imported(To bacco Use:-Never smoker. ) Not Available [facility] 09/29/2020 10:25:35 What Is Your Level Of Alcohol Consumption? Occasional Imported(Al cohol Use:-Occasi onal Alcohol Use, Drinks Wine. ) [email or web address] Information not available 09/29/2020 What Was The Date Of Your Most Recent Tobacco Screening? 04/01/2024 Information not available 03/31/2024 Has Tobacco Cessation Counseling Been Provided? No [email or web address] Information not available 12/28/2022 Do You Or Have You Ever Used Any Other Forms Of Tobacco Or Nicotine? No [email or web address] Information not available 12/28/2022 Sex: Unknown Functional [...] virus, trivalent, preservative 8 completed Not Available [facility] 09/29/2020 21:35:29 Influenza, split virus, trivalent, preservative 5 completed Not Available [facility] 09/29/2020 21:35:29 Influenza, split virus, trivalent, preservative 7 completed Not Available [facility] 09/29/2020 21:35:29 pneumococcal polysaccharide PPV23 7 completed Not Available [facility] 09/29/2020 21:35:29 Influenza, split virus, trivalent, preservative 3 completed Not Available [facility] 09/29/2020 21:35:29 COVID-19, mRNA, LNP-S, PF, 30 mcg/0.3 mL dose 1 completed Not Available [facility] 09/29/2020 21:35:30 COVID-19, mRNA, LNP-S, PF, 30 mcg/0.3 mL dose 1 completed Not Available [facility] 09/29/2020 21:35:30 Influenza, split virus, trivalent, preservative 0 completed Not Available [facility] 09/29/2020 21:35:30 pneumococcal polysaccharide PPV23 9 completed Not Available [facility] 09/29/2020 21:35:30 Influenza, split virus, trivalent, preservative 1 completed Not Available [facility] 09/29/2020 21:35:30 Influenza, split virus, trivalent, preservative 2 completed Not Available [facility] 09/29/2020 21:35:30 Past Encounters Encounter ID Performer Location Encounter Start Date Encounter Closed Date Diagnosis/Indication Diagnosis SNOMED-CT Code Diagnosis ICD10 Code Diagnosis Note [id number] Kathy Geraldjesse [address] [place] [address] 01/17/2021 11:16:50 01/17/2021 11:55:00 Obstructive sleep apnea syndrome 31063702 G47.33 PAP therapy usage data downloaded , reviewed data analysis and statistics , and discussed with the patient. The patient maintains sleep with use of the machine, patient's sleepiness is improved and patient uses the machine regularly. Pt remains compliant with and benefittin g from CPAP. Patient will continue current CPAP pressure. Pt requests help with machine and setting up humidifier . Orders sent to patient's DME company. CPAP/BiPAP supplies up to date. Follow up in 1 year or sooner if needed. Atrial fibrillation 4943 6004 I48.91 Obstructiv e Sleep Apnea Syndrome is a known aggravatin g factor for Afib. Patient will continue current medication s. We will continue to monitor for therapeuti c benefit and any side effects. If symptoms worsen the patient was instructed to contact our office. Hypertensive disorder 38 465349 I10 Patient to continue current antihypert ensive medication s and monitor blood pressure.O bstructive Sleep Apnea Syndrome is a known aggravatin g factor for hypertensi on.The patient will continue current medication s at this time and continue to monitor blood pressure. Hypothyroidism 97151390 E03.9 Obstructiv e Sleep Apnea Syndrome is a known aggravatin g factor for hypothyroi dism. Patient will continue current medication s. 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 Treatment of IBAN may lead to improved metabolic regulation and reduced . Patient will continue current medication s. We will continue to monitor for therapeuti c benefit and any side effects. If symptoms worsen the patient was instructed to contact our office. [id number] JASEN RUCKER DO [address] [address] 12/23/2021 08:27:10 12/23/2021 14:55:44 Obstructive sleep apnea syndrome 20312762 G47.33 patient is compliant with the use of CPAPpatien t is benefiting from the use of CPAPpatien t is tolerant of CPAP, Mask nasalDME:a eroflowEnc ouraged continued use and compliance RTC 1 year with compliance data Tobacco non-user 0178985 001 62339 Z13.89 Non-Smoker History of influenza vaccination 036871395 Z92.29 History of pneumococcal vaccination 696061602 Z92.29 Atrial fibrillation 4943 6004 I48.91 Obstructiv e Sleep Apnea Syndrome is a known aggravatin g factor for Afib. Patient will continue current medication s. We will continue to monitor for therapeuti c benefit and any side effects. If symptoms worsen the patient was instructed to contact our office. Hypertensive disorder 38 429794 I10 Patient to continue current antihypert ensive medication s and monitor blood pressure.O bstructive Sleep Apnea Syndrome is a known aggravatin g factor for hypertensi on.The patient will continue current medication s at this time and continue to monitor blood pressure. Hypothyroidism 03065563 E03.9 Obstructiv e Sleep Apnea Syndrome is a known aggravatin g factor for hypothyroi dism. Patient will continue current medication s. 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 Treatment of IBAN may lead to improved metabolic regulation and reduced . Patient will continue current medication s. We will continue to monitor for therapeuti c benefit and any side effects. If symptoms worsen the patient was instructed to contact our office. [id number] JASEN RUCKER DO [address] [address] 12/29/2022 08:04:15 12/29/2022 10:49:24 Obstructive sleep apnea syndrome 87681578 G47.33 -subjectiv jeanna she is doing well on the device, she is having some issues with her humidity display-li ves in [place]-uses nasal mass-she is getting good daily report from her deviceDME: aeroflowEn couraged continued use and compliance RTC 1 year with compliance data -enroll in [facility]-unable to obtain compliance /function data today Atrial fibrillation 4943 6004 I48.91 Obstructiv e Sleep Apnea Syndrome is a known aggravatin g factor for Afibcontin ue CPAP management Tobacco non-user 3883721 001 21175 Z13.89 Non-Smoker [id number] JASEN RUCKER DO [address] [address] 01/04/2024 08:23:04 01/04/2024 10:00:57 Obstructive sleep apnea syndrome 03240563 G47.33 -new CPAP to [employer]-A PPA 4-15-she [place] based out of [place]-nasal mask-she is getting good daily report from her deviceDME: [employer]low Atrial fibrillation 4943 6004 I48.91 Obstructiv e Sleep Apnea Syndrome is a known aggravatin g factor for Afibcontin ue CPAP management Tobacco non-user 9275990 001 31773 Z13.89 Non-Smoker [id number] SUSSY Mahmood - [place] [address] [place] [address] [address] [place] [address] 04/01/2024 15:29:26 04/01/2024 17:17:14 Obstructive sleep apnea syndrome 06276399 G47.33 APAP 4-15she is based out of [place]-nasal mask-she is getting good daily report from her deviceDME: aeroflowRP M enroll Atrial fibrillation 4943 6004 I48.91 Obstructiv e Sleep Apnea Syndrome is a known aggravatin g factor for Afibcontin ue CPAP management Tobacco non-user 8001100 001 58653 Z13.89 Non-Smoker Health Concerns Section Related Observation LastModified by Organization Detai ls LastModified Time None Recorded Concern Status LastModified by Organization Details LastModified Time None Recorded Advance Directives Directive None Recorded Payers Encounter Date Sequence Insurance Name Policy Number Policy Jauregui Covered Member ID Jauregui Member ID Guarantor Name 01/17/2021 1 [place]AKILA BOND Michelle A Edman [id number] Michelle Anabel Edman 01/17/2021 2 UNICARE - SENIOR SERVICES PLAN F (MEDICARE SUPPLEMENT) [id number] Jasen [place] [id number] Michelle [place] 12/23/2021 1 [place]AKILA BOND Michelle A Edman [id number] Michelle A Edman 12/23/2021 2 [employer]IC[employer] - SENIOR SERVICES PLAN F (MEDICARE SUPPLEMENT) [id number] Jasen [place] [id number] Michelle Little Edman 12/29/2022 1 [place]: SHAKILA GILLIAMA Michelle A Edman [id number] Michelle A Edman 12/29/2022 2 [employer]IC[employer] - SENIOR SERVICES PLAN F (MEDICARE SUPPLEMENT) [id number] Jasen [place] [id number] Michelle Little Edman 01/04/2024 1 [place] SHAKILA GILLIAMA Michelle A Edman [id number] Michelle Anabel Edman 01/04/2024 2 [employer]IC[employer] - SENIOR SERVICES PLAN F (MEDICARE SUPPLEMENT) [id number] Jasen [place] [id number] Michelle [place] 04/01/2024 1 [place] [id number] Michelle Little [place] 04/01/2024 2 [facility]LY [facility] SERVICES PLAN F (MEDICARE SUPPLEMENT) [id number] Jasen [place] [id number] Michelle Little [place] Notes Date Note Type Note Provider Name and Address Organization Details Recorded Time 01/17/2021 text/html [facility] (GENERAL)Reported bypatient.[facility] Type of machine being used is aDreamStation 2 Auto The machine is set at5-20 cmH2O Compliance showsaverage 30 day usage of 8.26 hours; the percentage of days used is 100% ComplianceUsage hours were downloaded and compliance was reviewed with the patient The patient states thatsleep is maintained with use of the machine; sleepiness has improved; the machine is used regularly Kathy cary [facility] 01/17/2021 12:48:31 12/23/2021 text/html [facility] (GENERAL)Reported bypatient.The [facility] The patient has an [place] sleepiness scale of5 Type of machine being used is aDreamStation 2 Auto The machine is set at5-20 cmH2O Compliance showsaverage 30 day usage of 7.32 8.26 hours; the percentage of days used is 73 100%; total machine hours are ComplianceUsage hours were downloaded and compliance was reviewed with the patient The patient states thatsleep is maintained with use of the machine; sleepiness has improved; the machine is used regularly 12/23/21-doing very well with the use of [place], [address], [facility] 12/23/2021 10:51:28 12/29/2022 text/html [facility] (GENERAL)Reported bypatient.The [facility] Type of machine being used is aDreamStation 2 Auto The machine is set at5-20 cmH2O ComplianceUnable to download compliance at today's visit to review The patient states thatsleep is maintained with use of the machine; sleepiness has improved; the machine is used regularly 12/29/22- Annual IBAN phone call follow up. unable to obtain an up to date compliance. 12/23/21-doing very well with the use of CPAP JASEN RUCKER DO [address] [place], [address], [facility] 12/29/2022 09:57:26 01/04/2024 text/html [facility] (GENERAL)Reported bypatient.The [facility] Type of machine being used is a: ComplianceUnable to download compliance at today's visit to review The patient states thatthe machine is used regularly; sleep is maintained with use of the machine; sleepiness has improved 01/04/24-Annual IBAN follow up. No compliance online. 12/29/22- Annual IBAN phone call follow up. unable to obtain an up to date compliance. 12/23/21-doing very well with the use of CPAP JASEN RUCKER DO [address] [place], [address], [facility] 01/04/2024 09:52:03 04/01/2024 text/html [facility] (GENERAL)Reported bypatient.The [facility] Type of machine being used is a: [...] use of CPAP DESTINY Sands PA-C [address] [place], [address], [facility] 04/02/2024 09:55:38 OBGyn Episode No OBEpisode recorded.
== END 2024-04-17 11:24 | disposition home or self-care (01) ==
PROVIDERS: PCP Nurse Practitioner Family; Visit Provider Internal Medicine Cardiovascular Disease
DX: I48.20 Chronic atrial fibrillation, unspecified (principal); I50.30 Unspecified diastolic (congestive) heart failure
CPT/HCPCS: 99214; G2211

== ENCOUNTER → 2024-04-17 10:54 | Outpatient (BNVA) | payer MEDICARE, OTHER, SELFPAY | PROVIDERS: PCP Nurse Practitioner Family; Visit Provider Internal Medicine Cardiovascular Disease | DX: I48.20 Chronic atrial fibrillation, unspecified (principal); I50.30 Unspecified diastolic (congestive) heart failure | CPT/HCPCS: 99212 ==

== ENCOUNTER 2024-10-20 10:47 | Outpatient (AMB) | payer MEDICARE, OTHER, SELFPAY ==
--- NOTE | 2024-10-20 10:57 | A.OFFVIS_ITS ---
Vital Signs 10/20/24 10:58 Height 5 ft 3 in Weight 160 lb 14.999 oz BMI 28.5 BP 126/70 Blood Pressure Location Lt brachial Position Sitting Pulse 47 L Pulse Source Monitor Intake Visit Reasons: 6m follow up Intake Note: 6 month follow-up with ekg feeling good Rotary Operator Required: No Allergies No Known Allergies Allergy (Verified 03/06/22 23:54) Medication List - Last Reconciled 10/20/24 by Binu Flores MD apixaban (Eliquis) 5 mg PO BID atorvastatin 20 mg PO DAILY empagliflozin (Jardiance) 10 mg PO QAM furosemide 20 mg PO DAILY PRN insulin glargine (Basaglar KwikPen U-100 Insulin) 35 units (0.35 mL) subcut DAILY levothyroxine (Synthroid) 112 mcg PO DAILY@0600 losartan 100 mg PO DAILY metformin 1,000 mg PO BID metoprolol succinate ER 25 mg PO DAILY sitagliptin phosphate (Januvia) 100 mg PO DAILY spironolactone 25 mg PO DAILY HPI Comments Details: Calista comes for follow-up. She has been overall doing well. She takes Lasix when needed about once a week Mibi when her legs are swollen. She does not weigh herself on a daily basis. She denies any orthopnea, PND, leg edema. Denies any worsening shortness of breath. Maintains her quality of life. Denies any lightheadedness, syncope. Denies any exertional chest pain. Uses CPAP at nighttime. Does not have any fast heart rate or slow heart rate feeling. No bleeding issues or neurologic events. [facility] Medical History Persistent atrial fibrillation Chronic atrial fibrillation Diabetes IBAN (obstructive sleep apnea) Obesity Hypothyroid HTN (hypertension) HLD (hyperlipidemia) Surgical History S/P hysterectomy with oophorectomy Family History Father CAD (coronary artery disease) Mother CAD (coronary artery disease) Social History Household Members: Spouse Housing: House Do you presently have visiting nurse or other home services: No Alcohol intake: current Alcohol intake frequency: holidays/special occasions only Alcohol type: wine Patient Tobacco Use Status: Never used Tobacco service: No Current occupational status: retired Review of Systems Const Denies chills, Denies fatigue, Denies fever(s), Denies frequent falls, Denies weakness, Denies weight gain and Denies weight loss ENT Denies dizziness Card Denies chest pain, Denies leg edema, Denies lightheadedness, Denies palpitations, Denies dyspnea, Denies dyspnea on exertion, Denies orthopnea and Denies other (loss of consciousness) Resp Denies cough, Denies dyspnea and Denies dyspnea on exertion GI Denies hematochezia and Denies change in stool character Musc Denies abnormal gait, Denies muscle weakness, Denies numbness, Denies radiating pain into limb and Denies tingling Neuro Denies abnormal gait, Denies dizziness, Denies frequent falls, Denies numbness, Denies tingling and Denies weakness Endo Denies fatigue and Denies palpitations Physical Exam Vital Signs: Last Vital Signs Pulse 47 L 10/20/24 10:58 BP 126/70 10/20/24 10:58 BMI result Body Mass Index 28.5 Const General: cooperative, comfortable, no acute distress, alert, awake, Physically active and well groomed Nutritional Appearance: obese Orientation/consciousness: patient oriented x3 Limitations: no limitations Neck Neck: Yes trachea midline, Yes supple and Yes no JVD Resp Effort & Inspection: normal respiratory effort Auscultation: clear to auscultation bilaterally Cardio Jugular venous distension: no JVD Rate: regular rate Rhythm: abnormal rhythm irregularly irregular Heart sounds: S1 normal heart sound present, S2 normal heart sound present, no click, no gallops and Murmur heart sound present systolic early, decrescendo and crescendo GI Auscultation: normal bowel sounds Neuro General: patient oriented x3 and no focal motor deficits Extrem General: Yes no clubbing, cyanosis or edema and Yes other (Left arm in the sling) Psych Appearance: grossly normal Office Procedures EKG Details: EKG shows atrial fibrillation with slow ventricular response 60650-[id number], Complete Assessment & Plan Assessment & Plan (1) (HFpEF) heart failure with preserved ejection fraction: Code(s): I50.30 - Unspecified diastolic (congestive) heart failure Category: Medical Plan: Heart failure preserved ejection fraction, clinically euvolemic and well compensated. Using loop diuretics as need be which is very good. Clinically appears to be euvolemic and well compensated. Continue current neurohormonal modulation with spironolactone as well as Jardiance therapy doing well. Importance of daily weight monitoring was discussed. She understands. Continue rate control. Continue aggressive blood pressure control which is currently well optimized. Low-salt diet was discussed. Additional diuretics as need be. He understands management well. Continue CPAP therapy. (2) Chronic atrial fibrillation: Code(s): I48.20 - Chronic atrial fibrillation, unspecified Category: Medical Plan: Chronic atrial fibrillation has failed rhythm control. Currently with slow ventricular response. Will reduce metoprolol XL to 12.5 mg daily. Follow-up Holter monitor in 1 month's time. If remains slow will need to discontinue metoprolol altogether. This was discussed with her. Continue full oral anticoagulation, currently on Eliquis 5 mg b.i.d.. Semi annual renal function test should be pursued. (3) Aortic stenosis: Code(s): I35.0 - Nonrheumatic aortic (valve) stenosis Category: Medical Plan: Aortic stenosis which clinically still appears to be mi. Discussed with her about management with follow-up echocardiogram 6 months time. No interventions required per se. Continue aggressive vascular risk factor modification aggressive control goal hemoglobin A1c less than 7%. Goal LDL less than 100 mg/dL. Will follow up in the clinic in 6 months time, sooner p.r.n.. Thank you for allowing me to partake in her care Orders: Orders Basic Metabolic Panel Today I48.20 - Chronic atrial fibrillation, unspecified B Type Natriuretic Peptide Today I48.20 - Chronic atrial fibrillation, unspecified Complete Blood Count no Diff Today I48.20 - Chronic atrial fibrillation, unspecified ECG 3 day holter monitor 1 Month I48.20 - Chronic atrial fibrillation, unspecified Medications: Changed From metoprolol succinate ER 25 mg PO DAILY 90 tabs 3RF I48.20 - Chronic atrial fibrillation, unspecified To metoprolol succinate ER 12.5 mg (1/2 x 25 mg) PO DAILY 90 tabs 3RF I48.20 - Chronic atrial fibrillation, unspecified Coding Level of Care Code Est Pt Level 4 (41113) Complex EM visit Add On G2211 Diagnoses (HFpEF) heart failure with preserved ejection fraction I50.30 Chronic atrial fibrillation I48.20 Aortic stenosis I35.0 CPT Codes EKG - CPT: 65073-[id number], Complete ([id number])
[2024-10-20 10:58] VITALS: BP 126/70; PULSE 47; BMI 28.5
--- OUTSIDE RECORDS SUMMARY | 2024-10-20 11:43 | XMS_ITS | Clinical Summary ---
Author Organization [facility] Address [address] [place] [address] Phone Care Team Providers Care Application Support Name Role Phone Nasreen Carter Primary Care Provider [email or web address] Allergies Active Allergy Reactions Criticality Noted Date Comments House Dust Other (See Comments) 02/05/2024 Insect Venom Other (See Comments) 02/05/2024 Mold Other (See Comments) 02/05/2024 Medications spironolactone (ALDACTONE) 25 MG tablet 02/04/2024 Active JANUVIA 100 mg tablet Take 100 mg by mouth daily. Active BD TOMMY 2ND GEN PEN NEEDLE 32 gauge x /32 Ndle USE AND DISCARD 1 PEN NEEDLE ONCE DAILY 02/03/2024 Active metoprolol succinate (TOPROL-XL) 25 MG 24 hr tablet Take 1 tablet by mouth every morning. 12/22/2023 Active metFORMIN (GLUCOPHAGE) 1000 MG tablet Take 1,000 mg by mouth 2 (two) times a day. Active losartan (COZAAR) 100 MG tablet Take 1 tablet by mouth daily. Active LORazepam (ATIVAN) 0.5 MG tablet TAKE 1 TABLET EVERY 12 HOURS BY ORAL ROUTE NEEDED FOR 14 DAYS. 02/01/2024 Active furosemide (LASIX) 20 MG tablet Take 1 tablet every day by oral route for 90 days. Active BASAGLAR KWIKPEN U-100 INSULIN 100 unit/mL (3 mL) InPn injection pen INJECT 50 UNITS UNDER SKIN ONCE DAILY Active JARDIANCE 10 mg tablet 02/02/2024 Active atorvastatin (LIPITOR) 20 MG tablet Take 1 tablet by mouth daily. 10/26/2022 Active clobetasol (TEMOVATE) 0.05 % external solution APPLY TO AFFECTED SCALP AREA DIRECTED 2 TIMES PER DAY (MORNING AND EVENING) FOR 2 WEEKS 01/24/2024 Active amLODIPine (NORVASC) 2.5 MG tablet Take 1 tablet by mouth daily. Active Social History Tobacco Use Types Packs/Day Years Used Date Smoking Tobacco: Never Smokeless Tobacco: Never Tobacco Cessation:Counseling Given: Not Answered Education Answer Date Recorded Are you interested in more education? Not on bashir e 07/15/2022 Are you concerned about learning? Not on file 07/15/2022 No 07/15/2022 No 07/15/2022 Digital Access Answer Date Recorded No 08/15/2022 No 08/15/2022 Reliable internet access at home? Not on file 08/15/2022 Device with a working camera? Not on file Intimate Partner Violence Answer Date R ecorded Are you denied basic needs s uch as food, clothing, or medical care? No 01/26/2024 In the past 12 months have y ou been in a relationship with a person who hurts, threatens, or tries to control you? No 01/26/2024 Are you denied basic needs s uch as food, clothing, or medical care? No 01/26/2024 In the past 12 months have y ou been in a relationship with a person who hurts, threatens, or tries to control you? No 01/26/2024 Comments Unknown Sex and Gender Information Value Date Recorded Sex Assigned at Not on file Legal Sex Female 4:33 PM EDT Gender Identity Not on file Sexual Orientation Not on file Last Filed Vital Signs Vital Sign Reading Time Taken Comments Blood Pressure 145/60 01/26/2024 4:59 PM EST Pulse 64 01/26/2024 4:59 PM EST Temperature 36.3 C (97.3 F) 01/26/2024 4:59 PM EST Respiratory Rate 18 01/26/2024 4:59 PM EST Oxygen Saturation 95% 01/26/2024 4:59 PM EST Inhaled Oxygen Concentration - - Weight 83 kg (183 lb) 01/26/2024 5:01 PM EST Height 160 cm (5' 3 ) 01/26/2024 5:01 PM EST Body Mass Index 32.42 01/26/2024 5:01 PM EST Plan of Treatment Health Maintenance Due Date Last Done Comments CREATININE LEVEL 1938 POTASSIUM LEVEL 1938 DEPRESSION SCREENING 1950 PNEUMOCOCCAL VACCINES (50+ y ears) (1 of 1 - PCV) 1988 ZOSTER VACCINES (1 of 2) 1988 OSTEOPOROSIS SCREENING INITI AL (ONE-TIME) 09/21/2003 RSV VACCINE (1 - 1-dose 75+ series) 2013 COVID-19 VACCINE (2 - 2023-2 5 season) 2024 12/19/2023 Adult Td,Tdap Booster 03/07/2033 03/07/2023 HEPATITIS A VACCINES Aged Out No long er eligible based on patient's age to complete this topic HIB VACCINES Aged Out No longer eligi ble based on patient's age to complete this topic MENINGOCOCCAL VACCINES (ACWY) Aged Out No longer eligible based on patient's age to complete this topic MENINGOCOCCAL VACCINES (B) Aged Out N o longer eligible based on patient's age to complete this topic Medical Devices Not on file Insurance MEDICARE PART A & B [facility] MEDICARE SUPPLEMENT MEDICARE PART A & B [facility] MEDICARE SUPPLEMENT MEDICARE PART A & B [facility] MEDICARE SUPPLEMENT MEDICARE PART A & B [facility] MEDICARE SUPPLEMENT MEDICARE PART A & B [facility] MEDICARE SUPPLEMENT MEDICARE PART A & B [facility] MEDICARE SUPPLEMENT Care Teams Application Support Relationship Specialty Start Date End Date Nasreen Carter [address] [place] [address] PCP - General 01/26/24 Additional Source Comments The information contained in this document represents components of the legal health record. It is not the complete legal health record.[facility]
== END 2024-10-20 11:23 | disposition home or self-care (01) ==
LOC: HO.HCS 10:48
PROVIDERS: Visit Provider Internal Medicine Cardiovascular Disease
DX: I50.30 Unspecified diastolic (congestive) heart failure (principal); I48.20 Chronic atrial fibrillation, unspecified; I35.0 Nonrheumatic aortic (valve) stenosis
CPT/HCPCS: 93010; 99214; G2211

== ENCOUNTER → 2024-10-20 10:47 | Outpatient (BNVA) | payer MEDICARE, OTHER, SELFPAY | PROVIDERS: Visit Provider Internal Medicine Cardiovascular Disease | DX: I50.30 Unspecified diastolic (congestive) heart failure (principal); I48.20 Chronic atrial fibrillation, unspecified; I35.0 Nonrheumatic aortic (valve) stenosis; R94.31 Abnormal electrocardiogram [ECG] [EKG] | CPT/HCPCS: 93005; 99212 ==

== ENCOUNTER → 2024-11-24 11:22 | Outpatient (REF) | payer MEDICARE, OTHER, SELFPAY ==
--- NOTE | 2024-11-24 11:27 | HM_ITS ---
* Total monitoring time 3 days. * Underlying rhythm is atrial fibrillation with an average rate of 54/Min. * About 47% of the time, rate < 60/Min. * Rare ventricular ectopy. * No significant pauses or high-grade AV blocks. * No patient markers or diary events. MTDD
--- OUTSIDE RECORDS SUMMARY | 2024-11-24 14:06 | XMS_ITS | Encounter Summary ---
Author Organization [facility] Address [address] [place] [address] [place] [address] Phone Care Team Providers Care First Aid Officer Name Role Phone Nasreen Carter Primary Care Provider [email or web address] Encounter Details Date Type Department Care Team (Late st Contact Info) Description 01/26/2024 Procedure Pass [facility], Ct Scan - [address] [address] Social History Tobacco Use Types Packs/Day Years Used Date Smoking Tobacco: Never Assessed Education Answer Date Recorded Are you interested [...] on file Sexual Orientation Not on file documented as of this encounter Functional Status * Calculated C-SSRS Risk Score (Lifetime/Recent) Answer Date of Assessment Author No Risk Indicated 01/26/2024 5:00 PM Justice Enrique RN * [place] Suicide Severity Rating Scale (Screener/Recent Self-Report) Question Answer Date of Assessment Author 1. Wish to be (Past 1 Month) No 01/26/2024 5:00 PM Justice Enrique RN 2. Non-Specific Active Suici janny Thoughts (Past 1 Month) No 01/26/2024 5:00 PM Curtis Enrique RN 6. Suicidal Behavior (Lifetime) No 5:00 PM Justice Enrique RN documented as of this encounter Plan of Treatment Not on file documented as of this encounter Visit Diagnoses Not on filedocumented in this encounter Care Teams First Aid Officer Relationship Specialty Start Date End Date Nasreen Carter [address] [place] [address] PCP - General 01/26/24 documented as of this encounter Additional Source Comments The information contained in this document represents components of the legal health record. It is not the complete legal health record.[facility]
--- OUTSIDE RECORDS SUMMARY | 2024-11-24 14:06 | XMS_ITS | Clinical Summary ---
Author Organization [facility] Address [address] [place] [address] Phone Care Team Providers Care Cash Posting Representative Name Role Phone Nasreen Carter Primary Care Provider [email or web address] Allergies Active Allergy Reactions Criticality Noted Date [...] VACCINE (1 - 1-dose 75+ series) 2013 INFLUENZA VACCINE (#1) 2024 12/19/2023 COVID-19 VACCINE (2 - 2023-2 5 season) [...] file Insurance MEDICARE PART A & B [facility] MEDICARE SUPPLEMENT MEDICARE PART A & B [facility] MEDICARE SUPPLEMENT MEDICARE PART A & B [employer] MED[employer] SUPPLEMENT MEDICARE PART A & B Member Subscriber Plan / Payer (Ef fective 2003-Present) Name:Eamonama Michelle Member ID:[id number] Relation to Subscriber:Self Name:EamonKrissy serratolian Subscriber ID:[id number] Payer ID:[id number] Group ID:Not on file Type:Medicare Address: [employer] [address] [employer] MEDICARE SUPPLEMENT MEDICARE PART A & B [facility] MEDICARE SUPPLEMENT MEDICARE PART A & B [facility] MEDICARE SUPPLEMENT Care Teams Cash Posting Representative Relationship Specialty Start Date End Date Nasreen Carter [address] [place] [address] PCP - General 01/26/24 Additional Source Comments The information contained in this document represents components of the legal health record. It is not the complete legal health record.[facility]
--- OUTSIDE RECORDS SUMMARY | 2024-11-24 14:06 | XMS_ITS | Encounter Summary ---
Author Organization [facility] Address [address] [place] [address] [place] [address] Phone Care Team Providers Care Foiling Machine Adjuster Name Role Phone Nasreen Carter Primary Care Provider [email or web address] Encounter Details Date Type Department Care Team (Late st Contact Info) Description 01/26/2024 Procedure Pass [facility], Ct Scan - [address] [address] Social History Tobacco Use Types Packs/Day Years [...] 01/26/2024 5:00 PM Justice Enrique RN * [place] Suicide Severity Rating Scale (Screener/Recent Self-Report) Question Answer Date of Assessment Author 1. Wish to be (Past 1 Month) No 01/26/2024 5:00 PM Justice Enrique RN 2. Non-Specific Active Suici janny Thoughts (Past 1 Month) No 01/26/2024 5:00 PM Curtis Enrique RN 6. Suicidal Behavior (Lifetime) No 5:00 PM Justice Enrqiue RN documented as of this encounter Plan of Treatment Not on file documented as of this encounter Visit Diagnoses Not on filedocumented in this encounter Care Teams Foiling Machine Adjuster Relationship Specialty Start Date End Date Nasreen Carter [address] [place] [address] PCP - General 01/26/24 documented as of this encounter Additional Source Comments The information contained in this document represents components of the legal health record. It is not the complete legal health record.[facility]
--- OUTSIDE RECORDS SUMMARY | 2024-11-24 14:07 | XMS_ITS | Encounter Summary ---
Author Organization [facility] Address [address] [place] [address] [place] [address] Phone Care Team Providers Care Green Marketer Name Role Phone Nasreen Carter Primary Care Provider [email or web address] Encounter Details Date Type Department Care Team (Late st Contact Info) Description 01/26/2024 Procedure Pass [facility], Ct Scan - [address] [address] Social History Tobacco Use Types Packs/Day Years [...] 01/26/2024 5:00 PM Justice Enrique RN * [place] Suicide Severity Rating Scale (Screener/Recent Self-Report) Question [...] on filedocumented in this encounter Care Teams Green Marketer Relationship Specialty Start Date End Date Nasreen Carter [address] [place] [address] PCP - General 01/26/24 documented as of this encounter Additional Source Comments The information contained in this document represents components of the legal health record. It is not the complete legal health record.[facility]
== END ==
LOC: HO.CARD 11:22
PROVIDERS: PCP Physician Assistant; Visit Provider Internal Medicine Cardiovascular Disease
DX: I48.20 Chronic atrial fibrillation, unspecified (principal)
CPT/HCPCS: 93242

== ENCOUNTER → 2024-11-24 11:27 | Outpatient (BNV) | payer MEDICARE, OTHER, SELFPAY | PROVIDERS: PCP Physician Assistant; Visit Provider Internal Medicine | DX: I48.91 Unspecified atrial fibrillation (principal); I49.3 Ventricular premature depolarization | CPT/HCPCS: 93244 ==

== ENCOUNTER → 2025-01-08 11:27 | Outpatient (REF) | payer MEDICARE, OTHER, SELFPAY ==
--- NOTE | 2025-01-08 11:31 | HM_ITS ---
* Total monitoring time 2 days. * Underlying rhythm is atrial fibrillation with an average rate of 66/Min. * Rare ventricular ectopy. * No significant pauses or high-grade AV blocks. * Irregular heartbeat in patient diary associated with atrial fibrillation at 94/Min. MTDD
--- OUTSIDE RECORDS SUMMARY | 2025-01-08 14:37 | XMS_ITS | Encounter Summary ---
Author Organization [facility] Address [address] [facility] [address] [place] [address] Phone Care Team Providers Care Transformer Shop Supervisor Name Role Phone Nasreen Carter Primary Care Provider Unavailable Encounter Details Date Type Department Care Team (Late st Contact Info) Description 01/26/2024 Procedure Pass [facility], Ct Scan - [address] [address] Social History Tobacco Use Types Packs/Day Years [...] 01/26/2024 5:00 PM Justice Enrique RN * [place] Suicide Severity Rating Scale (Screener/Recent Self-Report) Question [...] on filedocumented in this encounter Care Teams Transformer Shop Supervisor Relationship Specialty Start Date End Date Nasreen Carter PCP - General 01/26/24 documented as of this encounter Additional Source Comments The information contained in this document represents components of the legal health record. It is not the complete legal health record.[facility]
--- OUTSIDE RECORDS SUMMARY | 2025-01-08 14:37 | XMS_ITS | Clinical Summary ---
Author Organization [facility] Address [address] [place] [address] Phone Care Team Providers Care Sack Maker Name Role Phone Nasreen Carter Primary Care Provider Unavailable Allergies Active Allergy Reactions Criticality Noted Date Comments House Dust Other (See Comments) 02/05/2024 Insect Venom Other (See Comments) 02/05/2024 Mold Other (See Comments) 02/05/2024 Medications spironolactone (ALDACTONE) 25 MG tablet 02/04/2024 Active JANUVIA 100 mg tablet Take 100 mg by mouth daily. Active BD TOMMY 2ND GEN PEN NEEDLE 32 gauge x 32 Ndle USE AND DISCARD 1 PEN NEEDLE [...] (#1) 2024 12/19/2023 COVID-19 VACCINE (2 - 2024-2 6 season) 2024 12/19/2023 Adult Td,Tdap Booster 03/07/2033 [...] file Insurance MEDICARE PART A & B [facility] MEDICARE SUPPLEMENT MEDICARE PART A & B [facility] MEDICARE SUPPLEMENT MEDICARE PART A & B [facility] MEDICARE SUPPLEMENT MEDICARE PART A & B [facility] MEDICARE SUPPLEMENT MEDICARE PART A & B Member Subscriber Plan / Payer (Ef fective 2003-Present) Name:Michelle Jackson Member ID:[id number] Relation to Subscriber:Self Name:Michelle Jackson Subscriber ID:[id number] Payer ID:[id number] Group ID:Not on file Type:Medicare Address: [facility] [employer] [facility] [address] [address] [facility] [employer] MEDICARE SUPPLEMENT MEDICARE PART A & B [facility] MEDICARE SUPPLEMENT Care Teams Sack Maker Relationship Specialty Start Date End Date Nasreen Carter PCP - General 01/26/24 Additional Source Comments The information contained in this document represents components of the legal health record. It is not the complete legal health record.[facility]
--- OUTSIDE RECORDS SUMMARY | 2025-01-08 14:37 | XMS_ITS | Encounter Summary ---
Author Organization [facility] Address [address] [facility] [address] [place] [address] Phone Care Team Providers Care Pipeman Name Role Phone Nasreen Carter Primary Care Provider Unavailable Encounter Details Date Type Department Care Team (Late st Contact Info) Description 01/26/2024 Procedure Pass [facility], Ct Scan - [address] [place] [address] [address] Social History Tobacco Use Types Packs/Day Years [...] 01/26/2024 5:00 PM Justice Enrique RN * [place] Suicide Severity Rating Scale (Screener/Recent Self-Report) Question [...] on filedocumented in this encounter Care Teams Pipeman Relationship Specialty Start Date End Date Nasreen Carter PCP - General 01/26/24 documented as of this encounter Additional Source Comments The information contained in this document represents components of the legal health record. It is not the complete legal health record.[facility]
--- OUTSIDE RECORDS SUMMARY | 2025-01-08 14:37 | XMS_ITS | Encounter Summary ---
Author Organization [facility] Address [address] [facility] [address] [place] [address] Phone Care Team Providers Care Sewage Disposal Engineer Name Role Phone Nasreen Carter Primary Care Provider Unavailable Encounter Details Date Type Department Care Team (Late st Contact Info) Description 01/26/2024 Procedure Pass [facility], Ct Scan - [address] [address] Social History Tobacco Use Types Packs/Day Years [...] 01/26/2024 5:00 PM Justice Enrique RN * [place] Suicide Severity Rating Scale (Screener/Recent Self-Report) Question [...] on filedocumented in this encounter Care Teams Sewage Disposal Engineer Relationship Specialty Start Date End Date Nasreen Carter PCP - General 01/26/24 documented as of this encounter Additional Source Comments The information contained in this document represents components of the legal health record. It is not the complete legal health record.[facility]
== END ==
LOC: HO.CARD 11:27
PROVIDERS: PCP Physician Assistant; Visit Provider Internal Medicine Cardiovascular Disease
DX: I48.20 Chronic atrial fibrillation, unspecified (principal); I49.3 Ventricular premature depolarization
CPT/HCPCS: 93225

== ENCOUNTER → 2025-01-08 11:31 | Outpatient (BNV) | payer MEDICARE, OTHER, SELFPAY | PROVIDERS: PCP Physician Assistant; Visit Provider Internal Medicine | DX: I48.20 Chronic atrial fibrillation, unspecified (principal) | CPT/HCPCS: 93227 ==